=== PATIENT | female | born 1990 | race Caucasian/White ===

== ENCOUNTER → 2020-07-10 14:54 | Outpatient (BNVA) | payer OTHER, SELFPAY | PROVIDERS: PCP Internal Medicine; Visit Provider Obstetrics & Gynecology | DX: Z76.89 Persons encountering health services in other specified circumstances (principal) ==

== ENCOUNTER 2020-07-11 15:47 | Outpatient (REF) | payer OTHER, SELFPAY ==
[2020-07-12 08:56] LABS: CT PCR NOT DETECTED (Not Detect.); NG PCR NOT DETECTED (Not Detect.)
[2020-07-12 09:32] LABS: BV Int Neg Control Negative (Negative); BV Int Pos Control Positive (Positive)
[2020-07-19 00:37] LABS: HPV 16 RNA NOT DETECTED (NOT DETECTED); HPV mRNA E6/E7 Detected (Not Detected)
== END 2020-07-11 15:48 | disposition home or self-care (01) ==
LOC: HO.LNP 15:47
PROVIDERS: Visit Provider Obstetrics & Gynecology
DX: Z12.4 Encounter for screening for malignant neoplasm of cervix (principal); Z11.51 Encounter for screening for human papillomavirus (HPV); Z11.3 Encounter for screening for infections with a predominantly sexual mode of transmission
CPT/HCPCS: 87480; 87491; 87510; 87591; 87624; 87625; 87660; 88141; 88142

== ENCOUNTER 2020-07-11 16:13 | Outpatient (REF) | payer OTHER, SELFPAY | END 2020-07-11 16:14 | disposition home or self-care (01) | LOC: HO.LAB 16:13 | PROVIDERS: Visit Provider Obstetrics & Gynecology | DX: Z13.89 Encounter for screening for other disorder (principal) ==

== ENCOUNTER 2020-07-16 22:11 | Emergency (ER) | payer OTHER, SELFPAY ==
[2020-07-16 22:15] VITALS: BP 149/76; PULSE 98; RESP 18; TEMP 38.1; O2SAT 98; BMI 57.6
--- NOTE | 2020-07-16 22:47 | CT_ITS ---
EXAMINATION: CT CHEST WITHOUT CONTRAST CLINICAL INFORMATION: 29-year-old female patient with cough, fever, and shortness of breath. Per chart: History of thrombocytopenia. COMPARISON: Last chest x-ray on 05/13/2020. Question viral pneumonitis. CTA exams of the chest on 08/29/2014 and 01/15/2015. CTA of the chest on 02/06/2012. TECHNIQUE: Multidetector volumetric CT imaging of the chest was done. Axial MIP volume rendering provided. Sagittal, coronal, and MIP axial reformatted images were obtained. This CT examination was performed using dose optimization techniques as appropriate, variously including the following: *Automated exposure control *Adjustment of mA and/or kV according to patient size (this includes techniques or standardized protocols for targeted exams where dose is matched to indication/reason for exam; i.e. extremities or head) *Use of iterative reconstruction technique DLP: 453 mGy-cm FINDINGS: MGMT CONSULTANT: The scattered airspace opacities in both lungs are difficult to perceive on the latin dance instructor view. LUNGS: All lobes of both lungs show innumerable focal groundglass opacities both centrally and peripherally. This is combined with numerous peripheral and subpleural micronodules in both lungs. There is no cavitation in any of the larger lesions. There is no sign of interlobular septal thickening. Scattered tiny subpleural nodules are also present in the fissures. MEDIASTINUM: Multiple bilateral hilar, right paratracheal, superior mediastinal, and AP window lymph nodes are present. Subcarinal lymph node enlargement is also identified. PLEURA: There is no pleural effusion. No pleural mass or thickening. AXILLA: A number of small lymph nodes are present in the left axilla. Some are nearly entirely replaced by fat all others are more solid. UPPER ABDOMEN: The spleen is enlarged. Also, 2 small accessory spleens are present in the left upper quadrant. OSSEOUS STRUCTURES: Multiple Schmorl's nodes are present in the lower thoracic spine. IMPRESSION: Mediastinal and hilar lymphadenopathy associated with diffuse micronodular and groundglass airspace opacities in both lungs, all lobes. In view of the chronicity of these findings which were present in 2013 and 2014, a diagnosis of sarcoidosis can be entertained. Splenomegaly.
[2020-07-16] MEDS: Albuterol/Iprat 2.5/0.5MG 3 ML AMPUL.NEB INHALE (23:21)
[2020-07-16 23:26] LABS: Basophils Absolute Auto 0.2 X10*3/uL (0.0-0.2); Basophils Percent Auto 1.7 % (0-2); Eosinophils Percent Auto 10.6 % (0-4); Hematocrit 41.2 % (37-47); Hemoglobin 13.3 g/dl (12.0-16.0); Imm Gran Abs Auto 0.02 X10*3/uL (0.00-0.03); Imm Gran Pct Auto 0.2 % (0.0-0.4); Lymphocytes Absolute Auto 1.6 X10*3/uL (1.2-4.9); Lymphocytes Percent Auto 17.5 % (20-40); MANUAL DIFF FLAG NO; Mean Corpuscular HGB Conc 32.3 g/dl (31.0-35.0); Mean Corpuscular Hemoglobin 26.5 pg (27.0-33.0); Mean Corpuscular Volume 82.2 fL (80-98); Mean Platelet Volume 10.1 fL (9.4-12.3); Monocytes Absolute Auto 0.7 X10*3/uL (0.1-1.2); Monocytes Percent Auto 8.2 % (2-11); Neutrophils Absolute Auto 5.6 X10*3/uL (2.0-8.3); Neutrophils Percent Auto 61.8 % (45-73); Platelet Count 292 X10*3/uL (160-400); Red Blood Count 5.01 X10*6/uL (4.20-5.50)
--- NOTE | 2020-07-16 23:29 | ED.ASTHMA ---
HPI - Asthma General Chief Complaint: Asthma Stated Complaint: ASTHMA Time Seen by Provider: 07/16/20 22:47 Source: patient Mode of arrival: ambulatory Limitations: no limitations History of Present Illness HPI Narrative: 29-year-old female presents with 1 week of shortness of breath, feels like asthma exacerbation, intermittent fevers and chills, cough, and fatigue. She does work at [employer] and has had multiple sick contacts. She did not report any palpitations, abdominal pain, abdominal distention, dysuria, hematuria, and edema. MD complaint: asthma attack , shortness of breath and wheezing Onset (ago): week(s) ( One) Severity: moderate Associated symptoms: dry cough and fever Asthma History: childhood onset Treatments Prior to Arrival: inhaled bronchodilator Related Data Current Asthma Therapy: inhaled bronchodilator Home Medications Medication Instructions Recorded Confirmed albuterol sulfate 90 mcg/actuation INHALATION 07/11/20 07/15/20 aerosol inhaler cholecalciferol (vitamin D3) 1,250 PO 07/15/20 07/15/20 mcg (50,000 unit) capsule Previous Rx's Medication Instructions Recorded prednisone 50 mg PO DAILY 5 Days #5 tab 07/17/20 Allergies Allergy/AdvReac Type Severity Reaction Status Date / Time adair Allergy Severe ANAPHYLAXIS Verified 07/16/20 22:14 cinnamon [CINNAMON] Allergy Severe MOUTH Verified 07/16/20 22:14 MEMBRANES PEEL adhesive tape [TAPE,ADHESIVE] Allergy Unknown HIVES Verified 07/16/20 22:14 amoxicillin [From Augmentin] Allergy Unknown rash Verified 07/16/20 22:14 cefaclor [From CECLOR] Allergy Unknown RASH Verified 07/16/20 22:14 clarithromycin [From BIAXIN] Allergy Unknown RASH Verified 07/16/20 22:14 clavulanic acid Allergy Unknown rash Verified 07/16/20 22:14 [From Augmentin] doxycycline [DOXYCYCLINE] Allergy Unknown VOMITING, Verified 07/16/20 22:14 nausea and vomiting morphine Allergy Unknown burning Verified 07/16/20 22:14 Sulfa (Sulfonamide Allergy Unknown rash Verified 07/16/20 22:14 Antibiotics) sulfamethoxazole Allergy Unknown rash Verified 07/16/20 22:14 [From Bactrim] trimethoprim [From Bactrim] Allergy Unknown rash Verified 07/16/20 22:14 vancomycin Allergy Unknown hives, Verified 07/16/20 22:14 redness and hot to touch at IV site metoclopramide [From Reglan] AdvReac Unknown anxiety Verified 07/16/20 22:14 Platelet Infusion Set Allergy Unknown hives Uncoded 07/10/20 15:29 PLATELETS Allergy Unknown HIVES Uncoded 07/10/20 15:29 Review of Systems Review of Systems: Constitutional: No Fever, No Chills ENT/Mouth: No Hoarseness, No sore throat, No Rhinorrhea Eyes: No Redness, No Discharge, No Vision Changes Cardiovascular: No Chest Pain, positive SOB, positive Dyspnea on Exertion, No Edema Respiratory: positive Cough, No Sputum, positive Wheezing, Gastrointestinal: No Nausea, No Vomiting, No Diarrhea, No abdominal Pain Genitourinary: No Dysuria, No Hematuria Musculoskeletal: No joint pain, No Myalgias Skin: No rash Neuro: No Weakness, No Numbness, No Headache Psych: No anxiety, depression Heme/Lymph: No Bruising, No Bleeding Endocrine: No Polyuria, No Polydipsia PMFSH Past Medical History Medical History Anxiety Asthma Depression Dyslipidemia History of ITP Migraine Mild intermittent asthma Variant angina Vitamin D deficiency Surgical History H/O LEEP History of cardiac cath History of carpal tunnel surgery History of ITP Family History Family History Father HTN (hypertension) Mother SLE (systemic lupus erythematosus) Cancer of thyroid Anxiety Depression Brother No problems noted. Social History Social History Alcohol intake: current Alcohol intake frequency: does not drink Smoking Status: Unknown if ever smoked Smoked in Last 30 Days: No Substance Use Type: Marijuana Advance Directives: No Advance Directives Information Provided: No Sexual orientation: Lesbian/[place]/Homosexual Gender identity: female Physical Exam Vital Signs: Vital Signs: Vital Signs Temp Pulse Resp BP Pulse Ox 07/16/20 23:57 99.4 F 114 H 20 173/76 H 98 07/16/20 22:15 100.6 F H 98 18 149/76 H 98 Body Mass Index 57.6 Appearance: Alert. Oriented X3. No acute distress. Head: Normal external exam. Normocephalic. Atraumatic. No [place] signs noted. No raccoon eyes noted Eyes: PERRLA. EOMI. Conjunctiva and sclera normal. Eyelids normal. ENT: EAC normal. TM's Normal. Pharynx normal. Uvula midline. Moist mucous membranes. No trismus noted. No drooling noted. No muffled voice noted. Neck: Normal inspection. Neck supple. No adenopathy. Thyroid Normal. No meningeal signs. No neck mass noted. CVS: Normal heart rate and rhythm. Heart sound normal. No murmurs noted. Pulses normal throughout. Respiratory: mild tachypnea respiration rate 21. poor air circulation, inspiratory and expiratory wheezes throughout all lobes Painless inspiration. Chest nontender. No accessory muscle usage. Abdomen: Soft and nontender. Bowel sounds normal in all 4 quadrants. No distention noted. No organomegaly noted. No visible injury noted. Back: No CVA tenderness. Full range of motion noted. Skin: Skin warm and dry. Normal skin color. Normal skin turgor. No rashes/lesions/lacerations noted. Extremities: No lower extremity edema. Extremities exhibit normal range of motion. Extremities nontender. Neuro: No motor deficit. No sensory deficit. Reflexes normal. Course Course Course Narrative: will rule out pneumonia and COVID-19, treat for acute asthma exacerbation with steroids, updraft, and IV fluids. Will order CT scan of the chest. 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 CBC within normal limits, chemistries normal, patient CT scan of the chest indicates sarcoidosis as she does have numerous ground-glass opacities. Detailed discussion regarding sarcoidosis, and incidental findings of Schmorl's nodes of the spine. Patient does understand that she must follow-up with pulmonology and could also follow-up with Dr. Hutchison for the sarcoidosis finding. She does understand that she must isolate until Covid 19 test returns. Patient verbalized understanding of and agrees to plan of care to discharge home. MDM - Asthma Differential Diagnosis Differential diagnosis: Likely Acute exacerbation, Pneumonia and Pneumothorax Medical Records Attestation: I reviewed the patient's medical records. Lab Data Attestation: I reviewed the patient's lab results. Result diagrams: 07/16/20 22:57 07/16/20 22:57 Labs: Lab Results 07/16/20 07/16/20 Range/Units 22:57 22:57 WBC 9.0 (4.8-10.8) X10*3/uL RBC 5.01 (4.20-5.50) X10*6/uL Hgb 13.3 (12.0-16.0) g/dl Hct 41.2 (37-47) % MCV 82.2 (80-98) fL MCH 26.5 L (27.0-33.0) pg MCHC 32.3 (31.0-35.0) g/dl RDW 13.0 (11.0-16.0) % Plt Count 292 (160-400) X10*3/uL MPV 10.1 (9.4-12.3) fL Immature Gran % (Auto) 0.2 (0.0-0.4) % Neut % (Auto) 61.8 (45-73) % Lymph % (Auto) 17.5 L (20-40) % [place] % (Auto) 8.2 (2-11) % Eos % (Auto) 10.6 H (0-4) % Baso % (Auto) 1.7 (0-2) % Lymph # (Auto) 1.6 (1.2-4.9) X10*3/uL [place] # (Auto) 0.7 (0.1-1.2) X10*3/uL Eos # (Auto) 1.0 H (0.0-0.4) X10*3/uL Baso # (Auto) 0.2 (0.0-0.2) X10*3/uL Abs Immat Gran (auto) 0.02 (0.00-0.03) X10*3/uL Absolute Neuts (auto) 5.6 (2.0-8.3) X10*3/uL Absolute Nucleated RBC 0.000 (0.0-0.012) X10*3/uL Nucleated RBC % (auto) 0.0 (0.0-0.2) /100WBC Sodium 140 (135-145) mmol/L Potassium 4.4 (3.3-5.1) mmol/l Chloride 105 (96-108) mmol/L Carbon Dioxide 30 H (22-29) mmol/L Anion Gap 9 L (12-20) BUN 9 (9-16) mg/dL Creatinine 0.84 (0.5-1.4) mg/dL Estim Creat Clear Calc 143.7 Estimated GFR > 60 Random Glucose 99 (60-115) mg/dL Calcium 8.8 (8.4-10.2) mg/dL Imaging Data CT scan - chest: Attestation: I personally reviewed and interpreted this imaging study as follows: Radiologist's impression: FINDINGS: RESEARCH AND DEVELOPMENT RESEARCHER: The scattered airspace opacities in both lungs are difficult to perceive on the lag screwer view. LUNGS: All lobes of both lungs show innumerable focal groundglass opacities both centrally and peripherally. This is combined with numerous peripheral and subpleural micronodules in both lungs. There is no cavitation in any of the larger lesions. There is no sign of interlobular septal thickening. Scattered tiny subpleural nodules are also present in the fissures. MEDIASTINUM: Multiple bilateral hilar, right paratracheal, superior mediastinal, and AP window lymph nodes are present. Subcarinal lymph node enlargement is also identified. PLEURA: There is no pleural effusion. No pleural mass or thickening. AXILLA: A number of small lymph nodes are present in the left axilla. Some are nearly entirely replaced by fat all others are more solid. UPPER ABDOMEN: The spleen is enlarged. Also, 2 small accessory spleens are present in the left upper quadrant. OSSEOUS STRUCTURES: Multiple Schmorl's nodes are present in the lower thoracic spine. IMPRESSION: Mediastinal and hilar lymphadenopathy associated with diffuse micronodular and groundglass airspace opacities in both lungs, all lobes. In view of the chronicity of these findings which were present in 2013 and 2014, a diagnosis of sarcoidosis can be entertained. Splenomegaly. Discharge Plan Discharge Clinical Impression: Sarcoidosis of lung Asthma with acute exacerbation Qualifiers: Asthma severity: moderate Asthma persistence: persistent Qualified Code(s): J45.41 - Moderate persistent asthma with (acute) exacerbation Patient Disposition: Home, Self-Care Instructions: Asthma (ED), Sarcoidosis (ED) Additional Instructions: you were evaluated for shortness of breath and asthma exacerbation. CT scan of the chest indicates sarcoidosis. We have referred you to pulmonary. Please call and make an appointment. You may also consider following up with Dr. Hutchison as you are an established patient with her. Please take prednisone 50 mg By mouth for the next 5 days. please start this medication in the morning. Thank you for choosing this emergency department for evaluation. Please follow-up with primary care physician as needed. Return to the emergency department for any new, concerning, or worsening symptoms. Prescriptions: New prednisone 50 mg tablet 50 mg PO DAILY 5 Days Qty: 5 RF: 0 No Action albuterol sulfate 90 mcg/actuation HFA aerosol inhaler inhalation RF: 0 cholecalciferol (vitamin D3) 1,250 mcg (50,000 unit) capsule PO RF: 0 Referrals: Andrea Marroquin MD [Physician] - 2 days ( new diagnosis of sarcoidosis) Interventions: ED Discharge Assessment Last Done: 07/17/20 01:09 Discharge Date/Time: 07/17/20 01:14
--- NOTE | 2020-07-16 23:33 | PC.NURSE ---
pt moved to main ed report given to patricia roca.
[2020-07-16] MEDS: Acetaminophen 325 MG TABLET 650 MG PO (23:46)
[2020-07-16] MEDS: methylPREDNISolone Sod Succ/PF 125 MG/2 ML VIAL IVPUSH (23:47)
[2020-07-16] MEDS: Magnesium Sulfate/H2O 2 GM/50 ML PIGGYBACK IV (23:50)
[2020-07-16 23:51] LABS: Anion Gap 9 (12-20); Blood Urea Nitrogen 9 mg/dL (9-16); Calcium 8.8 mg/dL (8.4-10.2); Carbon Dioxide 30 mmol/L (22-29); Chloride 105 mmol/L (96-108); Creatinine Clr Calc Pharmacy 143.7; Estimated Glomerular Filt Rate > 60; Glucose Random 99 mg/dL (60-115); Potassium 4.4 mmol/l (3.3-5.1); Sodium 140 mmol/L (135-145)
[2020-07-16] MEDS: 0.9 % Sodium Chloride 1,000 ML 999 ML IVCONT (23:51)
[2020-07-16 23:57] VITALS: BP 173/76; PULSE 114; RESP 20; TEMP 37.4; O2SAT 98
== END 2020-07-17 01:14 | disposition home or self-care (01) ==
PROVIDERS: Nurse Practitioner Family; Emergency Provider Emergency Medicine Emergency Medical Services; PCP Internal Medicine
DX: D86.0 Sarcoidosis of lung (principal); J45.41 Moderate persistent asthma with (acute) exacerbation; Z20.828 Contact with and (suspected) exposure to other viral communicable diseases; F12.90 Cannabis use, unspecified, uncomplicated; Z79.899 Other long term (current) drug therapy
CPT/HCPCS: 36415; 71250; 80048; 85025; 87635; 96365; 96366; 96375; 99284; J2930; J3475

== ENCOUNTER 2020-07-18 07:46 | Outpatient (REF) | payer OTHER, SELFPAY ==
[2020-07-18 09:01] LABS: COVID-19 Test Negative (Negative)
== END 2020-07-18 07:47 | disposition home or self-care (01) ==
LOC: HO.LAB 07:46
PROVIDERS: Visit Provider Internal Medicine
DX: Z20.828 Contact with and (suspected) exposure to other viral communicable diseases (principal)
CPT/HCPCS: 87635

== ENCOUNTER → 2020-07-19 13:27 | Outpatient (BNV) | payer OTHER, SELFPAY | PROVIDERS: PCP Internal Medicine; Visit Provider Internal Medicine Medical Oncology | DX: D69.3 Immune thrombocytopenic purpura (principal) | CPT/HCPCS: 99213; 99214 ==

== ENCOUNTER 2020-07-20 11:13 | Outpatient (REF) | payer OTHER, SELFPAY ==
[2020-07-20 11:40] LABS: COVID-19 Test Negative (Negative)
== END 2020-07-20 11:14 | disposition home or self-care (01) ==
LOC: HO.LAB 11:13
PROVIDERS: Visit Provider Internal Medicine
DX: Z20.828 Contact with and (suspected) exposure to other viral communicable diseases (principal)
CPT/HCPCS: 87635

== ENCOUNTER 2020-09-05 13:45 | Outpatient (REF) | payer OTHER, SELFPAY | END 2020-09-05 13:46 | disposition home or self-care (01) | LOC: HO.LAB 13:45 | PROVIDERS: Visit Provider Hospitalist | DX: Z20.828 Contact with and (suspected) exposure to other viral communicable diseases (principal) | CPT/HCPCS: U0003 ==

== ENCOUNTER 2021-03-14 16:53 | Outpatient (REF) | payer OTHER, SELFPAY | END 2021-03-14 16:54 | disposition home or self-care (01) | LOC: HO.LNP 16:53 | PROVIDERS: Visit Provider Hospitalist | DX: Z20.822 Contact with and (suspected) exposure to COVID-19 (principal) | CPT/HCPCS: U0003; U0005 ==

== ENCOUNTER 2021-05-30 11:22 | Outpatient (REF) | payer OTHER, SELFPAY | END 2021-05-30 11:23 | disposition home or self-care (01) | LOC: HO.LNP 11:22 | PROVIDERS: Visit Provider Hospitalist | DX: Z20.822 Contact with and (suspected) exposure to COVID-19 (principal); B34.9 Viral infection, unspecified | CPT/HCPCS: U0003; U0005 ==

== ENCOUNTER 2021-08-02 06:37 | Emergency (ER) | payer MEDICAID, SELFPAY ==
[2021-08-02 07:08] VITALS: BMI 51.1
[2021-08-02 07:14] VITALS: BP 147/76; PULSE 75; RESP 18; TEMP 37; O2SAT 98
[2021-08-02 07:20] VITALS: O2SAT 98
[2021-08-02 07:35] LABS: COVID-19 Test Negative (Negative); IDNOW Serial# 9DD0AD1C
--- NOTE | 2021-08-02 08:27 | ED.URI ---
HPI - URI/Sore Throat General Chief Complaint: Upper Respiratory Symptoms Stated Complaint: cold like symptoms Time Seen by Provider: 08/02/21 07:06 History of Present Illness HPI Narrative: Patient 30 years old presents today with having coughing upper respiratory symptoms. 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 Cough with some mucus. No fever. Patient has a history of ITP. No nausea no vomiting. Patient not vaccinated for COVID. Related Data Previous Rx's Medication Instructions Recorded albuterol sulfate 2.5 mg (3 mL) INHALATION QID PRN 03/14/21 #90 ml albuterol sulfate 90 mcg/actuation 1 puff INHALATION Q6H PRN #8.5 g 05/12/21 aerosol inhaler fluticasone propionate 110 1 puff INHALATION Q12H #12 g 05/12/21 mcg/actuation HFA aerosol inhaler levocetirizine 5 mg tablet 5 mg PO QPM PRN #30 tab 05/12/21 triamcinolone acetonide 0.1 % 1 appl TOPICAL DAILY 10 Days #30 g 05/12/21 topical cream ondansetron HCl 8 mg tablet 8 mg PO Q8H PRN #20 tab 05/30/21 azithromycin 250 mg tablet See Rx Instructions .ROUTE 08/02/21 .COMPLEX #6 tab Allergies Allergy/AdvReac Type Severity Reaction Status Date / Time adair Allergy Severe ANAPHYLAXIS Verified 05/30/21 09:27 cinnamon [CINNAMON] Allergy Severe MOUTH Verified 05/30/21 09:27 MEMBRANES PEEL homatropine Allergy Severe Hives Verified 05/30/21 09:27 [From Hycodan (with homatropin)] hydrocodone Allergy Severe Hives Verified 05/30/21 09:27 [From Hycodan (with homatropin)] adhesive tape [TAPE,ADHESIVE] Allergy Unknown HIVES Verified 05/30/21 09:27 amoxicillin [From Augmentin] Allergy Unknown rash Verified 05/30/21 09:27 cefaclor [From CECLOR] Allergy Unknown RASH Verified 05/30/21 09:27 clarithromycin [From BIAXIN] Allergy Unknown RASH Verified 05/30/21 09:27 clavulanic acid Allergy Unknown rash Verified 05/30/21 09:27 [From Augmentin] doxycycline [DOXYCYCLINE] Allergy Unknown VOMITING, Verified 05/30/21 09:27 nausea and vomiting morphine Allergy Unknown burning Verified 05/30/21 09:27 Sulfa (Sulfonamide Allergy Unknown rash Verified 05/30/21 09:27 Antibiotics) sulfamethoxazole Allergy Unknown rash Verified 05/30/21 09:27 [From Bactrim] trimethoprim [From Bactrim] Allergy Unknown rash Verified 05/30/21 09:27 vancomycin Allergy Unknown hives, Verified 05/30/21 09:27 redness and hot to touch at IV site metoclopramide [From Reglan] AdvReac Unknown anxiety Verified 05/30/21 09:27 Platelet Infusion Set Allergy Unknown hives Uncoded 09/05/20 13:42 PLATELETS Allergy Unknown HIVES Uncoded 09/05/20 13:42 Review of Systems Review of Systems: Positive coughing upper respiratory symptoms positive generalized malaise Yes all other systems are reviewed and are negative [facility] Past Medical History Attestation statement: The following information was validated with the patient. Medical History Anxiety Asthma Depression Dermatitis Dyslipidemia History of ITP Migraine Mild intermittent asthma Rhinitis, allergic Variant angina Vitamin D deficiency Surgical History H/O LEEP History of cardiac cath History of carpal tunnel surgery History of ITP Family History Family History Father HTN (hypertension) Mother SLE (systemic lupus erythematosus) Cancer of thyroid Anxiety Depression Brother No problems noted. Social History Social History Housing: Apartment Alcohol intake: never Patient Tobacco Use Status: Never used Tobacco e-Cigarette/Vaping Use: Currently Using Use of substances other than those prescribed or required for medical reasons: No Substance Use Type: Marijuana Advance Directives: No service: No Current occupational status: employed Current occupation: [employer] Sexual orientation: Lesbian/[place]/Homosexual Gender identity: Female Physical Exam Vital Signs: Vital Signs: Last Vital Signs Temp 98.6 F 08/02/21 07:14 Pulse 75 08/02/21 07:14 Resp 18 08/02/21 07:14 BP 147/76 H 08/02/21 07:14 Pulse Ox 98 08/02/21 07:20 Body Mass Index 51.1 MDM - URI/Sore Throat MDM Narrative Medical decision making narrative: Patient's COVID test was negative. Well-appearing no distress. Will discharge patient home. O2 sat is normal at 98%. Will discharge patient home Differential Diagnosis Differential diagnosis: Likely upper respiratory infection Medical Records Attestation: I reviewed the patient's medical records. Lab Data Attestation: I reviewed the patient's lab results. Labs: Lab Results 08/02/21 Range/Units 07:16 COVID-19 (ROSS) Negative (Negative) COVID-19 Clin Com See Note Discharge Plan Discharge Clinical Impression: Upper respiratory infection Patient Disposition: Home, Self-Care Instructions: Upper Respiratory Infection (ED) Prescriptions: New azithromycin 250 mg tablet See Rx Instructions .ROUTE .COMPLEX Qty: 6 RF: 0 No Action albuterol sulfate 2.5 mg /3 mL (0.083 %) solution for nebulization 2.5 mg inhalation QID PRN (Reason: shortness of breath or wheezing) Qty: 90 RF: 2 triamcinolone acetonide 0.1 % cream 1 appl topical DAILY 10 Days Qty: 30 RF: 2 fluticasone propionate 110 mcg/actuation HFA aerosol inhaler 1 puff inhalation Q12H Qty: 12 RF: 0 albuterol sulfate 90 mcg/actuation HFA aerosol inhaler 1 puff inhalation Q6H PRN (Reason: Shortness Of Breath) Qty: 8.5 RF: 0 levocetirizine 5 mg tablet 5 mg PO QPM PRN (Reason: allergy symptoms) Qty: 30 RF: 2 ondansetron HCl 8 mg tablet 8 mg PO Q8H PRN (Reason: nausea and vomiting) Qty: 20 RF: 0 Referrals: Amaya Santoro MD [Primary Care Provider] - 2 days Stand Alone Forms: Work/School Release
--- NOTE | 2021-08-02 08:44 | PC.NURSE ---
Discharged at this time. The pt verbalized an understanding of all DC orders and they ambulated out of the ED independently nd with steady gait.
== END 2021-08-02 08:49 | disposition home or self-care (01) ==
PROVIDERS: Emergency Provider Emergency Medicine Emergency Medical Services; PCP Internal Medicine
DX: J06.9 Acute upper respiratory infection, unspecified (principal); Z20.822 Contact with and (suspected) exposure to COVID-19; Z71.6 Tobacco abuse counseling; F17.200 Nicotine dependence, unspecified, uncomplicated; F12.90 Cannabis use, unspecified, uncomplicated; Z79.899 Other long term (current) drug therapy
CPT/HCPCS: 36415; 87635; 99283; 99285

== ENCOUNTER 2021-09-17 02:25 | Emergency (ER) | payer OTHER, SELFPAY ==
--- NOTE | 2021-09-17 02:38 | ED_ITS ---
HPI - Dental/Oral General Chief complaint: Extremity Problem Stated complaint: L cheek swollen, cracked/infected tooth Time Seen by Provider: 09/17/21 02:37 Source: patient Mode of arrival: ambulatory Limitations: no limitations History of Present Illness HPI Narrative: Patient with caries lower 2nd molar for last few days today she came as she noticed when she woke up from sleep with swelling of the left face all the way to the cheek and periorbital area no fever no chills no pain in upper teeth Related Data Previous Rx's Medication Instructions Recorded albuterol sulfate 2.5 mg (3 mL) INHALATION QID PRN 03/14/21 #90 ml albuterol sulfate 90 mcg/actuation 1 puff INHALATION Q6H PRN #8.5 g 05/12/21 aerosol inhaler fluticasone propionate 110 1 puff INHALATION Q12H #12 g 05/12/21 mcg/actuation HFA aerosol inhaler levocetirizine 5 mg tablet 5 mg PO QPM PRN #30 tab 05/12/21 triamcinolone acetonide 0.1 % 1 appl TOPICAL DAILY 10 Days #30 g 05/12/21 topical cream ondansetron HCl 8 mg tablet 8 mg PO Q8H PRN #20 tab 05/30/21 azithromycin 250 mg tablet See Rx Instructions .ROUTE 08/02/21 .COMPLEX #6 tab cyclobenzaprine 10 mg tablet 10 mg PO BEDTIME PRN #14 tab 09/15/21 naproxen 500 mg tablet 500 mg PO BID #20 tab 09/15/21 clindamycin HCl 300 mg capsule 300 mg PO Q6H 10 Days #40 cap 09/17/21 Allergies Allergy/AdvReac Type Severity Reaction Status Date / Time adair Allergy Severe ANAPHYLAXIS Verified 05/30/21 09:27 cinnamon [CINNAMON] Allergy Severe MOUTH Verified 05/30/21 09:27 MEMBRANES PEEL homatropine Allergy Severe Hives Verified 05/30/21 09:27 [From Hycodan (with homatropin)] hydrocodone Allergy Severe Hives Verified 05/30/21 09:27 [From Hycodan (with homatropin)] adhesive tape [TAPE,ADHESIVE] Allergy Unknown HIVES Verified 05/30/21 09:27 amoxicillin [From Augmentin] Allergy Unknown rash Verified 05/30/21 09:27 cefaclor [From CECLOR] Allergy Unknown RASH Verified 05/30/21 09:27 clarithromycin [From BIAXIN] Allergy Unknown RASH Verified 05/30/21 09:27 clavulanic acid Allergy Unknown rash Verified 05/30/21 09:27 [From Augmentin] doxycycline [DOXYCYCLINE] Allergy Unknown VOMITING, Verified 05/30/21 09:27 nausea and vomiting morphine Allergy Unknown burning Verified 05/30/21 09:27 Sulfa (Sulfonamide Allergy Unknown rash Verified 05/30/21 09:27 Antibiotics) sulfamethoxazole Allergy Unknown rash Verified 05/30/21 09:27 [From Bactrim] trimethoprim [From Bactrim] Allergy Unknown rash Verified 05/30/21 09:27 vancomycin Allergy Unknown hives, Verified 05/30/21 09:27 redness and hot to touch at IV site metoclopramide [From Reglan] AdvReac Unknown anxiety Verified 05/30/21 09:27 Platelet Infusion Set Allergy Unknown hives Uncoded 09/05/20 13:42 PLATELETS Allergy Unknown HIVES Uncoded 09/05/20 13:42 Review of Systems Review of Systems: Yes all other systems are reviewed and are negative PMFSH Past Medical History Medical History Anxiety Asthma Depression Dermatitis Dyslipidemia History of ITP Migraine Mild intermittent asthma Rhinitis, allergic Variant angina Vitamin D deficiency Surgical History H/O LEEP History of cardiac cath History of carpal tunnel surgery History of ITP Family History Family History Father HTN (hypertension) Mother SLE (systemic lupus erythematosus) Cancer of thyroid Anxiety Depression Brother No problems noted. 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 Facial cellulitis including periorbital area Teeth image: 1. Tender 1st molar no surrounding abscess or gum swelling Nose tenderness or swelling of maxillary Resp: Effort & Inspection: normal respiratory effort Auscultation: clear to auscultation bilaterally Cardio: Rate: regular rate Rhythm: regular rhythm MDM - Dental/Oral MDM Narrative Medical decision making narrative: Patient facial cellulitis secondary to dental caries although there is nose tenderness or swelling of the upper treat will start patient on clindamycin as outpatient management Discharge Plan Discharge Clinical Impression: Cellulitis of face, Dental caries Patient Disposition: Home, Self-Care Instructions: Cellulitis (ED), Toothache (ED) Additional Instructions: Take antibiotic as advised Follow-up with dentist The naproxen for pain Prescriptions: New clindamycin HCl 300 mg capsule 300 mg PO Q6H 10 Days Qty: 40 RF: 0 No Action azithromycin 250 mg tablet See Rx Instructions .ROUTE .COMPLEX Qty: 6 RF: 0 albuterol sulfate 2.5 mg /3 mL (0.083 %) solution for nebulization 2.5 mg inhalation QID PRN (Reason: shortness of breath or wheezing) Qty: 90 RF: 2 triamcinolone acetonide 0.1 % cream 1 appl topical DAILY 10 Days Qty: 30 RF: 2 fluticasone propionate 110 mcg/actuation HFA aerosol inhaler 1 puff inhalation Q12H Qty: 12 RF: 0 albuterol sulfate 90 mcg/actuation HFA aerosol inhaler 1 puff inhalation Q6H PRN (Reason: Shortness Of Breath) Qty: 8.5 RF: 0 levocetirizine 5 mg tablet 5 mg PO QPM PRN (Reason: allergy symptoms) Qty: 30 RF: 2 ondansetron HCl 8 mg tablet 8 mg PO Q8H PRN (Reason: nausea and vomiting) Qty: 20 RF: 0 naproxen 500 mg tablet 500 mg PO BID Qty: 20 RF: 0 cyclobenzaprine 10 mg tablet 10 mg PO BEDTIME PRN (Reason: muscle spasm) Qty: 14 RF: 0 Interventions: ED Discharge Assessment Last Done: 09/17/21 03:24 Discharge Date/Time: 09/17/21 03:25
[2021-09-17 03:02] VITALS: BP 109/59; PULSE 79; RESP 18; TEMP 36.9; O2SAT 99; BMI 47.5
[2021-09-17] MEDS: Clindamycin HCL 300 MG CAPSULE 600 MG PO (03:19)
== END 2021-09-17 03:25 | disposition home or self-care (01) ==
PROVIDERS: Emergency Provider Internal Medicine; PCP Internal Medicine
DX: K12.2 Cellulitis and abscess of mouth (principal); K02.9 Dental caries, unspecified; K05.219 Aggressive periodontitis, localized, unspecified severity; R22.1 Localized swelling, mass and lump, neck; F12.90 Cannabis use, unspecified, uncomplicated; Z79.899 Other long term (current) drug therapy; Z72.0 Tobacco use
CPT/HCPCS: 36415; 70487; 80048; 80076; 83605; 83735; 85025; 87040; 87205; 87635; 96365; 96375; 99283; 99284; J1885; Q9967

== ENCOUNTER 2021-09-17 09:45 | Emergency (ER) | payer OTHER, SELFPAY ==
--- NOTE | ~2021-09-17 | CT_ITS ---
EXAMINATION: CT FACIAL BONES WITH CONTRAST CLINICAL INFORMATION: Left-sided mandibular and orbital swelling COMPARISON: None TECHNIQUE: Axial images through the facial bones following 85 mL Omnipaque 350 intravenous contrast. Sagittal and coronal reconstructions on the technologist workstation were performed. This CT examination was performed using dose optimization techniques as appropriate, variously including the following: *Automated exposure control *Adjustment of mA and/or kV according to patient size (this includes techniques or standardized protocols for targeted exams where dose is matched to indication/reason for exam; i.e. extremities or head) *Use of iterative reconstruction technique DLP: 431 mGy-cm FINDINGS: There is a soft tissue mass seen inferior to the left mandible. This measures 1.3 cm. There is stranding of the surrounding fat and adjacent skin thickening. This probably represents lymphadenitis. There are numerous additional smaller cervical lymph nodes; largest are upper normal in size. There is poor dentition. No dental abscess is seen. The salivary glands are normal. The orbits are normal. Visualized mastoid air cells, paranasal sinuses and middle ears are clear. Visualized intracranial structures are normal. Vascular structures are normal. Bony structures are normal. CT/CT facial bones w con IMPRESSION: Bilateral cervical lymphadenopathy. Soft tissue mass inferior to the left mandible, surrounding fat stranding and skin thickening. This probably represents lymphadenitis. Follow-up is recommended to exclude a neoplastic process.
[2021-09-17 10:08] VITALS: BP 137/71; PULSE 87; RESP 18; TEMP 36.1; O2SAT 99; BMI 47.5
--- NOTE | 2021-09-17 12:34 | ED_ITS ---
HPI - General Adult General Chief complaint: General Medical Stated complaint: swollen face Time Seen by Provider: 09/17/21 12:17 Source: patient Mode of arrival: ambulatory Limitations: no limitations History of Present Illness HPI narrative: 31 yo transgender female to male with hsitory of ITP, sinusitis, HLD, dental caries who presents to the ER with left sided facial swelling that started when he woke up at 01:30. Came to the ER last night at 02:00, was given 900 mg of clindamycin for concern of dental infection. She has a broken molar on the left side that has been painful for a very long time. Patient reports after discharge the swelling has gotten worse. He feels like it is starting to cross midline and affect the right eye as well. The swelling of the left eye has worsened. No fever or chills. No sensation of throat swelling or closing. No tongue swelling. Denies sensation of neck swelling MD complaint: Facial swelling, worsening Onset (ago): hour(s) (12) Location: face and mouth Severity: moderate Quality: aching Pain Consistency: constant Relieving factors: none Exacerbating factors: immobilization and movement Associated symptoms: denies other symptoms Treatments prior to arrival: none Related Data Previous Rx's Medication Instructions Recorded albuterol sulfate 2.5 mg (3 mL) INHALATION QID PRN 03/14/21 #90 ml albuterol sulfate 90 mcg/actuation 1 puff INHALATION Q6H PRN #8.5 g 05/12/21 aerosol inhaler fluticasone propionate 110 1 puff INHALATION Q12H #12 g 05/12/21 mcg/actuation HFA aerosol inhaler levocetirizine 5 mg tablet 5 mg PO QPM PRN #30 tab 05/12/21 triamcinolone acetonide 0.1 % 1 appl TOPICAL DAILY 10 Days #30 g 05/12/21 topical cream ondansetron HCl 8 mg tablet 8 mg PO Q8H PRN #20 tab 05/30/21 azithromycin 250 mg tablet See Rx Instructions .ROUTE 08/02/21 .COMPLEX #6 tab cyclobenzaprine 10 mg tablet 10 mg PO BEDTIME PRN #14 tab 09/15/21 naproxen 500 mg tablet 500 mg PO BID #20 tab 09/15/21 clindamycin HCl 300 mg capsule 300 mg PO Q6H 10 Days #40 cap 09/17/21 oxycodone 5 mg tablet 5 mg PO Q8H PRN #10 tab 09/17/21 prednisone 20 mg tablet 40 mg PO DAILY #10 tab 09/17/21 Allergies Allergy/AdvReac Type Severity Reaction Status Date / Time adair Allergy Severe ANAPHYLAXIS Verified 05/30/21 09:27 cinnamon [CINNAMON] Allergy Severe MOUTH Verified 05/30/21 09:27 MEMBRANES PEEL homatropine Allergy Severe Hives Verified 05/30/21 09:27 [From Hycodan (with homatropin)] hydrocodone Allergy Severe Hives Verified 05/30/21 09:27 [From Hycodan (with homatropin)] adhesive tape [TAPE,ADHESIVE] Allergy Unknown HIVES Verified 05/30/21 09:27 amoxicillin [From Augmentin] Allergy Unknown rash Verified 05/30/21 09:27 cefaclor [From CECLOR] Allergy Unknown RASH Verified 05/30/21 09:27 clarithromycin [From BIAXIN] Allergy Unknown RASH Verified 05/30/21 09:27 clavulanic acid Allergy Unknown rash Verified 05/30/21 09:27 [From Augmentin] doxycycline [DOXYCYCLINE] Allergy Unknown VOMITING, Verified 05/30/21 09:27 nausea and vomiting morphine Allergy Unknown burning Verified 05/30/21 09:27 Sulfa (Sulfonamide Allergy Unknown rash Verified 05/30/21 09:27 Antibiotics) sulfamethoxazole Allergy Unknown rash Verified 05/30/21 09:27 [From Bactrim] trimethoprim [From Bactrim] Allergy Unknown rash Verified 05/30/21 09:27 vancomycin Allergy Unknown hives, Verified 05/30/21 09:27 redness and hot to touch at IV site metoclopramide [From Reglan] AdvReac Unknown anxiety Verified 05/30/21 09:27 Platelet Infusion Set Allergy Unknown hives Uncoded 09/05/20 13:42 PLATELETS Allergy Unknown HIVES Uncoded 09/05/20 13:42 Review of Systems Review of Systems: Constitutional: No Fever, No Chills ENT/Mouth: No sore throat, No Rhinorrhea, No Swallowing Difficulty, +Facial swelling Eyes: + Eye Pain, + Swelling, + Redness Cardiovascular: No Chest Pain, No SOB, No Orthopnea, No Edema Respiratory: No Cough, No Sputum, No Wheezing, No dyspnea Gastrointestinal: No Nausea, No Vomiting, No abdominal Pain Musculoskeletal: No joint pain, No Myalgias Skin: No Skin Lesions, No rash Neuro: No Weakness, No Numbness, No Dizziness, + Headache Psych: + Anxiety/Panic, No Depression Heme/Lymph: No Lymphadenopathy PMFSH Past Medical History Medical History Anxiety Asthma Depression Dermatitis Dyslipidemia History of ITP Migraine Mild intermittent asthma Rhinitis, allergic Variant angina Vitamin D deficiency Surgical History H/O LEEP History of cardiac cath History of carpal tunnel surgery History of ITP Family History Family History Father HTN (hypertension) Mother SLE (systemic lupus erythematosus) Cancer of thyroid Anxiety Depression Brother No problems noted. 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 Oriented X3. No acute distress. Eyes: left eye with upper and lower lid swelling, EOMI, PERRLA. ENT: normal inspection of the pharynx with moist mucous membranes, uvula midline, no tonsillar swelling or exudate. Posterior left lower molar cracked to the base with yellowing and tenderness. No fluctuance associated with this. It is tender. Normal voice, handling secretions normally. Neck: Normal inspection. Neck supple. Lymphadenopathy noted bilaterally. CVS: Normal heart rate and rhythm. Pulses normal. Respiratory: No respiratory distress. Breath sounds normal. Abdomen: Soft and nontender. +BS x4 Skin: Skin warm and dry. Normal skin color. Normal skin turgor. No rashes. Extremities: No lower extremity edema. Neuro: Oriented X 3. No motor deficit. No sensory deficit. Course Course Course Narrative: 31-year-old male presenting to the ER with left-sided facial swelling that has been present for a little over 12 hours and worsening. No difficulty swallowing or breathing. This seems to be related to a dental infection with a cracked molar on the left lower side. There is tenderness on exam but no fluctuance to suggest an abscess. Given the swelling at the left periorbital area will get CT scan for further evaluation. Reevaluation(s) Reevaluation #1: No leukocytosis. Lactic acid is normal. CT scan is showing a left submandibular 1.3 cm mass that is most likely lymphadenitis. Orbits are described as normal. No abscesses identified. Case was discussed with Dr. Maravilla - patient is stable for discharge home with oral antibiotics, pain management and follow-up with dental as soon as possible. Patient counseled on management and warning signs to return to the ER. Stable for DC home with previously prescribed clindamycin. Will add steroids for swelling and oxycodone for pain. Patient agrees with plan and stable for DC home. Medical Decision Making Lab Data Result diagrams: 09/17/21 12:49 09/17/21 12:49 Labs: Lab Results 09/17/21 09/17/21 12 Range/Units 12:49 12:49 12:49 WBC 5.5 (4.8-10.8) X10*3/uL RBC 5.12 (4.20-5.50) X10*6/uL Hgb 14.3 (12.0-16.0) g/dl Hct 43.4 (37.0-47.0) % MCV 84.8 (80.0-98.0) fL MCH 27.9 (27.0-33.0) pg MCHC 32.9 (31.0-35.0) g/dl RDW 13.2 (11.0-16.0) % Plt Count 227 (160-400) X10*3/uL MPV 11.0 (9.4-12.3) fL Immature Gran % (Auto) 0.2 (0.0-0.4) % Neut % (Auto) 53.8 (45-73) % Lymph % (Auto) 30.4 (20-40) % [place] % (Auto) 7.5 (2-11) % Eos % (Auto) 7.0 H (0-4) % Baso % (Auto) 1.1 (0-2) % Lymph # (Auto) 1.7 (1.2-4.9) X10*3/uL [place] # (Auto) 0.4 (0.1-1.2) X10*3/uL Eos # (Auto) 0.4 (0.0-0.4) X10*3/uL Baso # (Auto) 0.1 (0.0-0.2) X10*3/uL Abs Immat Gran (auto) 0.01 (0.00-0.03) X10*3/uL Absolute Neuts (auto) 2.9 (2.0-8.3) x10*3/uL Absolute Nucleated RBC 0.000 (0.0-0.012) X10*3/uL Nucleated RBC % (auto) 0.0 (0.0-0.2) /100WBC Sodium 140 (135-145) mmol/L Potassium 4.2 (3.3-5.1) mmol/L Chloride 108 (96-108) mmol/L Carbon Dioxide 26 (22-29) mmol/L Anion Gap 10 L (12-20) BUN 8 L (9-16) mg/dL Creatinine 0.87 (0.5-1.4) mg/dL Estim Creat Clear Calc 120.6 Estimated GFR > 60 Random Glucose 131 H (60-115) mg/dL Lactic Acid 1.1 (0.5-2.0) mmol/L Calcium 9.3 (8.4-10.2) mg/dL Magnesium 2.2 (1.6-2.6) mg/dL Total Bilirubin 0.5 (0.0-1.0) mg/dL Direct Bilirubin 0.2 (0.0-0.5) mg/dL AST 21 (5-31) U/L ALT 38 H (0-31) U/L Alkaline Phosphatase 76 (39-117) U/L Total Protein 5.8 L (6.5-8.0) g/dL Albumin 4.2 (3.5-5.0) g/dL COVID-19 (ROSS) (Negative) COVID-19 Clin Com 09/17/21 Range/Units 12:49 WBC (4.8-10.8) X10*3/uL RBC (4.20-5.50) X10*6/uL Hgb (12.0-16.0) g/dl Hct (37.0-47.0) % MCV (80.0-98.0) fL MCH (27.0-33.0) pg MCHC (31.0-35.0) g/dl RDW (11.0-16.0) % Plt Count (160-400) X10*3/uL MPV (9.4-12.3) fL Immature Gran % (Auto) (0.0-0.4) % Neut % (Auto) (45-73) % Lymph % (Auto) (20-40) % [place] % (Auto) (2-11) % Eos % (Auto) (0-4) % Baso % (Auto) (0-2) % Lymph # (Auto) (1.2-4.9) X10*3/uL [place] # (Auto) (0.1-1.2) X10*3/uL Eos # (Auto) (0.0-0.4) X10*3/uL Baso # (Auto) (0.0-0.2) X10*3/uL Abs Immat Gran (auto) (0.00-0.03) X10*3/uL Absolute Neuts (auto) (2.0-8.3) x10*3/uL Absolute Nucleated RBC (0.0-0.012) X10*3/uL Nucleated RBC % (auto) (0.0-0.2) /100WBC Sodium (135-145) mmol/L Potassium (3.3-5.1) mmol/L Chloride (96-108) mmol/L Carbon Dioxide (22-29) mmol/L Anion Gap (12-20) BUN (9-16) mg/dL Creatinine (0.5-1.4) mg/dL Estim Creat Clear Calc Estimated GFR Random Glucose (60-115) mg/dL Lactic Acid (0.5-2.0) mmol/L Calcium (8.4-10.2) mg/dL Magnesium (1.6-2.6) mg/dL Total Bilirubin (0.0-1.0) mg/dL Direct Bilirubin (0.0-0.5) mg/dL AST (5-31) U/L ALT (0-31) U/L Alkaline Phosphatase (39-117) U/L Total Protein (6.5-8.0) g/dL Albumin (3.5-5.0) g/dL COVID-19 (ROSS) Negative (Negative) COVID-19 Clin Com See Note Discharge Plan Discharge Clinical Impression: Cellulitis of face, Dental infection Patient Disposition: Home, Self-Care Instructions: Dental Abscess (ED), Cellulitis (ED) Additional Instructions: Take the previously prescribed antibiotic as directed. Take the prednisone for the next 5 days to help decrease swelling. Take the prescribed hydrocodone as needed for severe pain - do not drive after taking this medication. Follow up with your doctor and a dentist MANI. Prescriptions: New prednisone 20 mg tablet 40 mg PO DAILY Qty: 10 RF: 0 oxycodone 5 mg tablet 5 mg PO Q8H PRN (Reason: pain) Qty: 10 RF: 0 No Action azithromycin 250 mg tablet See Rx Instructions .ROUTE .COMPLEX Qty: 6 RF: 0 clindamycin HCl 300 mg capsule 300 mg PO Q6H 10 Days Qty: 40 RF: 0 albuterol sulfate 2.5 mg /3 mL (0.083 %) solution for nebulization 2.5 mg inhalation QID PRN (Reason: shortness of breath or wheezing) Qty: 90 RF: 2 triamcinolone acetonide 0.1 % cream 1 appl topical DAILY 10 Days Qty: 30 RF: 2 fluticasone propionate 110 mcg/actuation HFA aerosol inhaler 1 puff inhalation Q12H Qty: 12 RF: 0 albuterol sulfate 90 mcg/actuation HFA aerosol inhaler 1 puff inhalation Q6H PRN (Reason: Shortness Of Breath) Qty: 8.5 RF: 0 levocetirizine 5 mg tablet 5 mg PO QPM PRN (Reason: allergy symptoms) Qty: 30 RF: 2 ondansetron HCl 8 mg tablet 8 mg PO Q8H PRN (Reason: nausea and vomiting) Qty: 20 RF: 0 naproxen 500 mg tablet 500 mg PO BID Qty: 20 RF: 0 cyclobenzaprine 10 mg tablet 10 mg PO BEDTIME PRN (Reason: muscle spasm) Qty: 14 RF: 0
[2021-09-17 12:57] LABS: MANUAL DIFF FLAG NO
[2021-09-17 12:58] LABS: Basophils Absolute Auto 0.1 X10*3/uL (0.0-0.2); Basophils Percent Auto 1.1 % (0-2); Eosinophils Absolute Auto 0.4 X10*3/uL (0.0-0.4); Hematocrit 43.4 % (37.0-47.0); Hemoglobin 14.3 g/dl (12.0-16.0); Imm Gran Abs Auto 0.01 X10*3/uL (0.00-0.03); Imm Gran Pct Auto 0.2 % (0.0-0.4); Lymphocytes Absolute Auto 1.7 X10*3/uL (1.2-4.9); Lymphocytes Percent Auto 30.4 % (20-40); Mean Corpuscular HGB Conc 32.9 g/dl (31.0-35.0); Mean Corpuscular Hemoglobin 27.9 pg (27.0-33.0); Mean Corpuscular Volume 84.8 fL (80.0-98.0); Monocytes Absolute Auto 0.4 X10*3/uL (0.1-1.2); Monocytes Percent Auto 7.5 % (2-11); Neutrophils Absolute Auto 2.9 x10*3/uL (2.0-8.3); Neutrophils Percent Auto 53.8 % (45-73); Platelet Count 227 X10*3/uL (160-400); Red Blood Count 5.12 X10*6/uL (4.20-5.50); Red Cell Distribution Width 13.2 % (11.0-16.0); White Blood Count 5.5 X10*3/uL (4.8-10.8)
[2021-09-17 13:09] LABS: Lactic Acid 1.1 mmol/L (0.5-2.0)
[2021-09-17 13:13] LABS: Alanine Aminotransferase 38 U/L (0-31); Albumin Level 4.2 g/dL (3.5-5.0); Alkaline Phosphatase 76 U/L (39-117); Anion Gap 10 (12-20); Aspartate Amino Transferase 21 U/L (5-31); Bilirubin Direct 0.2 mg/dL (0.0-0.5); Bilirubin Total 0.5 mg/dL (0.0-1.0); Blood Urea Nitrogen 8 mg/dL (9-16); COVID-19 Test Negative (Negative); Calcium 9.3 mg/dL (8.4-10.2); Carbon Dioxide 26 mmol/L (22-29); Chloride 108 mmol/L (96-108); Creatinine Clr Calc Pharmacy 120.6; Estimated Glomerular Filt Rate > 60; Glucose Random 131 mg/dL (60-115); Magnesium 2.2 mg/dL (1.6-2.6); Potassium 4.2 mmol/L (3.3-5.1); Sodium 140 mmol/L (135-145); Total Protein 5.8 g/dL (6.5-8.0)
[2021-09-17] MEDS: iohexoL 350 MG/ML 100 ML INFUS..BTL IV (13:37)
[2021-09-17] MEDS: Clindamycin Phosphate/D5W 900 MG/50 ML PIGGYBACK 50 MG IV (14:25)
[2021-09-17] MEDS: Ketorolac Tromethamine 30 MG/ML VIAL IVPUSH (14:25)
== END 2021-09-17 15:03 | disposition home or self-care (01) ==
PROVIDERS: Physician Assistant; Emergency Provider Emergency Medicine Emergency Medical Services; PCP Internal Medicine
DX: L03.211 Cellulitis of face (principal); K04.7 Periapical abscess without sinus; Z20.822 Contact with and (suspected) exposure to COVID-19; Z87.891 Personal history of nicotine dependence; F12.90 Cannabis use, unspecified, uncomplicated; Z79.899 Other long term (current) drug therapy
CPT/HCPCS: 36415; 70487; 80048; 80076; 83605; 83735; 85025; 87040; 87205; 87635; 96365; 96375; 99283; 99284; J1885; Q9967

== ENCOUNTER 2021-09-24 08:30 | Emergency (ER) | payer OTHER, SELFPAY ==
[2021-09-24 08:52] VITALS: BP 134/91; PULSE 95; RESP 18; TEMP 36.4; O2SAT 95; BMI 47.5
--- NOTE | 2021-09-24 09:26 | ED.GENADULT ---
HPI - General Adult General Chief complaint: Recheck/Abnormal Lab/Rx Stated complaint: repeat labs and swab Time Seen by Provider: 09/24/21 09:26 History of Present Illness HPI narrative: Patient complains of feeling fatigued and body aches She is also concerned as she was called back for questionable blood culture that was done after she was here for a facial cellulitis The cellulitis is much better she has had no fever or no chills Related Data Previous Rx's Medication Instructions Recorded albuterol sulfate 2.5 mg (3 mL) INHALATION QID PRN 03/14/21 #90 ml albuterol sulfate 90 mcg/actuation 1 puff INHALATION Q6H PRN #8.5 g 05/12/21 aerosol inhaler fluticasone propionate 110 1 puff INHALATION Q12H #12 g 05/12/21 mcg/actuation HFA aerosol inhaler levocetirizine 5 mg tablet 5 mg PO QPM PRN #30 tab 05/12/21 triamcinolone acetonide 0.1 % 1 appl TOPICAL DAILY 10 Days #30 g 05/12/21 topical cream ondansetron HCl 8 mg tablet 8 mg PO Q8H PRN #20 tab 05/30/21 azithromycin 250 mg tablet See Rx Instructions .ROUTE 08/02/21 .COMPLEX #6 tab cyclobenzaprine 10 mg tablet 10 mg PO BEDTIME PRN #14 tab 09/15/21 naproxen 500 mg tablet 500 mg PO BID #20 tab 09/15/21 clindamycin HCl 300 mg capsule 300 mg PO Q6H 10 Days #40 cap 09/17/21 oxycodone 5 mg tablet 5 mg PO Q8H PRN #10 tab 09/17/21 prednisone 20 mg tablet 40 mg PO DAILY #10 tab 09/17/21 Allergies Allergy/AdvReac Type Severity Reaction Status Date / Time adair Allergy Severe ANAPHYLAXIS Verified 05/30/21 09:27 cinnamon [CINNAMON] Allergy Severe MOUTH Verified 05/30/21 09:27 [facility]EL homatropine Allergy Severe Hives Verified 05/30/21 09:27 [From Hycodan (with homatropin)] hydrocodone Allergy Severe Hives Verified 05/30/21 09:27 [From Hycodan (with homatropin)] adhesive tape [TAPE,ADHESIVE] Allergy Unknown HIVES Verified 05/30/21 09:27 amoxicillin [From Augmentin] Allergy Unknown rash Verified 05/30/21 09:27 cefaclor [From CECLOR] Allergy Unknown RASH Verified 05/30/21 09:27 clarithromycin [From BIAXIN] Allergy Unknown RASH Verified 05/30/21 09:27 clavulanic acid Allergy Unknown rash Verified 05/30/21 09:27 [From Augmentin] doxycycline [DOXYCYCLINE] Allergy Unknown VOMITING, Verified 05/30/21 09:27 nausea and vomiting morphine Allergy Unknown burning Verified 05/30/21 09:27 Sulfa (Sulfonamide Allergy Unknown rash Verified 05/30/21 09:27 Antibiotics) sulfamethoxazole Allergy Unknown rash Verified 05/30/21 09:27 [From Bactrim] trimethoprim [From Bactrim] Allergy Unknown rash Verified 05/30/21 09:27 vancomycin Allergy Unknown hives, Verified 05/30/21 09:27 redness and hot to touch at IV site metoclopramide [From Reglan] AdvReac Unknown anxiety Verified 05/30/21 09:27 Platelet Infusion Set Allergy Unknown hives Uncoded 09/05/20 13:42 PLATELETS Allergy Unknown HIVES Uncoded 09/05/20 13:42 Review of Systems Review of Systems: Patient complains of body aches fatigue Negatives are no fever no chills no dizziness no weakness no headache no stiff neck no sore throat no chest pain no shortness of breath no abdominal pain no nausea vomiting or diarrhea no dysuria Yes all other systems are reviewed and are negative PMFSH Past Medical History Source: nursing notes reviewed Medical History Anxiety Asthma Depression Dermatitis Dyslipidemia History of ITP Migraine Mild intermittent asthma Rhinitis, allergic Variant angina Vitamin D deficiency Surgical History H/O LEEP History of cardiac cath History of carpal tunnel surgery History of ITP Family History Family History Father HTN (hypertension) Mother SLE (systemic lupus erythematosus) Cancer of thyroid Anxiety Depression Brother No problems noted. Social History Social History Housing: Apartment Alcohol intake: never Patient Tobacco Use Status: Former Tobacco user e-Cigarette/Vaping Use: Currently Using Substance Use Type: Marijuana Advance Directives: Yes Advance Directives Information Provided: Yes Advance Directives on File: No Patient : No service: No Current occupational status: employed Current occupation: [employer] Sexual orientation: Lesbian/[place]/Homosexual Gender identity: Female Physical Exam Vital Signs: Vital Signs: Last Vital Signs Temp 97.5 F 09/24/21 08:52 Pulse 95 09/24/21 08:52 Resp 18 09/24/21 08:52 BP 134/91 H 09/24/21 08:52 Pulse Ox 95 09/24/21 08:52 BMI result Body Mass Index 47.5 General appearance no acute distress The eyes are anicteric with no pallor The face there was no redness swelling or warmth The sinuses are nontender The pharynx is clear well-hydrated with no redness swelling or exudate Neck was supple without lymphadenopathy Chest was clear to auscultation bilateral Heart no murmur auscultated The abdomen soft nontender Extremities full range of motion x4 Skin no rash Course Course Course Narrative: Cellulitis was very improved and no reason to repeat blood cultures as she is afebrile and her cellulitis is pretty much gone Her blood pressure had grown nothing in 1 tube that had grown coagulase negative Staph which is usually a contaminant in the next tube As she has had body aches and fatigue for some time as well as feeling very stressed we checked basic labs there was no evidence of anemia or diabetes or renal or liver dysfunction and she was discharged to follow with her primary care doctor well-appearing Medical Decision Making Lab Data Lab results reviewed: Yes I reviewed the patient's lab results. Result diagrams: 09/24/21 10:25 09/24/21 10:25 Labs: Lab Results 09/24/21 09/24/21 09/24/21 Range/Units 09:37 10:25 10:25 WBC 6.6 (4.8-10.8) X10*3/uL RBC 5.22 (4.20-5.50) X10*6/uL Hgb 14.7 (12.0-16.0) g/dl Hct 44.7 (37.0-47.0) % MCV 85.6 (80.0-98.0) fL MCH 28.2 (27.0-33.0) pg MCHC 32.9 (31.0-35.0) g/dl RDW 13.2 (11.0-16.0) % Plt Count 288 D (160-400) X10*3/uL MPV 10.5 (9.4-12.3) fL Immature Gran % (Auto) 0.5 H (0.0-0.4) % Neut % (Auto) 62.2 (45-73) % Lymph % (Auto) 22.5 (20-40) % [place] % (Auto) 7.3 (2-11) % Eos % (Auto) 6.6 H (0-4) % Baso % (Auto) 0.9 (0-2) % Lymph # (Auto) 1.5 (1.2-4.9) X10*3/uL [place] # (Auto) 0.5 (0.1-1.2) X10*3/uL Eos # (Auto) 0.4 (0.0-0.4) X10*3/uL Baso # (Auto) 0.1 (0.0-0.2) X10*3/uL Abs Immat Gran (auto) 0.03 (0.00-0.03) X10*3/uL Absolute Neuts (auto) 4.1 (2.0-8.3) x10*3/uL Absolute Nucleated RBC 0.000 (0.0-0.012) X10*3/uL Nucleated RBC % (auto) 0.0 (0.0-0.2) /100WBC Sodium 141 (135-145) mmol/L Potassium 4.6 (3.3-5.1) mmol/L Chloride 106 (96-108) mmol/L Carbon Dioxide 30 H (22-29) mmol/L Anion Gap 10 L (12-20) BUN 8 L (9-16) mg/dL Creatinine 0.81 (0.5-1.4) mg/dL Estim Creat Clear Calc 129.5 Estimated GFR > 60 Random Glucose 100 (60-115) mg/dL Calcium 10.1 D (8.4-10.2) mg/dL Total Bilirubin 0.6 (0.0-1.0) mg/dL Direct Bilirubin < 0.2 (0.0-0.5) mg/dL AST 27 (5-31) U/L ALT 34 H (0-31) U/L Alkaline Phosphatase 75 (39-117) U/L Total Protein 6.1 L (6.5-8.0) g/dL Albumin 4.1 (3.5-5.0) g/dL Influenza Type A (PCR) NEGATIVE (Negative) Influenza Type B (PCR) NEGATIVE (Negative) RSV RNA Qual (PCR) NEGATIVE (Negative) SARS-CoV-2 RNA (RT-PCR) NEGATIVE (Negative) Discharge Plan Discharge Clinical Impression: Body aches, Fatigue Patient Disposition: Home, Self-Care Additional Instructions: Your physical exam and vital signs were normal Responded very well to antibiotics and your dental infection seems very improved Your blood work was good Your symptoms may be related to stress but it follow with primary care doctor for further evaluation Return any time any concerns Prescriptions: No Action azithromycin 250 mg tablet See Rx Instructions .ROUTE .COMPLEX Qty: 6 RF: 0 clindamycin HCl 300 mg capsule 300 mg PO Q6H 10 Days Qty: 40 RF: 0 prednisone 20 mg tablet 40 mg PO DAILY Qty: 10 RF: 0 oxycodone 5 mg tablet 5 mg PO Q8H PRN (Reason: pain) Qty: 10 RF: 0 albuterol sulfate 2.5 mg /3 mL (0.083 %) solution for nebulization 2.5 mg inhalation QID PRN (Reason: shortness of breath or wheezing) Qty: 90 RF: 2 triamcinolone acetonide 0.1 % cream 1 appl topical DAILY 10 Days Qty: 30 RF: 2 fluticasone propionate 110 mcg/actuation HFA aerosol inhaler 1 puff inhalation Q12H Qty: 12 RF: 0 albuterol sulfate 90 mcg/actuation HFA aerosol inhaler 1 puff inhalation Q6H PRN (Reason: Shortness Of Breath) Qty: 8.5 RF: 0 levocetirizine 5 mg tablet 5 mg PO QPM PRN (Reason: allergy symptoms) Qty: 30 RF: 2 ondansetron HCl 8 mg tablet 8 mg PO Q8H PRN (Reason: nausea and vomiting) Qty: 20 RF: 0 naproxen 500 mg tablet 500 mg PO BID Qty: 20 RF: 0 cyclobenzaprine 10 mg tablet 10 mg PO BEDTIME PRN (Reason: muscle spasm) Qty: 14 RF: 0 Interventions: ED Discharge Assessment Last Done: 09/24/21 11:20 Discharge Date/Time: 09/24/21 11:22
[2021-09-24 10:18] LABS: Influenza A PCR NEGATIVE (Negative); Influenza B PCR NEGATIVE (Negative); Resp Syncy Virus RNA Qual PCR NEGATIVE (Negative); SARS COV2 PCR INHOUSE NEGATIVE (Negative)
[2021-09-24 10:32] LABS: MANUAL DIFF FLAG NO
[2021-09-24 10:33] LABS: Basophils Absolute Auto 0.1 X10*3/uL (0.0-0.2); Basophils Percent Auto 0.9 % (0-2); Eosinophils Absolute Auto 0.4 X10*3/uL (0.0-0.4); Eosinophils Percent Auto 6.6 % (0-4); Hematocrit 44.7 % (37.0-47.0); Hemoglobin 14.7 g/dl (12.0-16.0); Imm Gran Abs Auto 0.03 X10*3/uL (0.00-0.03); Imm Gran Pct Auto 0.5 % (0.0-0.4); Lymphocytes Absolute Auto 1.5 X10*3/uL (1.2-4.9); Lymphocytes Percent Auto 22.5 % (20-40); Mean Corpuscular HGB Conc 32.9 g/dl (31.0-35.0); Mean Corpuscular Hemoglobin 28.2 pg (27.0-33.0); Mean Corpuscular Volume 85.6 fL (80.0-98.0); Mean Platelet Volume 10.5 fL (9.4-12.3); Monocytes Absolute Auto 0.5 X10*3/uL (0.1-1.2); Monocytes Percent Auto 7.3 % (2-11); Neutrophils Absolute Auto 4.1 x10*3/uL (2.0-8.3); Neutrophils Percent Auto 62.2 % (45-73); Platelet Count 288 X10*3/uL (160-400); Red Blood Count 5.22 X10*6/uL (4.20-5.50); Red Cell Distribution Width 13.2 % (11.0-16.0); White Blood Count 6.6 X10*3/uL (4.8-10.8)
[2021-09-24 10:51] LABS: Alanine Aminotransferase 34 U/L (0-31); Albumin Level 4.1 g/dL (3.5-5.0); Alkaline Phosphatase 75 U/L (39-117); Anion Gap 10 (12-20); Aspartate Amino Transferase 27 U/L (5-31); Bilirubin Direct < 0.2 mg/dL (0.0-0.5); Bilirubin Total 0.6 mg/dL (0.0-1.0); Blood Urea Nitrogen 8 mg/dL (9-16); Calcium 10.1 mg/dL (8.4-10.2); Carbon Dioxide 30 mmol/L (22-29); Chloride 106 mmol/L (96-108); Creatinine Clr Calc Pharmacy 129.5; Estimated Glomerular Filt Rate > 60; Glucose Random 100 mg/dL (60-115); Potassium 4.6 mmol/L (3.3-5.1); Sodium 141 mmol/L (135-145); Total Protein 6.1 g/dL (6.5-8.0)
== END 2021-09-24 11:22 | disposition home or self-care (01) ==
PROVIDERS: Physician Assistant Medical; Emergency Provider Emergency Medicine; PCP Internal Medicine
DX: R53.83 Other fatigue (principal); Z20.822 Contact with and (suspected) exposure to COVID-19; M79.10 Myalgia, unspecified site
CPT/HCPCS: 0241U; 36415; 80048; 80076; 85025; 99283

== ENCOUNTER 2021-09-28 07:43 | Emergency (ER) | payer OTHER, SELFPAY ==
[2021-09-28 07:53] VITALS: BP 121/80; PULSE 104; RESP 16; TEMP 36.7; O2SAT 98; BMI 46.8
--- NOTE | 2021-09-28 08:04 | PC.NURSE ---
Pt bite by child to LUE yesterday, bruising and one small area of redness which has slowly disapated since yesterday, woke up this morning with 3 red raised circular areas of irritation to RUE . Pain 9/. PMHX of cellulitis. Placed in room, call santos within reach. Will continue to monitor.
--- NOTE | 2021-09-28 08:45 | ED_ITS ---
HPI - Extremity Problem General Chief complaint: Extremity Problem <Katelyn Hunt MD - Last Filed: 09/28/21 11:35> Stated complaint: ? Cellulitis <Ktaelyn Hunt MD - Last Filed: 09/28/21 11:35> Time Seen by Provider: 09/28/21 08:05 <Katelyn Hunt MD - Last Filed: 09/28/21 11:35> Source: patient <Katelyn Hunt MD - Last Filed: 09/28/21 11:35> Mode of arrival: ambulatory <Katelyn Hunt MD - Last Filed: 09/28/21 11:35> Limitations: no limitations <Katelyn Hunt MD - Last Filed: 09/28/21 11:35> History of Present Illness HPI Narrative: 31-year-old female came in for evaluation of body ache and area of redness and hotness on her right arm. This is a 31-year-old female came in for re-evaluation of red spots in her right arm, patient was playing with her son who did her left arm the next day woke up with red patches on her right arm no fever, no chills, patient recently was treated for facial cellulitis with clindamycin, patient grew Staph coccus on 1 o f blood cultures on September 17, patient documented improvement of her symptoms and her facial cellulitis. Patient is known allergic to many antibiotic. Patient declined any shortness of breath or throat swelling. <Katelyn Hunt MD - Last Filed: 09/28/21 11:35> Related Data Home medications: Previous Rx's Medication Instructions Recorded albuterol sulfate 2.5 mg (3 mL) INHALATION QID PRN 03/14/21 #90 ml albuterol sulfate 90 mcg/actuation 1 puff INHALATION Q6H PRN #8.5 g 05/12/21 aerosol inhaler fluticasone propionate 110 1 puff INHALATION Q12H #12 g 05/12/21 mcg/actuation HFA aerosol inhaler levocetirizine 5 mg tablet 5 mg PO QPM PRN #30 tab 05/12/21 triamcinolone acetonide 0.1 % 1 appl TOPICAL DAILY 10 Days #30 g 05/12/21 topical cream ondansetron HCl 8 mg tablet 8 mg PO Q8H PRN #20 tab 05/30/21 azithromycin 250 mg tablet See Rx Instructions .ROUTE 08/02/21 .COMPLEX #6 tab cyclobenzaprine 10 mg tablet 10 mg PO BEDTIME PRN #14 tab 09/15/21 naproxen 500 mg tablet 500 mg PO BID #20 tab 09/15/21 clindamycin HCl 300 mg capsule 300 mg PO Q6H 10 Days #40 cap 09/17/21 oxycodone 5 mg tablet 5 mg PO Q8H PRN #10 tab 09/17/21 prednisone 20 mg tablet 40 mg PO DAILY #10 tab 09/17/21 doxycycline monohydrate 100 mg 100 mg PO BID #14 tab 09/28/21 tablet prednisone 10 mg tablet 10 mg PO BID #10 tab 09/28/21 <Katelyn Hunt MD - Last Filed: 09/28/21 11:35> Allergies/Adverse reactions: Allergies Allergy/AdvReac Type Severity Reaction Status Date / Time adair Allergy Severe ANAPHYLAXIS Verified 05/30/21 09:27 cinnamon [CINNAMON] Allergy Severe MOUTH Verified 05/30/21 09:27 MEMBRANES PEEL homatropine Allergy Severe Hives Verified 05/30/21 09:27 [From Hycodan (with homatropin)] hydrocodone Allergy Severe Hives Verified 05/30/21 09:27 [From Hycodan (with homatropin)] adhesive tape [TAPE,ADHESIVE] Allergy Unknown HIVES Verified 05/30/21 09:27 amoxicillin [From Augmentin] Allergy Unknown rash Verified 05/30/21 09:27 cefaclor [From CECLOR] Allergy Unknown RASH Verified 05/30/21 09:27 clarithromycin [From BIAXIN] Allergy Unknown RASH Verified 05/30/21 09:27 clavulanic acid Allergy Unknown rash Verified 05/30/21 09:27 [From Augmentin] doxycycline [DOXYCYCLINE] Allergy Unknown VOMITING, Verified 05/30/21 09:27 nausea and vomiting morphine Allergy Unknown burning Verified 05/30/21 09:27 Sulfa (Sulfonamide Allergy Unknown rash Verified 05/30/21 09:27 Antibiotics) sulfamethoxazole Allergy Unknown rash Verified 05/30/21 09:27 [From Bactrim] trimethoprim [From Bactrim] Allergy Unknown rash Verified 05/30/21 09:27 vancomycin Allergy Unknown hives, Verified 05/30/21 09:27 redness and hot to touch at IV site metoclopramide [From Reglan] AdvReac Unknown anxiety Verified 05/30/21 09:27 Platelet Infusion Set Allergy Unknown hives Uncoded 09/05/20 13:42 PLATELETS Allergy Unknown HIVES Uncoded 09/05/20 13:42 <Katelyn Hunt MD - Last Filed: 09/28/21 11:35> Review of Systems Review of Systems: All other systems are reviewed and are negative Constitutional: Reports as per HPI and Reports no additional constitutional complaints Eyes: Reports as per HPI and Reports no additional eye complaints Reports system reviewed and no additional complaints, except as documented Cardiovascular: Reports as per HPI and Reports no additional cardiovascular complaints Respiratory: Reports as per HPI and Reports no additional respiratory complaints Gastrointestinal: Reports as per HPI and Reports no additional gastrointestinal complaints Genitourinary: Reports no additional female genitourinary complaints Musculoskeletal: Reports no additional musculoskeletal complaints Skin/Breast: Reports system reviewed and no additional complaints, except as docu Psychiatric: Reports no additional psychiatric complaints Endocrine: Reports no additional endocrine complaints Hematologic/Lymphatic: Reports no additional hematologic/lymphatic complaints Allergic/Immunologic: Reports no additional allergic/immunologic complaints Reports system reviewed and no additional complaints, except as documented and Reports Abnormal speech present <Katelyn Hunt MD - Last Filed: 09/28/21 11:35> [facility] Past Medical History Medical History: Medical History Anxiety Asthma Depression Dermatitis Dyslipidemia History of ITP Migraine Mild intermittent asthma Rhinitis, allergic Variant angina Vitamin D deficiency <Katelyn Hunt MD - Last Filed: 09/28/21 11:35> Surgical History: Surgical History H/O LEEP History of cardiac cath History of carpal tunnel surgery History of ITP <Katelyn Hunt MD - Last Filed: 09/28/21 11:35> Family History Family History: Family History Father HTN (hypertension) Mother SLE (systemic lupus erythematosus) Cancer of thyroid Anxiety Depression Brother No problems noted. 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 Blood pressure normal. Heart rate elevated. Respiration rate normal. Temperature normal. Oxygen saturation normal. <Katelyn Hunt MD - Last Filed: 09/28/21 11:35> Vital Signs: Last Vital Signs Temp 97.5 F 09/28/21 12:22 Pulse 82 09/28/21 12:22 Resp 16 09/28/21 12:22 BP 125/52 L 09/28/21 12:22 Pulse Ox 100 09/28/21 12:22 BMI result Body Mass Index 46.8 <MIKA Alba - Last Filed: 10/03/21 12:15> Appearance: Alert. Oriented X3. No acute distress. Head: Normal external exam. Normocephalic. Atraumatic. No [place] signs noted. No raccoon eyes noted Eyes: PERRLA. EOMI. Conjunctiva and sclera normal. Eyelids normal. ENT: TM's Normal. Pharynx normal. Uvula midline. Moist mucous membranes. No trismus noted. No drooling noted. No muffled voice noted. Neck: Normal inspection. Neck supple. FROM. No adenopathy. Thyroid Normal. No meningeal signs. No neck mass noted. CVS: Normal heart rate and rhythm. Heart sound normal. No murmurs noted. Pulses normal throughout. Respiratory: No respiratory distress. Painless inspiration. Breath sounds normal. No wheezes/rales/rhonchi noted. Chest nontender. No accessory muscle usage noted or decreased air movement noted. Abdomen: Soft and nontender. Bowel sounds normal in all 4 quadrants. No distention noted. No organomegaly noted. No visible injury noted. Back: No CVA tenderness. Full range of motion noted. Skin: Skin warm and dry. Normal skin color. Normal skin turgor. No rashes/lesions/lacerations noted. Extremities: Right arm with multiple spots of redness and hotness. Otherwise patient neurovascularly intact. Neuro: Oriented X 3. Cranial nerve exam: II-XII are grossly intact No motor deficit. No sensory deficit. Reflexes normal. <Katelyn Hunt MD - Last Filed: 09/28/21 11:35> Course Course Course Narrative: Assessment and plan. 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 Will discharge the patient on doxycycline, discontinue clindamycin and start prednisone for 5 days. <Katelyn Hunt MD - Last Filed: 09/28/21 11:35> MDM - Extremity (Nontraumatic) Lab Data Attestation: I reviewed the patient's lab results. <Katelyn Hunt MD - Last Filed: 09/28/21 11:35> Result diagrams: : 09/28/21 09:29 09/28/21 09:29 <Katelyn Hunt MD - Last Filed: 09/28/21 11:35> Labs: Lab Results 09/28/21 09/28/21 09/28/21 Range/Units 09:28 09:29 09:29 WBC 7.7 (4.8-10.8) X10*3/uL RBC 5.01 (4.20-5.50) X10*6/uL Hgb 14.0 (12.0-16.0) g/dl Hct 42.9 (37.0-47.0) % MCV 85.6 (80.0-98.0) fL MCH 27.9 (27.0-33.0) pg MCHC 32.6 (31.0-35.0) g/dl RDW 13.3 (11.0-16.0) % Plt Count 254 (160-400) X10*3/uL MPV 10.6 (9.4-12.3) fL Immature Gran % (Auto) 0.3 (0.0-0.4) % Neut % (Auto) 61.6 (45-73) % Lymph % (Auto) 22.5 (20-40) % [place] % (Auto) 7.8 (2-11) % Eos % (Auto) 7.0 H (0-4) % Baso % (Auto) 0.8 (0-2) % Lymph # (Auto) 1.7 (1.2-4.9) X10*3/uL [place] # (Auto) 0.6 (0.1-1.2) X10*3/uL Eos # (Auto) 0.5 H (0.0-0.4) X10*3/uL Baso # (Auto) 0.1 (0.0-0.2) X10*3/uL Abs Immat Gran (auto) 0.02 (0.00-0.03) X10*3/uL Absolute Neuts (auto) 4.7 (2.0-8.3) x10*3/uL Absolute Nucleated RBC 0.000 (0.0-0.012) X10*3/uL Nucleated RBC % (auto) 0.0 (0.0-0.2) /100WBC Sodium 140 (135-145) mmol/L Potassium 4.0 (3.3-5.1) mmol/L Chloride 107 (96-108) mmol/L Carbon Dioxide 28 (22-29) mmol/L Anion Gap 9 L (12-20) BUN 10 (9-16) mg/dL Creatinine 0.86 (0.5-1.4) mg/dL Estim Creat Clear Calc 121.0 Estimated GFR > 60 Random Glucose 100 (60-115) mg/dL Lactic Acid (0.5-2.0) mmol/L Calcium 9.3 D (8.4-10.2) mg/dL Total Bilirubin 0.6 (0.0-1.0) mg/dL Direct Bilirubin 0.2 (0.0-0.5) mg/dL AST 21 (5-31) U/L ALT 30 (0-31) U/L Alkaline Phosphatase 69 (39-117) U/L Total Protein 5.7 L (6.5-8.0) g/dL Albumin 4.0 (3.5-5.0) g/dL Lipase 32 (8-78) U/L Urine Color YELLOW Urine Appearance CLEAR Urine pH 6.0 (5.0-8.0) Ur Specific [place] 1.015 (1.005-1.025) Urine Protein NEG (NEG-TRACE) MG/DL Urine Glucose (UA) NEG (NEG) MG/DL Urine Ketones NEG (NEG) MG/DL Urine Blood NEG (NEG) Urine Nitrite NEG (NEG) Ur Leukocyte Esterase NEG (NEG) 09/28/21 Range/Units 09:29 WBC (4.8-10.8) X10*3/uL RBC (4.20-5.50) X10*6/uL Hgb (12.0-16.0) g/dl Hct (37.0-47.0) % MCV (80.0-98.0) fL MCH (27.0-33.0) pg MCHC (31.0-35.0) g/dl RDW (11.0-16.0) % Plt Count (160-400) X10*3/uL MPV (9.4-12.3) fL Immature Gran % (Auto) (0.0-0.4) % Neut % (Auto) (45-73) % Lymph % (Auto) (20-40) % [place] % (Auto) (2-11) % Eos % (Auto) (0-4) % Baso % (Auto) (0-2) % Lymph # (Auto) (1.2-4.9) X10*3/uL [place] # (Auto) (0.1-1.2) X10*3/uL Eos # (Auto) (0.0-0.4) X10*3/uL Baso # (Auto) (0.0-0.2) X10*3/uL Abs Immat Gran (auto) (0.00-0.03) X10*3/uL Absolute Neuts (auto) (2.0-8.3) x10*3/uL Absolute Nucleated RBC (0.0-0.012) X10*3/uL Nucleated RBC % (auto) (0.0-0.2) /100WBC Sodium (135-145) mmol/L Potassium (3.3-5.1) mmol/L Chloride (96-108) mmol/L Carbon Dioxide (22-29) mmol/L Anion Gap (12-20) BUN (9-16) mg/dL Creatinine (0.5-1.4) mg/dL Estim Creat Clear Calc Estimated GFR Random Glucose (60-115) mg/dL Lactic Acid 1.1 (0.5-2.0) mmol/L Calcium (8.4-10.2) mg/dL Total Bilirubin (0.0-1.0) mg/dL Direct Bilirubin (0.0-0.5) mg/dL AST (5-31) U/L ALT (0-31) U/L Alkaline Phosphatase (39-117) U/L Total Protein (6.5-8.0) g/dL Albumin (3.5-5.0) g/dL Lipase (8-78) U/L Urine Color Urine Appearance Urine pH (5.0-8.0) Ur Specific [place] (1.005-1.025) Urine Protein (NEG-TRACE) MG/DL Urine Glucose (UA) (NEG) MG/DL Urine Ketones (NEG) MG/DL Urine Blood (NEG) Urine Nitrite (NEG) Ur Leukocyte Esterase (NEG) <Katelyn Hunt MD - Last Filed: 09/28/21 11:35> Lab Results 09/28/21 09/28/21 09/28/21 Range/Units 09:28 09:29 09:29 WBC 7.7 (4.8-10.8) X10*3/uL RBC 5.01 (4.20-5.50) X10*6/uL Hgb 14.0 (12.0-16.0) g/dl Hct 42.9 (37.0-47.0) % MCV 85.6 (80.0-98.0) fL MCH 27.9 (27.0-33.0) pg MCHC 32.6 (31.0-35.0) g/dl RDW 13.3 (11.0-16.0) % Plt Count 254 (160-400) X10*3/uL MPV 10.6 (9.4-12.3) fL Immature Gran % (Auto) 0.3 (0.0-0.4) % Neut % (Auto) 61.6 (45-73) % Lymph % (Auto) 22.5 (20-40) % [place] % (Auto) 7.8 (2-11) % Eos % (Auto) 7.0 H (0-4) % Baso % (Auto) 0.8 (0-2) % Lymph # (Auto) 1.7 (1.2-4.9) X10*3/uL [place] # (Auto) 0.6 (0.1-1.2) X10*3/uL Eos # (Auto) 0.5 H (0.0-0.4) X10*3/uL Baso # (Auto) 0.1 (0.0-0.2) X10*3/uL Abs Immat Gran (auto) 0.02 (0.00-0.03) X10*3/uL Absolute Neuts (auto) 4.7 (2.0-8.3) x10*3/uL Absolute Nucleated RBC 0.000 (0.0-0.012) X10*3/uL Nucleated RBC % (auto) 0.0 (0.0-0.2) /100WBC Sodium 140 (135-145) mmol/L Potassium 4.0 (3.3-5.1) mmol/L Chloride 107 (96-108) mmol/L Carbon Dioxide 28 (22-29) mmol/L Anion Gap 9 L (12-20) BUN 10 (9-16) mg/dL Creatinine 0.86 (0.5-1.4) mg/dL Estim Creat Clear Calc 121.0 Estimated GFR > 60 Random Glucose 100 (60-115) mg/dL Lactic Acid (0.5-2.0) mmol/L Calcium 9.3 D (8.4-10.2) mg/dL Total Bilirubin 0.6 (0.0-1.0) mg/dL Direct Bilirubin 0.2 (0.0-0.5) mg/dL AST 21 (5-31) U/L ALT 30 (0-31) U/L Alkaline Phosphatase 69 (39-117) U/L Total Protein 5.7 L (6.5-8.0) g/dL Albumin 4.0 (3.5-5.0) g/dL Lipase 32 (8-78) U/L Urine Color YELLOW Urine Appearance CLEAR Urine pH 6.0 (5.0-8.0) Ur Specific [place] 1.015 (1.005-1.025) Urine Protein NEG (NEG-TRACE) MG/DL Urine Glucose (UA) NEG (NEG) MG/DL Urine Ketones NEG (NEG) MG/DL Urine Blood NEG (NEG) Urine Nitrite NEG (NEG) Ur Leukocyte Esterase NEG (NEG) 09/28/21 Range/Units 09:29 WBC (4.8-10.8) X10*3/uL RBC (4.20-5.50) X10*6/uL Hgb (12.0-16.0) g/dl Hct (37.0-47.0) % MCV (80.0-98.0) fL MCH (27.0-33.0) pg MCHC (31.0-35.0) g/dl RDW (11.0-16.0) % Plt Count (160-400) X10*3/uL MPV (9.4-12.3) fL Immature Gran % (Auto) (0.0-0.4) % Neut % (Auto) (45-73) % Lymph % (Auto) (20-40) % [place] % (Auto) (2-11) % Eos % (Auto) (0-4) % Baso % (Auto) (0-2) % Lymph # (Auto) (1.2-4.9) X10*3/uL [place] # (Auto) (0.1-1.2) X10*3/uL Eos # (Auto) (0.0-0.4) X10*3/uL Baso # (Auto) (0.0-0.2) X10*3/uL Abs Immat Gran (auto) (0.00-0.03) X10*3/uL Absolute Neuts (auto) (2.0-8.3) x10*3/uL Absolute Nucleated RBC (0.0-0.012) X10*3/uL Nucleated RBC % (auto) (0.0-0.2) /100WBC Sodium (135-145) mmol/L Potassium (3.3-5.1) mmol/L Chloride (96-108) mmol/L Carbon Dioxide (22-29) mmol/L Anion Gap (12-20) BUN (9-16) mg/dL Creatinine (0.5-1.4) mg/dL Estim Creat Clear Calc Estimated GFR Random Glucose (60-115) mg/dL Lactic Acid 1.1 (0.5-2.0) mmol/L Calcium (8.4-10.2) mg/dL Total Bilirubin (0.0-1.0) mg/dL Direct Bilirubin (0.0-0.5) mg/dL AST (5-31) U/L ALT (0-31) U/L Alkaline Phosphatase (39-117) U/L Total Protein (6.5-8.0) g/dL Albumin (3.5-5.0) g/dL Lipase (8-78) U/L Urine Color Urine Appearance Urine pH (5.0-8.0) Ur Specific [place] (1.005-1.025) Urine Protein (NEG-TRACE) MG/DL Urine Glucose (UA) (NEG) MG/DL Urine Ketones (NEG) MG/DL Urine Blood (NEG) Urine Nitrite (NEG) Ur Leukocyte Esterase (NEG) <MIKA Alba - Last Filed: 10/03/21 12:15> Discharge Plan Discharge Clinical Impression: Cellulitis, Allergic reaction due to antibacterial drug <Katelyn Hunt MD - Last Filed: 09/28/21 11:35> Patient Disposition: Home, Self-Care <Katelyn Hunt MD - Last Filed: 09/28/21 11:35> Instructions: Cellulitis (ED) <Katelyn Hunt MD - Last Filed: 09/28/21 11:35> Prescriptions: New doxycycline monohydrate 100 mg tablet 100 mg PO BID Qty: 14 RF: 0 prednisone 10 mg tablet 10 mg PO BID Qty: 10 RF: 0 No Action azithromycin 250 mg tablet See Rx Instructions .ROUTE .COMPLEX Qty: 6 RF: 0 clindamycin HCl 300 mg capsule 300 mg PO Q6H 10 Days Qty: 40 RF: 0 prednisone 20 mg tablet 40 mg PO DAILY Qty: 10 RF: 0 oxycodone 5 mg tablet 5 mg PO Q8H PRN (Reason: pain) Qty: 10 RF: 0 albuterol sulfate 2.5 mg /3 mL (0.083 %) solution for nebulization 2.5 mg inhalation QID PRN (Reason: shortness of breath or wheezing) Qty: 90 RF: 2 triamcinolone acetonide 0.1 % cream 1 appl topical DAILY 10 Days Qty: 30 RF: 2 fluticasone propionate 110 mcg/actuation HFA aerosol inhaler 1 puff inhalation Q12H Qty: 12 RF: 0 albuterol sulfate 90 mcg/actuation HFA aerosol inhaler 1 puff inhalation Q6H PRN (Reason: Shortness Of Breath) Qty: 8.5 RF: 0 levocetirizine 5 mg tablet 5 mg PO QPM PRN (Reason: allergy symptoms) Qty: 30 RF: 2 ondansetron HCl 8 mg tablet 8 mg PO Q8H PRN (Reason: nausea and vomiting) Qty: 20 RF: 0 naproxen 500 mg tablet 500 mg PO BID Qty: 20 RF: 0 cyclobenzaprine 10 mg tablet 10 mg PO BEDTIME PRN (Reason: muscle spasm) Qty: 14 RF: 0 <Katelyn Hunt MD - Last Filed: 09/28/21 11:35> Referrals: Amaya Santoro MD [Primary Care Provider] - 2 days <Katelyn Hunt MD - Last Filed: 09/28/21 11:35> Stand Alone Forms: Work/School Release <Katelyn Hunt MD - Last Filed: 09/28/21 11:35> Interventions: ED Discharge Assessment Last Done: 09/28/21 12:50 <Katelyn Hunt MD - Last Filed: 09/28/21 11:35> Discharge Date/Time: 09/28/21 12:51 <Katelyn Hunt MD - Last Filed: 09/28/21 11:35>
[2021-09-28 09:38] LABS: MANUAL DIFF FLAG NO
[2021-09-28 09:38] LABS: Appearance Urine CLEAR; Color Urine YELLOW; Glucose Urine UA NEG (NEG); Leukocyte Esterase Urine NEG (NEG); Nitrite Urine NEG (NEG); Specific Gravity - Urine 1.015 (1.005-1.025); Urine Blood NEG (NEG); Urine Ketones NEG (NEG); Urine Protein NEG (NEG-TRACE)
[2021-09-28] MEDS: methylPREDNISolone Sod Succ 125 MG/2 ML VIAL IVPUSH (09:40)
[2021-09-28] MEDS: 0.9 % Sodium Chloride 1,000 ML 999 ML IV (09:40)
[2021-09-28 09:41] LABS: Basophils Absolute Auto 0.1 X10*3/uL (0.0-0.2); Basophils Percent Auto 0.8 % (0-2); Eosinophils Absolute Auto 0.5 X10*3/uL (0.0-0.4); Hematocrit 42.9 % (37.0-47.0); Imm Gran Abs Auto 0.02 X10*3/uL (0.00-0.03); Imm Gran Pct Auto 0.3 % (0.0-0.4); Lymphocytes Absolute Auto 1.7 X10*3/uL (1.2-4.9); Lymphocytes Percent Auto 22.5 % (20-40); Mean Corpuscular HGB Conc 32.6 g/dl (31.0-35.0); Mean Corpuscular Hemoglobin 27.9 pg (27.0-33.0); Mean Corpuscular Volume 85.6 fL (80.0-98.0); Mean Platelet Volume 10.6 fL (9.4-12.3); Monocytes Absolute Auto 0.6 X10*3/uL (0.1-1.2); Monocytes Percent Auto 7.8 % (2-11); Neutrophils Absolute Auto 4.7 x10*3/uL (2.0-8.3); Neutrophils Percent Auto 61.6 % (45-73); Platelet Count 254 X10*3/uL (160-400); Red Blood Count 5.01 X10*6/uL (4.20-5.50); Red Cell Distribution Width 13.3 % (11.0-16.0); White Blood Count 7.7 X10*3/uL (4.8-10.8)
[2021-09-28 09:51] LABS: Lactic Acid 1.1 mmol/L (0.5-2.0)
[2021-09-28 10:00] LABS: Alanine Aminotransferase 30 U/L (0-31); Alkaline Phosphatase 69 U/L (39-117); Anion Gap 9 (12-20); Aspartate Amino Transferase 21 U/L (5-31); Bilirubin Direct 0.2 mg/dL (0.0-0.5); Bilirubin Total 0.6 mg/dL (0.0-1.0); Blood Urea Nitrogen 10 mg/dL (9-16); Calcium 9.3 mg/dL (8.4-10.2); Carbon Dioxide 28 mmol/L (22-29); Chloride 107 mmol/L (96-108); Estimated Glomerular Filt Rate > 60; Glucose Random 100 mg/dL (60-115); Lipase 32 U/L (8-78); Sodium 140 mmol/L (135-145); Total Protein 5.7 g/dL (6.5-8.0)
[2021-09-28] MEDS: Doxycycline Hyclate 100 MG in 0.9 % Sodium Chloride 250 ML 166.67 MG IV (10:57)
[2021-09-28 12:22] VITALS: BP 125/52; PULSE 82; RESP 16; TEMP 36.4; O2SAT 100
== END 2021-09-28 12:51 | disposition home or self-care (01) ==
PROVIDERS: Emergency Provider Emergency Medicine; PCP Internal Medicine
DX: L29.9 Pruritus, unspecified (principal); T36.8X5A Adverse effect of other systemic antibiotics, initial encounter; Y92.9 Unspecified place or not applicable; L03.211 Cellulitis of face; J45.20 Mild intermittent asthma, uncomplicated; Z88.0 Allergy status to penicillin; Z88.1 Allergy status to other antibiotic agents; Z88.2 Allergy status to sulfonamides; Z88.6 Allergy status to analgesic agent; Z88.8 Allergy status to other drugs, medicaments and biological substances
CPT/HCPCS: 36415; 80048; 80076; 81003; 83605; 83690; 85025; 87040; 96361; 96374; 96375; 99284; J2930

== ENCOUNTER 2021-10-21 04:25 | Emergency (ER) | payer OTHER, SELFPAY ==
--- NOTE | ~2021-10-21 | XR_ITS ---
EXAMINATION: XR CHEST CLINICAL INFORMATION: Cough and shortness of breath COMPARISON: 05/13/2020 TECHNIQUE: Frontal view of the chest was obtained. FINDINGS: The lungs are well expanded. There is no focal consolidation, edema, or effusion. No pneumothorax. The cardiomediastinal silhouette is within normal limits. No acute osseous abnormality. XR/XR chest 1V IMPRESSION: Clear lungs.
[2021-10-21 04:28] VITALS: BP 153/78; PULSE 70; RESP 17; TEMP 36.8; O2SAT 98; BMI 44.6
[2021-10-21 04:51] LABS: COVID-19 Test Positive (Negative); IDNOW Serial# 9DD0AD1C
[2021-10-21 05:49] VITALS: BP 143/80; PULSE 68; RESP 18; TEMP 37.1; O2SAT 100
--- NOTE | 2021-10-21 05:51 | ED.URI ---
HPI - URI/Sore Throat General Chief Complaint: Upper Respiratory Symptoms Stated Complaint: SoB, congestion Time Seen by Provider: 10/21/21 05:51 Source: patient Mode of arrival: ambulatory History of Present Illness HPI Narrative: 31-year-old female with history of asthma and recent COVID-19 testing (positive 10/08) and presents with complaints of nasal congestion and yellow sputum production but denies fever or chills but is continue to have body aches and lethargy. She states she is having increased coughing at night when she lies down and feels as though her asthma is ?acting up?. Related Data Previous Rx's Medication Instructions Recorded albuterol sulfate 2.5 mg (3 mL) INHALATION QID PRN 03/14/21 #90 ml albuterol sulfate 90 mcg/actuation 1 puff INHALATION Q6H PRN #8.5 g 05/12/21 aerosol inhaler naproxen 500 mg tablet 500 mg PO BID #20 tab 09/15/21 benzonatate 200 mg capsule 200 mg PO TID PRN #14 cap 10/21/21 Allergies Allergy/AdvReac Type Severity Reaction Status Date / Time adair Allergy Severe ANAPHYLAXIS Verified 10/21/21 04:28 cinnamon [CINNAMON] Allergy Severe MOUTH Verified 10/21/21 04:28 MEMBRANES PEEL homatropine Allergy Severe Hives Verified 10/21/21 04:28 [From Hycodan (with homatropin)] hydrocodone Allergy Severe Hives Verified 10/21/21 04:28 [From Hycodan (with homatropin)] adhesive tape [TAPE,ADHESIVE] Allergy Unknown HIVES Verified 10/21/21 04:28 amoxicillin [From Augmentin] Allergy Unknown rash Verified 10/21/21 04:28 cefaclor [From CECLOR] Allergy Unknown RASH Verified 10/21/21 04:28 clarithromycin [From BIAXIN] Allergy Unknown RASH Verified 10/21/21 04:28 clavulanic acid Allergy Unknown rash Verified 10/21/21 04:28 [From Augmentin] morphine Allergy Unknown burning Verified 10/21/21 04:28 Sulfa (Sulfonamide Allergy Unknown rash Verified 10/17/21 15:24 Antibiotics) sulfamethoxazole Allergy Unknown rash Verified 10/17/21 15:24 [From Bactrim] trimethoprim [From Bactrim] Allergy Unknown rash Verified 10/17/21 15:24 vancomycin Allergy Unknown hives, Verified 10/17/21 15:24 redness and hot to touch at IV site metoclopramide [From Reglan] AdvReac Unknown anxiety Verified 10/17/21 15:24 Platelet Infusion Set Allergy Unknown hives Uncoded 10/17/21 15:24 PLATELETS Allergy Unknown HIVES Uncoded 10/17/21 15:24 Review of Systems Review of Systems: Pertinent positives and negatives as stated in HPI 10 point review of systems is otherwise negative. PMFSH Past Medical History Source: nursing notes reviewed Medical History Anxiety Asthma Depression Dermatitis Dyslipidemia History of ITP Migraine Mild intermittent asthma Rhinitis, allergic Variant angina Vitamin D deficiency Surgical History H/O LEEP History of cardiac cath History of carpal tunnel surgery History of ITP Family History Family History Father HTN (hypertension) Substance use disorder Mental health disorder Mother SLE (systemic lupus erythematosus) Cancer of thyroid Anxiety Depression Mental health disorder Brother Mental health disorder Sister Mental health disorder Social History Social History Housing: Apartment Alcohol intake: never Patient Tobacco Use Status: Former Tobacco user e-Cigarette/Vaping Use: Currently Using Substance Use Type: Marijuana Advance Directives: No service: No Current occupational status: employed 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 GENERAL: Well developed, well nourished, in no acute distress. HEAD: Normocephalic/atraumatic EYES: PERRLA, EOMI OROPHARYNX: no oral lesions noted, posterior pharynx clear LUNGS: Normal breath sounds, no tachypnea/expiratory wheeze/rhonchi/rales. SpO2<100> CARDIOVASCULAR: Regular rate and rhythm without noted murmurs ABDOMEN: Soft, non-tender, non-distended with bowel sounds. NEUROLOGIC: Alert and oriented x 4. Course Course Course Narrative: 31-year-old female with history and clinical presentation consistent with post COVID symptoms with persistent cough and no clinical evidence asthma exacerbation. Discussed with patient the negative side to placing her on a short course of steroids when she is not having an asthma exacerbation. Instead, discussed alternative options for decreasing nighttime cough as well as increase use of her rescue inhaler for the next 4 days. Patient acknowledged understanding and was discharged home in stable condition without tachypnea, tachycardia, an oxygenating well on room air. She was provided with a dose of Tessalon as well as Ventolin. MDM - URI/Sore Throat Lab Data Labs: Lab Results 10/21/21 Range/Units 04:37 COVID-19 (ROSS) Positive A (Negative) COVID-19 Clin Com See Note Discharge Plan Discharge Clinical Impression: Viral syndrome, Lab test positive for detection of COVID-19 virus Patient Disposition: Home, Self-Care Instructions: Viral Syndrome (ED), COVID-19 (Coronavirus Disease 2019) (ED) Additional Instructions: Although you have tested positive for COVID-19 this represents a small sub population and you have been isolating for 13 days and therefore meet criteria by the CDC for return to work, but you should follow your current employer guidelines as well. Resume home medications as prescribed Recommend sleeping with slight elevation with a cool mist humidifier at your bedside. Albuterol, 2 puffs, every 4-6 hours for the next 24-48 hours. Return to the ER for worsening symptoms. Prescriptions: New benzonatate 200 mg capsule 200 mg PO TID PRN (Reason: cough) Qty: 14 RF: 0 No Action albuterol sulfate 2.5 mg /3 mL (0.083 %) solution for nebulization 2.5 mg inhalation QID PRN (Reason: shortness of breath or wheezing) Qty: 90 RF: 2 albuterol sulfate 90 mcg/actuation HFA aerosol inhaler 1 puff inhalation Q6H PRN (Reason: Shortness Of Breath) Qty: 8.5 RF: 0 naproxen 500 mg tablet 500 mg PO BID Qty: 20 RF: 0 Referrals: Amaya Santoro MD [Primary Care Provider] - 2 days
[2021-10-21] MEDS: Benzonatate 100 MG CAPSULE 200 MG PO (06:09)
[2021-10-21] MEDS: Albuterol Sulfate 90 MCG 8 GM INHALER 4 PUFF INHALE (06:09)
== END 2021-10-21 06:20 | disposition home or self-care (01) ==
PROVIDERS: Emergency Provider Student in an Organized Health Care Education/Training Program; PCP Internal Medicine
DX: U07.1 COVID-19 (principal); R06.02 Shortness of breath; F12.90 Cannabis use, unspecified, uncomplicated; Z79.899 Other long term (current) drug therapy
CPT/HCPCS: 71045; 87635; 99283; 99284

== ENCOUNTER 2021-11-02 04:16 | Emergency (ER) | payer OTHER, SELFPAY ==
[2021-11-02 04:46] VITALS: BP 139/93; PULSE 78; RESP 16; TEMP 36.7; O2SAT 99; BMI 45.4
[2021-11-02 05:00] VITALS: O2SAT 98
--- NOTE | 2021-11-02 05:02 | ED_ITS ---
HPI - URI/Sore Throat General Chief Complaint: Upper Respiratory Symptoms Stated Complaint: Cough Time Seen by Provider: 11/02/21 05:02 Source: patient Mode of arrival: ambulatory Limitations: no limitations History of Present Illness HPI Narrative: Patient's history of asthma had COVID last month comes here as still coughing a lot unable to sleep in the night had chest x-ray done 10 days ago negative no fever no chills no phlegm Related Data Previous Rx's Medication Instructions Recorded albuterol sulfate 2.5 mg (3 mL) INHALATION QID PRN 03/14/21 #90 ml albuterol sulfate 90 mcg/actuation 1 puff INHALATION Q6H PRN #8.5 g 05/12/21 aerosol inhaler naproxen 500 mg tablet 500 mg PO BID #20 tab 09/15/21 benzonatate 200 mg capsule 200 mg PO TID PRN #14 cap 10/21/21 codeine 10 mg-guaifenesin 100 mg/5 10 ml PO Q6H PRN #237 ml 11/02/21 mL oral liquid prednisone 20 mg tablet 40 mg PO DAILY #10 tab 11/02/21 Allergies Allergy/AdvReac Type Severity Reaction Status Date / Time adair Allergy Severe ANAPHYLAXIS Verified 10/21/21 04:28 cinnamon [CINNAMON] Allergy Severe MOUTH Verified 10/21/21 04:28 MEMBRANES PEEL homatropine Allergy Severe Hives Verified 10/21/21 04:28 [From Hycodan (with homatropin)] hydrocodone Allergy Severe Hives Verified 10/21/21 04:28 [From Hycodan (with homatropin)] adhesive tape Allergy Unknown HIVES Verified 10/21/21 04:28 [TAPE,ADHESIVE] amoxicillin [From Allergy Unknown rash Verified 10/21/21 04:28 Augmentin] cefaclor [From CECLOR] Allergy Unknown RASH Verified 10/21/21 04:28 clarithromycin [From Allergy Unknown RASH Verified 10/21/21 04:28 BIAXIN] clavulanic acid Allergy Unknown rash Verified 10/21/21 04:28 [From Augmentin] morphine Allergy Unknown burning Verified 10/21/21 04:28 Sulfa (Sulfonamide Allergy Unknown rash Verified 10/17/21 15:24 Antibiotics) sulfamethoxazole Allergy Unknown rash Verified 10/17/21 15:24 [From Bactrim] trimethoprim [From Allergy Unknown rash Verified 10/17/21 15:24 Bactrim] vancomycin Allergy Unknown hives, Verified 10/17/21 15:24 redness and hot to touch at IV site metoclopramide [From AdvReac Unknown anxiety Verified 10/17/21 15:24 Reglan] Platelet Infusion Set Allergy Unknown hives Uncoded 10/17/21 15:24 PLATELETS Allergy Unknown HIVES Uncoded 10/17/21 15:24 Review of Systems Verdana 4l Review of Systems: Yes all other systems are reviewed and Verdana 4d are negative [facility] Past Medical History Medical History Anxiety Asthma Depression Dermatitis Dyslipidemia History of ITP Migraine Mild intermittent asthma Rhinitis, allergic Variant angina Vitamin D deficiency Surgical History H/O LEEP History of cardiac cath History of carpal tunnel surgery History of ITP Family History Family History Father HTN (hypertension) Substance use disorder Mental health disorder Mother SLE (systemic lupus erythematosus) Cancer of thyroid Anxiety Depression Mental health disorder Brother Mental health disorder Sister Mental health disorder Social History Social History Housing: Apartment Alcohol intake: unknown Patient Tobacco Use Status: Former Tobacco user e-Cigarette/Vaping Use: Currently Using Use of substances other than those prescribed or required for medical reasons: Unknown Substance Use Type: Marijuana Advance Directives: No Patient : No service: No Current occupational status: employed Current occupation: [employer] Sexual orientation: Lesbian/[place]/Homosexual Gender identity: Female Physical Exam Verdana 4l Vital Signs: Verdana 4d Verdana 4d Vital Signs: Verdana 4d Verdana 4Bd Last Vital Signs Verdana 4d [employer]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 Oriented X3. No acute distress. Eyes: PERRLA, No Nystagmus ENT: Pharynx normal. Oral Mucosa moist Neck: Normal inspection. Neck supple. CVS: Normal heart rate and rhythm. Pulses normal. Respiratory: No respiratory distress. Equal air entry bilateral, no wheezing/rales/rhonchi prolonged expiration Abdomen: Soft and nontender. Bowel sounds are present, no mass palpable, no CVA tenderness Skin: Skin warm and dry. Normal skin color. Normal skin turgor. Extremities: No lower extremity edema. No calf tenderness Neuro: Oriented X 3. MDM - URI/Sore Throat MDM Narrative Medical decision making narrative: Patientwith COVID infection been coughing a lot lungs are clear give her prednisone course and codeine cough syrup saturating 99% on room air Discharge Plan Discharge Clinical Impression: Acute asthmatic bronchitis Patient Disposition: Home, Self-Care Instructions: Asthma (ED) Additional Instructions: Take her inhaler as prescribed Cough syrup and prednisone as prescribed Follow-up with your PCP Prescriptions: New codeine-guaifenesin 10-100 mg/5 mL liquid 10 ml PO Q6H PRN (Reason: cough) Qty: 237 0RF prednisone 20 mg tablet 40 mg PO DAILY Qty: 10 0RF No Action benzonatate 200 mg capsule 200 mg PO TID PRN (Reason: cough) Qty: 14 0RF albuterol sulfate 2.5 mg /3 mL (0.083 %) solution for nebulization 2.5 mg inhalation QID PRN (Reason: shortness of breath or wheezing) Qty: 90 2RF albuterol sulfate 90 mcg/actuation HFA aerosol inhaler 1 puff inhalation Q6H PRN (Reason: Shortness Of Breath) Qty: 8.5 0RF naproxen 500 mg tablet 500 mg PO BID Qty: 20 0RF
[2021-11-02] MEDS: Benzonatate 100 MG CAPSULE 200 MG PO (05:20)
[2021-11-02] MEDS: predniSONE 20 MG TABLET 40 MG PO (05:20)
== END 2021-11-02 05:24 | disposition home or self-care (01) ==
PROVIDERS: Emergency Provider Internal Medicine; PCP Internal Medicine
DX: J45.909 Unspecified asthma, uncomplicated (principal); J06.9 Acute upper respiratory infection, unspecified; R05.9 Cough, unspecified; Z79.899 Other long term (current) drug therapy; Z87.891 Personal history of nicotine dependence; F12.90 Cannabis use, unspecified, uncomplicated
CPT/HCPCS: 99284

== ENCOUNTER 2021-11-15 01:28 | Emergency (ER) | payer OTHER, SELFPAY ==
--- NOTE | ~2021-11-15 | XR_ITS ---
EXAMINATION: XR CHEST CLINICAL INFORMATION: Shortness breath COMPARISON: 10/21/2021 TECHNIQUE: Frontal view of the chest was obtained. FINDINGS: No significant abnormality is noted involving the heart, lungs, mediastinum, bony thorax or soft tissues. XR/XR chest 1V IMPRESSION: Unremarkable examination.
[2021-11-15 01:33] VITALS: BP 148/92; PULSE 85; RESP 16; TEMP 36.9; O2SAT 98; BMI 45.4
--- NOTE | 2021-11-15 04:55 | ED.ASTHMA ---
HPI - Asthma General Chief Complaint: Upper Respiratory Symptoms Stated Complaint: SoB Time Seen by Provider: 11/15/21 04:53 Source: patient Mode of arrival: ambulatory History of Present Illness HPI Narrative: 31-year-old female who presents with increasing shortness of breath, productive cough but self endorses that she does vape and states that she has just been having ongoing respiratory issues since she had COVID. Related Data Previous Rx's Medication Instructions Recorded albuterol sulfate 2.5 mg (3 mL) INHALATION QID PRN 03/14/21 #90 ml albuterol sulfate 90 mcg/actuation 1 puff INHALATION Q6H PRN #8.5 g 05/12/21 aerosol inhaler naproxen 500 mg tablet 500 mg PO BID #20 tab 09/15/21 benzonatate 200 mg capsule 200 mg PO TID PRN #14 cap 10/21/21 codeine 10 mg-guaifenesin 100 mg/5 10 ml PO Q6H PRN #237 ml 11/02/21 mL oral liquid prednisone 20 mg tablet 40 mg PO DAILY #10 tab 11/02/21 benzonatate 200 mg capsule 200 mg PO TID PRN #10 cap 11/15/21 prednisone 50 mg tablet 50 mg PO DAILY 4 Days #4 tab 11/15/21 Allergies Allergy/AdvReac Type Severity Reaction Status Date / Time adair Allergy Severe ANAPHYLAXIS Verified 11/02/21 17:06 cinnamon [CINNAMON] Allergy Severe MOUTH Verified 11/02/21 17:06 MEMBRANES PEEL homatropine Allergy Severe Hives Verified 11/02/21 17:06 [From Hycodan (with homatropin)] hydrocodone Allergy Severe Hives Verified 11/02/21 17:06 [From Hycodan (with homatropin)] clindamycin Allergy Intermediate Rash Verified 11/02/21 17:06 adhesive tape [TAPE,ADHESIVE] Allergy Unknown HIVES Verified 11/02/21 17:06 amoxicillin [From Augmentin] Allergy Unknown rash Verified 11/02/21 17:06 cefaclor [From CECLOR] Allergy Unknown RASH Verified 11/02/21 17:06 clarithromycin [From BIAXIN] Allergy Unknown RASH Verified 11/02/21 17:06 clavulanic acid Allergy Unknown rash Verified 11/02/21 17:06 [From Augmentin] morphine Allergy Unknown burning Verified 11/02/21 17:06 Sulfa (Sulfonamide Allergy Unknown rash Verified 11/02/21 17:06 Antibiotics) sulfamethoxazole Allergy Unknown rash Verified 11/02/21 17:06 [From Bactrim] trimethoprim [From Bactrim] Allergy Unknown rash Verified 11/02/21 17:06 vancomycin Allergy Unknown hives, Verified 11/02/21 17:06 redness and hot to touch at IV site metoclopramide [From Reglan] AdvReac Unknown anxiety Verified 11/02/21 17:06 Platelet Infusion Set Allergy Unknown hives Uncoded 11/02/21 17:06 PLATELETS Allergy Unknown HIVES Uncoded 11/02/21 17:06 Review of Systems Review of Systems: Pertinent positives and negatives as stated in HPI 10 point review of systems is otherwise negative. [facility] Past Medical History Source: nursing notes reviewed Medical History Anxiety Asthma Depression Dermatitis Dyslipidemia History of allergic drug reaction History of ITP Migraine Mild intermittent asthma Rhinitis, allergic Variant angina Vitamin D deficiency Surgical History H/O LEEP History of cardiac cath History of carpal tunnel surgery History of ITP Family History Family History Father HTN (hypertension) Substance use disorder Mental health disorder Mother SLE (systemic lupus erythematosus) Cancer of thyroid Anxiety Depression Mental health disorder Brother Mental health disorder Sister Mental health disorder Social History Social History Housing: Apartment Alcohol intake: unknown Patient Tobacco Use Status: Former Tobacco user e-Cigarette/Vaping Use: Currently Using Substance Use Type: Marijuana Advance Directives: No Advance Directives Information Provided: Yes Patient : No service: No Current occupational status: employed Current occupation: [employer] Sexual orientation: Lesbian/[place]/Homosexual Gender identity: Female Physical Exam Vital Signs: Vital Signs: Last Vital Signs Temp 98.4 F 11/15/21 01:33 Pulse 72 11/15/21 05:01 Resp 16 11/15/21 05:01 BP 148/92 H 11/15/21 01:33 Pulse Ox 98 11/15/21 01:33 BMI result Body Mass Index 45.4 VITAL SIGNS: Reviewed. GENERAL: Well developed, well nourished, in no acute distress. HEAD: Normocephalic/atraumatic EYES: PERRLA, EOMI OROPHARYNX: no oral lesions noted, posterior pharynx clear LUNGS: Decreased breath sounds, with expiratory wheeze , no tachypnea. SpO2<98> CARDIOVASCULAR: Regular rate and rhythm without noted murmurs ABDOMEN: Soft, non-tender, non-distended with bowel sounds. NEUROLOGIC: Alert and oriented x 4. Strength and sensation to light touch were grossly intact x 4. Course Course Course Narrative: 31-year-old female with history and clinical presentation consistent with mild asthma exacerbation. Patient received albuterol treatment, prednisone, as well as Tessalon Perles and on re-evaluation states that she is feeling much better. On re-evaluation with clinical exam patient has significant improvement in air movement and no noted expiratory wheeze. She was discharged home in stable condition with instructions to discuss possible maintenance inhaler with her primary care provider. Discharge Plan Discharge Clinical Impression: Asthma exacerbation Patient Disposition: Home, Self-Care Instructions: Asthma (ED) Additional Instructions: follow-up with your primary care provider to discuss possible initiation of maintenance inhaler. Recommend increasing the frequency of use of your rescue inhaler over the next 24-48 hours. Return to the ER for worsening symptoms. Prescriptions: New prednisone 50 mg tablet 50 mg PO DAILY 4 Days Qty: 4 0RF benzonatate 200 mg capsule 200 mg PO TID PRN (Reason: cough) Qty: 10 0RF No Action benzonatate 200 mg capsule 200 mg PO TID PRN (Reason: cough) Qty: 14 0RF codeine-guaifenesin 10-100 mg/5 mL liquid 10 ml PO Q6H PRN (Reason: cough) Qty: 237 0RF prednisone 20 mg tablet 40 mg PO DAILY Qty: 10 0RF albuterol sulfate 2.5 mg /3 mL (0.083 %) solution for nebulization 2.5 mg inhalation QID PRN (Reason: shortness of breath or wheezing) Qty: 90 2RF albuterol sulfate 90 mcg/actuation HFA aerosol inhaler 1 puff inhalation Q6H PRN (Reason: Shortness Of Breath) Qty: 8.5 0RF naproxen 500 mg tablet 500 mg PO BID Qty: 20 0RF
[2021-11-15] MEDS: Albuterol Sulfate (0.083%) 2.5 MG/3 ML VIAL.NEB 10 MG INHALE (05:00)
[2021-11-15 05:01] VITALS: PULSE 72; RESP 16; O2SAT 99
[2021-11-15] MEDS: Benzonatate 100 MG CAPSULE 200 MG PO (05:27)
[2021-11-15] MEDS: predniSONE 10 MG TABLET 50 MG PO (05:27)
== END 2021-11-15 06:25 | disposition home or self-care (01) ==
PROVIDERS: Emergency Provider Student in an Organized Health Care Education/Training Program
DX: J45.901 Unspecified asthma with (acute) exacerbation (principal); F12.90 Cannabis use, unspecified, uncomplicated
CPT/HCPCS: 71045; 94644; 99283; 99284

== ENCOUNTER 2021-12-25 09:37 | Outpatient (REF) | payer OTHER, SELFPAY ==
--- NOTE | ~2021-12-25 | XR_ITS ---
EXAMINATION: XR HAND, RIGHT CLINICAL INFORMATION: Right hand pain status post trauma COMPARISON: May 22, 2014 TECHNIQUE: PA, lateral, and oblique views of the right hand. FINDINGS: There is no evidence of acute fracture or dislocation of the right hand. There is mild degenerative spurring about the first carpal metacarpal joint. There is a stable navicular cyst present. XR/XR hand RT min 3V IMPRESSION: Stable appearance of the right hand without evidence of acute fracture or dislocation.
== END 2021-12-25 09:38 | disposition home or self-care (01) ==
LOC: HO.XRAY 09:37
PROVIDERS: PCP Internal Medicine; Visit Provider Internal Medicine
DX: M79.641 Pain in right hand (principal)
CPT/HCPCS: 73130

== ENCOUNTER 2022-03-18 14:35 | Outpatient (REF) | payer OTHER, SELFPAY ==
[2022-03-18 15:17] LABS: Influenza A PCR NEGATIVE (Negative); Influenza B PCR NEGATIVE (Negative); Resp Syncy Virus RNA Qual PCR NEGATIVE (Negative); SARS COV2 PCR INHOUSE NEGATIVE (Negative)
== END 2022-03-18 14:36 | disposition home or self-care (01) ==
LOC: HO.LNP 14:35
PROVIDERS: Visit Provider Physician Assistant
DX: Z20.822 Contact with and (suspected) exposure to COVID-19 (principal); J32.9 Chronic sinusitis, unspecified
CPT/HCPCS: 0241U

== ENCOUNTER 2022-08-06 15:13 | Outpatient (REF) | payer OTHER, SELFPAY ==
[2022-08-06 18:37] LABS: Influenza A PCR NEGATIVE (Negative); Influenza B PCR NEGATIVE (Negative); Resp Syncy Virus RNA Qual PCR NEGATIVE (Negative); SARS COV2 PCR INHOUSE NEGATIVE (Negative)
== END 2022-08-06 15:14 | disposition home or self-care (01) ==
LOC: HO.LAB 15:13
DX: J06.9 Acute upper respiratory infection, unspecified (principal); Z20.822 Contact with and (suspected) exposure to COVID-19
CPT/HCPCS: 0241U

== ENCOUNTER 2022-08-06 23:18 | Emergency (ER) | payer OTHER, SELFPAY ==
[2022-08-07 00:01] VITALS: BP 149/74; PULSE 75; RESP 16; TEMP 36.8; O2SAT 95; BMI 39.7
--- OUTSIDE RECORDS SUMMARY | 2022-08-07 00:19 | XMS_ITS | Continuity of Care Document ---
:1990 Author Organization [facility] Address [address] [place] [id number]- Care Team Providers Name Role Phone Ceasar Su DO Primary Care Physician Encounter [facility] Date(s): 10/04/19 - 10/11/[address] [id number]- [facility] Attending Physician: Anthony Noel MD Allergies, Adverse Reactions, Alerts Substance Reaction Severity Status doxycycline intermittent intolerance Active Augmentin Active Bactrim Active Ceclor Active Medications Cardizem CD 120 mg/24 hours oral capsule, extended release 1 capsule = 120 mg, By Mouth, Daily, # 30 capsule, 0 Refills, Maintenance, 06/01/15 11:28:48, ER Capsule, 1 capsule By Mouth Daily,x30 days Start Date: 06/01/15 Stop Date: 07/01/15 Status: Ordered
[2022-08-07 00:30] LABS: Influenza A Negative (Negative); Influenza B2 Negative (Negative)
[2022-08-07 00:30] LABS: COVID-19 Test Negative (Negative)
--- NOTE | 2022-08-07 00:55 | ED_ITS ---
HPI - URI/Sore Throat General Chief Complaint: Upper Respiratory Symptoms Stated Complaint: Upper resp symptoms Time Seen by Provider: 08/07/22 00:16 Source: patient and family Mode of arrival: ambulatory History of Present Illness HPI Narrative: 31-year-old patient who presents with complaints of body aches, chills, shortness of breath as well as chest pain after coughing and low-grade fevers with positive exposure to RSV. Patient has underlying asthma. Related Data Home Medications Medication Instructions Recorded Confirmed safety needles 25 gauge x 5/8 (BD #50 ea 06/16/22 SafetyGlide Needle) testosterone cypionate 200 mg/mL 200 mg IM Q2W 06/16/22 intramuscular oil Previous Rx's Medication Instructions Recorded albuterol sulfate 90 mcg/actuation 1 puff inhalation Q6H PRN 05/12/21 aerosol inhaler Shortness Of Breath #8.5 grams naproxen 500 mg tablet 500 mg PO BID #20 tabs 09/15/21 benzonatate 200 mg capsule 200 mg PO TID PRN cough #14 caps 10/21/21 codeine 10 mg-guaifenesin 100 mg/5 10 ml PO Q6H PRN cough #237 mL 11/02/21 mL oral liquid benzonatate 200 mg capsule 200 mg PO TID PRN cough #10 caps 11/15/21 prednisone 50 mg tablet 50 mg PO DAILY 4 days #4 tabs 11/15/21 albuterol sulfate 5 mg/mL(0.5 %) 2.5 mg (0.5 mL) inhalation Q6H PRN 03/18/22 solution for nebulization shortness of breath or wheezing #20 mL benzonatate 100 mg capsule 100 mg PO BID PRN cough #14 caps 03/18/22 doxycycline hyclate 100 mg capsule 100 mg PO BID 7 days #14 caps 03/18/22 azithromycin 250 mg tablet See Rx Instructions PO .COMPLEX #6 06/16/22 tabs prednisone 20 mg tablet 60 mg PO DAILY #9 tabs 06/16/22 albuterol sulfate 2.5 mg/3 mL 2.5 mg (3 mL) continuous 08/06/22 (0.083 %) solution for nebulization nebulization QID PRN shortness of breath or wheezing #90 mL prednisone 10 mg tablet See Rx Instructions PO DAILY #20 08/06/22 tabs Allergies Allergy/AdvReac Type Severity Reaction Status Date / Time adair Allergy Severe ANAPHYLAXIS Verified 08/06/22 14:30 cinnamon [CINNAMON] Allergy Severe MOUTH Verified 08/06/22 14:30 MEMBRANES PEEL homatropine Allergy Severe Hives Verified 08/06/22 14:30 [From Hycodan (with homatropin)] hydrocodone Allergy Severe Hives Verified 08/06/22 14:30 [From Hycodan (with homatropin)] clindamycin Allergy Intermediate Rash Verified 08/06/22 14:30 adhesive tape [TAPE,ADHESIVE] Allergy Unknown HIVES Verified 08/06/22 14:30 amoxicillin [From Augmentin] Allergy Unknown rash Verified 08/06/22 14:30 cefaclor [From CECLOR] Allergy Unknown RASH Verified 08/06/22 14:30 clarithromycin [From BIAXIN] Allergy Unknown RASH Verified 08/06/22 14:30 clavulanic acid Allergy Unknown rash Verified 08/06/22 14:30 [From Augmentin] morphine Allergy Unknown burning Verified 08/06/22 14:30 Sulfa (Sulfonamide Allergy Unknown rash Verified 08/06/22 14:30 Antibiotics) sulfamethoxazole Allergy Unknown rash Verified 08/06/22 14:30 [From Bactrim] trimethoprim [From Bactrim] Allergy Unknown rash Verified 08/06/22 14:30 vancomycin Allergy Unknown hives, Verified 08/06/22 14:30 redness and hot to touch at IV site metoclopramide [From Reglan] AdvReac Unknown anxiety Verified 08/06/22 14:30 Platelet Infusion Set Allergy Unknown hives Uncoded 08/06/22 14:30 PLATELETS Allergy Unknown HIVES Uncoded 08/06/22 14:30 Review of Systems Review of Systems: Pertinent positives and negatives as stated in HPI 10 point review of systems is otherwise negative. [facility] Past Medical History Source: nursing notes reviewed Medical History Anxiety Asthma Depression Dermatitis Dyslipidemia History of allergic drug reaction History of ITP Migraine Mild intermittent asthma Rhinitis, allergic Variant angina Viral upper respiratory tract infection with cough Vitamin D deficiency Surgical History H/O LEEP History of cardiac cath History of carpal tunnel surgery History of ITP Family History Family History Father HTN (hypertension) Substance use disorder Mental health disorder Mother SLE (systemic lupus erythematosus) Cancer of thyroid Anxiety Depression Mental health disorder Brother Mental health disorder Sister Mental health disorder Social History Social History Housing: Apartment Alcohol intake: unknown Patient Tobacco Use Status: Former Tobacco user e-Cigarette/Vaping Use: Currently Using Substance Use Type: Marijuana Advance Directives: No Advance Directives Information Provided: Yes service: No Current occupational status: employed Current occupation: [employer] Sexual orientation: Lesbian/[place]/Homosexual Gender identity: Female Physical Exam Vital Signs: Vital Signs: Last Vital Signs Temp 98.2 F 08/07/22 00:01 Pulse 75 08/07/22 00:01 Resp 16 08/07/22 00:01 BP 149/74 H 08/07/22 00:01 Pulse Ox 95 08/07/22 00:01 O2 Del Method 08/07/22 00:01 BMI result Body Mass Index 39.7 VITAL SIGNS: Reviewed. GENERAL: Well developed, well nourished, in no acute distress. HEAD: Normocephalic/atraumatic EYES: PERRLA, EOMI EARS: Ext canals without abnormality, TMs non-bulging and non-erythematous NOSE: Nares patent bilateral OROPHARYNX: no oral lesions noted, posterior pharynx clear and non-erythematous without noted tonsillar enlargement/erythema/exudates NECK: Supple, no adenopathy LUNGS: Good inspiratory effort with coarse breath sounds but no tachypnea or wheeze noted. No increased work of breathing. SpO2<95> CARDIOVASCULAR: Regular rate and rhythm without noted murmurs ABDOMEN: Soft, non-tender, non-distended with bowel sounds. MUSCULOSKELETAL: No tenderness, deformities, or effusions noted on gross inspection. EXTREMITIES: No cyanosis, clubbing or edema. SKIN: Inspection of the skin reveals no rashes NEUROLOGIC: Alert and oriented x 4. Strength and sensation to light touch were grossly intact x 4. Course Course Course Narrative: 31-year-old patient with history and clinical presentation most consistent with viral syndrome and suspect RSV infection. Patient is neither tachypneic or tachycardic and is oxygenating well without increased work of breathing on room air. Patient's states that they have already been started on a steroid taper by the PCP. Review of all viral testing is negative for COVID/influenza/RSV. Suspect there may be a component asthma/bronchitis which patient is currently being treated for. Patient is discharged in stable condition. MDM - URI/Sore Throat Lab Data Labs: Lab Results 08/06/22 08/06/22 08/07/22 Range/Units 00:59 23:59 00:50 COVID-19 (ROSS) Negative (Negative) COVID-19 Clin Com See Note Influenza Type A (AYESHA) Negative (Negative) Influenza Type A (PCR) NEGATIVE (Negative) Influenza Type B (AYESHA) Negative (Negative) Influenza Type B (PCR) NEGATIVE (Negative) Influenza A & B Note See Note RSV RNA Qual (PCR) NEGATIVE (Negative) SARS-CoV-2 RNA (RT-PCR) NEGATIVE (Negative) Discharge Plan Discharge Clinical Impression: Asthma with bronchitis Patient Disposition: Home, Self-Care Instructions: Asthma (ED), Acute Bronchitis (ED) Additional Instructions: 1. Resume all home medications as prescribed. 2. Complete the course of steroids and recommendations made by your primary care provider. 3. Follow-up with your primary care provider. Return to the ER for worsening symptoms. Prescriptions: No Action benzonatate 200 mg capsule 200 mg PO TID PRN (Reason: cough) Qty: 14 0RF codeine-guaifenesin 10-100 mg/5 mL liquid 10 ml PO Q6H PRN (Reason: cough) Qty: 237 0RF prednisone 50 mg tablet 50 mg PO DAILY 4 Days Qty: 4 0RF benzonatate 200 mg capsule 200 mg PO TID PRN (Reason: cough) Qty: 10 0RF albuterol sulfate 90 mcg/actuation HFA aerosol inhaler 1 puff inhalation Q6H PRN (Reason: Shortness Of Breath) Qty: 8.5 0RF naproxen 500 mg tablet 500 mg PO BID Qty: 20 0RF doxycycline hyclate 100 mg capsule 100 mg PO BID 7 Days Qty: 14 0RF albuterol sulfate 5 mg/mL solution for nebulization 2.5 mg inhalation Q6H PRN (Reason: shortness of breath or wheezing) Qty: 20 0RF benzonatate 100 mg capsule 100 mg PO BID PRN (Reason: cough) Qty: 14 0RF testosterone cypionate 200 mg/mL oil 200 mg IM Q2W (DME) BD SafetyGlide Needle 25 gauge x 5/8 needle See Rx Instructions .ROUTE .MEDSUPPLY Qty: 50 Rx Instructions: As directed prednisone 20 mg tablet 60 mg PO DAILY Qty: 9 0RF azithromycin 250 mg tablet See Rx Instructions PO .COMPLEX Qty: 6 0RF Rx Instructions: take 500 mg today (day 1), then 250 mg for 4 days (days 2-5) PO albuterol sulfate 2.5 mg /3 mL (0.083 %) solution for nebulization 2.5 mg continuous nebulization QID PRN (Reason: shortness of breath or wheezing) Qty: 90 2RF prednisone 10 mg tablet See Rx Instructions PO DAILY Qty: 20 0RF Rx Instructions: 40mg orally daily; x2 days and then 30 mg p.o. x2 days and then 20 mg p.o. times 2 days and then 10 mg p.o. times 2 days Referrals: Amaya Santoro MD [Primary Care Provider] -
[2022-08-07 01:32] LABS: Influenza A PCR NEGATIVE (Negative); Influenza B PCR NEGATIVE (Negative); Resp Syncy Virus RNA Qual PCR NEGATIVE (Negative); SARS COV2 PCR INHOUSE NEGATIVE (Negative)
== END 2022-08-07 02:23 | disposition home or self-care (01) ==
PROVIDERS: Emergency Provider Student in an Organized Health Care Education/Training Program; PCP Internal Medicine
DX: J45.909 Unspecified asthma, uncomplicated (principal); R06.02 Shortness of breath; M79.10 Myalgia, unspecified site; Z20.822 Contact with and (suspected) exposure to COVID-19; Z79.899 Other long term (current) drug therapy
CPT/HCPCS: 0241U; 87502; 87635; 99282; 99283

== ENCOUNTER 2022-08-11 09:38 | Outpatient (REF) | payer OTHER, SELFPAY ==
[2022-08-11 16:28] LABS: CT PCR NOT DETECTED (Not Detect.); NG PCR NOT DETECTED (Not Detect.)
[2022-08-12 13:56] LABS: BV Int Neg Control Negative (Negative); BV Int Pos Control Positive (Positive)
[2022-08-14 23:47] LABS: HPV mRNA E6/E7 rflx Not Detected (Not Detected)
== END 2022-08-11 09:39 | disposition home or self-care (01) ==
LOC: HO.LNP 09:38
PROVIDERS: Visit Provider Advanced Practice Midwife
DX: Z01.419 Encounter for gynecological examination (general) (routine) without abnormal findings (principal)
CPT/HCPCS: 87480; 87491; 87510; 87591; 87624; 87660; 88142

== ENCOUNTER 2022-09-15 16:40 | Outpatient (REF) | payer OTHER, SELFPAY ==
[2022-09-15 17:27] LABS: Influenza A PCR POSITIVE (Negative); Influenza B PCR NEGATIVE (Negative); Resp Syncy Virus RNA Qual PCR NEGATIVE (Negative); SARS COV2 PCR INHOUSE NEGATIVE (Negative)
== END 2022-09-15 16:41 | disposition home or self-care (01) ==
LOC: HO.LNP 16:40
PROVIDERS: Visit Provider Nurse Practitioner Family
DX: R09.89 Other specified symptoms and signs involving the circulatory and respiratory systems (principal); Z20.822 Contact with and (suspected) exposure to COVID-19
CPT/HCPCS: 0241U

== ENCOUNTER → 2022-10-29 15:33 | Outpatient (BNVA) | payer OTHER, SELFPAY | PROVIDERS: PCP Internal Medicine; Visit Provider Internal Medicine | DX: Z13.89 Encounter for screening for other disorder (principal) | CPT/HCPCS: 99202 ==

== ENCOUNTER 2023-05-12 03:05 | Emergency (ER) | payer OTHER, SELFPAY ==
--- NOTE | ~2023-05-12 | XR_ITS ---
EXAMINATION: XR HAND, LEFT CLINICAL INFORMATION: Finger injury COMPARISON: None available. TECHNIQUE: PA, lateral, and oblique views of the left hand. FINDINGS: There is no fracture or dislocation. Alignment is anatomic. Joint spaces are maintained. Soft tissues are unremarkable. XR/XR hand LT 2V IMPRESSION: Normal left hand.
[2023-05-12 03:14] VITALS: BP 146/79; PULSE 56; RESP 16; TEMP 37; O2SAT 100; BMI 38.8
--- NOTE | 2023-05-12 04:45 | ED.EXTPRO ---
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 Patient states that he tripped and fell yesterday while he was walking on rocks. He states that he bent his left index finger backwards and sustained a laceration to his finger. He states that he is having pain at the tip of his finger but he is having increased pain over the PIP joint and is having difficulty flexing his finger secondary to pain. Related Data Home Medications Medication Instructions Recorded Confirmed safety needles 25 gauge x 5/8 (BD #50 ea 06/16/22 01/29/23 SafetyGlide Needle) testosterone cypionate 200 mg/mL 200 mg IM Q2W 06/16/22 01/29/23 intramuscular oil Previous Rx's Medication Instructions Recorded albuterol sulfate 2.5 mg/3 mL 2.5 mg (3 mL) continuous 08/06/22 (0.083 %) solution for nebulization nebulization QID PRN shortness of breath or wheezing #90 mL cetirizine 10 mg tablet (Allergy 10 mg PO DAILY PRN allergy 10/07/22 Relief (cetirizine)) symptoms/postnasal drip #30 tabs triamcinolone acetonide 0.1 % 1 appl topical DAILY PRN rash in 12/03/22 topical cream groin 10 days #30 grams diclofenac sodium 1 % topical gel 2 g topical QID PRN elbow pain 12/09/22 #100 grams albuterol sulfate 90 mcg/actuation 2 puff inhalation Q4-6H PRN 03/16/23 aerosol inhaler shortness of breath or wheezing #8.5 grams azithromycin 250 mg tablet See Rx Instructions PO .COMPLEX #6 03/16/23 tabs prednisone 20 mg tablet 60 mg PO DAILY #9 tabs 03/16/23 Allergies Allergy/AdvReac Type Severity Reaction Status Date / Time adair Allergy Severe ANAPHYLAXIS Verified 03/16/23 11:10 cinnamon [CINNAMON] Allergy Severe MOUTH Verified 03/16/23 11:10 MEMBRANES PEEL homatropine Allergy Severe Hives Verified 03/16/23 11:10 [From Hycodan (with homatropin)] hydrocodone Allergy Severe Hives Verified 03/16/23 11:10 [From Hycodan (with homatropin)] clindamycin Allergy Intermediate Rash Verified 03/16/23 11:10 adhesive tape [TAPE,ADHESIVE] Allergy Unknown HIVES Verified 03/16/23 11:10 amoxicillin [From Augmentin] Allergy Unknown rash Verified 03/16/23 11:10 cefaclor [From CECLOR] Allergy Unknown RASH Verified 03/16/23 11:10 clarithromycin [From BIAXIN] Allergy Unknown RASH Verified 03/16/23 11:10 clavulanic acid Allergy Unknown rash Verified 03/16/23 11:10 [From Augmentin] morphine Allergy Unknown burning Verified 03/16/23 11:10 Sulfa (Sulfonamide Allergy Unknown rash Verified 03/16/23 11:10 Antibiotics) sulfamethoxazole Allergy Unknown rash Verified 03/16/23 11:10 [From Bactrim] trimethoprim [From Bactrim] Allergy Unknown rash Verified 03/16/23 11:10 vancomycin Allergy Unknown hives, Verified 03/16/23 11:10 redness and hot to touch at IV site metoclopramide [From Reglan] AdvReac Unknown anxiety Verified 03/16/23 11:10 Platelet Infusion Set Allergy Unknown hives Uncoded 03/16/23 11:10 PLATELETS Allergy Unknown HIVES Uncoded 03/16/23 11:10 Review of Systems Review of Systems: Yes all other systems are reviewed and are negative PMFSH Past Medical History Medical History Abnormal Pap smear of cervix Anxiety Asthma Depression Dermatitis Dyslipidemia History of allergic drug reaction History of ITP Migraine Mild intermittent asthma Rhinitis, allergic Variant angina Viral upper respiratory tract infection with cough Vitamin D deficiency Surgical History H/O LEEP History of cardiac cath History of carpal tunnel surgery History of ITP Family History Family History Father HTN (hypertension) Substance use disorder Mental health disorder Mother SLE (systemic lupus erythematosus) Cancer of thyroid Anxiety Depression Mental health disorder Brother Mental health disorder Sister Mental health disorder Social History Social History Housing: Apartment Alcohol intake: unknown Patient Tobacco Use Status: Former Tobacco user Smoked in Last 30 Days: Yes e-Cigarette/Vaping Use: Former Use Use of substances other than those prescribed or required for medical reasons: No Substance Use Type: Marijuana Advance Directives: No Advance Directives Information Provided: Yes Patient : No service: No Current occupational status: employed Current occupation: [employer] [facility] [place] Sexual orientation: Lesbian/[place]in[place]/Homosexual Gender identity: Female Cognitive needs: No Hearing needs: No Vision needs: No Physical Exam Vital Signs: Vital Signs: Last Vital Signs Temp 98.6 F 05/12/23 03:14 Pulse 56 05/12/23 03:14 Resp 16 05/12/23 03:14 BP 146/79 H 05/12/23 03:14 Pulse Ox 100 05/12/23 03:14 O2 Del Method Room Air 05/12/23 03:14 BMI result Body Mass Index 38.8 Vital signs revealed an elevated blood pressure of 146/79 otherwise unremarkable Exam: General: Awake, alert in no distress Extremities: There is a full skin thickness laceration to the tip of the right index finger, this area is mildly tender to palpation there is no erythema or purulent discharge noted. There is tenderness palpation over the right PIP joint with some slight soft tissue swelling compared to the left. Patient has difficulty fully flexing his finger secondary to discomfort. Medical Decision Making Medical Decision Making MDM Narrative: 32-year-old male patient presents emergency department for evaluation of pain in his right index finger after falling yesterday on rocks and hyperextending his finger. The patient is a stain a laceration to the tip of his finger but this does not appear to be infected and the laceration is greater than 24 hours and cannot be repaired. The patient did have tenderness palpation over his right index finger PIP joint with soft tissue swelling and limited ability to fully flex the finger. X-rays of the right hand were obtained and there are no acute fractures seen by the radiologist and on my interpretation of these x-rays. Patient's index and middle finger were yoana-taped. Patient was advised to take Tylenol and ibuprofen. He was given printed and verbal instructions and discharged home Differential Diagnosis Differential Diagnoses: The differential diagnosis associated with the presentation includes Differential diagnosis includes was not limited to laceration, cellulitis, fracture, sprain Independent Interpretation I performed an independent interpretation of an: Plain X-Ray (Right hand x-rays) Interpretation: My independent interpretation of the patient's right hand x-rays is as follows: no acute fracture seen. Radiology Impression Radiologist Impression: R hand LT 2V IMPRESSION: Normal left hand. Dictated By:Travis Gómez MD Discharge Plan Discharge Clinical Impression: Sprain of proximal interphalangeal (PIP) joint of finger Laceration of right index finger Qualifiers: Encounter type: initial encounter Damage to nail status: without damage Foreign body presence: without foreign body Qualified Code(s): S61.210A - Laceration without foreign body of right index finger without damage to nail, initial encounter Patient Disposition: Home, Self-Care Instructions: Finger Sprain (ED) Additional Instructions: The x-ray of your right index finger and hand did not reveal any acute fracture/broken bones. You do have tenderness with palpation of the right index finger PIP joint which is consistent with a sprain. Yoana-tape the index and middle finger together to help protect the index finger. Do this for 2 weeks. Apply ice to the PIP joint reduce the pain and swelling Take ibuprofen 200 mg pills, 2 pills every 6 hours as needed for pain or fever. Take Tylenol (acetaminophen) 500 mg pills, 2 pills every 6 hours as needed for pain or fever. Apply bacitracin to tip of the finger way you have the laceration, do this twice a day for 1 week. Watch for signs of infection which include redness, swelling, drainage of pus, red streaks going away from the wound. Follow-up with your doctor in 2 days. Please return to the emergency department if your symptoms get worse or if you develop any symptoms that are concerning to you. Prescriptions: No Action diclofenac sodium 1 % gel 2 g topical QID PRN (Reason: elbow pain) Qty: 100 0RF triamcinolone acetonide 0.1 % cream 1 appl topical DAILY PRN (Reason: rash in groin ) 10 Days Qty: 30 2RF prednisone 20 mg tablet 60 mg PO DAILY Qty: 9 0RF albuterol sulfate 90 mcg/actuation HFA aerosol inhaler 2 puff inhalation Q4-6H PRN (Reason: shortness of breath or wheezing) Qty: 8.5 0RF azithromycin 250 mg tablet See Rx Instructions PO .COMPLEX Qty: 6 0RF Rx Instructions: take 500 mg today (day 1), then 250 mg for 4 days (days 2-5) PO testosterone cypionate 200 mg/mL oil 200 mg IM Q2W (DME) BD SafetyGlide Needle 25 gauge x 5/8 needle See Rx Instructions .ROUTE .MEDSUPPLY Qty: 50 Rx Instructions: As directed albuterol sulfate 2.5 mg /3 mL (0.083 %) solution for nebulization 2.5 mg continuous nebulization QID PRN (Reason: shortness of breath or wheezing) Qty: 90 2RF cetirizine [Allergy Relief (cetirizine)] 10 mg tablet 10 mg PO DAILY PRN (Reason: allergy symptoms/postnasal drip) Qty: 30 0RF Interventions: ED Discharge Assessment Last Done: 05/12/23 04:59 Discharge Date/Time: 05/12/23 05:00
== END 2023-05-12 05:00 | disposition home or self-care (01) ==
PROVIDERS: Emergency Provider Emergency Medicine Emergency Medical Services; PCP Internal Medicine
DX: S61.210A Laceration without foreign body of right index finger without damage to nail, initial encounter (principal); S63.630A Sprain of interphalangeal joint of right index finger, initial encounter; W01.10XA Fall on same level from slipping, tripping and stumbling with subsequent striking against unspecified object, initial encounter; Y93.9 Activity, unspecified; Y92.9 Unspecified place or not applicable; Y99.9 Unspecified external cause status; Z79.899 Other long term (current) drug therapy; Z87.891 Personal history of nicotine dependence
CPT/HCPCS: 73120; 99283; 99284

== ENCOUNTER 2023-05-27 13:46 | Outpatient (AMB) | payer OTHER, SELFPAY ==
[2023-05-27 13:48] VITALS: BP 132/70; PULSE 78; TEMP 36; O2SAT 98; BMI 38.3
--- NOTE | 2023-05-27 13:48 | AM.OFFWIN_ITS ---
Intake Vital Signs 05/27/23 13:48 Height 5 ft 4 in Weight 223 lb 4 oz BMI 38.3 BP 132/70 Blood Pressure Location Lt brachial Position Sitting Pulse 78 Pulse Source Pulse Oximeter Temp 96.8 F Temp Source Temporal Artery Scan Pulse Oximetry (%) 98 Oxygen Delivery Method Room Air Intake Visit Reasons: EST/cold and flu symptoms (masked lobby) Patient Tobacco Use Status: Former Tobacco user Allergies adair Allergy (Severe, Verified 05/27/23 13:51) ANAPHYLAXIS cinnamon [CINNAMON] Allergy (Severe, Verified 05/27/23 13:51) MOUTH MEMBRANES PEEL homatropine [From Hycodan (with homatropin)] Allergy (Severe, Verified 05/27/23 13:51) Hives hydrocodone [From Hycodan (with homatropin)] Allergy (Severe, Verified 05/27/23 13:51) Hives clindamycin Allergy (Intermediate, Verified 05/27/23 13:51) Rash adhesive tape [TAPE,ADHESIVE] Allergy (Unknown, Verified 05/27/23 13:51) HIVES amoxicillin [From Augmentin] Allergy (Unknown, Verified 05/27/23 13:51) rash cefaclor [From CECLOR] Allergy (Unknown, Verified 05/27/23 13:51) RASH clarithromycin [From BIAXIN] Allergy (Unknown, Verified 05/27/23 13:51) RASH clavulanic acid [From Augmentin] Allergy (Unknown, Verified 05/27/23 13:51) rash morphine Allergy (Unknown, Verified 05/27/23 13:51) burning Sulfa (Sulfonamide Antibiotics) Allergy (Unknown, Verified 05/27/23 13:51) rash sulfamethoxazole [From Bactrim] Allergy (Unknown, Verified 05/27/23 13:51) rash trimethoprim [From Bactrim] Allergy (Unknown, Verified 05/27/23 13:51) rash vancomycin Allergy (Unknown, Verified 05/27/23 13:51) hives, redness and hot to touch at IV site metoclopramide [From Reglan] Adverse Reaction (Unknown, Verified 05/27/23 13:51) anxiety Platelet Infusion Set Allergy (Unknown, Uncoded 05/27/23 13:51) hives PLATELETS Allergy (Unknown, Uncoded 05/27/23 13:51) HIVES HPI HPI Comments History of Present Illness Details 32-year-old female that presents for concern of COVID-19. 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 [facility] Medical History Abnormal Pap smear of cervix Anxiety Asthma Depression Dermatitis Dyslipidemia History of allergic drug reaction History of ITP Migraine Mild intermittent asthma Rhinitis, allergic Variant angina Viral upper respiratory tract infection with cough Vitamin D deficiency Surgical History H/O LEEP History of cardiac cath History of carpal tunnel surgery History of ITP Family History Father HTN (hypertension) Substance use disorder Mental health disorder Mother SLE (systemic lupus erythematosus) Cancer of thyroid Anxiety Depression Mental health disorder Brother Mental health disorder Sister Mental health disorder Social History Housing: Apartment Alcohol intake: unknown Patient Tobacco Use Status: Former Tobacco user e-Cigarette/Vaping Use: Former Use Substance Use Type: Marijuana service: No Current occupational status: employed Current occupation: [employer] Sexual orientation: Lesbian/[place]in[place]/Homosexual Gender identity: Female Cognitive needs: No Hearing needs: No Vision needs: No Female Reproductive History Menstrual Age of Menarche: 11 Review of Systems Const All systems reviewed & are unremarkable except as noted in HPI and below Denies fever(s), Denies headache(s) and Denies weakness Eyes Reports no additional complaints ENT Denies headache(s), Reports nasal congestion and Reports nasal discharge Card Reports no additional complaints, Denies chest pain, Denies leg edema and Denies dyspnea Resp Reports chest congestion, Reports cough and Denies dyspnea GI Denies abdominal pain, Denies nausea and Denies vomiting Denies urinary frequency and Denies dysuria Musc Reports no additional complaints Neuro Denies headache(s) and Denies weakness Psych Reports no additional complaints Endo Reports no additional complaints Physical Exam Vital Signs: Last Vital Signs Temp 96.8 F 05/27/23 13:48 Pulse 78 05/27/23 13:48 BP 132/70 05/27/23 13:48 Pulse Ox 98 05/27/23 13:48 Oxygen Delivery Method Room Air 05/27/23 13:48 BMI result Body Mass Index 38.3 Const General: cooperative, no acute distress and alert Orientation/consciousness: patient oriented x3 Limitations: no limitations HEENT Head: Yes normal to inspection Ears: hearing grossly normal bilaterally and external ears normal General nose exam: Normal external nose present Eyes General: appearance normal, both eyes and all related structures Neck Neck: Yes normal visual inspection Chest Chest palpation & inspection: normal inspection of the chest Resp Other: coarse breath sounds throughout Effort & Inspection: normal respiratory effort and able to speak in complete sentences Cardio Rate: regular rate Rhythm: regular rhythm GI Inspection: Yes normal to inspection Palpation (GI): Soft to palpation and nontender Skin General skin exam: no rashes or lesions noted Neuro General: patient oriented x3 Psych Appearance: grossly normal Mental Status: mental status grossly normal Speech and movement: Normal speech and movement present Affect: normal affect Attitude: cooperative Thought process: Normal thought process present Thought content: Normal thought content present Assessment & Plan Assessment & Plan (1) Upper respiratory tract infection: Code(s): J06.9 - Acute upper respiratory infection, unspecified Plan VSS. On exam patient presents alert oriented no acute distress exam notable for course breath sounds throughout. Will provide COVID-19 test if positive patient has Declined paxlovid Discharge instructions, follow up and treatment are discussed with patient in my usual fashion. Alternatives in treatment are also discussed. The patient will return for worsening symptoms or as needed. Advised that any labs/imaging ordered will be followed up on and contact made if further treatment needed. Counseled that patient's condition may require further evaluation and/or treatment. Symptoms of concern for worsening disorder discussed in detail in my customary manner. Patient does verbalize understanding of the plan, there are no apparent barriers to communication. The patient is given the opportunity to ask questions and have them answered to his/her satisfaction Orders: Orders BinaxNOW Covid-19 Ag Today J06.9 - Acute upper respiratory infection, unspecified Coding Level of Care Code Est Pt Level 3 (42193) Diagnoses Upper respiratory tract infection J06.9
== END 2023-05-27 14:25 | disposition home or self-care (01) ==
PROVIDERS: PCP Internal Medicine; Visit Provider Physician Assistant
DX: J06.9 Acute upper respiratory infection, unspecified (principal)
CPT/HCPCS: 99213

== ENCOUNTER 2023-05-27 14:20 | Outpatient (REF) | payer OTHER, SELFPAY ==
[2023-05-27 14:46] LABS: Binax Internal Control QC Valid; Binax Now Covid-19 Ag Negative (Negative); Binax Performed by: PAULP
== END 2023-05-27 14:21 | disposition home or self-care (01) ==
LOC: HO.HMGCLDS 14:20
PROVIDERS: PCP Internal Medicine; Visit Provider Physician Assistant
DX: Z20.822 Contact with and (suspected) exposure to COVID-19 (principal); J06.9 Acute upper respiratory infection, unspecified
CPT/HCPCS: 87811; C9803

== ENCOUNTER 2023-06-23 15:12 | Outpatient (REF) | payer OTHER, SELFPAY | END 2023-06-23 15:13 | disposition home or self-care (01) | LOC: HO.LNP 15:12 | PROVIDERS: PCP Internal Medicine; Visit Provider Obstetrics & Gynecology | DX: N75.0 Cyst of Bartholin's gland (principal) | CPT/HCPCS: 56420; 87070; 87205 ==

== ENCOUNTER 2023-06-23 15:12 | Outpatient (AMB) | payer OTHER, SELFPAY ==
[2023-06-23 15:21] VITALS: BP 120/70; BMI 38.2
--- NOTE | 2023-06-23 15:21 | A.OFFVIS_ITS ---
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: No Information Interpreted: non-clinical & clinical Senior Sql Developer: Senior Sql Developer Present (Yaritza CASTRO) Accompanied by: Self / Same As Patient Allergies adair Allergy (Severe, Verified 06/23/23 15:22) ANAPHYLAXIS cinnamon [CINNAMON] Allergy (Severe, Verified 06/23/23 15:22) MOUTH MEMBRANES PEEL homatropine [From Hycodan (with homatropin)] Allergy (Severe, Verified 06/23/23 15:22) Hives hydrocodone [From Hycodan (with homatropin)] Allergy (Severe, Verified 06/23/23 15:22) Hives clindamycin Allergy (Intermediate, Verified 06/23/23 15:22) Rash adhesive tape [TAPE,ADHESIVE] Allergy (Unknown, Verified 06/23/23 15:22) HIVES amoxicillin [From Augmentin] Allergy (Unknown, Verified 06/23/23 15:22) rash cefaclor [From CECLOR] Allergy (Unknown, Verified 06/23/23 15:22) RASH clarithromycin [From BIAXIN] Allergy (Unknown, Verified 06/23/23 15:22) RASH clavulanic acid [From Augmentin] Allergy (Unknown, Verified 06/23/23 15:22) rash morphine Allergy (Unknown, Verified 06/23/23 15:22) burning Sulfa (Sulfonamide Antibiotics) Allergy (Unknown, Verified 06/23/23 15:22) rash sulfamethoxazole [From Bactrim] Allergy (Unknown, Verified 06/23/23 15:22) rash trimethoprim [From Bactrim] Allergy (Unknown, Verified 06/23/23 15:22) rash vancomycin Allergy (Unknown, Verified 06/23/23 15:22) hives, redness and hot to touch at IV site metoclopramide [From Reglan] Adverse Reaction (Unknown, Verified 06/23/23 15:22) anxiety Platelet Infusion Set Allergy (Unknown, Uncoded 06/23/23 15:22) hives PLATELETS Allergy (Unknown, Uncoded 06/23/23 15:22) HIVES HPI HPI Comments History of Present Illness Details Presenting complaining of right vulvar swelling that is tender over the last 3 days, it has been getting larger and more painful. [facility] Medical History Abnormal Pap smear of cervix Viral upper respiratory tract infection with cough History of allergic drug reaction Rhinitis, allergic Dermatitis Variant angina Dyslipidemia Vitamin D deficiency History of ITP Mild intermittent asthma Asthma Migraine Anxiety Depression Surgical History History of cardiac cath History of carpal tunnel surgery History of ITP H/O LEEP Family History Father HTN (hypertension) Substance use disorder Mental health disorder Mother SLE (systemic lupus erythematosus) Cancer of thyroid Anxiety Depression Mental health disorder Brother Mental health disorder Sister Mental health disorder Social History Housing: Apartment Alcohol intake: unknown Patient Tobacco Use Status: Former Tobacco user e-Cigarette/Vaping Use: Former Use Substance Use Type: Marijuana service: No Current occupational status: employed Current occupation: [employer] [place] Sexual orientation: Lesbian/[place]in[place]/Homosexual Gender identity: Female Cognitive needs: No Hearing needs: No Vision needs: No Female Reproductive History Menstrual Age of Menarche: 11 Review of Systems Const All systems reviewed & are unremarkable except as noted in HPI and below Physical Exam Vital Signs: Last Vital Signs BP 120/70 06/23/23 15:21 BMI result Body Mass Index 38.2 General: Yes no CVA tenderness External Female Exam: normal appearance of the urethra and other (Right Bartholin's gland cyst) Speculum Exam - Vagina: normal appearance of the vagina, normal palpation, no lesions and no masses Speculum Exam - Cervix: normal appearance of the cervix, normal palpation, no lesions, no masses and nontender Bimanual exam- vagina & uterus: normal bimanual exam, normal palpation, uterine size normal, normal palpation, uterine shape normal, No Cervical tenderness present and non-tender Bimanual Exam- Adnexa, other: normal adnexae Back/Spine/Pelvis Back: no CVA tenderness Office Procedures Incision/Drainage PROTECTIVE SIGNAL INSTALLER HELPER Incision/Drainage PROTECTIVE SIGNAL INSTALLER HELPER Details: Right Bartholin I & D with Word Catheter insertion Indication: Right labial Bartholin's gland cyst. Prep: the skin was cleaned with Betadine. Anesthesia: 3 cc of Xylocaine was used for anesthesia Guidance: palpation was used for guidance. Technique: a nicking incision was made in the skin, using an 11-blade to incise the cyst, and word catheter was advanced into the cyst cavity . Yield: 3 cc came out. The fluid was blood-tinged. Result: This substantially decompressed the swelling. Dressing: a clean dressing was placed. Tolerance: The patient tolerated the procedure well. Disposition: The patient was sent home in stable condition. Before the procedure was started d/w patient the procedure, alternatives (do nothing), & all the risks associated with the procedure (bleeding , infection, scar tissue development, chronic dyspareunia, injury to bladder, vessels, bowels, possible need for transfusion with all its risks) then patient signed the consent and At the end the patient was instructed to call if temp>100.4, abdominal pain, n/v. 21293-C&D of Bartholin gland abscess All charges added?: Procedure code (CPT) selection complete Assessment & Plan Assessment & Plan (1) Bartholin's gland cyst: Code(s): N75.0 - Cyst of Bartholin's gland Plan: Discussed with the patient the finding on pelvic exam showing a right Bartholin's gland cyst, recommend I&D with word catheter, see procedure note. Orders: Orders Incision & Drainage PROTECTIVE SIGNAL INSTALLER HELPER Today N75.0 - Cyst of Bartholin's gland Coding Level of Care Code Est Pt Level 3 (60058) Procedure Only Diagnoses Bartholin's gland cyst N75.0 CPT Codes Incision/Drainage PROTECTIVE SIGNAL INSTALLER HELPER - IDGYN2: [id number] of Bartholin gland abscess ([id number])
== END 2023-06-23 16:21 | disposition home or self-care (01) ==
PROVIDERS: PCP Internal Medicine; Visit Provider Obstetrics & Gynecology
DX: N75.0 Cyst of Bartholin's gland (principal)
CPT/HCPCS: 56420

== ENCOUNTER → 2023-06-25 11:08 | Outpatient (BNVA) | payer OTHER, SELFPAY | PROVIDERS: PCP Internal Medicine; Visit Provider Advanced Practice Midwife | DX: N75.0 Cyst of Bartholin's gland (principal) | CPT/HCPCS: 99212 ==

== ENCOUNTER → 2023-06-25 11:08 | Outpatient (AMB) | payer OTHER, SELFPAY ==
[2023-06-25 11:13] VITALS: BMI 38.2
--- NOTE | 2023-06-25 11:13 | MHC.OFFVIS ---
Intake Vital Signs 06/25/23 11:13 Height 5 ft 4 in Weight 222 lb 10.67 oz BMI 38.2 Intake Visit Reasons: cath check Intake Note: The patient agreed to use of a medical scientific officer during this encounter. Scribed for MELVI Will by Alicia Conte medical scientific officer, on 06/25/2023 at 11:30 am EST Allergies adair Allergy (Severe, Verified 06/23/23 15:22) ANAPHYLAXIS cinnamon [CINNAMON] Allergy (Severe, Verified 06/23/23 15:22) MOUTH [employer]BRANES PEEL homatropine [From Hycodan (with homatropin)] Allergy (Severe, Verified 06/23/23 15:22) Hives hydrocodone [From Hycodan (with homatropin)] Allergy (Severe, Verified 06/23/23 15:22) Hives clindamycin Allergy (Intermediate, Verified 06/23/23 15:22) Rash adhesive tape [TAPE,ADHESIVE] Allergy (Unknown, Verified 06/23/23 15:22) HIVES amoxicillin [From Augmentin] Allergy (Unknown, Verified 06/23/23 15:22) rash cefaclor [From CECLOR] Allergy (Unknown, Verified 06/23/23 15:22) RASH clarithromycin [From BIAXIN] Allergy (Unknown, Verified 06/23/23 15:22) RASH clavulanic acid [From Augmentin] Allergy (Unknown, Verified 06/23/23 15:22) rash morphine Allergy (Unknown, Verified 06/23/23 15:22) burning Sulfa (Sulfonamide Antibiotics) Allergy (Unknown, Verified 06/23/23 15:22) rash sulfamethoxazole [From Bactrim] Allergy (Unknown, Verified 06/23/23 15:22) rash trimethoprim [From Bactrim] Allergy (Unknown, Verified 06/23/23 15:22) rash vancomycin Allergy (Unknown, Verified 06/23/23 15:22) hives, redness and hot to touch at IV site metoclopramide [From Reglan] Adverse Reaction (Unknown, Verified 06/23/23 15:22) anxiety Platelet Infusion Set Allergy (Unknown, Uncoded 06/23/23 15:22) hives PLATELETS Allergy (Unknown, Uncoded 06/23/23 15:22) HIVES HPI HPI Comments History of Present Illness Details The patient presents for unscheduled visit for increased pain post Bartholin's cyst drainage completed this week. Reports the Word catheter is very painful during walking, moving and carrying out activities. Has been taking Tylenol and ibuprofen without relief. Cultures are pending. [facility] Medical History Abnormal Pap smear of cervix Viral upper respiratory tract infection with cough History of allergic drug reaction Rhinitis, allergic Dermatitis Variant angina Dyslipidemia Vitamin D deficiency History of ITP Mild intermittent asthma Asthma Migraine Anxiety Depression Surgical History History of cardiac cath History of carpal tunnel surgery History of ITP H/O LEEP Family History Father HTN (hypertension) Substance use disorder Mental health disorder Mother SLE (systemic lupus erythematosus) Cancer of thyroid Anxiety Depression Mental health disorder Brother Mental health disorder Sister Mental health disorder Social History Housing: Apartment Alcohol intake: unknown Patient Tobacco Use Status: Former Tobacco user e-Cigarette/Vaping Use: Former Use Substance Use Type: Marijuana service: No Current occupational status: employed Current occupation: [employer] [place] Sexual orientation: Lesbian/Trinidad/Homosexual Gender identity: Female Cognitive needs: No Hearing needs: No Vision needs: No Female Reproductive History Menstrual Age of Menarche: 11 Review of Systems Const All systems reviewed & are unremarkable except as noted in HPI and below Physical Exam Vital Signs: BMI result Body Mass Index 38.2 Const General: cooperative, no acute distress, well developed and alert Other: Word catheter was cut and drained. Bulb collapsed and removed easily intact. The cyst was palpated, tender, and gently milked with no abnormal discharge noted. External Female Exam: other (WORD catheter inserted) Assessment & Plan Assessment & Plan (1) Bartholin's gland cyst: Code(s): N75.0 - Cyst of Bartholin's gland Plan: Word catheter removed successfully today. Instructions: Gentle with wiping. Encouraged warm soaks to the area. S/S of infection were reviewed. Instructed to go to ER with any flu like sx, fevers >100.4, swelling, or pain. Patient was given note for work for today and tomorrow, scheduled to return to work Wednesday. Contact office with any questions or concerns. RTO prn. Coding Level of Care Code Est Pt Level 3 (91788) Diagnoses Bartholin's gland cyst N75.0
== END ==
PROVIDERS: PCP Internal Medicine; Visit Provider Advanced Practice Midwife
DX: N75.0 Cyst of Bartholin's gland (principal)
CPT/HCPCS: 99024

== ENCOUNTER 2023-07-06 13:36 | Outpatient (AMB) | payer OTHER, SELFPAY ==
--- NOTE | 2023-07-06 15:06 | MHC.OFFWIV ---
Intake Vital Signs 07/06/23 15:08 Height 5 ft 4 in Weight 222 lb BMI 38.1 BP 140/80 H Blood Pressure Location Lt brachial Position Sitting Pulse 82 Pulse Source Pulse Oximeter Temp 98.7 F Temp Source Temporal Artery Scan Pulse Oximetry (%) 97 Oxygen Delivery Method Room Air Intake Visit Reasons: EP, congestion, cough, sore throat [phone] Intake Note: pt is here for c/o cough, congestion, right eye watery and ear pain, sore throat Patient Tobacco Use Status: Former Tobacco user Allergies adair Allergy (Severe, Verified 07/06/23 15:07) ANAPHYLAXIS cinnamon [CINNAMON] Allergy (Severe, Verified 07/06/23 15:07) MOUTH [employer]ANES PEEL homatropine [From Hycodan (with homatropin)] Allergy (Severe, Verified 07/06/23 15:07) Hives hydrocodone [From Hycodan (with homatropin)] Allergy (Severe, Verified 07/06/23 15:07) Hives clindamycin Allergy (Intermediate, Verified 07/06/23 15:07) Rash adhesive tape [TAPE,ADHESIVE] Allergy (Unknown, Verified 07/06/23 15:07) HIVES amoxicillin [From Augmentin] Allergy (Unknown, Verified 07/06/23 15:07) rash cefaclor [From CECLOR] Allergy (Unknown, Verified 07/06/23 15:07) RASH clarithromycin [From BIAXIN] Allergy (Unknown, Verified 07/06/23 15:07) RASH clavulanic acid [From Augmentin] Allergy (Unknown, Verified 07/06/23 15:07) rash morphine Allergy (Unknown, Verified 07/06/23 15:07) burning Sulfa (Sulfonamide Antibiotics) Allergy (Unknown, Verified 07/06/23 15:07) rash sulfamethoxazole [From Bactrim] Allergy (Unknown, Verified 07/06/23 15:07) rash trimethoprim [From Bactrim] Allergy (Unknown, Verified 07/06/23 15:07) rash vancomycin Allergy (Unknown, Verified 07/06/23 15:07) hives, redness and hot to touch at IV site metoclopramide [From Reglan] Adverse Reaction (Unknown, Verified 07/06/23 15:07) anxiety Platelet Infusion Set Allergy (Unknown, Uncoded 06/23/23 15:22) hives PLATELETS Allergy (Unknown, Uncoded 06/23/23 15:22) HIVES Do you need a note to return to daycare/school/sports/work: Yes HPI EP, congestion, cough, sore throat [phone] HPI Details Patient presents for a sick visit. Reporting symptoms of sinus congestion, sore throat and difficulty swallowing. Low-grade fever. No family member is sick. No recent travel. Patient reports symptoms of malaise and fatigue. [facility] Medical History Abnormal Pap smear of cervix Viral upper respiratory tract infection with cough History of allergic drug reaction Rhinitis, allergic Dermatitis Variant angina Dyslipidemia Vitamin D deficiency History of ITP Mild intermittent asthma Asthma Migraine Anxiety Depression Surgical History History of cardiac cath History of carpal tunnel surgery History of ITP H/O LEEP Family History Father HTN (hypertension) Substance use disorder Mental health disorder Mother SLE (systemic lupus erythematosus) Cancer of thyroid Anxiety Depression Mental health disorder Brother Mental health disorder Sister Mental health disorder Social History Housing: Apartment Alcohol intake: unknown Patient Tobacco Use Status: Former Tobacco user e-Cigarette/Vaping Use: Former Use Substance Use Type: Marijuana service: No Current occupational status: employed Current occupation: [employer] [facility] [place] Sexual orientation: Lesbian/Trinidad/Homosexual Gender identity: Female Cognitive needs: No Hearing needs: No Vision needs: No Female Reproductive History Menstrual Age of Menarche: 11 Physical Exam Vital Signs: Last Vital Signs Temp 98.7 F 07/06/23 15:08 Pulse 82 07/06/23 15:08 BP 140/80 H 07/06/23 15:08 Pulse Ox 97 07/06/23 15:08 Oxygen Delivery Method Room Air 07/06/23 15:08 BMI result Body Mass Index 38.1 Const General: cooperative and healthy appearing Nutritional Appearance: well nourished Orientation/consciousness: patient oriented x3 Limitations: no limitations HEENT Head: Yes normal to inspection Eyes General: appearance normal, both eyes and all related structures Neck Neck: Yes normal visual inspection Chest Chest palpation & inspection: normal palpation of entire chest wall Resp Effort & Inspection: normal respiratory effort Neuro General: patient oriented x3 Results AMB Rapid Strep AMB Rapid Strep Negative Last Edit by Claude Gregory CMA on 07/06/23 15:38 Results Reviewed Results Reviewed: Laboratory Last Values Strep Scn Rapid Clinic Negative 07/06/23 15:16 Assessment & Plan Assessment & Plan (1) Upper respiratory tract infection: Code(s): J06.9 - Acute upper respiratory infection, unspecified Plan: Antibiotics ordered. Increase fluid intake. Tylenol for aches and pains. If symptoms worsen, follow-up here for a recheck. Note for work given. Orders: Orders AMB Rapid Strep Screen Today Z13.9 - Encounter for screening, unspecified Coding Level of Care Code Est Pt Level 3 (45687) Diagnoses Upper respiratory tract infection J06.9
[2023-07-06 15:08] VITALS: BP 140/80; PULSE 82; TEMP 37.1; O2SAT 97; BMI 38.1
== END 2023-07-06 16:23 | disposition home or self-care (01) ==
PROVIDERS: PCP Internal Medicine; Visit Provider Internal Medicine
DX: J02.9 Acute pharyngitis, unspecified (principal); J06.9 Acute upper respiratory infection, unspecified
CPT/HCPCS: 87880; 99213

== ENCOUNTER 2023-07-14 11:20 | Outpatient (AMB) | payer OTHER, SELFPAY ==
[2023-07-14 12:40] VITALS: BP 132/62; PULSE 61; O2SAT 100; BMI 39.1
--- NOTE | 2023-07-14 12:40 | A.OFFPC_ITS ---
Vital Signs 07/14/23 12:40 Height 5 ft 4 in Weight 228 lb BMI 39.1 BP 132/62 Blood Pressure Location Rt brachial Position Sitting Pulse 61 Pulse Source Pulse Oximeter Pulse Oximetry (%) 100 Oxygen Delivery Method Room Air Intake Visit Reasons: Follow up missed appt from 05/21 Intake Note: Pt is here today to f/u from having URI and has yeast infection since being on antibiotics Allergies adair Allergy (Severe, Verified 07/14/23 13:02) ANAPHYLAXIS cinnamon [CINNAMON] Allergy (Severe, Verified 07/14/23 13:02) MOUTH [employer]ANES PEEL homatropine [From Hycodan (with homatropin)] Allergy (Severe, Verified 07/14/23 13:02) Hives hydrocodone [From Hycodan (with homatropin)] Allergy (Severe, Verified 07/14/23 13:02) Hives clindamycin Allergy (Intermediate, Verified 07/14/23 13:02) Rash adhesive tape [TAPE,ADHESIVE] Allergy (Unknown, Verified 07/14/23 13:02) HIVES amoxicillin [From Augmentin] Allergy (Unknown, Verified 07/14/23 13:02) rash cefaclor [From CECLOR] Allergy (Unknown, Verified 07/14/23 13:02) RASH clarithromycin [From BIAXIN] Allergy (Unknown, Verified 07/14/23 13:02) RASH clavulanic acid [From Augmentin] Allergy (Unknown, Verified 07/14/23 13:02) rash morphine Allergy (Unknown, Verified 07/14/23 13:02) burning Sulfa (Sulfonamide Antibiotics) Allergy (Unknown, Verified 07/14/23 13:02) rash sulfamethoxazole [From Bactrim] Allergy (Unknown, Verified 07/14/23 13:02) rash trimethoprim [From Bactrim] Allergy (Unknown, Verified 07/14/23 13:02) rash vancomycin Allergy (Unknown, Verified 07/14/23 13:02) hives, redness and hot to touch at IV site metoclopramide [From Reglan] Adverse Reaction (Unknown, Verified 07/14/23 13:02) anxiety Platelet Infusion Set Allergy (Unknown, Uncoded 07/14/23 13:02) hives PLATELETS Allergy (Unknown, Uncoded 07/14/23 13:02) HIVES Medication List - Last Reconciled 07/14/23 by Amaya Santoro MD albuterol sulfate 90 mcg/actuation 2 puffs inhalation Q4-6H PRN albuterol sulfate 2.5 mg (3 mL) continuous nebulization QID PRN cetirizine (Allergy Relief (cetirizine)) 10 mg PO DAILY PRN safety needles (BD SafetyGlide Needle) As directed testosterone cypionate 200 mg IM Q2W triamcinolone acetonide 0.1% 1 appl topical DAILY PRN 10 days Tobacco use date assessed: 07/14/23 Dental Screening Dental Screen Date: 07/14/23 Did you have a dental visit in the last 12 months?: Yes Did you have a dental problem in the last 6 months where you did not have access to dental care?: No Was dental information given to patient?: Patient has dentist HPI Follow up missed appt from 05/21 HPI Details 32-year-old male, here today wanting to get checked to see if her platelet count is normal, as she is scheduled for extraction of 4 teeth later this week. He is getting very anxious just thinking about going to the dentist, would like to see if he can get something to help relax him just before his dental surgery. Would like a refill on his triamcinolone acetonide cream, which she uses as needed for recurrent rash on medial aspects of size and now has a similar per slightly pruritic rash rash on the nape of his neck. Also complains of vaginal itching accompanied by slight whitish vaginal discharge, after she completed her course of the Rx given to her at urgent care. [facility] [place] [place] Medical History (Updated 07/15/23 @ 01:41 by Amaya Santoro MD) Abnormal Pap smear of cervix Viral upper respiratory tract infection with cough History of allergic drug reaction Rhinitis, allergic Dermatitis Variant angina Dyslipidemia Vitamin D deficiency History of ITP Mild intermittent asthma Asthma Migraine Anxiety Depression Surgical History History of cardiac cath History of carpal tunnel surgery History of ITP H/O LEEP Family History Father HTN (hypertension) Substance use disorder Mental health disorder Mother SLE (systemic lupus erythematosus) Cancer of thyroid Anxiety Depression Mental health disorder Brother Mental health disorder Sister Mental health disorder Social History Housing: Apartment Alcohol intake: unknown Patient Tobacco Use Status: Former Tobacco user e-Cigarette/Vaping Use: Currently Using Substance Use Type: Marijuana service: No Current occupational status: employed 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 Ramsey Kamara, Rufina Willett, Severiano Berg and colleagues, with an educational angel from [employer]. Review of Systems Const All systems reviewed & are unremarkable except as noted in HPI and below ENT Reports Normal hearing present Neuro Reports Normal hearing present and Denies Sensory deficit (Neuro) Physical exam (Primary Care) Vital Signs: Last Vital Signs Pulse 61 07/14/23 12:40 BP 132/62 07/14/23 12:40 Pulse Ox 100 07/14/23 12:40 Oxygen Delivery Method Room Air 07/14/23 12:40 BMI result Body Mass Index 39.1 Tobacco/Smoking Status: Tobacco use Status Tobacco use date assessed 07/14/23 07/14/23 12:48 Patient Tobacco Use Status Former Tobacco user 07/14/23 12:48 e-Cigarette/Vaping Use Currently Using 07/14/23 12:48 Thrive Assessment: Date of Thrive Assessment Date Thrive assessed 10/07/22 07/14/23 12:40 Const General: no acute distress Nutritional Appearance: obese morbidly obese Orientation/consciousness: patient oriented x3 HENMT Head: Yes normocephalic and Yes atraumatic Ears: hearing grossly normal bilaterally, TM's normal bilaterally and EAC's normal General nose exam: Normal external nose present Mouth: oropharynx normal Eyes General: appearance normal, both eyes and all related structures Neck Neck: Yes full ROM, Yes no lymphadenopathy and Yes supple Resp Effort & Inspection: normal respiratory effort and able to speak in complete sentences Auscultation: clear to auscultation bilaterally Cardio Rate: regular rate Rhythm: regular rhythm Heart sounds: S1 normal heart sound present and S2 normal heart sound present GI Palpation (GI): Soft to palpation, nontender and no guarding Neuro General: patient oriented x3 Cranial nerves: Yes Normal hearing present Sensory Exam: No Sensory deficit (Neuro) Psych Appearance: grossly normal and well kempt Mental Status: mental status grossly normal Speech and movement: Normal speech and movement present Assessment and Plan Assessment & Plan (1) Chronic ITP (idiopathic thrombocytopenia): Code(s): D69.3 - Immune thrombocytopenic purpura Plan: Patient will be getting his CBC done today, ordered by Dr. Hutchison. Previous CBC showed normal platelet count in the last 2 years. (2) Dermatitis: Code(s): L30.9 - Dermatitis, unspecified Plan: Refill prescription for triamcinolone acetamide 0.1 %, to apply sparingly to affecte areas medial aspect of both thighs, and a similar-looking rash on posterior neck (3) Anxiety: Code(s): F41.9 - Anxiety disorder, unspecified Plan: Patient prescription for lorazepam 0.5 mg per tablet to take 1 p.o. for acute anxiety attacks, may take at least an hour before dentist appointment extraction of 4 teeth (4) Vaginal pruritus: Code(s): N89.8 - Other specified noninflammatory disorders of vagina Plan: Empirically treated forher yeast infection with fluconazole, as patient states that discharge in itching started after she finished antibiotics given at the urgent care Medications: New cyclobenzaprine 10 mg PO BEDTIME PRN 30 tabs 0RF muscle spasm lorazepam 0.5 mg PO DAILY PRN 5 tabs 0RF Take 1 hour prior to dentist fluconazole may repeat second dose 72 hrs after first dose if symptoms persist 150 mg PO Q3D 2 tabs 0RF Refilled triamcinolone acetonide 0.1% 1 appl topical DAILY 10 days PRN 30 grams 2RF rash in groin L30.9 - Dermatitis, unspecified Coding Level of Care Code Est Pt Level 3 (62110) Diagnoses Chronic ITP (idiopathic thrombocytopenia) D69.3 Dermatitis L30.9 Anxiety F41.9 Vaginal pruritus N89.8
== END 2023-07-14 13:30 | disposition home or self-care (01) ==
PROVIDERS: PCP Internal Medicine; Visit Provider Internal Medicine
DX: D69.3 Immune thrombocytopenic purpura (principal); L30.9 Dermatitis, unspecified; F41.9 Anxiety disorder, unspecified; N89.8 Other specified noninflammatory disorders of vagina
CPT/HCPCS: 99213

== ENCOUNTER 2023-07-14 13:12 | Outpatient (REF) | payer OTHER, SELFPAY ==
[2023-07-14 16:03] LABS: MANUAL DIFF FLAG NO
[2023-07-14 16:09] LABS: Basophils Absolute Auto 0.1 X10*3/uL (0.0-0.2); Basophils Percent Auto 1.1 % (0-2); Eosinophils Absolute Auto 0.6 X10*3/uL (0.0-0.4); Eosinophils Percent Auto 5.6 % (0-4); Hematocrit 45.8 % (37.0-47.0); Hemoglobin 15.3 g/dl (12.0-16.0); Imm Gran Abs Auto 0.06 X10*3/uL (0.00-0.03); Imm Gran Pct Auto 0.6 % (0.0-0.4); Lymphocytes Absolute Auto 2.4 X10*3/uL (1.2-4.9); Lymphocytes Percent Auto 23.9 % (20-40); Mean Corpuscular HGB Conc 33.4 g/dl (31.0-35.0); Mean Corpuscular Hemoglobin 29.6 pg (27.0-33.0); Mean Corpuscular Volume 88.6 fL (80.0-98.0); Mean Platelet Volume 11.1 fL (9.4-12.3); Monocytes Absolute Auto 0.8 X10*3/uL (0.1-1.2); Monocytes Percent Auto 7.6 % (2-11); Neutrophils Absolute Auto 6.1 x10*3/uL (2.0-8.3); Neutrophils Percent Auto 61.2 % (45-73); Platelet Count 283 X10*3/uL (160-400); Red Blood Count 5.17 X10*6/uL (4.20-5.50)
[2023-07-14 16:36] LABS: Alanine Aminotransferase 23 U/L (0-31); Albumin Level 3.9 g/dL (3.5-5.0); Alkaline Phosphatase 81 U/L (39-117); Anion Gap 14 (12-20); Aspartate Amino Transferase 18 U/L (5-31); Bilirubin Total 0.3 mg/dL (0.0-1.0); Blood Urea Nitrogen 17 mg/dL (9-16); Calcium 9.6 mg/dL (8.4-10.2); Carbon Dioxide 29 mmol/L (22-29); Chloride 103 mmol/L (96-108); Estimated Glomerular Filt Rate > 60; Glucose Random 66 mg/dL (60-115); Potassium 3.7 mmol/L (3.3-5.1); Sodium 142 mmol/L (135-145); Total Protein 5.7 g/dL (6.5-8.0)
== END 2023-07-14 13:13 | disposition home or self-care (01) ==
LOC: HO.HMGCLDS 13:12
PROVIDERS: PCP Internal Medicine; Visit Provider Internal Medicine Medical Oncology
DX: D69.3 Immune thrombocytopenic purpura (principal)
CPT/HCPCS: 36415; 80053; 85025

== ENCOUNTER 2023-07-28 09:42 | Outpatient (AMB) | payer OTHER, SELFPAY ==
[2023-07-28 09:50] VITALS: BP 122/72; PULSE 88; TEMP 36.8; O2SAT 98; BMI 39.1
--- NOTE | 2023-07-28 09:50 | MHC.OFFWIV ---
Intake Vital Signs 07/28/23 09:50 Height 5 ft 4 in Weight 228 lb BMI 39.1 BP 122/72 Blood Pressure Location Lt brachial Position Sitting Pulse 88 Pulse Source Pulse Oximeter Temp 98.3 F Temp Source Oral Pulse Oximetry (%) 98 Oxygen Delivery Method Room Air Intake Visit Reasons: EST/cold symptoms ongoingX months(lobby) Intake Note: pt is here for c/o ongoing sinus issues Patient Tobacco Use Status: Former Tobacco user Allergies adair Allergy (Severe, Verified 07/28/23 09:57) ANAPHYLAXIS cinnamon [CINNAMON] Allergy (Severe, Verified 07/28/23 09:57) MOUTH [employer]BRANES PEEL homatropine [From Hycodan (with homatropin)] Allergy (Severe, Verified 07/28/23 09:57) Hives hydrocodone [From Hycodan (with homatropin)] Allergy (Severe, Verified 07/28/23 09:57) Hives clindamycin Allergy (Intermediate, Verified 07/28/23 09:57) Rash adhesive tape [TAPE,ADHESIVE] Allergy (Unknown, Verified 07/28/23 09:57) HIVES amoxicillin [From Augmentin] Allergy (Unknown, Verified 07/28/23 09:57) rash cefaclor [From CECLOR] Allergy (Unknown, Verified 07/28/23 09:57) RASH clarithromycin [From BIAXIN] Allergy (Unknown, Verified 07/28/23 09:57) RASH clavulanic acid [From Augmentin] Allergy (Unknown, Verified 07/28/23 09:57) rash morphine Allergy (Unknown, Verified 07/28/23 09:57) burning Sulfa (Sulfonamide Antibiotics) Allergy (Unknown, Verified 07/28/23 09:57) rash sulfamethoxazole [From Bactrim] Allergy (Unknown, Verified 07/28/23 09:57) rash trimethoprim [From Bactrim] Allergy (Unknown, Verified 07/28/23 09:57) rash vancomycin Allergy (Unknown, Verified 07/28/23 09:57) hives, redness and hot to touch at IV site metoclopramide [From Reglan] Adverse Reaction (Unknown, Verified 07/28/23 09:57) anxiety Platelet Infusion Set Allergy (Unknown, Uncoded 07/14/23 13:02) hives PLATELETS Allergy (Unknown, Uncoded 07/14/23 13:02) HIVES Do you need a note to return to daycare/school/sports/work: Yes HPI HPI Comments History of Present Illness Details 32-year-old who presents for chronic sinusitis and upper respiratory symptoms. Patient has been seen multiple times in the past month. Patient has a history of asthma as well as URIs. Playing of call congestion sinus pressure low-grade fever. [facility] Medical History (Updated 07/15/23 @ 01:41 by Amaya Santoro MD) Abnormal Pap smear of cervix Viral upper respiratory tract infection with cough History of allergic drug reaction Rhinitis, allergic Dermatitis Variant angina Dyslipidemia Vitamin D deficiency History of ITP Mild intermittent asthma Asthma Migraine Anxiety Depression Surgical History History of cardiac cath History of carpal tunnel surgery History of ITP H/O LEEP Family History Father HTN (hypertension) Substance use disorder Mental health disorder Mother SLE (systemic lupus erythematosus) Cancer of thyroid Anxiety Depression Mental health disorder Brother Mental health disorder Sister Mental health disorder Social History Housing: Apartment Alcohol intake: unknown Patient Tobacco Use Status: Former Tobacco user e-Cigarette/Vaping Use: Currently Using Substance Use Type: Marijuana service: No Current occupational status: employed Current occupation: [employer] [facility] [place] Sexual orientation: Lesbian/Trinidad/Homosexual Gender identity: Female Cognitive needs: No Hearing needs: No Vision needs: No Female Reproductive History Menstrual Age of Menarche: 11 Review of Systems ENT Reports nasal congestion, Reports nasal discharge and Reports sinus pressure Resp Reports chest congestion and Reports cough Physical Exam Vital Signs: Last Vital Signs Temp 98.3 F 07/28/23 09:50 Pulse 88 07/28/23 09:50 BP 122/72 07/28/23 09:50 Pulse Ox 98 07/28/23 09:50 Oxygen Delivery Method Room Air 07/28/23 09:50 BMI result Body Mass Index 39.1 Const General: cooperative, no acute distress and alert Orientation/consciousness: patient oriented x3 Limitations: no limitations HEENT Other: nasal congestion sinus pressure Head: Yes normal to inspection Ears: hearing grossly normal bilaterally and external ears normal General nose exam: Normal external nose present Eyes General: appearance normal, both eyes and all related structures Neck Neck: Yes normal visual inspection Chest Chest palpation & inspection: normal inspection of the chest Resp Other: Rhonchi and wheezing heard throughout Effort & Inspection: normal respiratory effort, able to speak in complete sentences and no audible wheezes Cardio Rate: regular rate Rhythm: regular rhythm GI Inspection: Yes normal to inspection Palpation (GI): Soft to palpation and nontender Skin General skin exam: no rashes or lesions noted Neuro General: patient oriented x3 Psych Appearance: grossly normal Mental Status: mental status grossly normal Speech and movement: Normal speech and movement present Affect: normal affect Attitude: cooperative Thought process: Normal thought process present Thought content: Normal thought content present Assessment & Plan Assessment & Plan (1) Sinusitis: Code(s): J32.9 - Chronic sinusitis, unspecified Qualifiers: Sinusitis location: frontal Chronicity: acute Recurrence: recurrent Qualified Code(s): J01.11 - Acute recurrent frontal sinusitis Plan: patient presents with recurrent chronic sinusitis. discussed risk and benefits of additional antibiotic prescription. Based on history of asthma as well as lung sounds on auscultation do believe prednisone taper would be beneficial addition to help dress. Discussed patient with prescribe 1 more round of doxycycline as patient has significant allergies limiting treatment abilities. Also recommended continued symptomatic treatment home saline rinses antihistamines. Discharge instructions, follow up and treatment are discussed with patient in my usual fashion. Alternatives in treatment are also discussed. The patient will return for worsening symptoms or as needed. Advised that any labs/imaging ordered will be followed up on and contact made if further treatment needed. Counseled that patient's condition may require further evaluation and/or treatment. Symptoms of concern for worsening disorder discussed in detail in my customary manner. Patient does verbalize understanding of the plan, there are no apparent barriers to communication. The patient is given the opportunity to ask questions and have them answered to his/her satisfaction Medications: New prednisone 60 mg (3 x 20 mg) PO DAILY 3 days 9 tabs 0RF doxycycline hyclate 100 mg PO BID 10 days 20 caps 0RF prednisone 50 mg PO DAILY 3 days 3 tabs 0RF prednisone after 50 mg x 3 days. take 40 mg on day 7, 30mg on day 8, 20mg on day 9. and 10 mg on day 10 10 mg PO DIRECTED 10 tabs 0RF Coding Level of Care Code Est Pt Level 3 (01012) Diagnoses Acute recurrent frontal sinusitis J01.11 Sinusitis location: frontal Chronicity: acute Recurrence: recurrent
== END 2023-07-28 10:24 | disposition home or self-care (01) ==
PROVIDERS: PCP Internal Medicine; Visit Provider Physician Assistant
DX: J01.11 Acute recurrent frontal sinusitis (principal); J45.20 Mild intermittent asthma, uncomplicated; Z88.9 Allergy status to unspecified drugs, medicaments and biological substances
CPT/HCPCS: 99213

== ENCOUNTER → 2023-08-04 15:36 | Outpatient (BNVA) | payer OTHER, SELFPAY | PROVIDERS: PCP Internal Medicine; Visit Provider Physician Assistant Medical | DX: Z13.89 Encounter for screening for other disorder (principal) | CPT/HCPCS: 99203 ==

== ENCOUNTER 2023-08-04 16:34 | Emergency (ER) | payer OTHER, SELFPAY ==
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
[2023-08-04 16:36] VITALS: BP 180/95; PULSE 66; RESP 20; TEMP 36.6; O2SAT 97; BMI 38.6
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
[2023-08-04 18:14] VITALS: BP 155/99; PULSE 58
== END 2023-08-04 19:00 | disposition home or self-care (01) ==
PROVIDERS: Emergency Provider Student in an Organized Health Care Education/Training Program; PCP Internal Medicine
DX: M54.50 Low back pain, unspecified (principal); M25.511 Pain in right shoulder; Z79.899 Other long term (current) drug therapy; Z87.891 Personal history of nicotine dependence
CPT/HCPCS: 73200; 99282; 99284

== ENCOUNTER 2023-08-12 00:11 | Emergency (ER) | payer OTHER, SELFPAY ==
--- NOTE | ~2023-08-12 | XR_ITS ---
EXAMINATION: XR CHEST CLINICAL INFORMATION: Cough. COMPARISON: None available. TECHNIQUE: 2 views of the chest were obtained. FINDINGS: No significant abnormality is noted involving the heart, lungs, mediastinum, bony thorax or soft tissues. XR/XR chest 2V IMPRESSION: Unremarkable examination.
[2023-08-12 00:22] VITALS: BP 146/81; PULSE 85; RESP 20; TEMP 37.3; O2SAT 100; BMI 38.6
[2023-08-12 00:38] VITALS: O2SAT 100
[2023-08-12 00:47] LABS: IDNOW Serial# 6674DD1D; Strep A Nucleic Acid Negative (Negative)
--- NOTE | 2023-08-12 00:50 | ED.URI ---
HPI - URI/Sore Throat General Chief Complaint: Upper Respiratory Symptoms Stated Complaint: throat congestion Time Seen by Provider: 08/12/23 00:32 Source: patient Mode of arrival: ambulatory Limitations: no limitations History of Present Illness HPI Narrative: patient is a 32-year-old who presents to the emergency department for evaluation of productive cough, sore throat, intermittent shortness of breath. Reports onset of illness approximately 5 weeks ago. Initially with cough, received prescription on 07/06/2023 for Levaquin x1 week, and reported some improvement with this. Symptoms did return and progressively worsen. Was evaluated at urgent care 07/28/2023, provided with prescription for doxycycline x10 days and a prednisone taper over 14 days. reports no improvement in symptoms despite doxy and prednisone. Productive cough with green lung, nasal congestion is, body aches have been ongoing. Sore throat began a few days ago, painful swallowing. Low-grade fevers at home responding to antipyretic meds. denies chest pain, neck pain, neck stiffness, nausea, vomiting, abdominal pain. Related Data Home Medications Medication Instructions Recorded Confirmed safety needles 25 gauge x 5/8 (BD #50 ea 06/16/22 08/05/23 SafetyGlide Needle) testosterone cypionate 200 mg/mL 200 mg IM Q2W 06/16/22 08/05/23 intramuscular oil Previous Rx's Medication Instructions Recorded albuterol sulfate 2.5 mg/3 mL 2.5 mg (3 mL) continuous 08/06/22 (0.083 %) solution for nebulization nebulization QID PRN shortness of breath or wheezing #90 mL albuterol sulfate 90 mcg/actuation 2 puff inhalation Q4-6H PRN 03/16/23 aerosol inhaler shortness of breath or wheezing #8.5 grams cyclobenzaprine 10 mg tablet 10 mg PO BEDTIME PRN muscle spasm 07/14/23 #30 tabs fluconazole 150 mg tablet 150 mg PO Q3D 2 doses #2 tabs 07/14/23 triamcinolone acetonide 0.1 % 1 appl topical DAILY PRN rash in 07/14/23 topical cream groin 10 days #30 grams doxycycline hyclate 100 mg capsule 100 mg PO BID 10 days #20 caps 07/28/23 prednisone 10 mg tablet 10 mg PO DIRECTED #10 tabs 07/28/23 benzonatate 200 mg capsule 200 mg PO TID PRN cough 7 days #21 08/12/23 caps Allergies Allergy/AdvReac Type Severity Reaction Status Date / Time adair Allergy Severe ANAPHYLAXIS Verified 08/05/23 15:11 cinnamon [CINNAMON] Allergy Severe MOUTH Verified 08/05/23 15:11 MEMBRANES PEEL homatropine Allergy Severe Hives Verified 08/05/23 15:11 [From Hycodan (with homatropin)] hydrocodone Allergy Severe Hives Verified 08/05/23 15:11 [From Hycodan (with homatropin)] adhesive tape [TAPE,ADHESIVE] Allergy Unknown HIVES Verified 08/05/23 15:11 amoxicillin [From Augmentin] Allergy Unknown rash Verified 08/05/23 15:11 cefaclor [From CECLOR] Allergy Unknown RASH Verified 08/05/23 15:11 clarithromycin [From BIAXIN] Allergy Unknown RASH Verified 08/05/23 15:11 clavulanic acid Allergy Unknown rash Verified 08/05/23 15:11 [From Augmentin] morphine Allergy Unknown burning Verified 08/05/23 15:11 Sulfa (Sulfonamide Allergy Unknown rash Verified 08/05/23 15:11 Antibiotics) sulfamethoxazole Allergy Unknown rash Verified 08/05/23 15:11 [From Bactrim] trimethoprim [From Bactrim] Allergy Unknown rash Verified 08/05/23 15:11 vancomycin Allergy Unknown hives, Verified 08/05/23 15:11 redness and hot to touch at IV site metoclopramide [From Reglan] AdvReac Unknown anxiety Verified 08/05/23 15:11 Platelet Infusion Set Allergy Unknown hives Uncoded 08/05/23 15:11 PLATELETS Allergy Unknown HIVES Uncoded 08/05/23 15:11 Review of Systems Review of Systems: Yes all other systems are reviewed and are negative PMFSH Past Medical History Attestation statement: The following information was validated with the patient. Source: old records reviewed Medical History Abnormal Pap smear of cervix Viral upper respiratory tract infection with cough History of allergic drug reaction Rhinitis, allergic Dermatitis Variant angina Dyslipidemia Vitamin D deficiency History of ITP Mild intermittent asthma Asthma Migraine Anxiety Depression Surgical History History of cardiac cath History of carpal tunnel surgery History of ITP H/O LEEP Family History Family History Father HTN (hypertension) Substance use disorder Mental health disorder Mother SLE (systemic lupus erythematosus) Cancer of thyroid Anxiety Depression Mental health disorder Brother Mental health disorder Sister Mental health disorder Social History Social History Housing: Apartment Alcohol intake: unknown Patient Tobacco Use Status: Former Tobacco user Smoked in Last 30 Days: No e-Cigarette/Vaping Use: Currently Using Use of substances other than those prescribed or required for medical reasons: Yes Substance Use Type: Marijuana Advance Directives: No Advance Directives Information Provided: Yes Patient : No service: No Current occupational status: employed Current occupation: [employer] Sexual orientation: Lesbian/[place]/Homosexual Gender identity: Female Cognitive needs: No Hearing needs: No Vision needs: No Physical Exam Vital Signs: Vital Signs: Last Vital Signs Temp 98.9 F 08/12/23 01:44 Pulse 71 08/12/23 01:44 Resp 16 08/12/23 01:44 BP 121/71 08/12/23 01:44 Pulse Ox 99 08/12/23 01:44 O2 Del Method Room Air 08/12/23 01:44 BMI result Body Mass Index 38.6 Appearance: Alert.?Oriented to person, place and time. No acute distress.?Normal affect. Eyes: Pupils equal, round and reactive to light.? ENT: Pharynx erythematous, no tonsillar hypertrophy, no exudates. Uvula midline. No trismus. No drooling.? Neck: Normal inspection.? Neck supple.??No Cervical lymphadenopathy CVS: Heart sounds normal. Normal heart rate and rhythm.? Pulses normal.?? Respiratory: No respiratory distress.? Lung sounds clear to auscultation bilaterally?? Abdomen: Soft and non-tender. Normoactive bowel sounds. ? Skin: Skin warm and dry.? Normal skin color.? Extremities: No lower extremity edema.? Neuro: Moves all extremities spontaneously. Sensation intact bilaterally. Ambulates with normal steady gait. Course Reevaluation(s) Reevaluation #1: I reviewed the chest x-ray and there is no infiltrates and otherwise my interpretation is in agreement with radiology's impression. Time: 04:27 Medical Decision Making Medical Decision Making [facility] Narrative: 32 year old patient with past medical history of mild intermittent asthma, allergic rhinitis, variant angina, dyslipidemia, migraine, anxiety, depression, presenting to emergency department for evaluation a persistent productive cough, fatigue, sore throat as per HPI. patient also self reported past history of sarcoidosis, upon review of charge there was concern for this based on abnormal CT findings in 2021, per Oncology she was supposed to follow-up with pulmonology for further workup including [place] level, and PFTs etc, does not appear as thought this occured, patient does not recall specifically. At the time of my examination appears fatigued, alleviate copper your would to be afebrile no without tachypnea, hypoxia, or tachycardia. Is in no increased work of breathing. Lung sounds are clear bilaterally. Pharynx erythematous, clinically lower suspicion for strep pharyngitis, no evidence of peritonsillar retropharyngeal abscess. Testing for COVID- 19/influenza/RSV negative. 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 multiple allergies to antibiotics making alternative treatment options minimal. However, if this were bacterial in nature, would anticipate improvement with recent courses. Reviewed bronchitis associated with viral illness, and symptom management, upon my personal interpretation chest x-ray is without evidence of infiltrate or consolidation, reviewed this with ED Attending Dr. Kahn who agrees. Differential Diagnosis Differential Diagnoses: The differential diagnosis associated with the presentation includes Lab Data [facility] Lab Attestation statement: I reviewed the patient's lab results. ( as noted above) Labs: Lab Results 08/12/23 Range/Units 00:32 Influenza Type A (PCR) NEGATIVE (Negative) Influenza Type B (PCR) NEGATIVE (Negative) RSV RNA Qual (PCR) NEGATIVE (Negative) SARS-CoV-2 RNA (RT-PCR) NEGATIVE (Negative) S. pyogenes GrpA AYESHA Negative (Negative) Independent Interpretation I performed an independent interpretation of an: Plain X-Ray ( I personally interpreted chest x-ray no radiographic evidence of infiltrate or consolidation. Radiologist impression is pending) External Record Review External record reviewed: Outpatient record Prescription Management I considered prescription management with: Antibiotic ( see narrative above) Discharge Plan Discharge Clinical Impression: Bronchitis Patient Disposition: Home, Self-Care Instructions: Acute Bronchitis (ED) Additional Instructions: Continue use of albuterol as needed. Take benzonatate / Tessalon as needed for persistent cough. As discussed, at this time I do not feel that additional course of antibiotic would be the indicated. Please follow-up with your primary care provider. Prescriptions: New benzonatate 200 mg capsule 200 mg PO TID PRN (Reason: cough) 7 Days Qty: 21 0RF No Action albuterol sulfate 90 mcg/actuation HFA aerosol inhaler 2 puff inhalation Q4-6H PRN (Reason: shortness of breath or wheezing) Qty: 8.5 0RF cyclobenzaprine 10 mg tablet 10 mg PO BEDTIME PRN (Reason: muscle spasm) Qty: 30 0RF fluconazole 150 mg tablet 150 mg PO Q3D Qty: 2 0RF Rx Instructions: may repeat second dose 72 hrs after first dose if symptoms persist triamcinolone acetonide 0.1 % cream 1 appl topical DAILY PRN (Reason: rash in groin ) 10 Days Qty: 30 2RF testosterone cypionate 200 mg/mL oil 200 mg IM Q2W (DME) BD SafetyGlide Needle 25 gauge x 5/8 needle See Rx Instructions .ROUTE .MEDSUPPLY Qty: 50 Rx Instructions: As directed albuterol sulfate 2.5 mg /3 mL (0.083 %) solution for nebulization 2.5 mg continuous nebulization QID PRN (Reason: shortness of breath or wheezing) Qty: 90 2RF prednisone 10 mg tablet 10 mg PO DIRECTED Qty: 10 0RF Rx Instructions: after 50 mg x 3 days. take 40 mg on day 7, 30mg on day 8, 20mg on day 9. and 10 mg on day 10 doxycycline hyclate 100 mg capsule 100 mg PO BID 10 Days Qty: 20 0RF Referrals: Physician,Unknown J [Primary Care Provider] - Stand Alone Forms: Work/School Release Interventions: ED Discharge Assessment Last Done: 08/12/23 02:35 Discharge Date/Time: 08/12/23 02:35
[2023-08-12 01:14] LABS: Influenza A PCR NEGATIVE (Negative); Influenza B PCR NEGATIVE (Negative); Resp Syncy Virus RNA Qual PCR NEGATIVE (Negative); SARS COV2 PCR INHOUSE NEGATIVE (Negative)
[2023-08-12 01:44] VITALS: BP 121/71; PULSE 71; RESP 16; TEMP 37.2; O2SAT 99
== END 2023-08-12 02:35 | disposition home or self-care (01) ==
PROVIDERS: Emergency Provider Internal Medicine
DX: J40 Bronchitis, not specified as acute or chronic (principal); R50.9 Fever, unspecified; R05.9 Cough, unspecified; J02.9 Acute pharyngitis, unspecified; R06.02 Shortness of breath; Z20.822 Contact with and (suspected) exposure to COVID-19; Z20.828 Contact with and (suspected) exposure to other viral communicable diseases
CPT/HCPCS: 0241U; 71046; 87651; 99283; 99284

== ENCOUNTER 2023-08-24 09:42 | Outpatient (AMB) | payer OTHER, SELFPAY ==
[2023-08-24 09:43] VITALS: BP 114/57; PULSE 111; O2SAT 98; BMI 37.6
--- NOTE | 2023-08-24 09:43 | MHC.OFFVIS ---
Intake Vital Signs 08/24/23 09:43 Height 5 ft 4 in Weight 219 lb 5.759 oz BMI 37.6 BP 114/57 L Blood Pressure Location Lt brachial Position Sitting Pulse 111 H Pulse Source Doppler Pulse Oximetry (%) 98 Oxygen Delivery Method Room Air Intake Visit Reasons: Asthma Allergies adair Allergy (Severe, Verified 08/24/23 09:45) ANAPHYLAXIS cinnamon [CINNAMON] Allergy (Severe, Verified 08/24/23 09:45) MOUTH [employer]BRANES PEEL homatropine [From Hycodan (with homatropin)] Allergy (Severe, Verified 08/24/23 09:45) Hives hydrocodone [From Hycodan (with homatropin)] Allergy (Severe, Verified 08/24/23 09:45) Hives adhesive tape [TAPE,ADHESIVE] Allergy (Unknown, Verified 08/24/23 09:45) HIVES amoxicillin [From Augmentin] Allergy (Unknown, Verified 08/24/23 09:45) rash cefaclor [From CECLOR] Allergy (Unknown, Verified 08/24/23 09:45) RASH clarithromycin [From BIAXIN] Allergy (Unknown, Verified 08/24/23 09:45) RASH clavulanic acid [From Augmentin] Allergy (Unknown, Verified 08/24/23 09:45) rash morphine Allergy (Unknown, Verified 08/24/23 09:45) burning Sulfa (Sulfonamide Antibiotics) Allergy (Unknown, Verified 08/24/23 09:45) rash sulfamethoxazole [From Bactrim] Allergy (Unknown, Verified 08/24/23 09:45) rash trimethoprim [From Bactrim] Allergy (Unknown, Verified 08/24/23 09:45) rash vancomycin Allergy (Unknown, Verified 08/24/23 09:45) hives, redness and hot to touch at IV site metoclopramide [From Reglan] Adverse Reaction (Unknown, Verified 08/24/23 09:45) anxiety Platelet Infusion Set Allergy (Unknown, Uncoded 08/17/23 12:59) hives PLATELETS Allergy (Unknown, Uncoded 08/17/23 12:59) HIVES HPI Asthma HPI Details 32-year-old gentleman former approximately 10 pack-year smoker with underlying history of asthma since childhood and suspicion for sarcoidosis based on noted mediastinal lymphadenopathy on CT scan approximately 3 years prior pulmonary referred for further evaluation. Patient stated of the last several months he has been having significant bronchitic symptoms with cough productive of yellowish sputum with poor response to several courses of prednisone, azithromycin, doxycycline, and Levaquin. Patient does complain of multiple environmental allergies. He is employed without exposure to industrial dusts. [facility] Medical History (Updated 08/24/23 @ 10:08 by Mike Cowan MD) Abnormal Pap smear of cervix Viral upper respiratory tract infection with cough History of allergic drug reaction Rhinitis, allergic Dermatitis Variant angina Dyslipidemia Vitamin D deficiency History of ITP Mild intermittent asthma Asthma Migraine Anxiety Depression Surgical History History of cardiac cath History of carpal tunnel surgery History of ITP H/O LEEP Family History Father HTN (hypertension) Substance use disorder Mental health disorder Mother SLE (systemic lupus erythematosus) Cancer of thyroid Anxiety Depression Mental health disorder Brother Mental health disorder Sister Mental health disorder Housing: Apartment Alcohol intake: unknown Patient Tobacco Use Status: Former Tobacco user e-Cigarette/Vaping Use: Currently Using Substance Use Type: Marijuana service: No Current occupational status: employed Current occupation: [email or web address] [facility] Sexual orientation: Lesbian/[place]in[place]/Homosexual Gender identity: Female Cognitive needs: No Hearing needs: No Vision needs: No Female Reproductive History Menstrual Age of Menarche: 11 Review of Systems Const Denies daytime sleepiness, Denies excessive sweating, Denies fatigue, Denies fever(s), Denies lethargy, Denies malaise, Denies night sweats, Denies snoring and Denies weight loss Eyes Denies blurry vision and Denies itchy eyes ENT Denies nasal congestion, Denies post nasal drip, Denies sinus pain, Denies sinus pressure and Denies other ( Thrush) Card Denies chest pain, Denies pedal edema, Denies dyspnea, Denies orthopnea and Denies paroxysmal nocturnal dyspnea Resp Reports cough, Denies hemoptysis, Reports excessive phlegm production, Denies dyspnea, Denies snoring and Reports wheezing GI Denies abdominal pain and Denies heartburn Musc Denies myalgias, Denies arthralgias and Denies joint swelling Skin/Breast Denies rash Neuro Denies memory loss and Denies seizure-like activity Psych Denies abnormal sleep pattern, Denies anxiety and Denies memory loss Endo Denies excessive sweating, Denies fatigue and Denies heat intolerance Kian/Lymph Denies easy bruising Aller/Immun Denies itchy eyes, Denies seasonal rhinorrhea and Reports wheezing Physical Exam Vital Signs: Last Vital Signs Pulse 111 H 08/24/23 09:43 BP 114/57 L 08/24/23 09:43 Pulse Ox 98 08/24/23 09:43 Oxygen Delivery Method Room Air 08/24/23 09:43 BMI result Body Mass Index 37.6 Const General: no acute distress and alert Nutritional Appearance: obese Orientation/consciousness: Other orientation findings ( oriented) HEENT Head: Yes atraumatic Eyes General: appearance normal, both eyes and all related structures Sclerae: sclerae normal EOM: EOMs intact bilaterally Neck Neck: Yes supple Lymphatic: no lymphadenopathy noted Resp Effort & Inspection: normal respiratory effort and no use of accessory muscles Auscultation: clear to auscultation bilaterally Cardio Rate: regular rate Rhythm: regular rhythm Heart sounds: no gallops, no murmurs and no rubs Skin General skin exam: other ( warm) Extrem General: No clubbing, No cyanosis and No edema Assessment & Plan Assessment & Plan (1) Environmental allergies: Code(s): Z91.09 - Other allergy status, other than to drugs and biological substances Plan: Will obtain RAST, CBC with differential, and IgE level for further evaluation. (2) Chronic bronchitis: Code(s): J42 - Unspecified chronic bronchitis Plan: Poor response to empiric treatment with azithromycin, doxycycline, Levaquin, and several courses of prednisone. Will obtain sputum culture. (3) Mediastinal lymphadenopathy: Code(s): R59.0 - Localized enlarged lymph nodes Plan: May have underlying sarcoidosis, will obtain CT chest for further evaluation. (4) Asthma: Code(s): J45.909 - Unspecified asthma, uncomplicated Plan: Of unclear severity. Now suboptimally controlled on inhaled/nebulized albuterol. Will add Breo. Orders: Orders Complete Blood Count Auto Diff Today J45.20 - Mild intermittent asthma, uncomplicated Rast Allergen Today J45.20 - Mild intermittent asthma, uncomplicated Sputum Cult + Gram stain Today J45.20 - Mild intermittent asthma, uncomplicated CT chest wo IV con Today R59.0 - Localized enlarged lymph nodes Medications: New fluticasone furoate-vilanterol 200-25 mcg/dose (Breo Ellipta) 1 inh inhalation DAILY 30 days 1 ea 6RF J45.20 - Mild intermittent asthma, uncomplicated Changed From albuterol sulfate 2.5 mg (3 mL) continuous nebulization QID PRN 90 mL 2RF shortness of breath or wheezing J45.20 - Mild intermittent asthma, uncomplicated To albuterol sulfate 2.5 mg (3 mL) continuous nebulization QID 30 days PRN 360 mL 6RF shortness of breath or wheezing J45.20 - Mild intermittent asthma, uncomplicated Coding Level of Care Code New Pt Level 4 (96168) Diagnoses Environmental allergies Z91.09 Chronic bronchitis J42 Mediastinal lymphadenopathy R59.0 Asthma J45.909
== END 2023-08-24 10:08 | disposition home or self-care (01) ==
PROVIDERS: PCP Internal Medicine; Referring Provider Internal Medicine Cardiovascular Disease; Visit Provider Internal Medicine Pulmonary Disease
DX: Z91.09 Other allergy status, other than to drugs and biological substances (principal); J42 Unspecified chronic bronchitis; R59.0 Localized enlarged lymph nodes; J45.909 Unspecified asthma, uncomplicated
CPT/HCPCS: 99204

== ENCOUNTER 2023-08-24 09:42 | Outpatient (REF) | payer OTHER, SELFPAY ==
[2023-08-24 10:32] LABS: MANUAL DIFF FLAG NO
[2023-08-24 10:52] LABS: Basophils Absolute Auto 0.1 X10*3/uL (0.0-0.2); Basophils Percent Auto 2.5 % (0-2); Eosinophils Absolute Auto 0.3 X10*3/uL (0.0-0.4); Eosinophils Percent Auto 4.7 % (0-4); Hematocrit 50.1 % (37.0-47.0); Hemoglobin 16.8 g/dl (12.0-16.0); Imm Gran Abs Auto 0.02 X10*3/uL (0.00-0.03); Imm Gran Pct Auto 0.4 % (0.0-0.4); Lymphocytes Absolute Auto 1.7 X10*3/uL (1.2-4.9); Lymphocytes Percent Auto 31.1 % (20-40); Mean Corpuscular HGB Conc 33.5 g/dl (31.0-35.0); Mean Corpuscular Hemoglobin 28.6 pg (27.0-33.0); Mean Corpuscular Volume 85.3 fL (80.0-98.0); Mean Platelet Volume 10.3 fL (9.4-12.3); Monocytes Absolute Auto 0.8 X10*3/uL (0.1-1.2); Monocytes Percent Auto 14.3 % (2-11); Neutrophils Absolute Auto 2.5 x10*3/uL (2.0-8.3); Platelet Count 328 X10*3/uL (160-400); Red Blood Count 5.87 X10*6/uL (4.20-5.50); Red Cell Distribution Width 12.5 % (11.0-16.0); White Blood Count 5.3 X10*3/uL (4.8-10.8)
== END 2023-08-24 09:43 | disposition home or self-care (01) ==
LOC: HO.LAB 09:42
PROVIDERS: PCP Internal Medicine; Referring Provider Internal Medicine Cardiovascular Disease; Visit Provider Internal Medicine Pulmonary Disease
DX: J45.20 Mild intermittent asthma, uncomplicated (principal); J42 Unspecified chronic bronchitis; R59.0 Localized enlarged lymph nodes; Z91.09 Other allergy status, other than to drugs and biological substances
CPT/HCPCS: 36415; 82785; 85025; 86003; 87070; 87077; 87185; 87205; 99202

== ENCOUNTER 2023-08-24 16:04 | Outpatient (AMB) | payer OTHER, SELFPAY ==
--- NOTE | 2023-08-24 16:21 | AM.OFFWIN_ITS ---
Intake Intake Visit Reasons: EP Ear Irrigation Intake Note: PT is here today for ear irrigation 3 months Patient Tobacco Use Status: Former Tobacco user Allergies adair Allergy (Severe, Verified 08/25/23 05:48) ANAPHYLAXIS cinnamon [CINNAMON] Allergy (Severe, Verified 08/25/23 05:48) MOUTH MEMBRANES PEEL homatropine [From Hycodan (with homatropin)] Allergy (Severe, Verified 08/25/23 05:48) Hives hydrocodone [From Hycodan (with homatropin)] Allergy (Severe, Verified 08/25/23 05:48) Hives adhesive tape [TAPE,ADHESIVE] Allergy (Unknown, Verified 08/25/23 05:48) HIVES amoxicillin [From Augmentin] Allergy (Unknown, Verified 08/25/23 05:48) rash cefaclor [From CECLOR] Allergy (Unknown, Verified 08/25/23 05:48) RASH clarithromycin [From BIAXIN] Allergy (Unknown, Verified 08/25/23 05:48) RASH clavulanic acid [From Augmentin] Allergy (Unknown, Verified 08/25/23 05:48) rash morphine Allergy (Unknown, Verified 08/25/23 05:48) burning Sulfa (Sulfonamide Antibiotics) Allergy (Unknown, Verified 08/25/23 05:48) rash sulfamethoxazole [From Bactrim] Allergy (Unknown, Verified 08/25/23 05:48) rash trimethoprim [From Bactrim] Allergy (Unknown, Verified 08/25/23 05:48) rash vancomycin Allergy (Unknown, Verified 08/25/23 05:48) hives, redness and hot to touch at IV site metoclopramide [From Reglan] Adverse Reaction (Unknown, Verified 08/25/23 05:48) anxiety Platelet Infusion Set Allergy (Unknown, Uncoded 08/25/23 05:48) hives PLATELETS Allergy (Unknown, Uncoded 08/25/23 05:48) HIVES Medication List - Last Reconciled 08/25/23 by Quinten Aguila MD albuterol sulfate 90 mcg/actuation 2 puffs inhalation Q4-6H PRN albuterol sulfate 2.5 mg (3 mL) continuous nebulization QID PRN 30 days benzonatate 200 mg PO TID PRN 7 days cyclobenzaprine 10 mg PO BEDTIME PRN fluconazole 150 mg PO Q3D 2 doses fluticasone furoate-vilanterol 200-25 mcg/dose (Breo Ellipta) 1 inh inhalation DAILY 30 days gwmrtasn-ljhnmyluz-CN 3.5-10,000-1 mg/mL-unit/mL-% 4 drps otic (ears) Q8H safety needles (BD SafetyGlide Needle) As directed testosterone cypionate 200 mg IM Q2W triamcinolone acetonide 0.1% 1 appl topical DAILY PRN 10 days Do you need a note to return to daycare/school/sports/work: No HPI EP Ear Irrigation HPI Details Patient requested a right of way agent to be in the room during the interview process. A female medical staff services coordinator was in the room. He is quite frustrated with his sickness. Has gone thru several rounds of antibiotics and prednisone for his past URI's. Now having a lot of ear pain and a feeling of blockage. He believes the wax could be causing the pain and would like it removed. Was seen by the operations administrative assistant this afternoon and further work up for lungs is continuing. Patient is in tears due to the pain. [facility] Medical History (Updated 08/24/23 @ 10:08 by Mike Cowan MD) Abnormal Pap smear of cervix Viral upper respiratory tract infection with cough History of allergic drug reaction Rhinitis, allergic Dermatitis Variant angina Dyslipidemia Vitamin D deficiency History of ITP Mild intermittent asthma Asthma Migraine Anxiety Depression Surgical History History of cardiac cath History of carpal tunnel surgery History of ITP H/O LEEP Family History Father HTN (hypertension) Substance use disorder Mental health disorder Mother SLE (systemic lupus erythematosus) Cancer of thyroid Anxiety Depression Mental health disorder Brother Mental health disorder Sister Mental health disorder Social History Housing: Apartment Alcohol intake: unknown Patient Tobacco Use Status: Former Tobacco user e-Cigarette/Vaping Use: Currently Using Substance Use Type: Marijuana service: No Current occupational status: employed Current occupation: [employer] [facility] [employer] Sexual orientation: Lesbian/[place]in[place]/Homosexual Gender identity: Female Cognitive needs: No Hearing needs: No Vision needs: No Female Reproductive History Menstrual Age of Menarche: 11 Physical Exam Const General: cooperative and healthy appearing Nutritional Appearance: well nourished Orientation/consciousness: patient oriented x3 Limitations: no limitations HEENT Other: Right ear: Ear canal congested, TM dull. Wax present. Left ear: Ear canal congested, TM dull. Wax present Head: Yes normal to inspection Eyes General: appearance normal, both eyes and all related structures Neck Neck: Yes normal visual inspection Chest Chest palpation & inspection: normal palpation of entire chest wall Resp Effort & Inspection: normal respiratory effort Neuro General: patient oriented x3 Assessment & Plan Assessment & Plan (1) Otitis externa of both ears: Code(s): H60.93 - Unspecified otitis externa, bilateral Plan: Unable to explain the pain patient is experiencing. Ear drops were added to the regimen. Ears were flushed, partial wax removed. Symptoms did not cr. Advised patient, he would benefit from an ENT opinion. Urged him to follow up with his PCP. Medications: New yzorehse-hiirltnzr-IY 3.5-10,000-1 mg/mL-unit/mL-% 4 drps otic (ears) Q8H 10 mL 0RF Coding Level of Care Code Est Pt Level 3 (46138) Diagnoses Otitis externa of both ears H60.93
== END 2023-08-24 17:00 | disposition home or self-care (01) ==
PROVIDERS: PCP Internal Medicine; Visit Provider Internal Medicine
DX: H60.93 Unspecified otitis externa, bilateral (principal)
CPT/HCPCS: 99213

== ENCOUNTER 2023-08-31 06:41 | Emergency (ER) | payer OTHER, SELFPAY ==
--- NOTE | ~2023-08-31 | CT_ITS ---
EXAMINATION: CT CHEST WITHOUT CONTRAST CLINICAL INFORMATION: Chronic productive cough, shortness of breath and chest pain COMPARISON: 08/12/2023 chest radiograph, multiple CTs, most recent, 07/16/2020, most remote, 02/06/2012. TECHNIQUE: Multidetector volumetric CT imaging of the chest was done. Axial MIP volume rendering provided. Sagittal and coronal reformatted images were obtained. This CT examination was performed using dose optimization techniques as appropriate, variously including the following: *Automated exposure control *Adjustment of mA and/or kV according to patient size (this includes techniques or standardized protocols for targeted exams where dose is matched to indication/reason for exam; i.e. extremities or head) *Use of iterative reconstruction technique DLP: 269 mGy-cm FINDINGS: CALENDER WIND UP TENDER: No acute cardiopulmonary disease. LUNGS: Trachea and bronchi are patent. Diffuse mild bronchial wall thickening. Right middle lobe atelectasis. NODULES: RUL: 3 mm, 6:134 RML: 3 mm, 9:68 RLL: 5 mm, 6:205, 3 mm, 5:349. Three 1 cm shaggy nodules/consolidations, 6:183 and 6:250. 8mm and 1 cm shaggy nodules/consolidation, 6:365 and 6:377. Lingula: 3 mm, 6:301 LLL: 1 cm shaggy nodule/consolidation: 6:358. Likely confluence of shaggy nodule/left medial lung base measuring approximately 2.8 cm in aggregate, sagittal 44/109. Multiple other small LLL shaggy nodules/consolidations. MEDIASTINUM: 1 cm anterior left thyroid lobe hypodensity. Nonspecific mediastinal lymph nodes. Right paratracheal lymph node measures 9 mm in short axis. 6 mm prevascular short axis lymph node identified. 9 mm subcarinal short axis lymph node seen. Evaluation of the kelly limited without IV contrast. Nonenlarged heart. No pericardial effusion. Degree of coronary calcifications: None. Nonaneurysmal aorta. Nonenlarged pulmonary arteries. CORONARY ARTERY CALCIFICATION: None visualized on this study. PLEURA: There is no pleural effusion. No pleural mass or thickening. AXILLA: No lymphadenopathy. UPPER ABDOMEN: Enlarged low density liver. Splenic enlargement to 15 cm. Splenule. OSSEOUS STRUCTURES: Multilevel mild to moderate compression deformities and degenerative changes. CT/CT chest wo IV con IMPRESSION: Central and peripheral bilateral pulmonary parenchymal shaggy nodules/consolidations, small pulmonary nodules and prominent mediastinal lymph nodes. Findings have been present in varying degrees on multiple previous CTs favoring chronic process such as sarcoidosis. Differential diagnosis would also include cryptogenic organizing pneumonia or recurrent infectious etiologies. Lymphoma not entirely excluded. 1 cm left thyroid hypodense lesion. Ultrasound recommended.
[2023-08-31 06:45] VITALS: BP 177/87; PULSE 105; RESP 22; TEMP 37.9; O2SAT 98; BMI 37.4
--- NOTE | 2023-08-31 07:36 | ED.URI ---
HPI - URI/Sore Throat General Chief Complaint: Upper Respiratory Symptoms Stated Complaint: multiple issues Time Seen by Provider: 08/31/23 07:36 Source: patient, RN notes reviewed and old records reviewed Mode of arrival: ambulatory History of Present Illness HPI Narrative: 32-year-old FTM on testosterone with a past medical history of asthma, cigarette smoking, suspicion for sarcoidosis, presenting to the ED complaining of productive cough, SOB, chest discomfort when coughing, myalgias/body aches x3 months. Patient also reports right ear pain x1 week, currently using antibiotic drops and right eye drainage/discomfort x few days. Patient has been seen and treated for similar symptoms finished courses of Levaquin, Doxycycline, Azithromycin & prednisone without relief. Seen and treated in our ED 08/12/23, diagnosed with acute bronchitis. Patient was also evaluated by Pulmonology on 08/24, sputum culture sent and outpatient CT chest planned. Patient also reports suprapubic abdominal discomfort, and intermittent passage blood/tissue, denies at present. Admits to follow-up with OBGYN tomorrow. Reports fever this morning. Denies drainage from ear, vision loss, nausea/vomiting, diarrhea. Patient is sexually active, there is concern for STI. MD elicited complaint: fever, cough, sore throat and rhinorrhea Pertinent past history: asthma Related Data Home Medications Medication Instructions Recorded Confirmed safety needles 25 gauge x 5/8 (BD #50 ea 06/16/22 08/05/23 SafetyGlide Needle) testosterone cypionate 200 mg/mL 200 mg IM Q2W 06/16/22 08/05/23 intramuscular oil Previous Rx's Medication Instructions Recorded albuterol sulfate 90 mcg/actuation 2 puff inhalation Q4-6H PRN 03/16/23 aerosol inhaler shortness of breath or wheezing #8.5 grams cyclobenzaprine 10 mg tablet 10 mg PO BEDTIME PRN muscle spasm 07/14/23 #30 tabs fluconazole 150 mg tablet 150 mg PO Q3D 2 doses #2 tabs 07/14/23 triamcinolone acetonide 0.1 % 1 appl topical DAILY PRN rash in 07/14/23 topical cream groin 10 days #30 grams benzonatate 200 mg capsule 200 mg PO TID PRN cough 7 days #21 08/12/23 caps albuterol sulfate 2.5 mg/3 mL 2.5 mg (3 mL) continuous 08/24/23 (0.083 %) solution for nebulization nebulization QID PRN shortness of breath or wheezing 30 days #360 mL [id number] 3.5 4 drp otic (ears) Q8H #10 mL 08/24/23 mg-10,000 unit/mL-1 % ear drops,susp fluticasone propionate 230 2 puff inhalation BID 30 days #12 08/25/23 mcg-salmeterol 21 mcg/actuation grams HFA inhaler (Advair HFA) levofloxacin 750 mg tablet 750 mg PO DAILY #14 tabs 08/27/23 doxycycline hyclate 100 mg tablet 100 mg PO BID 7 days #14 tabs 08/31/23 ofloxacin 0.3 % eye drops 2 drp ophthalmic (eye) QID 5 days 08/31/23 #5 mL prednisone 10 mg tablet 10 mg PO DIRECTED #44 tabs 08/31/23 Allergies Allergy/AdvReac Type Severity Reaction Status Date / Time adair Allergy Severe ANAPHYLAXIS Verified 08/25/23 05:48 cinnamon [CINNAMON] Allergy Severe MOUTH Verified 08/25/23 05:48 [facility] homatropine Allergy Severe Hives Verified 08/25/23 05:48 [From Hycodan (with homatropin)] hydrocodone Allergy Severe Hives Verified 08/25/23 05:48 [From Hycodan (with homatropin)] adhesive tape [TAPE,ADHESIVE] Allergy Unknown HIVES Verified 08/25/23 05:48 amoxicillin [From Augmentin] Allergy Unknown rash Verified 08/25/23 05:48 cefaclor [From CECLOR] Allergy Unknown RASH Verified 08/25/23 05:48 clarithromycin [From BIAXIN] Allergy Unknown RASH Verified 08/25/23 05:48 clavulanic acid Allergy Unknown rash Verified 08/25/23 05:48 [From Augmentin] morphine Allergy Unknown burning Verified 08/25/23 05:48 Sulfa (Sulfonamide Allergy Unknown rash Verified 08/25/23 05:48 Antibiotics) sulfamethoxazole Allergy Unknown rash Verified 08/25/23 05:48 [From Bactrim] trimethoprim [From Bactrim] Allergy Unknown rash Verified 08/25/23 05:48 vancomycin Allergy Unknown hives, Verified 11/29/23 05:48 redness and hot to touch at IV site metoclopramide [From Reglan] AdvReac Unknown anxiety Verified 08/25/23 05:48 Platelet Infusion Set Allergy Unknown hives Uncoded 08/25/23 05:48 PLATELETS Allergy Unknown HIVES Uncoded 08/25/23 05:48 Review of Systems Review of Systems: Constitutional: + Fever, No Chills, No Night Sweats, No Fatigue, No Malaise ENT/Mouth: + Ear Pain, + Nasal Congestion, No Sinus Pain, No Hoarseness, + sore throat, + Rhinorrhea, No Swallowing Difficulty Eyes: No Eye Pain, No Swelling, + Redness, No Foreign Body, + Discharge, + Vision Changes Cardiovascular: + Chest Pain w/coughing, + SOB, No Dyspnea on Exertion, No Orthopnea, No Edema, No Palpitations Respiratory: + Cough, + Sputum, No Wheezing, No Smoke Exposure, No Dyspnea Gastrointestinal: No Nausea, No Vomiting, No Diarrhea, No Constipation, + Abdominal pain Genitourinary: + irregular bleeding, +vaginal discharge, No Dysuria, No Urinary Frequency, No Hematuria, No Urinary Incontinence/retention, No Flank Pain Musculoskeletal: No joint pain, + Myalgias, No Joint Swelling Skin: No Skin Lesions, No rash Neuro: No Weakness, No Numbness, No Paresthesias, No Loss of Consciousness, No Dizziness, No Headache Yes all other systems are reviewed and are negative Constitutional: Constitutional: Reports as per [facility] Past Medical History Attestation statement: The following information was validated with the patient. Source: old records reviewed Medical History Abnormal Pap smear of cervix Viral upper respiratory tract infection with cough History of allergic drug reaction Rhinitis, allergic Dermatitis Variant angina Dyslipidemia Vitamin D deficiency History of ITP Mild intermittent asthma Asthma Migraine Anxiety Depression Surgical History History of cardiac cath History of carpal tunnel surgery History of ITP H/O LEEP Family History Family History Father HTN (hypertension) Substance use disorder Mental health disorder Mother SLE (systemic lupus erythematosus) Cancer of thyroid Anxiety Depression Mental health disorder Brother Mental health disorder Sister Mental health disorder Social History Social History Housing: Apartment Alcohol intake: unknown Patient Tobacco Use Status: Former Tobacco user Smoked in Last 30 Days: No e-Cigarette/Vaping Use: Currently Using Use of substances other than those prescribed or required for medical reasons: No Substance Use Type: Marijuana Advance Directives: No Patient : No service: No Current occupational status: employed 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[facility] [place] Sexual orientation: Lesbian/[place]/Homosexual Gender identity: Female Cognitive needs: No Hearing needs: No Vision needs: No Physical Exam Vital Signs: Vital Signs: Last Vital Signs Temp 98.6 F 08/31/23 11:56 Pulse 107 H 08/31/23 11:56 Resp 18 08/31/23 11:56 BP 153/79 H 08/31/23 11:56 Pulse Ox 99 08/31/23 11:56 O2 Del Method Room Air 08/31/23 11:56 BMI result Body Mass Index 37.4 Const: General: cooperative, no acute distress, alert and awake Orientation/consciousness: patient oriented x3 Limitations: no limitations HEENT: Head: Yes normal to inspection and Yes atraumatic Ears: hearing grossly normal bilaterally, external ears normal, TM normal on the right (Partially obscured by cerumen. No erythema), mastoids normal and unable to visualize TM on the left (Due to cerumen impaction) General nose exam: Normal external nose present Face and sinus: Yes normal facial exam Throat: Yes uvula midline, No peritonsillar mass, Yes posterior oropharynx abnormal (Erythematous), No uvula laterally displaced and No uvular edema Eyes: General: appearance normal, both eyes and all related structures Eyelids: Yes eyelids normal Conjunctivae: conjunctival abnormal (Subconjunctival hemorrhage noted @9 o'clock position) Corneas: corneas normal and fluorescein used (Without uptake) Pupils: Equal, round and reactive pupils present EOM: EOMs intact bilaterally Direct Ophthalmoscopy: normal light reflex and no photophobia Neck: Neck: Yes normal visual inspection and Yes no meningeal signs Resp: Effort & Inspection: normal respiratory effort and no respiratory distress Auscultation: clear to auscultation bilaterally and wheezes expiratory wheezes (End, bibasilar) Cardio: Rate: regular rate and tachycardic Heart sounds: S1 normal heart sound present and S2 normal heart sound present GI: Inspection: Yes normal to inspection Palpation (GI): Soft to palpation, nontender, no guarding and not rigid : Other: exam deferred Skin: Rashes: no rashes Wounds: no wounds Neuro: General: patient oriented x3, tone normal and no meningeal signs Cranial nerves: Yes CN's II-XII intact bilaterally and Yes Equal, round and reactive pupils present Gait exam (Neuro): Normal gait present Extrem: General: Yes normal to inspection Course Course Course Narrative: -no leukocytosis. CRP mildly elevated. Troponin negative -COVID/flu/RSV and rapid strep negative. >> irrigated patient's ear and right TM with noted fluid behind TMs/bubbles > consistent with otitis media. CT chest wo IV con IMPRESSION: Central and peripheral bilateral pulmonary parenchymal shaggy nodules/consolidations, small pulmonary nodules and prominent mediastinal lymph nodes. Findings have been present in varying degrees on multiple previous CTs favoring chronic process such as sarcoidosis. Differential diagnosis would also include cryptogenic organizing pneumonia or recurrent infectious etiologies. Lymphoma not entirely excluded. 1 cm left thyroid hypodense lesion. Ultrasound recommended. > case discussed with ED attending Dr. Mraavilla, based on CT results would like to avoid antibiotics at this time, however due to current otitis agreed to doxycycline, and prednisone taper. Results discussed with patient and needed close follow-up with pulmonology for bronchoscopy as well as recommended outpatient ultrasound for thyroid nodule -Results discussed with patient including worrisome signs and symptoms and strict return precautions, and when to return to the emergency department. They verbalized understanding and feel safe for discharge at this time. Medications Administered Discontinued Medications Generic Name Dose Route Start Last Admin Trade Name Minnie PRN Reason Stop Dose Admin Albuterol/Ipratropium 3 ml 08/31/23 07:49 08/31/23 10:50 Albuterol/Iprat 2.5/0.5mg 3 Ml Ampul.Neb INHALE 08/31/23 07:50 3 ml ONCE ONE Administration Fluorescein Sodium 1 strip 08/31/23 07:52 08/31/23 10:15 Fluorescein Sodium Strip EYE-RIGHT 08/31/23 07:53 1 strip ONCE ONE Administration Sodium Chloride 1,000 mls @ 999 mls/hr 08/31/23 08:00 08/31/23 11:54 Ns IV 08/31/23 09:00 Infused .Q1H1M FLORINA Infusion Ketorolac Tromethamine 15 mg 08/31/23 07:51 08/31/23 09:16 Ketorolac Tromethamine 15 Mg/Ml Vial IVPUSH 08/31/23 07:52 15 mg ONCE ONE Administration Tetracaine HCl 1 drop 08/31/23 07:52 08/31/23 10:15 Tetracaine Hcl/Pf 0.5% Oph Charlene 4 Ml Drops EYE-RIGHT 08/31/23 07:53 1 drop ONCE ONE Administration Medical Decision Making Medical Decision Making MDM Narrative: 32-year-old FTM on testosterone with a past medical history of asthma, cigarette smoking, suspicion for sarcoidosis, presenting to the ED complaining of productive cough, SOB, chest discomfort when coughing, myalgias/body aches x3 months. Also reports suprapubic abdominal discomfort, and intermittent passage blood/tissue, denies at present. On exam low-grade temp 100.2 degrees, tachycardic likely from fever and tachypneic likely from coughing, NAD/nontoxic appearing, good air movement with slight end expiratory wheeze, abdomen soft/nontender. exam deferred by patient as has OBGYN follow-up tomorrow. Physical exam as noted above. Concern for viral illness vs bronchitis vs pharyngitis. Rule out pneumonia. Lower suspicion for ACS/PE. Concern for subconjunctival hemorrhage vs conjunctivitis. No evidence of globe rupture/periorbital/septal cellulitis. No fluorescein uptake. Concern for STI vs DUB vs hormone imbalance. Lower suspicion for ovarian torsion/TOA or ectopic at this time Low suspicion for severe sepsis likely viral etiology. Plan: EKG, labs, viral testing, chest CT, UA, CT NG, rapid strep, IVF. Please refer to course for remaining clinical decision making, interpretation of labs/imaging results, and discussions with consultants and/or family members. Differential Diagnosis Differential Diagnoses: The differential diagnosis associated with the presentation includes As above Admission/Observation Consideration of admission/observation: Escalation of care including admission/observation considered Lab Data [facility] Lab Attestation statement: I reviewed the patient's lab results. 08/31/23 09:04 08/31/23 09:04 Labs: Lab Results 08/31/23 Range/Units 09:04 WBC 5.3 (4.8-10.8) X10*3/uL RBC 5.39 (4.20-5.50) X10*6/uL Hgb 15.2 (12.0-16.0) g/dl Hct 45.7 (37.0-47.0) % MCV 84.8 (80.0-98.0) fL MCH 28.2 (27.0-33.0) pg MCHC 33.3 (31.0-35.0) g/dl RDW 12.4 (11.0-16.0) % Plt Count 278 (160-400) X10*3/uL MPV 10.4 (9.4-12.3) fL Immature Gran % (Auto) Cancelled Neut % (Auto) Cancelled Lymph % (Auto) Cancelled Mcdowell % (Auto) Cancelled Eos % (Auto) Cancelled Baso % (Auto) Cancelled Lymph # (Auto) Cancelled Mcdowell # (Auto) Cancelled Eos # (Auto) Cancelled Baso # (Auto) Cancelled Abs Immat Gran (auto) Cancelled Absolute Neuts (auto) Cancelled Absolute Nucleated RBC 0.000 (0.0-0.012) X10*3/uL Nucleated RBC % (auto) 0.0 (0.0-0.2) /100WBC Neutrophils % (Manual) 2 L (45-73) % Band Neutrophils % 1 L (3-5) % Lymphocytes % (Manual) 56 H (20-40) % Atypical Lymphs % (Man) 16 H (0-6) % Monocytes % (Manual) 23 H (2-11) % Eosinophils % (Manual) 1 (0-4) % Basophils % (Manual) 1 (0-2) % Abs Neuts (Manual) 0.2 L (2.0-8.3) X10*3/uL Lymphocytes # (Manual) 3.0 (1.2-4.9) X10*3/uL Atyp Lymphs # (Manual) 0.8 x10*3/uL Monocytes # (Manual) 1.2 (0.1-1.2) X10*3/uL Eosinophils # (Manual) 0.1 (0.0-0.4) X10*3/uL Basophils # (Manual) 0.1 (0.0-0.2) X10*3/uL Platelet Estimate NORMAL (NORMAL) Plt Morphology Comment NORMAL RBC Morphology NORMAL ESR 5 (0-20) MM/HR Sodium 141 (135-145) mmol/L Potassium 4.2 (3.3-5.1) mmol/L Chloride 106 (96-108) mmol/L Carbon Dioxide 27 (22-29) mmol/L Anion Gap 12 (12-20) BUN 9 (9-16) mg/dL Creatinine 0.88 (0.5-1.4) mg/dL Estim Creat Clear Calc 102.9 Estimated GFR > 60 Random Glucose 101 (60-115) mg/dL Calcium 9.5 (8.4-10.2) mg/dL Magnesium 1.9 (1.6-2.6) mg/dL Total Bilirubin 0.4 (0.0-1.0) mg/dL Direct Bilirubin 0.2 (0.0-0.5) mg/dL AST 25 (5-31) U/L ALT 36 H (0-31) U/L Alkaline Phosphatase 87 (39-117) U/L Troponin I High Sens 2.9 (<3.5-17.0) ng/L C-Reactive Protein 6.58 H (< or = 0.50) mg/dL B-Natriuretic Peptide 19 (<100) pg/mL Total Protein 6.0 L (6.5-8.0) g/dL Albumin 4.0 (3.5-5.0) g/dL Urine Color Yellow Urine Appearance Clear Urine pH 7.0 (5.0-9.0) Ur Specific Brogan 1.010 (1.005-1.025) Urine Protein Negative (Neg-Trace) mg/dL Urine Glucose (UA) Negative (Negative) mg/dL Urine Ketones Negative (Negative) mg/dL Urine Blood Negative (Negative) Urine Nitrite Negative (Negative) Ur Leukocyte Esterase Negative (Negative) Urine Test NEGATIVE (NEGATIVE) Chlam trachomat DNA PCR NOT DETECTED (Not Detect.) Influenza Type A (PCR) NEGATIVE (Negative) Influenza Type B (PCR) NEGATIVE (Negative) N.gonorrhoeae DNA (PCR) NOT DETECTED (Not Detect.) RSV RNA Qual (PCR) NEGATIVE (Negative) SARS-CoV-2 RNA (RT-PCR) NEGATIVE (Negative) S. pyogenes GrpA AYESHA Negative (Negative) Radiology Impression Discussion of test interpretation with radiology: I have reviewed the radiologist's reading. External Record Review External record reviewed: Inpatient record, Office record, Outpatient record, Prior outpatient labs, Prior outpatient radiology, Primary care record and Outside ED record Tests considered The following testing was considered but not selected: As above Prescription Management I considered prescription management with: Pain Medication, Antiviral and Antibiotic Chronic Conditions Patient?s care impacted by: Other Procedures Ear Wax Removal Both Ears: Cerumenolytic Used: 5-10% Sodium Bicarb solution Results: Re-examined: cerumen removed completely (from right. unable to remove from left) TM Examination: other (right TM w/effusion/fluid) Ear Canal Exam: atraumatic Patient Tolerated Procedure: well Complications: no problems Technique: ear canal irrigated Discharge Plan Discharge Clinical Impression: Chronic lung disease, Otitis media, Conjunctivitis Patient Disposition: Home, Self-Care Instructions: Sarcoidosis (ED) Additional Instructions: Your CT scan is suggestive of a chronic lung process, possibly sarcoidosis. You need to follow-up with pulmonology in obtain a bronchoscopy You have an inner ear infection. Doxycycline as an antibiotic please take as prescribed In addition take prednisone taper Erythromycin ointment is for your eye/conjunctivitis Please follow-up with your OBGYN. Your gonorrhea and chlamydia were negative If symptoms persist or worsen return to the ED Prescriptions: New prednisone 10 mg tablet 10 mg PO DIRECTED Qty: 44 0RF Taper: Prednisone 40 mg daily for 3 Days and 0 Hour 30 mg daily for 3 Days and 0 Hour 20 mg daily for 3 Days and 0 Hour 10 mg daily for 3 Days and 0 Hour Rx Instructions: prednisone 10 mg: take 6 tablets (60 mg) for 3 days; 5 tablets (50 mg) for 2 days; 4 (40mg) tablets for 2 days, 3 (30mg) for 2 days and then 1 (10mg) tablet for 2 days doxycycline hyclate 100 mg tablet 100 mg PO BID 7 Days Qty: 14 0RF ofloxacin 0.3 % drops 2 drp ophthalmic (eye) QID 5 Days Qty: 5 0RF No Action fluticasone propion-salmeterol [Advair HFA] 230-21 mcg/actuation HFA aerosol inhaler 2 puff inhalation BID 30 Days Qty: 12 6RF Rx Instructions: administer with spacer levofloxacin 750 mg tablet 750 mg PO DAILY Qty: 14 0RF benzonatate 200 mg capsule 200 mg PO TID PRN (Reason: cough) 7 Days Qty: 21 0RF albuterol sulfate 90 mcg/actuation HFA aerosol inhaler 2 puff inhalation Q4-6H PRN (Reason: shortness of breath or wheezing) Qty: 8.5 0RF cyclobenzaprine 10 mg tablet 10 mg PO BEDTIME PRN (Reason: muscle spasm) Qty: 30 0RF fluconazole 150 mg tablet 150 mg PO Q3D Qty: 2 0RF Rx Instructions: may repeat second dose 72 hrs after first dose if symptoms persist triamcinolone acetonide 0.1 % cream 1 appl topical DAILY PRN (Reason: rash in groin ) 10 Days Qty: 30 2RF [id number]-[id number]-ON 3.5-10,000-1 mg/mL-unit/mL-% drops,suspension 4 drp otic (ears) Q8H Qty: 10 0RF testosterone cypionate 200 mg/mL oil 200 mg IM Q2W (DME) BD SafetyGlide Needle 25 gauge x 5/8 needle See Rx Instructions .ROUTE .MEDSUPPLY Qty: 50 Rx Instructions: As directed albuterol sulfate 2.5 mg /3 mL (0.083 %) solution for nebulization 2.5 mg continuous nebulization QID PRN (Reason: shortness of breath or wheezing) 30 Days Qty: 360 6RF [place] [facility] [place] [facility] [place] Group[place] [facility] [place] [facility] [place] Group] Amaya Santoro MD [Primary Care Provider] -
--- NOTE | 2023-08-31 07:49 | ECG_ITS ---
Test Reason : SOB Blood Pressure : / mmHG Vent. Rate : 108 BPM Atrial Rate : 108 BPM P-R Int : 140 ms QRS Dur : 092 ms QT Int : 320 ms P-R-T Axes : 074 014 026 degrees QTc Int : 428 ms Sinus tachycardia Possible Anterior infarct , age undetermined Abnormal ECG When compared with ECG of 13-MAY-2020 09:39, Vent. rate has increased BY 36 BPM Borderline criteria for Anterior infarct are now Present Referred By: Madisyn Tyler Electronically Signed By:GILDARDO BLACKWELL
[2023-08-31 09:13] LABS: Platelet Count 278 X10*3/uL (160-400); Red Blood Count 5.39 X10*6/uL (4.20-5.50); Red Cell Distribution Width 12.4 % (11.0-16.0)
[2023-08-31] MEDS: 0.9 % Sodium Chloride 1,000 ML 999 ML IV (09:16)
[2023-08-31] MEDS: Ketorolac Tromethamine 15 MG/ML VIAL IVPUSH (09:16)
[2023-08-31 09:18] LABS: Appearance Urine Clear; Color Urine Yellow; Glucose Urine UA Negative (Negative); Leukocyte Esterase Urine Negative (Negative); Nitrite Urine Negative (Negative); Urine Blood Negative (Negative); Urine Ketones Negative (Negative); Urine Protein Negative (Neg-Trace)
[2023-08-31 09:19] LABS: UPreg QC Valid YES; Urine Pregnancy NEGATIVE (NEGATIVE)
[2023-08-31 09:21] LABS: Hematocrit 45.7 % (37.0-47.0); Hemoglobin 15.2 g/dl (12.0-16.0); Mean Corpuscular HGB Conc 33.3 g/dl (31.0-35.0); Mean Corpuscular Hemoglobin 28.2 pg (27.0-33.0); Mean Corpuscular Volume 84.8 fL (80.0-98.0); Mean Platelet Volume 10.4 fL (9.4-12.3); White Blood Count 5.3 X10*3/uL (4.8-10.8)
[2023-08-31 09:26] LABS: IDNOW Serial# 08D9AD1C; Strep A Nucleic Acid Negative (Negative)
[2023-08-31 09:33] LABS: B Type Natriuretic Peptide 19 pg/mL (<100)
[2023-08-31 09:39] LABS: Atypical Lymph Absolute Manual 0.8 x10*3/uL; Atypical Lymphs Percent Manual 16 % (0-6); Band Neutrophils Percent 1 % (3-5); Basophils Abs Manual 0.1 X10*3/uL (0.0-0.2); Basophils Percent Manual 1 % (0-2); Eosinophils Absolute Manual 0.1 X10*3/uL (0.0-0.4); Eosinophils Percent Manual 1 % (0-4); Lymphocytes Percent Manual 56 % (20-40); Monocytes Absolute Manual 1.2 X10*3/uL (0.1-1.2); Monocytes Percent Manual 23 % (2-11); Neutrophils Absolute Manual 0.2 X10*3/uL (2.0-8.3); Neutrophils Percent Manual 2 % (45-73); Troponin-I High Sensitivity 2.9 ng/L (<3.5-17.0)
[2023-08-31 09:41] LABS: Platelet Estimate NORMAL (NORMAL); Platelet Morphology Comment NORMAL; RBC Morphology NORMAL
[2023-08-31 09:52] LABS: Erythrocyte Sedimentation Rate 5 MM/HR (0-20); Influenza A PCR NEGATIVE (Negative); Influenza B PCR NEGATIVE (Negative); Resp Syncy Virus RNA Qual PCR NEGATIVE (Negative); SARS COV2 PCR INHOUSE NEGATIVE (Negative)
[2023-08-31 10:07] LABS: Alanine Aminotransferase 36 U/L (0-31); Alkaline Phosphatase 87 U/L (39-117); Anion Gap 12 (12-20); Aspartate Amino Transferase 25 U/L (5-31); Bilirubin Direct 0.2 mg/dL (0.0-0.5); Bilirubin Total 0.4 mg/dL (0.0-1.0); Blood Urea Nitrogen 9 mg/dL (9-16); C Reactive Protein 6.58 mg/dL (< or = 0.50); Calcium 9.5 mg/dL (8.4-10.2); Carbon Dioxide 27 mmol/L (22-29); Chloride 106 mmol/L (96-108); Creatinine Clr Calc Pharmacy 102.9; Estimated Glomerular Filt Rate > 60; Glucose Random 101 mg/dL (60-115); Magnesium 1.9 mg/dL (1.6-2.6); Potassium 4.2 mmol/L (3.3-5.1); Sodium 141 mmol/L (135-145)
[2023-08-31] MEDS: Tetracaine HCl/PF 0.5% Oph Sol 4 ML DROPS 1 DROP EYE-RIGHT (10:15)
[2023-08-31] MEDS: Fluorescein Sodium STRIP 1 STRIP EYE-RIGHT (10:15)
[2023-08-31] MEDS: Albuterol/Iprat 2.5/0.5MG 3 ML AMPUL.NEB INHALE (10:50)
[2023-08-31 10:52] VITALS: PULSE 85; RESP 18; O2SAT 99
[2023-08-31 11:56] VITALS: BP 153/79; PULSE 107; RESP 18; TEMP 37; O2SAT 99
[2023-08-31 13:47] LABS: CT PCR NOT DETECTED (Not Detect.); NG PCR NOT DETECTED (Not Detect.)
== END 2023-08-31 15:33 | disposition home or self-care (01) ==
PROVIDERS: Physician Assistant; Emergency Provider Emergency Medicine Emergency Medical Services; PCP Internal Medicine
DX: H61.21 Impacted cerumen, right ear (principal); C91.10 Chronic lymphocytic leukemia of B-cell type not having achieved remission; R05.9 Cough, unspecified; H66.91 Otitis media, unspecified, right ear; R00.0 Tachycardia, unspecified; R50.9 Fever, unspecified; H10.9 Unspecified conjunctivitis; R06.02 Shortness of breath; Z20.822 Contact with and (suspected) exposure to COVID-19; Z20.828 Contact with and (suspected) exposure to other viral communicable diseases; Z79.899 Other long term (current) drug therapy
CPT/HCPCS: 0241U; 0353U; 69209; 71250; 80048; 80076; 81003; 81025; 83735; 83880; 84484; 85007; 85027; 85652; 86140; 87651; 93005; 94640; 96361; 96374; 99285; J1885

== ENCOUNTER → 2023-08-31 07:49 | Outpatient (BNV) | payer OTHER, SELFPAY | PROVIDERS: Emergency Provider Emergency Medicine Emergency Medical Services; PCP Internal Medicine; Visit Provider Internal Medicine | DX: R00.0 Tachycardia, unspecified (principal); R94.31 Abnormal electrocardiogram [ECG] [EKG] | CPT/HCPCS: 93010 ==

== ENCOUNTER 2023-09-01 08:03 | Outpatient (REF) | payer OTHER, SELFPAY ==
[2023-09-02 13:07] LABS: BV Int Neg Control Negative (Negative); BV Int Pos Control Positive (Positive)
== END 2023-09-01 08:04 | disposition home or self-care (01) ==
LOC: HO.LNP 08:03
PROVIDERS: PCP Internal Medicine; Visit Provider Obstetrics & Gynecology
DX: R10.2 Pelvic and perineal pain (principal); N89.8 Other specified noninflammatory disorders of vagina
CPT/HCPCS: 81002; 87086; 87480; 87510; 87660; 99212

== ENCOUNTER 2023-09-01 08:10 | Outpatient (AMB) | payer OTHER, SELFPAY ==
--- NOTE | 2023-09-01 08:05 | MHC.OFFVIS ---
Intake Vital Signs 09/01/23 08:19 Height 5 ft 4 in Weight 216 lb 0.848 oz BMI 37.1 BP 140/70 H Intake Visit Reasons: Pelvic Pain Hydro Operator Required: No Information Interpreted: non-clinical & clinical Director Of Securities And Real Estate: Director Of Securities And Real Estate Present (Yaritza CASTRO) Accompanied by: Self / Same As Patient Allergies adair Allergy (Severe, Verified 09/01/23 08:20) ANAPHYLAXIS cinnamon [CINNAMON] Allergy (Severe, Verified 09/01/23 08:20) MOUTH MEMBRANES PEEL homatropine [From Hycodan (with homatropin)] Allergy (Severe, Verified 09/01/23 08:20) Hives hydrocodone [From Hycodan (with homatropin)] Allergy (Severe, Verified 09/01/23 08:20) Hives adhesive tape [TAPE,ADHESIVE] Allergy (Unknown, Verified 09/01/23 08:20) HIVES amoxicillin [From Augmentin] Allergy (Unknown, Verified 09/01/23 08:20) rash cefaclor [From CECLOR] Allergy (Unknown, Verified 09/01/23 08:20) RASH clarithromycin [From BIAXIN] Allergy (Unknown, Verified 09/01/23 08:20) RASH clavulanic acid [From Augmentin] Allergy (Unknown, Verified 09/01/23 08:20) rash morphine Allergy (Unknown, Verified 09/01/23 08:20) burning Sulfa (Sulfonamide Antibiotics) Allergy (Unknown, Verified 09/01/23 08:20) rash sulfamethoxazole [From Bactrim] Allergy (Unknown, Verified 09/01/23 08:20) rash trimethoprim [From Bactrim] Allergy (Unknown, Verified 09/01/23 08:20) rash vancomycin Allergy (Unknown, Verified 09/01/23 08:20) hives, redness and hot to touch at IV site metoclopramide [From Reglan] Adverse Reaction (Unknown, Verified 09/01/23 08:20) anxiety Platelet Infusion Set Allergy (Unknown, Uncoded 09/01/23 08:20) hives PLATELETS Allergy (Unknown, Uncoded 09/01/23 08:20) HIVES Is last menstrual period known: No HPI HPI Comments History of Present Illness Details The patient is presenting with bilateral lower pelvic pain started 1-2 weeks ago. It's intermittent in nature lasting few seconds and occurs multiple times a day. it is associated with vaginal discharge no foul smell or irritation, passage of blood vaginal small clots x2, no constipation, no dysuria, , no urinary incontinence, no n/v. Urine test and UA were negative. GC/CT were done in the emergency room yesterday were negative [facility] Medical History Abnormal Pap smear of cervix Viral upper respiratory tract infection with cough History of allergic drug reaction Rhinitis, allergic Dermatitis Variant angina Dyslipidemia Vitamin D deficiency History of ITP Mild intermittent asthma Asthma Migraine Anxiety Depression Surgical History History of cardiac cath History of carpal tunnel surgery History of ITP H/O LEEP Family History Father HTN (hypertension) Substance use disorder Mental health disorder Mother SLE (systemic lupus erythematosus) Cancer of thyroid Anxiety Depression Mental health disorder Brother Mental health disorder Sister Mental health disorder Social History Housing: Apartment Alcohol intake: unknown Patient Tobacco Use Status: Former Tobacco user e-Cigarette/Vaping Use: Currently Using Substance Use Type: Marijuana service: No Current occupational status: employed Current occupation: [employer] Sexual orientation: Lesbian/[place]in[place]/Homosexual Gender identity: Female Cognitive needs: No Hearing needs: No Vision needs: No Female Reproductive History Menstrual Age of Menarche: 11 Physical Exam Vital Signs: Last Vital Signs BP 140/70 H 09/01/23 08:19 BMI result Body Mass Index 37.1 Assessment & Plan Assessment & Plan (1) Pelvic pain: Code(s): R10.2 - Pelvic and perineal pain Plan: Urine dip done in the office showed +1 protein, will send urine for culture. GC and chlamydia taken and pelvic ultrasound ordered. Discussed with the patient the differential diagnosis of pelvic pain including but not limited to adnexal, uterine masses, pelvic infections (PID), GI the (Irritable bowel syndrome, diverticulitis, others), musculoskeletal, myofascial pain abdominal wall , adhesions, endometriosis and others causes. Will check results and treat accordingly. All questions answered, the patient verbalized understanding. Instructed the patient to schedule follow-up appointment in 2 weeks Orders: Orders Bacterial Vaginosis Panel Today R10.2 - Pelvic and perineal pain Urine Culture Today R10.2 - Pelvic and perineal pain US pelvic and transvaginal Today R10.2 - Pelvic and perineal pain Coding Level of Care Code Est Pt Level 3 (77461) Diagnoses Pelvic pain R10.2
[2023-09-01 08:19] VITALS: BP 140/70; BMI 37.1
== END 2023-09-01 08:38 | disposition home or self-care (01) ==
PROVIDERS: PCP Internal Medicine; Visit Provider Obstetrics & Gynecology
DX: R10.2 Pelvic and perineal pain (principal)
CPT/HCPCS: 99213

== ENCOUNTER 2023-09-02 13:29 | Outpatient (REF) | payer OTHER, SELFPAY ==
[2023-09-03 03:42] LABS: Syphilis Screen Nonreactive (Nonreactive)
[2023-09-03 03:56] LABS: HBsAGNum1 0.28 S/CO (0.00-0.99); Hepatitis B Surface Antigen Negative (Negative); ~HepC Num1 0.01 S/CO (0.00-0.79); ~Hepatitis C Antibody Nonreactive (Nonreactive)
[2023-09-03 04:39] LABS: HIV AB/AG Nonreactive (Nonreactive); HIV Num 1 0.04 S/CO (0.00-0.99)
== END 2023-09-02 13:30 | disposition home or self-care (01) ==
LOC: HO.LAB 13:29
PROVIDERS: PCP Internal Medicine; Visit Provider Obstetrics & Gynecology
DX: Z11.4 Encounter for screening for human immunodeficiency virus [HIV] (principal); Z20.2 Contact with and (suspected) exposure to infections with a predominantly sexual mode of transmission
CPT/HCPCS: 36415; 86780; 86803; 87340; 87389

== ENCOUNTER 2023-09-09 10:01 | Outpatient (AMB) | payer OTHER, SELFPAY ==
[2023-09-09 10:05] VITALS: BP 128/67; PULSE 73; O2SAT 98; BMI 41.6
--- NOTE | 2023-09-09 10:05 | A.OFFVIS_ITS ---
Intake Vital Signs 09/09/23 10:05 Height 5 ft 4 in Weight 242 lb 8.136 oz BMI 41.6 BP 128/67 Blood Pressure Location Lt brachial Position Sitting Pulse 73 Pulse Source Doppler Pulse Oximetry (%) 98 Oxygen Delivery Method Room Air Intake Visit Reasons: Review CT Scans Allergies adair Allergy (Severe, Verified 09/09/23 10:08) ANAPHYLAXIS cinnamon [CINNAMON] Allergy (Severe, Verified 09/09/23 10:08) MOUTH MEMBRANES PEEL homatropine [From Hycodan (with homatropin)] Allergy (Severe, Verified 09/09/23 10:08) Hives hydrocodone [From Hycodan (with homatropin)] Allergy (Severe, Verified 09/09/23 10:08) Hives adhesive tape [TAPE,ADHESIVE] Allergy (Unknown, Verified 09/09/23 10:08) HIVES amoxicillin [From Augmentin] Allergy (Unknown, Verified 09/09/23 10:08) rash cefaclor [From CECLOR] Allergy (Unknown, Verified 09/09/23 10:08) RASH clarithromycin [From BIAXIN] Allergy (Unknown, Verified 09/09/23 10:08) RASH clavulanic acid [From Augmentin] Allergy (Unknown, Verified 09/09/23 10:08) rash morphine Allergy (Unknown, Verified 09/09/23 10:08) burning Sulfa (Sulfonamide Antibiotics) Allergy (Unknown, Verified 09/09/23 10:08) rash sulfamethoxazole [From Bactrim] Allergy (Unknown, Verified 09/09/23 10:08) rash trimethoprim [From Bactrim] Allergy (Unknown, Verified 09/09/23 10:08) rash vancomycin Allergy (Unknown, Verified 09/09/23 10:08) hives, redness and hot to touch at IV site metoclopramide [From Reglan] Adverse Reaction (Unknown, Verified 09/09/23 10:08) anxiety testosterone Adverse Reaction (Verified 09/09/23 10:08) Itching Platelet Infusion Set Allergy (Unknown, Uncoded 09/01/23 08:20) hives PLATELETS Allergy (Unknown, Uncoded 09/01/23 08:20) HIVES HPI Review CT Scans HPI Details 32-year-old gentleman former approximate ly 10 pack-year smoker with underlying history of asthma since childhood and suspicion for sarcoidosis based on noted mediastinal lymphadenopathy on CT scan approximately 3 years prior pulmonary referred for further evaluation. Patient stated of the last several months he has been having significant bronchitic symptoms with cough productive of yellowish sputum with poor response to several courses of prednisone, azithromycin, doxycycline, and Levaquin. Patient does complain of multiple environmental allergies. He is employed without exposure to industrial dusts. After the last office visit patient has completed CT chest that shows mediastinal lymphadenopathy and peripheral nodules similar to prior. Sputum culture showed Haemophilus influenzae and patient was treated with a course of Levaquin and doxycycline with prednisone with improvement in cough. There is some improvement in chronic symptoms on Advair, however not complete control. [facility] Medical History Abnormal Pap smear of cervix Viral upper respiratory tract infection with cough History of allergic drug reaction Rhinitis, allergic Dermatitis Variant angina Dyslipidemia Vitamin D deficiency History of ITP Mild intermittent asthma Asthma Migraine Anxiety Depression Surgical History History of cardiac cath History of carpal tunnel surgery History of ITP H/O LEEP Family History Father HTN (hypertension) Substance use disorder Mental health disorder Mother SLE (systemic lupus erythematosus) Cancer of thyroid Anxiety Depression Mental health disorder Brother Mental health disorder Sister Mental health disorder Social History Housing: Apartment Alcohol intake: unknown Patient Tobacco Use Status: Former Tobacco user e-Cigarette/Vaping Use: Currently Using Substance Use Type: Marijuana service: No Current occupational status: employed Current occupation: [employer] [facility] [place] [facility] Sexual orientation: Lesbian/[place]in[place]/Homosexual Gender identity: Female Cognitive needs: No Hearing needs: No Vision needs: No Female Reproductive History Menstrual Age of Menarche: 11 Review of Systems Const Denies daytime sleepiness, Denies excessive sweating, Denies fatigue, Denies fever(s), Denies lethargy, Denies malaise, Denies night sweats, Denies snoring and Denies weight loss Eyes Denies blurry vision and Denies itchy eyes ENT Reports nasal congestion, Denies post nasal drip, Denies sinus pain, Denies sinus pressure and Denies other ( Thrush) Card Denies chest pain, Denies pedal edema, Denies dyspnea, Denies orthopnea and Denies paroxysmal nocturnal dyspnea Resp Reports cough, Denies hemoptysis, Denies excessive phlegm production, Denies dys pnea, Denies snoring and Denies wheezing GI Denies abdominal pain and Denies heartburn Musc Denies myalgias, Denies arthralgias and Denies joint swelling Skin/Breast Denies rash Neuro Denies memory loss and Denies seizure-like activity Psych Denies abnormal sleep pattern, Denies anxiety and Denies memory loss Endo Denies excessive sweating, Denies fatigue and Denies heat intolerance Kian/Lymph Denies easy bruising Aller/Immun Denies itchy eyes, Denies seasonal rhinorrhea and Denies wheezing Physical Exam Vital Signs: Last Vital Signs Pulse 73 09/09/23 10:05 BP 128/67 09/09/23 10:05 Pulse Ox 98 09/09/23 10:05 Oxygen Delivery Method Room Air 09/09/23 10:05 BMI result Body Mass Index 41.6 Const General: no acute distress and alert Nutritional Appearance: obese Orientation/consciousness: Other orientation findings ( oriented) HEENT Head: Yes atraumatic Eyes General: appearance normal, both eyes and all related structures Sclerae: sclerae normal EOM: EOMs intact bilaterally Neck Neck: Yes supple Lymphatic: no lymphadenopathy noted Resp Effort & Inspection: normal respiratory effort and no use of accessory muscles Auscultation: clear to auscultation bilaterally Cardio Rate: regular rate Rhythm: regular rhythm Heart sounds: no gallops, no murmurs and no rubs Skin General skin exam: other ( warm) Extrem General: No clubbing, No cyanosis and No edema Assessment & Plan Assessment & Plan (1) Environmental allergies: Code(s): Z91.09 - Other allergy status, other than to drugs and biological substances Plan: Results of RAST reviewed, no significant environmental component at this time. Does have eosinophilia, if symptoms do not improve, will consider Fasenra. (2) Mediastinal lymphadenopathy: Code(s): R59.0 - Localized enlarged lymph nodes Plan: Similar to prior imaging, likely underlying sarcoidosis. Will plan for EBUS biopsy. (3) Asthma: Code(s): J45.909 - Unspecified asthma, uncomplicated Plan: Improved but still suboptimal control Advair. Will change to Trelegy. Medications: New dnikfcqkvqv-pkeyrsbow-cdxjonty 200-62.5-25 mcg (Trelegy Ellipta) 1 inh inhalation DAILY 1 ea 6RF 30 days Discontinued fluticasone propion-salmeterol 230-21 mcg/actuation (Advair HFA) administer with spacer Discontinued Reason: Doctor's Order 2 puffs inhalation BID 30 days 12 grams 6RF Coding Level of Care Code Est Pt Level 4 (89327) Diagnoses Environmental allergies Z91.09 Mediastinal lymphadenopathy R59.0 Asthma J45.909
== END 2023-09-09 10:36 | disposition home or self-care (01) ==
PROVIDERS: PCP Internal Medicine; Visit Provider Internal Medicine Pulmonary Disease
DX: Z91.09 Other allergy status, other than to drugs and biological substances (principal); R59.0 Localized enlarged lymph nodes; J45.909 Unspecified asthma, uncomplicated
CPT/HCPCS: 99214

== ENCOUNTER → 2023-09-09 10:01 | Outpatient (BNVA) | payer OTHER, SELFPAY | PROVIDERS: PCP Internal Medicine; Visit Provider Internal Medicine Pulmonary Disease | DX: J45.909 Unspecified asthma, uncomplicated (principal); Z91.09 Other allergy status, other than to drugs and biological substances; R59.0 Localized enlarged lymph nodes | CPT/HCPCS: 99212 ==

== ENCOUNTER 2023-09-15 08:22 | Day surgery (SDC) | payer OTHER, SELFPAY ==
--- NOTE | 2023-09-14 09:39 | P.CONAN_ITS ---
Documented by User: Lesley Gutierrez NP 09/14/23 09:46 HPI - Anesthesia Eval Consult details Narrative: [place] 33you FTM for Endoscopic Bronchial Ultrasound (? sarcoid) Follows [facility] for ITP - stable at 08/2023 office visit and platelets from 08/31/23 WNL PMFSH Active Problems Active Problems: All Active Problems (Updated 09/03/23 @ 16:52 by Violet Hutchison MD) Pelvic pain (Acute) Asthma (Acute) Chronic bronchitis (Acute) Environmental allergies (Acute) Mediastinal lymphadenopathy (Acute) Bartholin's gland cyst (Acute) Anxiety (Acute) Rhinitis, allergic (Acute) Dermatitis (Acute) Chronic ITP (idiopathic thrombocytopenia) (Acute) Dyslipidemia (Acute) Vitamin D deficiency (Acute) Mild intermittent asthma (Acute) Class 3 obesity (Acute) Past Medical History Medical History Abnormal Pap smear of cervix Viral upper respiratory tract infection with cough History of allergic drug reaction Rhinitis, allergic Dermatitis Variant angina Dyslipidemia Vitamin D deficiency History of ITP Mild intermittent asthma Asthma Migraine Anxiety Depression Family History Family History Father HTN (hypertension) Substance use disorder Mental health disorder Mother SLE (systemic lupus erythematosus) Cancer of thyroid Anxiety Depression Mental health disorder Brother Mental health disorder Sister Mental health disorder Surgical History Surgical History History of cardiac cath History of carpal tunnel surgery History of ITP H/O LEEP Social History Social History Housing: Apartment Alcohol intake: unknown Patient Tobacco Use Status: Former Tobacco user Quit Date: 2022 Tobacco use type: Cigarette Years Smoked: 15 Smoked in Last 30 Days: No e-Cigarette/Vaping Use: Currently Using Use of substances other than those prescribed or required for medical reasons: Yes Substance Use Type: Marijuana Substance Use Frequency: Daily Are you DNR?: No Advance Directives: No Advance Directives Information Provided: Yes service: No Current occupational status: employed Current occupation: [employer] [facility] Sexual orientation: Lesbian/[place]in[place]/Homosexual Gender identity: Female Cognitive needs: No Hearing needs: No Vision needs: No Meds Allergies Allergy/AdvReac Type Severity Reaction Status Date / Time adair Allergy Severe ANAPHYLAXIS Verified 09/15/23 08:46 cinnamon [CINNAMON] Allergy Severe MOUTH Verified 09/15/23 08:46 MEMBRANES PEEL homatropine Allergy Severe Hives Verified 09/15/23 08:46 [From Hycodan (with homatropin)] hydrocodone Allergy Severe Hives Verified 09/15/23 08:46 [From Hycodan (with homatropin)] adhesive tape [TAPE,ADHESIVE] Allergy Intermediate HIVES Verified 09/15/23 08:46 amoxicillin [From Augmentin] Allergy Unknown rash Verified 09/15/23 08:46 cefaclor [From CECLOR] Allergy Unknown RASH Verified 09/15/23 08:46 clarithromycin [From BIAXIN] Allergy Unknown RASH Verified 09/15/23 08:46 clavulanic acid Allergy Unknown rash Verified 09/15/23 08:46 [From Augmentin] morphine Allergy Unknown burning Verified 09/15/23 08:46 Sulfa (Sulfonamide Allergy Unknown rash Verified 09/15/23 08:46 Antibiotics) sulfamethoxazole Allergy Unknown rash Verified 09/15/23 08:46 [From Bactrim] trimethoprim [From Bactrim] Allergy Unknown rash Verified 09/15/23 08:46 vancomycin Allergy Unknown hives, Verified 09/15/23 08:46 redness and hot to touch at IV site testosterone AdvReac Severe Itching Verified 09/15/23 08:46 metoclopramide [From Reglan] AdvReac Unknown anxiety Verified 09/15/23 08:46 Platelet Infusion Set Allergy Severe hives Uncoded 09/15/23 08:46 PLATELETS Allergy Severe HIVES Uncoded 09/15/23 08:46 Home Medications Medication Instructions Recorded Confirmed Last Taken Type safety needles 25 gauge x 5/8 (BD #50 ea 06/16/22 09/03/23 Unknown History SafetyGlide Needle) Exam Pertinent Lab Results Pertinent Lab Results: Laboratory Tests 08/31/23 09:04 WBC 5.3 Hgb 15.2 Hct 45.7 Plt Count 278 Sodium 141 Potassium 4.2 Chloride 106 Carbon Dioxide 27 BUN 9 Creatinine 0.88 Narrative Narrative: EKG 08/31/23 Vent. Rate : 108 BPM Atrial Rate : 108 BPM P-R Int : 140 ms QRS Dur : 092 ms QT Int : 320 ms P-R-T Axes : 074 014 026 degrees QTc Int : 428 ms Sinus tachycardia Possible Anterior infarct , age undetermined Abnormal ECG When compared with ECG of 13-MAY-2020 09:39, Vent. rate has increased BY 36 BPM Borderline criteria for Anterior infarct are now Present Assessment and Plan Assessment Anesthesia Assessment: Chart Reviewed Documented by User: Gregorio Ríos MD 09/15/23 11:08 PMF Past Medical History Medical History Abnormal Pap smear of cervix Viral upper respiratory tract infection with cough History of allergic drug reaction Rhinitis, allergic Dermatitis Variant angina Dyslipidemia Vitamin D deficiency History of ITP Mild intermittent asthma Asthma Migraine Anxiety Depression Family History Family History Father HTN (hypertension) Substance use disorder Mental health disorder Mother SLE (systemic lupus erythematosus) Cancer of thyroid Anxiety Depression Mental health disorder Brother Mental health disorder Sister Mental health disorder Family history of problems with anesthesia: No Surgical History Surgical History History of cardiac cath History of carpal tunnel surgery History of ITP H/O LEEP History of Problems with Anesthesia: No Social History Social History Housing: Apartment Alcohol intake: unknown Patient Tobacco Use Status: Former Tobacco user Quit Date: 2022 Tobacco use type: Cigarette Years Smoked: 15 Smoked in Last 30 Days: No e-Cigarette/Vaping Use: Currently Using Use of substances other than those prescribed or required for medical reasons: Yes Substance Use Type: Marijuana Substance Use Frequency: Daily Are you DNR?: No Advance Directives: No Advance Directives Information Provided: Yes service: No Current occupational status: employed Current occupation: [employer] [facility] Sexual orientation: Lesbian/[place]in[place]/Homosexual Gender identity: Female Cognitive needs: No Hearing needs: No Vision needs: No Meds Allergies Allergy/AdvReac Type Severity Reaction Status Date / Time adair Allergy Severe ANAPHYLAXIS Verified 09/15/23 08:46 cinnamon [CINNAMON] Allergy Severe MOUTH Verified 09/15/23 08:46 MEMBRANES PEEL homatropine Allergy Severe Hives Verified 09/15/23 08:46 [From Hycodan (with homatropin)] hydrocodone Allergy Severe Hives Verified 09/15/23 08:46 [From Hycodan (with homatropin)] adhesive tape [TAPE,ADHESIVE] Allergy Intermediate HIVES Verified 09/15/23 08:46 amoxicillin [From Augmentin] Allergy Unknown rash Verified 09/15/23 08:46 cefaclor [From CECLOR] Allergy Unknown RASH Verified 09/15/23 08:46 clarithromycin [From BIAXIN] Allergy Unknown RASH Verified 09/15/23 08:46 clavulanic acid Allergy Unknown rash Verified 09/15/23 08:46 [From Augmentin] morphine Allergy Unknown burning Verified 09/15/23 08:46 Sulfa (Sulfonamide Allergy Unknown rash Verified 09/15/23 08:46 Antibiotics) sulfamethoxazole Allergy Unknown rash Verified 09/15/23 08:46 [From Bactrim] trimethoprim [From Bactrim] Allergy Unknown rash Verified 09/15/23 08:46 vancomycin Allergy Unknown hives, Verified 09/15/23 08:46 redness and hot to touch at IV site testosterone AdvReac Severe Itching Verified 09/15/23 08:46 metoclopramide [From Reglan] AdvReac Unknown anxiety Verified 09/15/23 08:46 Platelet Infusion Set Allergy Severe hives Uncoded 09/15/23 08:46 PLATELETS Allergy Severe HIVES Uncoded 09/15/23 08:46 Home Medications Medication Instructions Recorded Confirmed Last Taken Type safety needles 25 gauge x 5/8 (BD #50 ea 06/16/22 09/03/23 Unknown History SafetyGlide Needle) Exam Airway Mallampati Class: II TM Dist: >3cm Neck ROM: Full Heart: rrr Lungs: cta Assessment and Plan Assessment Anesthesia Assessment: Anesthesia Plan Discussed Final Anesthetic Review Family History of Problems with Anesthesia: No History of Problems with Anesthesia: No NPO: Yes ASA Class: II Final Preanesthetic Review: No Changes in Pt Med Stat, Meds/Allgs Chart Reviewed, Consent Obtained/Reviewed and Anes Risks/Benef Reviewed Patient Risk: Intermediate Procedure Risk: Intermediate Anesthetic Plan Anesthetic Plan: GA and Agree w/ Assess. and Plan Disposition: Standard PACU
[2023-09-15] VITALS (12 sets, daily range): BP systolic 111–136; BP diastolic 49–80; PULSE 71–100; RESP 16–20; TEMP 36.7–36.8; O2SAT 97–100; BMI 40.1
[2023-09-15 08:45] LABS: UPreg QC Valid YES; Urine Pregnancy NEGATIVE (NEGATIVE)
[2023-09-15] MEDS: Lactated Ringers 1,000 ML 100 ML IVCONT (09:24)
--- NOTE | 2023-09-15 09:25 | PC.NURSE ---
Patient in preop. O2 97% room air. Lungs clear throughout. Patient has nasal congestion with intermittent coughing. Dr. Ríos at bedside to assess. Per patient This has been going on for a while now, this is why I am getting the procedure, we are trying to figure out whats going on . No new orders. May proceed with procedure per Dr. Ríos.
--- NOTE | 2023-09-15 09:26 | MHC.SHP ---
Pre-Procedural Eval Section A Date of Service: 09/15/23 The patient is an INPATIENT: No Changes since office visit: Yes Patient answered all questions; No Cold of Flu in the past 2 weeks, No New Medical Problems and No Changes in Medication The History & Physical has been completed within 30 days and I have reviewed it.: Yes Section B Chief Complaint: Localized enlarged lymph nodes Allergies: Allergies Allergy/AdvReac Type Severity Reaction Status Date / Time adair Allergy Severe ANAPHYLAXIS Verified 09/15/23 08:46 cinnamon [CINNAMON] Allergy Severe MOUTH Verified 09/15/23 08:46 MEMBRANES PEEL homatropine Allergy Severe Hives Verified 09/15/23 08:46 [From Hycodan (with homatropin)] hydrocodone Allergy Severe Hives Verified 09/15/23 08:46 [From Hycodan (with homatropin)] adhesive tape [TAPE,ADHESIVE] Allergy Intermediate HIVES Verified 09/15/23 08:46 amoxicillin [From Augmentin] Allergy Unknown rash Verified 09/15/23 08:46 cefaclor [From CECLOR] Allergy Unknown RASH Verified 09/15/23 08:46 clarithromycin [From BIAXIN] Allergy Unknown RASH Verified 09/15/23 08:46 clavulanic acid Allergy Unknown rash Verified 09/15/23 08:46 [From Augmentin] morphine Allergy Unknown burning Verified 09/15/23 08:46 Sulfa (Sulfonamide Allergy Unknown rash Verified 09/15/23 08:46 Antibiotics) sulfamethoxazole Allergy Unknown rash Verified 09/15/23 08:46 [From Bactrim] trimethoprim [From Bactrim] Allergy Unknown rash Verified 09/15/23 08:46 vancomycin Allergy Unknown hives, Verified 09/15/23 08:46 redness and hot to touch at IV site testosterone AdvReac Severe Itching Verified 09/15/23 08:46 metoclopramide [From Reglan] AdvReac Unknown anxiety Verified 09/15/23 08:46 Platelet Infusion Set Allergy Severe hives Uncoded 09/15/23 08:46 PLATELETS Allergy Severe HIVES Uncoded 09/15/23 08:46 Plan Diagnosis/Plan: Unchanged I have reviewed the history and physical and performed a pertinent physical examination on my patient. No changes have occurred unless specified. Time Spent With Patient Time: Total time managing care of this patient today ____ minutes.
--- NOTE | 2023-09-15 10:48 | P.BOP_ITS ---
Brief Operative Note Date of Service: 09/15/23 Pre-op diagnosis: Lymphadenopathy Post-op diagnosis: same Procedure: Flexible bronchoscopy performed with bronchoscope advanced through the ET tube with patient intubated for the procedure. Tracheobronchial tree inspected and moderate amount of thick yellowish secretions noted and suctioned with normal bronchial mucosa noted underneath. The after endoscopic bronchial ultrasound- guided station 7 lymph node biopsies performed with 6 passes. Samples examine by pathologist intraoperatively and sent for further pathologic testing. Biopsy sites observed and no active bleeding noted. Patient tolerated procedure well and was returned to PACU in stable condition. Surgeon: Mike Cowan MD Anesthesia: GETA Was an Production Clerks Supervisor used for this Procedure?: No Estimated blood loss (mL): 0
[2023-09-15] MEDS: fentaNYL citrate/PF 100 MCG/2 ML VIAL 50 MCG IVPUSH (11:22)
[2023-09-15] MEDS: fentaNYL citrate/PF 100 MCG/2 ML VIAL 25 MCG IVPUSH ×2 (11:37→11:42)
== END 2023-09-15 12:42 | disposition home or self-care (01) ==
PROVIDERS: Nurse Practitioner; PCP Internal Medicine; Visit Provider Internal Medicine Pulmonary Disease
PROC: (CPT 31652; principal; 2023-09-15 10:00)
DX: R59.0 Localized enlarged lymph nodes (principal); J45.909 Unspecified asthma, uncomplicated; R09.3 Abnormal sputum; I20.1 Angina pectoris with documented spasm; Z79.51 Long term (current) use of inhaled steroids; Z88.1 Allergy status to other antibiotic agents; Z88.2 Allergy status to sulfonamides; Z88.5 Allergy status to narcotic agent; L23.1 Allergic contact dermatitis due to adhesives; Z87.891 Personal history of nicotine dependence; F12.90 Cannabis use, unspecified, uncomplicated
CPT/HCPCS: 31652; 36415; 81025; 87070; 87077; 87102; 87116; 87185; 87205; 87206; 88172; 88173; 88177; 88184; 88185; 88305; J0171; J2250; J2704; J3010

== ENCOUNTER → 2023-09-15 08:22 | Outpatient (BNV) | payer OTHER, SELFPAY | PROVIDERS: PCP Internal Medicine; Visit Provider Internal Medicine Pulmonary Disease | DX: R59.0 Localized enlarged lymph nodes (principal) | CPT/HCPCS: 31645 ==

== ENCOUNTER 2023-09-24 16:21 | Emergency (ER) | payer OTHER, SELFPAY ==
--- NOTE | ~2023-09-24 | XR_ITS ---
EXAMINATION: CHEST 2 VIEWS CLINICAL INFORMATION: sob, cough, recent bronch. COMPARISON: 08/12/2023. TECHNIQUE: PA and lateral views of the chest obtained. FINDINGS: Lungs well-expanded. There are subtle increased markings at the left lung base obscuring the lateral left heart border. Early infiltrate in the left lingula could have this appearance. The prior study. No associated effusion, edema, or pneumothorax. Cardiac and mediastinal silhouettes within normal limits for size. No acute bony abnormality. XR/XR chest 2V IMPRESSION: Subtle increased markings at the left lung base obscuring the lateral left heart border. Early infiltrate in the left lingula could have this appearance.
[2023-09-24 17:11] VITALS: BP 129/75; PULSE 90; RESP 16; TEMP 37.2; O2SAT 98; BMI 38.6
--- NOTE | 2023-09-24 17:11 | ED.GENADULT ---
HPI - General Adult General Chief complaint: Upper Respiratory Symptoms Stated complaint: Asthma Time Seen by Provider: 09/24/23 18:32 Source: patient and family Limitations: no limitations History of Present Illness HPI narrative: 33-year-old patient with a history of asthma, chronic bronchitis, history of ITP, presents for evaluation of shortness of breath and cough. Patient reports that the cough has been going on for nearly 4 months. Patient has had imaging as well as a recent chest CT on August 31 and follow-up with medical instructor on September 15 for bronchoscopy due to lymphadenopathy.. Pathology results are pending at this time according to the patient. Currently the patient is complaining of subjective chills, chest pain with coughing, productive green thick sputum, and is reporting the feeling worse over the past several days. History of tobacco use but none recently. Patient reports a history of asthma, using inhalers. Related Data Home Medications Medication Instructions Recorded Confirmed safety needles 25 gauge x 5/8 (BD #50 ea 06/16/22 09/03/23 SafetyGlide Needle) Previous Rx's Medication Instructions Recorded albuterol sulfate 90 mcg/actuation 2 puff inhalation Q4-6H PRN 03/16/23 aerosol inhaler shortness of breath or wheezing #8.5 grams triamcinolone acetonide 0.1 % 1 appl topical DAILY PRN rash in 07/14/23 topical cream groin 10 days #30 grams albuterol sulfate 2.5 mg/3 mL 2.5 mg (3 mL) continuous 08/24/23 (0.083 %) solution for nebulization nebulization QID PRN shortness of breath or wheezing 30 days #360 mL fluticasone furoate 200 1 inh inhalation DAILY 30 days #1 09/16/23 mcg-vilanterol 25 mcg/dose ea inhalation powder (Breo Ellipta) umeclidinium 62.5 mcg/actuation 1 inh inhalation DAILY 30 days #1 09/16/23 blister powder for inhalation ea (Incruse Ellipta) doxycycline hyclate 100 mg capsule 100 mg PO BID #20 caps 09/24/23 prednisone 10 mg tablet 10 mg PO DIRECTED #44 tabs 09/24/23 Allergies Allergy/AdvReac Type Severity Reaction Status Date / Time adair Allergy Severe ANAPHYLAXIS Verified 09/15/23 08:46 cinnamon [CINNAMON] Allergy Severe MOUTH Verified 09/15/23 08:46 MEMBRANES PEEL homatropine Allergy Severe Hives Verified 09/15/23 08:46 [From Hycodan (with homatropin)] hydrocodone Allergy Severe Hives Verified 09/15/23 08:46 [From Hycodan (with homatropin)] adhesive tape [TAPE,ADHESIVE] Allergy Intermediate HIVES Verified 09/15/23 08:46 amoxicillin [From Augmentin] Allergy Unknown rash Verified 09/15/23 08:46 cefaclor [From CECLOR] Allergy Unknown RASH Verified 09/15/23 08:46 clarithromycin [From BIAXIN] Allergy Unknown RASH Verified 09/15/23 08:46 clavulanic acid Allergy Unknown rash Verified 09/15/23 08:46 [From Augmentin] morphine Allergy Unknown burning Verified 09/15/23 08:46 Sulfa (Sulfonamide Allergy Unknown rash Verified 09/15/23 08:46 Antibiotics) sulfamethoxazole Allergy Unknown rash Verified 09/15/23 08:46 [From Bactrim] trimethoprim [From Bactrim] Allergy Unknown rash Verified 09/15/23 08:46 vancomycin Allergy Unknown hives, Verified 09/15/23 08:46 redness and hot to touch at IV site testosterone AdvReac Severe Itching Verified 09/15/23 08:46 metoclopramide [From Reglan] AdvReac Unknown anxiety Verified 09/15/23 08:46 Platelet Infusion Set Allergy Severe hives Uncoded 09/15/23 08:46 PLATELETS Allergy Severe HIVES Uncoded 09/15/23 08:46 Review of Systems Constitutional: Constitutional: Reports chills, Reports fever(s) and Denies headache(s) Eyes: Eyes: Denies change in vision and Denies other (No redness.) ENT: Denies headache(s), Denies nasal congestion, Denies nasal discharge, Denies neck pain and Denies sore throat Cardiovascular: Cardiovascular: Denies chest pain, Denies palpitations, Reports dyspnea, Denies dyspnea on exertion and Denies orthopnea Respiratory: Respiratory: Reports chest congestion, Reports cough, Denies hemoptysis, Reports dyspnea and Denies dyspnea on exertion Gastrointestinal: Gastrointestinal: Denies abdominal pain, Denies melena, Denies hematochezia, Denies diarrhea, Denies nausea and Denies vomiting Genitourinary: Genitourinary: Denies dysuria and Denies urinary urgency Musculoskeletal: Musculoskeletal: Denies back pain, Denies muscle weakness, Denies neck pain and Denies numbness Integumentary/Breasts: Skin/Breast: Denies rash Neurologic: Denies headache(s), Denies focal weakness and Denies numbness Psychiatric: Psychiatric: Denies depression Endocrine: Endocrine: Denies palpitations PMFSH Past Medical History Medical History Abnormal Pap smear of cervix Viral upper respiratory tract infection with cough History of allergic drug reaction Rhinitis, allergic Dermatitis Variant angina Dyslipidemia Vitamin D deficiency History of ITP Mild intermittent asthma Asthma Migraine Anxiety Depression Surgical History History of cardiac cath History of carpal tunnel surgery History of ITP H/O LEEP Family History Family History Father HTN (hypertension) Substance use disorder Mental health disorder Mother SLE (systemic lupus erythematosus) Cancer of thyroid Anxiety Depression Mental health disorder Brother Mental health disorder Sister Mental health disorder Social History Social History Housing: Apartment Alcohol intake: unknown Patient Tobacco Use Status: Former Tobacco user Quit Date: 2022 Tobacco use type: Cigarette Years Smoked: 15 e-Cigarette/Vaping Use: Currently Using Substance Use Type: Marijuana Advance Directives: No Advance Directives Information Provided: No service: No Current occupational status: employed Current occupation: [employer] [facility] [place] Sexual orientation: Lesbian/Trinidad/Homosexual Gender identity: Female Cognitive needs: No Hearing needs: No Vision needs: No Physical Exam ED Vital Signs: Vital Signs - 24 hr 09/24/23 17:11 09/24/23 19:00 Temperature 98.9 F Pulse Rate 90 108 H Respiratory Rate 16 26 H Blood Pressure 129/75 Pulse Oximetry 98 Oxygen Delivery Method Room Air BMI result Body Mass Index 38.6 Const General: alert and awake Eyes Pupils: Equal, round and reactive pupils present Resp Other: Diminished lung sounds in the upper lobes, mild wheezing in the right lower lobe, slight wheeze in the left lung. Clears with cough. No intercostal accessory muscle use. Cardio Rate: regular rate Rhythm: regular rhythm Neuro Cranial nerves: Yes Equal, round and reactive pupils present Course Course Course Narrative: This is a rapid medical exam: Additional HPI, ROS, PE not included below will be deferred to primary provider. Patient is a 33-year-old with history of asthma and sarcoidosis presenting to the ED with generalized body aches, productive cough, sore throat, chills. States symptoms have been ongoing for the past 4 months but have recently worsened. Seen here 2 weeks ago and had CT, had a bronchoscopy last week but does not know the results yet. States is also being worked up for lymphoma. States Incruse has been making sxs worse, using albuterol and nebulizer without relief. Plan: viral and strep swabs, labs Reevaluation(s) Reevaluation #1: I reviewed all labs and imaging with the patient and his family, per his request. Labs are essentially at baseline with mild leukocytosis which is expected given the patient's symptoms. Chest x-ray also reviewed. Given suspicion for pneumonia in the left lung, will place on antibiotics. Patient responded well to doxycycline several weeks ago and would like to resume a new course. In addition, I feel that steroids would be helpful given the patient's asthma history. The patient has requested a prednisone taper such as. Patient will follow-up with Dr. Sands for follow-up as well as to review bronchoscopy findings. Reviewed all discharge instructions. No further questions at this time. Time: 19:50 Medications Administered Discontinued Medications Generic Name Dose Route Start Last Admin Trade Name Freq PRN Reason Stop Dose Admin Acetaminophen 975 mg 09/24/23 18:42 09/24/23 19:18 Acetaminophen 325 Mg Tablet PO 09/24/23 18:43 975 mg ONCE ONE Administration Albuterol Sulfate 4 puff 09/24/23 18:44 09/24/23 18:55 Albuterol Sulfate 90 Mcg 8 Gm Inhaler INHALE 09/24/23 18:45 4 puff ONCE ONE Administration Medical Decision Making Medical Decision Making [facility] Narrative: 33-year-old patient with worsening productive cough status post bronchoscopy on September 15. Patient with prior existing coughing and similar symptoms. Associated fevers and chills. History of asthma and tobacco use. Viral swabs are negative at this time. Differential Diagnosis Differential Diagnoses: The differential diagnosis associated with the presentation includes Pneumothorax Pneumonia Bronchitis Viral syndrome Lab Data [facility] Lab Attestation statement: I reviewed the patient's lab results. 09/24/23 18:55 09/24/23 18:55 Labs: Lab Results 09/24/23 09/24/23 Range/Units 17:16 18:55 WBC 13.7 H (4.8-10.8) X10*3/uL RBC 5.20 (4.20-5.50) X10*6/uL Hgb 14.9 (12.0-16.0) g/dl Hct 44.6 (37.0-47.0) % MCV 85.8 (80.0-98.0) fL MCH 28.7 (27.0-33.0) pg MCHC 33.4 (31.0-35.0) g/dl RDW 13.0 (11.0-16.0) % Plt Count 332 (160-400) X10*3/uL MPV 10.0 (9.4-12.3) fL Immature Gran % (Auto) 0.4 (0.0-0.4) % Neut % (Auto) 81.5 H (45-73) % Lymph % (Auto) 10.7 L (20-40) % [place] % (Auto) 4.8 (2-11) % Eos % (Auto) 1.8 (0-4) % Baso % (Auto) 0.8 (0-2) % Lymph # (Auto) 1.5 (1.2-4.9) X10*3/uL [place] # (Auto) 0.7 (0.1-1.2) X10*3/uL Eos # (Auto) 0.3 (0.0-0.4) X10*3/uL Baso # (Auto) 0.1 (0.0-0.2) X10*3/uL Abs Immat Gran (auto) 0.05 H (0.00-0.03) X10*3/uL Absolute Neuts (auto) 11.1 H (2.0-8.3) x10*3/uL Absolute Nucleated RBC 0.000 (0.0-0.012) X10*3/uL Nucleated RBC % (auto) 0.0 (0.0-0.2) /100WBC PT 13.1 (11.1-13.3) SEC INR 1.1 (0.9-1.1) Sodium 138 (135-145) mmol/L Potassium 3.7 (3.3-5.1) mmol/L Chloride 103 (96-108) mmol/L Carbon Dioxide 25 (22-29) mmol/L Anion Gap 14 (12-20) BUN 9 (9-16) mg/dL Creatinine 1.04 (0.5-1.4) mg/dL Estim Creat Clear Calc 87.7 Estimated GFR > 60 Random Glucose 95 (60-115) mg/dL Calcium 9.5 (8.4-10.2) mg/dL Influenza Type A (PCR) NEGATIVE (Negative) Influenza Type B (PCR) NEGATIVE (Negative) RSV RNA Qual (PCR) NEGATIVE (Negative) SARS-CoV-2 RNA (RT-PCR) NEGATIVE (Negative) S. pyogenes GrpA AYESHA Negative (Negative) Radiology Impression Discussion of test interpretation with radiology: I have reviewed the radiologist's reading. Radiologist Impression: [address] [address] XRay Report Signed Patient: Laura Mendoza MR#: [id number] : 1990 Acct:[id number] Age/Sex: 33 / F ADM Date: 09/24/23 Loc: .ED Attending Dr: Ordering Physician: Tacho Rivero Date of Service: 09/24/23 Procedure(s): XR chest 2V Accession Number(s): [id number] cc: Amaya Santoro MD; Tacho Rivero~ EXAMINATION: CHEST 2 VIEWS CLINICAL INFORMATION: sob, cough, recent bronch. COMPARISON: 08/12/2023. TECHNIQUE: PA and lateral views of the chest obtained. FINDINGS: Lungs well-expanded. There are subtle increased markings at the left lung base obscuring the lateral left heart border. Early infiltrate in the left lingula could have this appearance. The prior study. No associated effusion, edema, or pneumothorax. Cardiac and mediastinal silhouettes within normal limits for size. No acute bony abnormality. XR/XR chest 2V IMPRESSION: Subtle increased markings at the left lung base obscuring the lateral left heart border. Early infiltrate in the left lingula could have this appearance. Dictated By: Edwin Arriola MD Signed By: <Electronically signed by Edwin Arriola MD in OV> 09/24/231900 DD/ 49 TD/TT: Environmental Permitting Specialist: STARR Discharge Plan Discharge Clinical Impression: Pneumonia involving left lung Qualifiers: Pneumonia type: due to unspecified organism Asthma Qualifiers: Asthma severity: mild Asthma persistence: intermittent Asthma complication type: with acute exacerbation Qualified Code(s): J45.21 - Mild intermittent asthma with (acute) exacerbation Patient Disposition: Home, Self-Care Instructions: Asthma (ED), Community Acquired Pneumonia (ED) Additional Instructions: Doxycycline as directed. Finish all antibiotics. Prednisone as directed. Finish all medication as directed. Continue albuterol as directed. You may use Tylenol or ibuprofen for pain. Follow-up with your medical instructor. Call to schedule follow-up appointment within 1 week. Follow-up with your primary care provider. Call this week to schedule a follow-up appointment. Return to the emergency department if you have any worsening of symptoms, or any concerns. Get well soon! Prescriptions: New doxycycline hyclate 100 mg capsule 100 mg PO BID Qty: 20 0RF prednisone 10 mg tablet 10 mg PO DIRECTED Qty: 44 0RF Rx Instructions: Taper: Prednisone 40 mg daily for 3 Days and 0 Hour 30 mg daily for 3 Days and 0 Hour 20 mg daily for 3 Days and 0 Hour 10 mg daily for 3 Days and 0 Hour Rx Instructions: prednisone 10 mg: take 6 tablets (60 mg) for 3 days; 5 tablets (50 mg) for 2 days; 4 (40mg) tablets for 2 days, 3 (30mg) for 2 days and then 1 (10mg) tablet for 2 days No Action fluticasone furoate-vilanterol [Breo Ellipta] 200-25 mcg/dose blister with device 1 inh inhalation DAILY 30 Days Qty: 1 6RF Incruse Ellipta 62.5 mcg/actuation blister with device 1 inh inhalation DAILY 30 Days Qty: 1 6RF albuterol sulfate 90 mcg/actuation HFA aerosol inhaler 2 puff inhalation Q4-6H PRN (Reason: shortness of breath or wheezing) Qty: 8.5 0RF triamcinolone acetonide 0.1 % cream 1 appl topical DAILY PRN (Reason: rash in groin ) 10 Days Qty: 30 2RF (DME) BD SafetyGlide Needle 25 gauge x 5/8 needle See Rx Instructions .ROUTE .MEDSUPPLY Qty: 50 Rx Instructions: As directed albuterol sulfate 2.5 mg /3 mL (0.083 %) solution for nebulization 2.5 mg continuous nebulization QID PRN (Reason: shortness of breath or wheezing) 30 Days Qty: 360 6RF Referrals: Mike Cowan MD [Physician] - 1 week Stand Alone Forms: Work/School Release Interventions: ED Discharge Assessment Last Done: 09/24/23 19:44 Discharge Date/Time: 09/24/23 19:47
[2023-09-24 17:38] LABS: IDNOW Serial# 08D9AD1C; Strep A Nucleic Acid Negative (Negative)
[2023-09-24 18:06] LABS: Influenza A PCR NEGATIVE (Negative); Influenza B PCR NEGATIVE (Negative); Resp Syncy Virus RNA Qual PCR NEGATIVE (Negative); SARS COV2 PCR INHOUSE NEGATIVE (Negative)
[2023-09-24] MEDS: Albuterol Sulfate 90 MCG 8 GM INHALER 4 PUFF INHALE (18:55)
[2023-09-24 18:59] LABS: MANUAL DIFF FLAG NO
[2023-09-24 19:00] VITALS: PULSE 108; RESP 26; O2SAT 100
[2023-09-24 19:09] LABS: INTERNATIONAL NORM RATIO 1.1 (0.9-1.1); Prothrombin Time 13.1 SEC (11.1-13.3)
[2023-09-24 19:10] LABS: Basophils Absolute Auto 0.1 X10*3/uL (0.0-0.2); Basophils Percent Auto 0.8 % (0-2); Eosinophils Absolute Auto 0.3 X10*3/uL (0.0-0.4); Eosinophils Percent Auto 1.8 % (0-4); Hematocrit 44.6 % (37.0-47.0); Hemoglobin 14.9 g/dl (12.0-16.0); Imm Gran Abs Auto 0.05 X10*3/uL (0.00-0.03); Imm Gran Pct Auto 0.4 % (0.0-0.4); Lymphocytes Absolute Auto 1.5 X10*3/uL (1.2-4.9); Lymphocytes Percent Auto 10.7 % (20-40); Mean Corpuscular HGB Conc 33.4 g/dl (31.0-35.0); Mean Corpuscular Hemoglobin 28.7 pg (27.0-33.0); Mean Corpuscular Volume 85.8 fL (80.0-98.0); Monocytes Absolute Auto 0.7 X10*3/uL (0.1-1.2); Monocytes Percent Auto 4.8 % (2-11); Neutrophils Absolute Auto 11.1 x10*3/uL (2.0-8.3); Neutrophils Percent Auto 81.5 % (45-73); Platelet Count 332 X10*3/uL (160-400); White Blood Count 13.7 X10*3/uL (4.8-10.8)
[2023-09-24 19:17] LABS: Anion Gap 14 (12-20); Blood Urea Nitrogen 9 mg/dL (9-16); Calcium 9.5 mg/dL (8.4-10.2); Carbon Dioxide 25 mmol/L (22-29); Chloride 103 mmol/L (96-108); Creatinine Clr Calc Pharmacy 87.7; Estimated Glomerular Filt Rate > 60; Glucose Random 95 mg/dL (60-115); Potassium 3.7 mmol/L (3.3-5.1); Sodium 138 mmol/L (135-145)
[2023-09-24] MEDS: Acetaminophen 325 MG TABLET 975 MG PO (19:18)
== END 2023-09-24 19:47 | disposition home or self-care (01) ==
PROVIDERS: Physician Assistant; Registered Nurse Emergency; Emergency Provider Emergency Medicine; PCP Internal Medicine
DX: J18.9 Pneumonia, unspecified organism (principal); J45.21 Mild intermittent asthma with (acute) exacerbation; R05.9 Cough, unspecified; Z20.822 Contact with and (suspected) exposure to COVID-19; Z20.828 Contact with and (suspected) exposure to other viral communicable diseases
CPT/HCPCS: 0241U; 36415; 71046; 80048; 85025; 85610; 87651; 94640; 99283; 99284

== ENCOUNTER 2023-10-05 12:50 | Outpatient (AMB) | payer OTHER, SELFPAY ==
[2023-10-05 12:58] VITALS: BP 140/92; PULSE 88; O2SAT 97; BMI 39.4
--- NOTE | 2023-10-05 12:58 | A.OFFVIS_ITS ---
Intake Vital Signs 10/05/23 12:58 Height 5 ft 4 in Weight 229 lb 11.04 oz BMI 39.4 BP 140/92 H Blood Pressure Location Lt brachial Position Sitting Pulse 88 Pulse Source Doppler Pulse Oximetry (%) 97 Oxygen Delivery Method Room Air Intake Visit Reasons: Asthma Allergies adair Allergy (Severe, Verified 10/05/23 13:00) ANAPHYLAXIS cinnamon [CINNAMON] Allergy (Severe, Verified 10/05/23 13:00) MOUTH MEMBRANES PEEL homatropine [From Hycodan (with homatropin)] Allergy (Severe, Verified 10/05/23 13:00) Hives hydrocodone [From Hycodan (with homatropin)] Allergy (Severe, Verified 10/05/23 13:00) Hives adhesive tape [TAPE,ADHESIVE] Allergy (Intermediate, Verified 10/05/23 13:00) HIVES amoxicillin [From Augmentin] Allergy (Unknown, Verified 10/05/23 13:00) rash cefaclor [From CECLOR] Allergy (Unknown, Verified 10/05/23 13:00) RASH clarithromycin [From BIAXIN] Allergy (Unknown, Verified 10/05/23 13:00) RASH clavulanic acid [From Augmentin] Allergy (Unknown, Verified 10/05/23 13:00) rash morphine Allergy (Unknown, Verified 10/05/23 13:00) burning Sulfa (Sulfonamide Antibiotics) Allergy (Unknown, Verified 10/05/23 13:00) rash sulfamethoxazole [From Bactrim] Allergy (Unknown, Verified 10/05/23 13:00) rash trimethoprim [From Bactrim] Allergy (Unknown, Verified 10/05/23 13:00) rash vancomycin Allergy (Unknown, Verified 10/05/23 13:00) hives, redness and hot to touch at IV site testosterone Adverse Reaction (Severe, Verified 10/05/23 13:00) Itching metoclopramide [From Reglan] Adverse Reaction (Unknown, Verified 10/05/23 13:00) anxiety Platelet Infusion Set Allergy (Severe, Uncoded 09/15/23 08:46) hives PLATELETS Allergy (Severe, Uncoded 09/15/23 08:46) HIVES HPI Asthma HPI Details 32-year-old gentleman former approximate ly 10 pack-year smoker with underlying history of asthma since childhood and suspicion for sarcoidosis based on noted mediastinal lymphadenopathy on CT scan approximately 3 years prior pulmonary referred for further evaluation. Patient stated of the last several months he has been having significant bronchitic symptoms with cough productive of yellowish sputum with poor response to several courses of prednisone, azithromycin, doxycycline, and Levaquin. Patient does complain of multiple environmental allergies. He is employed without exposure to industrial dusts. His CT chest shows mediastinal lymphadenopathy and peripheral nodules similar to prior. Sputum culture showed Haemophilus influenzae and patient was treated with a course of Levaquin and doxycycline with prednisone with initial improvement in cough that recurred and he was treated with another course of prednisone. There is some improvement in chronic symptoms on Advair, however not complete control, and no improvement on Incruse. [facility] Medical History Abnormal Pap smear of cervix Viral upper respiratory tract infection with cough History of allergic drug reaction Rhinitis, allergic Dermatitis Variant angina Dyslipidemia Vitamin D deficiency History of ITP Mild intermittent asthma Asthma Migraine Anxiety Depression Surgical History History of cardiac cath History of carpal tunnel surgery History of ITP H/O LEEP Family History Father HTN (hypertension) Substance use disorder Mental health disorder Mother SLE (systemic lupus erythematosus) Cancer of thyroid Anxiety Depression Mental health disorder Brother Mental health disorder Sister Mental health disorder Social History Housing: Apartment Alcohol intake: unknown Patient Tobacco Use Status: Former Tobacco user Quit Date: 2022 Tobacco use type: Cigarette Years Smoked: 15 e-Cigarette/Vaping Use: Currently Using Substance Use Type: Marijuana service: No Current occupational status: employed Current occupation: [employer] [place] Sexual orientation: Lesbian/[place]in[place]/Homosexual Gender identity: Female Cognitive needs: No Hearing needs: No Vision needs: No Female Reproductive History Menstrual Age of Menarche: 11 Review of Systems Const Denies daytime sleepiness, Denies excessive sweating, Denies fatigue, Denies fever(s), Denies lethargy, Denies malaise, Denies night sweats, Denies snoring and Denies weight loss Eyes Denies blurry vision and Denies itchy eyes ENT Denies nasal congestion, Denies post nasal drip, Denies sinus pain, Denies sinus pressure and Denies other ( Thrush) Card Denies chest pain, Denies pedal edema, Denies dyspnea, Denies orthopnea and Denies paroxysmal nocturnal dyspnea Resp Reports cough, Denies hemoptysis, Reports excessive phlegm production, Denies dyspnea, Denies snoring and Reports wheezing GI Denies abdominal pain and Denies heartburn Musc Denies myalgias, Denies arthralgias and Denies joint swelling Skin/Breast Denies rash Neuro Denies memory loss and Denies seizure-like activity Psych Denies abnormal sleep pattern, Denies anxiety and Denies memory loss Endo Denies excessive sweating, Denies fatigue and Denies heat intolerance Kian/Lymph Denies easy bruising Aller/Immun Denies itchy eyes, Denies seasonal rhinorrhea and Reports wheezing Physical Exam Vital Signs: Last Vital Signs Pulse 88 10/05/23 12:58 BP 140/92 H 10/05/23 12:58 Pulse Ox 97 10/05/23 12:58 Oxygen Delivery Method Room Air 10/05/23 12:58 BMI result Body Mass Index 39.4 Const General: no acute distress and alert Nutritional Appearance: not obese Orientation/consciousness: Other orientation findings ( oriented) HEENT Head: Yes atraumatic Eyes General: appearance normal, both eyes and all related structures Sclerae: sclerae normal EOM: EOMs intact bilaterally Neck Neck: Yes supple Lymphatic: no lymphadenopathy noted Resp Effort & Inspection: normal respiratory effort and no use of accessory muscles Auscultation: wheezes expiratory wheezes Cardio Rate: regular rate Rhythm: regular rhythm Heart sounds: no gallops, no murmurs and no rubs Skin General skin exam: other ( warm) Extrem General: No clubbing, No cyanosis and No edema Assessment & Plan Assessment & Plan (1) Severe persistent allergic asthma: Code(s): J45.50 - Severe persistent asthma, uncomplicated Plan: Suboptimal control on Advair. No response to Incruse. Multiple recent courses of prednisone. Will treat with another course of leuk corticosteroids. Will request Dupixent approval. (2) Sarcoidosis: Code(s): D86.9 - Sarcoidosis, unspecified Plan: Status post mediastinal lymph node sampling with no granuloma noted. No underlying malignancy noted. Medications: New dexamethasone 6 mg PO DAILY 30 tabs 0RF Discontinued doxycycline hyclate Discontinued Reason: Doctor's Order 100 mg PO BID 20 caps 0RF prednisone Taper: Prednisone 40 mg daily for 3 Days and 0 Hour 30 mg daily for 3 Days and 0 Hour 20 mg daily for 3 Days and 0 Hour 10 mg daily for 3 Days and 0 Hour Rx Instructions: prednisone 10 mg: take 6 tablets (60 mg) for 3 days; 5 tablets (50 mg) for 2 days; 4 (40mg) tablets for 2 days, 3 (30mg) for 2 days and then 1 (10mg) tablet for 2 days Discontinued Reason: Doctor's Order 10 mg PO DIRECTED 44 tabs 0RF umeclidinium 62.5 mcg/actuation (Incruse Ellipta) Discontinued Reason: Doctor's Order 1 inh inhalation DAILY 30 days 1 ea 6RF Coding Level of Care Code Est Pt Level 4 (69403) Diagnoses Severe persistent allergic asthma J45.50 Sarcoidosis D86.9
== END 2023-10-05 13:23 | disposition home or self-care (01) ==
PROVIDERS: PCP Internal Medicine; Visit Provider Internal Medicine Pulmonary Disease
DX: J45.50 Severe persistent asthma, uncomplicated (principal); D86.9 Sarcoidosis, unspecified
CPT/HCPCS: 99214

== ENCOUNTER → 2023-10-05 12:50 | Outpatient (BNVA) | payer OTHER, SELFPAY | PROVIDERS: PCP Internal Medicine; Visit Provider Internal Medicine Pulmonary Disease | DX: J45.50 Severe persistent asthma, uncomplicated (principal); D86.9 Sarcoidosis, unspecified | CPT/HCPCS: 99212 ==

== ENCOUNTER 2023-11-30 10:26 | Outpatient (REF) | payer OTHER, SELFPAY ==
[2023-11-30 11:44] LABS: MANUAL DIFF FLAG NO
[2023-11-30 11:54] LABS: Basophils Absolute Auto 0.2 X10*3/uL (0.0-0.2); Basophils Percent Auto 2.1 % (0-2); Eosinophils Absolute Auto 0.5 X10*3/uL (0.0-0.4); Eosinophils Percent Auto 6.4 % (0-4); Hemoglobin 14.5 g/dl (12.0-16.0); Imm Gran Abs Auto 0.05 X10*3/uL (0.00-0.03); Imm Gran Pct Auto 0.7 % (0.0-0.4); Lymphocytes Absolute Auto 1.9 X10*3/uL (1.2-4.9); Lymphocytes Percent Auto 27.2 % (20-40); Mean Corpuscular HGB Conc 33.7 g/dl (31.0-35.0); Mean Corpuscular Hemoglobin 29.1 pg (27.0-33.0); Mean Corpuscular Volume 86.2 fL (80.0-98.0); Mean Platelet Volume 9.8 fL (9.4-12.3); Monocytes Absolute Auto 0.6 X10*3/uL (0.1-1.2); Monocytes Percent Auto 8.6 % (2-11); Neutrophils Absolute Auto 3.9 x10*3/uL (2.0-8.3); Platelet Count 417 X10*3/uL (160-400); Red Blood Count 4.99 X10*6/uL (4.20-5.50); Red Cell Distribution Width 14.6 % (11.0-16.0); White Blood Count 7.1 X10*3/uL (4.8-10.8)
[2023-11-30 12:30] LABS: Erythrocyte Sedimentation Rate 11 MM/HR (0-20)
[2023-11-30 12:40] LABS: Alanine Aminotransferase 35 U/L (0-31); Albumin Level 3.7 g/dL (3.5-5.0); Alkaline Phosphatase 79 U/L (39-117); Anion Gap 9 (12-20); Aspartate Amino Transferase 21 U/L (5-31); Bilirubin Total 0.4 mg/dL (0.0-1.0); Blood Urea Nitrogen 10 mg/dL (9-16); Calcium 9.3 mg/dL (8.4-10.2); Carbon Dioxide 29 mmol/L (22-29); Chloride 107 mmol/L (96-108); Estimated Glomerular Filt Rate > 60; Glucose Random 90 mg/dL (60-115); Lactate Dehydrogenase 242 U/L (122-220); Potassium 3.7 mmol/L (3.3-5.1); Sodium 141 mmol/L (135-145); Total Protein 5.6 g/dL (6.5-8.0)
[2023-12-01 20:33] LABS: Myeloperoxidase Antibody <1.0 AI; Proteinase 3 PR3 Antibodies <1.0 AI; Scleroderma 70 Antibody <1.0 NEG AI (<1.0 NEG)
[2023-12-02 13:34] LABS: Cyclic Citrullinated Peptide <16 UNITS
[2023-12-02 14:53] LABS: Immunoglobulin G Subclass 1 <15 mg/dL (382-929); Immunoglobulin G Subclass 2 <2 mg/dL (241-700); Immunoglobulin G Subclass 3 <1 mg/dL (22-178); Immunoglobulin G Subclass 4 <0.5 mg/dL (4-86); Immunoglobulin G Total <17 mg/dL (600-1640)
[2023-12-02 19:34] LABS: TS Negative Control Passed; TS Panel A 0; TS Panel B 0; TS Positive Control Passed; TSpotTB Negative (Negative)
[2023-12-03 06:43] LABS: Angiotensin Converting Enzyme 107 U/L (9-67)
[2023-12-04 16:49] LABS: Anti Nuclear Antibody Screen NEGATIVE (NEGATIVE)
[2023-12-06 10:04] LABS: Immunoglobulin E 4 kU/L (<OR=114)
[2023-12-07 10:19] LABS: Asperg fumigatus Precip Abs NEGATIVE (NEGATIVE); Micropoly faeni Abs NEGATIVE (NEGATIVE); Pigeon serum Abs NEGATIVE (NEGATIVE); Saccharo pora viridis Abs NEGATIVE (NEGATIVE); Thermo candidus Abs NEGATIVE (NEGATIVE); Thermoa vulgaris #1 NEGATIVE (NEGATIVE)
== END 2023-11-30 10:27 | disposition home or self-care (01) ==
LOC: HO.LAB 10:26
PROVIDERS: Internal Medicine Medical Oncology; PCP Nurse Practitioner Family; Visit Provider Hospitalist
DX: R91.1 Solitary pulmonary nodule (principal); J84.9 Interstitial pulmonary disease, unspecified; R91.8 Other nonspecific abnormal finding of lung field; D69.3 Immune thrombocytopenic purpura; Z91.09 Other allergy status, other than to drugs and biological substances; R59.0 Localized enlarged lymph nodes; J45.50 Severe persistent asthma, uncomplicated; J41.8 Mixed simple and mucopurulent chronic bronchitis; Z79.899 Other long term (current) drug therapy
CPT/HCPCS: 36415; 80053; 82164; 82784; 82785; 83615; 85025; 85652; 86021; 86038; 86200; 86235; 86331; 86481; 86606; 86609; 99202

== ENCOUNTER 2023-11-30 10:26 | Outpatient (AMB) | payer OTHER, SELFPAY ==
[2023-11-30 10:33] VITALS: PULSE 84; O2SAT 99; BMI 42.0
--- NOTE | 2023-11-30 10:33 | MHC.OFFVIS ---
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: No Allergies adair Allergy (Severe, Verified 11/30/23 10:36) ANAPHYLAXIS cinnamon [CINNAMON] Allergy (Severe, Verified 11/30/23 10:36) MOUTH [employer]BRANES PEEL homatropine [From Hycodan (with homatropin)] Allergy (Severe, Verified 11/30/23 10:36) Hives hydrocodone [From Hycodan (with homatropin)] Allergy (Severe, Verified 11/30/23 10:36) Hives adhesive tape [TAPE,ADHESIVE] Allergy (Intermediate, Verified 11/30/23 10:36) HIVES amoxicillin [From Augmentin] Allergy (Unknown, Verified 11/30/23 10:36) rash cefaclor [From CECLOR] Allergy (Unknown, Verified 11/30/23 10:36) RASH clarithromycin [From BIAXIN] Allergy (Unknown, Verified 11/30/23 10:36) RASH clavulanic acid [From Augmentin] Allergy (Unknown, Verified 11/30/23 10:36) rash morphine Allergy (Unknown, Verified 11/30/23 10:36) burning Sulfa (Sulfonamide Antibiotics) Allergy (Unknown, Verified 11/30/23 10:36) rash sulfamethoxazole [From Bactrim] Allergy (Unknown, Verified 11/30/23 10:36) rash trimethoprim [From Bactrim] Allergy (Unknown, Verified 11/30/23 10:36) rash vancomycin Allergy (Unknown, Verified 11/30/23 10:36) hives, redness and hot to touch at IV site testosterone Adverse Reaction (Severe, Verified 11/30/23 10:36) Itching metoclopramide [From Reglan] Adverse Reaction (Unknown, Verified 11/30/23 10:36) anxiety Platelet Infusion Set Allergy (Severe, Uncoded 11/30/23 10:36) hives PLATELETS Allergy (Severe, Uncoded 11/30/23 10:36) HIVES HPI HPI Comments History of Present Illness Details The patient is here for pulmonary evaluation. The patient is a 33-year-old gentleman currently on gender specific medications with a known history of pulmonary nodules, lymphadenopathy and asthma. The patient has been struggling for some time. Worsening respiratory symptoms significant wheezing and chest congestion. He is tried multiple inhalers but does not to any medications he does not have to. The patient had a CT scan of the chest back in 2019 which I personally reviewed. There was significant nodular disease in addition to lymphadenopathy bringing up the question of sarcoidosis. More recently the patient was evaluated by Pulmonary. He did undergo a endobronchial ultrasound bronchoscopy with sampling of the station 7 lymph node. Some macrophages noted but no evidence of any granulomas. The microbiology was positive Haemophilus influenza. The patient then after that was started on steroids for ongoing symptoms of chest tightness wheezing coughing. Although may have been interacting with the hormonal therapy for the gender specific medications. Therefore he stop the testosterone and continued on Decadron. He gained significant amount weight significant amount of edema. His breathing did get better. Ultimately after that the patient was recommend to start Dupixent. The patient has of yet has not started the medication. The medication was approved. Today he is coming in for evaluation. Still complaining of some shortness breath and cough. The patient does have a planned trip to [place] in the coming weeks. Therefore will go ahead and request additional blood work to address his underlying issues. Will start him on Symbicort. Once the patient returns from his trip to [place] we will address the question of biologic therapy. [facility] Medical History (Updated 11/30/23 @ 21:32 by Andrea Marroquin MD) Long-term current use of testosterone replacement therapy ILD (interstitial lung disease) Pulmonary nodule Abnormal Pap smear of cervix History of allergic drug reaction Rhinitis, allergic Dermatitis Variant angina Dyslipidemia Vitamin D deficiency History of ITP Migraine Surgical History History of cardiac cath History of carpal tunnel surgery History of ITP H/O LEEP Family History Father HTN (hypertension) Substance use disorder Mental health disorder Mother SLE (systemic lupus erythematosus) Cancer of thyroid Anxiety Depression Mental health disorder Brother Mental health disorder Sister Mental health disorder Social History Housing: Apartment Alcohol intake: unknown Patient Tobacco Use Status: Former Tobacco user Quit Date: 2022 Tobacco use type: Cigarette Years Smoked: 15 e-Cigarette/Vaping Use: Currently Using Substance Use Type: Marijuana service: No Current occupational status: employed Current occupation: [id number] [facility] [place] Sexual orientation: Lesbian/Trinidad/Homosexual Gender identity: Female Cognitive needs: No Hearing needs: No Vision needs: No Female Reproductive History Menstrual Age of Menarche: 11 Review of Systems Const Denies fever(s) Eyes Denies blurry vision ENT Denies nasal congestion, Denies post nasal drip, Denies sinus pain and Denies sinus pressure Card Denies chest pain and Reports dyspnea on exertion Resp Reports change in phlegm color, Reports chest congestion, Reports cough, Denies hemoptysis, Reports dyspnea on exertion and Reports wheezing GI Denies abdominal pain and Denies heartburn Musc Denies myalgias, Denies arthralgias and Denies joint swelling Skin/Breast Denies rash Neuro Denies seizure-like activity Endo Denies heat intolerance Kian/Lymph Reports lymphadenopathy Aller/Immun Reports wheezing Physical Exam Vital Signs: Last Vital Signs Pulse 84 11/30/23 10:33 Pulse Ox 99 11/30/23 10:33 Oxygen Delivery Method Room Air 11/30/23 10:33 BMI result Body Mass Index 42.0 Const General: no acute distress and alert HEENT Head: Yes atraumatic Neck Neck: Yes supple Lymphatic: no lymphadenopathy noted Resp Effort & Inspection: normal respiratory effort and no use of accessory muscles Auscultation: rhonchi and wheezes expiratory wheezes Cardio Rate: regular rate Rhythm: regular rhythm Skin General skin exam: no rashes or lesions noted Extrem General: No clubbing, No cyanosis and No edema Assessment & Plan Assessment & Plan (1) Pulmonary nodule: Code(s): R91.1 - Solitary pulmonary nodule (2) ILD (interstitial lung disease): Code(s): J84.9 - Interstitial pulmonary disease, unspecified (3) Environmental allergies: Code(s): Z91.09 - Other allergy status, other than to drugs and biological substances (4) Mediastinal lymphadenopathy: Code(s): R59.0 - Localized enlarged lymph nodes (5) Severe persistent allergic asthma: Code(s): J45.50 - Severe persistent asthma, uncomplicated (6) Chronic bronchitis: Code(s): J42 - Unspecified chronic bronchitis Qualifiers: Chronic bronchitis type: mixed simple and mucopurulent Qualified Code(s): J41.8 - Mixed simple and mucopurulent chronic bronchitis (7) Long-term current use of testosterone replacement therapy: Code(s): Z79.890 - Hormone replacement therapy Plan The patient is presenting with ongoing symptoms of dyspnea wheezing chest tightness and cough along with an abnormal CT scan of the chest. It appears to be an inflammatory process. Sarcoidosis is in the differential. Hypersensitivity is also in differential. Connective tissue diseases are also in differential. Does likely infectious process. She is status post bronchoscopy with EBUS of the station 7 demonstrating some macrophages although no definitive granulomas. Her most recent CT scan from August did demonstrate some improvement compared to her previous CT scans from years ago. Indeed with her ongoing symptoms it will be helpful to find a universal diagnosis to be able to explain all her symptoms. The patient does have severe persistent asthma and was already approved to start biologic therapy. She also will be following up with Allergy. To note the patient also significant family history of connective tissue disease on her mother's side. REC: Start Symbicort BID KALEB as needed Bloodwork Will need to have a repeat CT chest. We will reorder on his return visit Will discuss starting Biologic therapy when he returns for afollow up visit. Orders: Orders Angiotensin Converting Enzyme Today J84.9 - Interstitial pulmonary disease, unspecified, R91.1 - Solitary pulmonary nodule MAGI Reflex Titer and Pattern Today J84.9 - Interstitial pulmonary disease, unspecified, R91.1 - Solitary pulmonary nodule ANCA Vasculitides Today J84.9 - Interstitial pulmonary disease, unspecified, R91.1 - Solitary pulmonary nodule Cyclic Citrullinated Peptide Today J84.9 - Interstitial pulmonary disease, unspecified, R91.1 - Solitary pulmonary nodule Complete Blood Count Auto Diff Today J84.9 - Interstitial pulmonary disease, unspecified, R91.1 - Solitary pulmonary nodule Erythrocyte Sedimentation Rate Today J84.9 - Interstitial pulmonary disease, unspecified, R91.1 - Solitary pulmonary nodule Hypersensitive Pneumonitis Prf Today J84.9 - Interstitial pulmonary disease, unspecified, R91.1 - Solitary pulmonary nodule, R91.8 - Other nonspecific abnormal finding of lung field Immunoglobulin G Subclasses Today J84.9 - Interstitial pulmonary disease, unspecified, R91.1 - Solitary pulmonary nodule T Spot TB Today J84.9 - Interstitial pulmonary disease, unspecified, R91.1 - Solitary pulmonary nodule Sputum Cult + Gram stain Today J84.9 - Interstitial pulmonary disease, unspecified, R91.1 - Solitary pulmonary nodule Immunoglobulin E Today J84.9 - Interstitial pulmonary disease, unspecified, R91.1 - Solitary pulmonary nodule Scleroderma 70 Antibody Today J84.9 - Interstitial pulmonary disease, unspecified, R91.1 - Solitary pulmonary nodule Medications: New budesonide-formoterol 160-4.5 mcg/actuation (Symbicort) 2 puffs inhalation BID 30 days 10.2 grams 11RF J44.89 - Other specified chronic obstructive pulmonary disease Coding Level of Care Code New Pt Level 5 (17324) Diagnoses Pulmonary nodule R91.1 ILD (interstitial lung disease) J84.9 Environmental allergies Z91.09 Mediastinal lymphadenopathy R59.0 Severe persistent allergic asthma J45.50 Mixed simple and mucopurulent chronic bronchitis J41.8 Chronic bronchitis type: mixed simple and mucopurulent Long-term current use of testosterone replacement therapy Z79.890 Time Spent (min) 60
== END 2023-11-30 11:04 | disposition home or self-care (01) ==
PROVIDERS: PCP Internal Medicine; Visit Provider Hospitalist
DX: J45.50 Severe persistent asthma, uncomplicated (principal); R91.1 Solitary pulmonary nodule; J84.9 Interstitial pulmonary disease, unspecified; Z91.09 Other allergy status, other than to drugs and biological substances; R59.0 Localized enlarged lymph nodes; J41.8 Mixed simple and mucopurulent chronic bronchitis; Z79.890 Hormone replacement therapy
CPT/HCPCS: 99205

== ENCOUNTER 2023-12-03 12:19 | Outpatient (REF) | payer OTHER, SELFPAY ==
[2023-12-07 05:48] LABS: IgA 7 mg/dL (47-310); IgM 17 mg/dL (50-300)
== END 2023-12-03 12:20 | disposition home or self-care (01) ==
LOC: HO.LAB 12:19
PROVIDERS: PCP Nurse Practitioner Family; Visit Provider Hospitalist
DX: D80.1 Nonfamilial hypogammaglobulinemia (principal)
CPT/HCPCS: 36415; 82784

== ENCOUNTER 2024-01-07 12:22 | Outpatient (AMB) | payer OTHER, SELFPAY ==
--- NOTE | 2024-01-07 12:24 | MHC.PC.OV ---
Vital Signs 01/07/24 12:31 01/07/24 12:34 Height 5 ft 4.17 in Weight 163 lb BMI 27.8 BP 142/92 137/90 Blood Pressure Location Rt brachial Rt brachial Position Sitting Sitting Respiration 16 Pulse 80 Pulse Source Pulse Oximeter Temp 98.4 F Temp Source Temporal Artery Scan Pulse Oximetry (%) 98 Oxygen Delivery Method Room Air Intake Visit Reasons: PATY from [facility] Intake Note: New patient visit. Pain through out body, arm and elbow. Account Processor Required: No Allergies adair Allergy (Severe, Verified 01/07/24 12:38) ANAPHYLAXIS cinnamon [CINNAMON] Allergy (Severe, Verified 01/07/24 12:38) MOUTH [employer]BRANES PEEL homatropine [From Hycodan (with homatropin)] Allergy (Severe, Verified 01/07/24 12:38) Hives hydrocodone [From Hycodan (with homatropin)] Allergy (Severe, Verified 01/07/24 12:38) Hives adhesive tape [TAPE,ADHESIVE] Allergy (Intermediate, Verified 01/07/24 12:38) HIVES amoxicillin [From Augmentin] Allergy (Unknown, Verified 01/07/24 12:38) rash cefaclor [From CECLOR] Allergy (Unknown, Verified 01/07/24 12:38) RASH clarithromycin [From BIAXIN] Allergy (Unknown, Verified 01/07/24 12:38) RASH clavulanic acid [From Augmentin] Allergy (Unknown, Verified 01/07/24 12:38) rash morphine Allergy (Unknown, Verified 01/07/24 12:38) burning Sulfa (Sulfonamide Antibiotics) Allergy (Unknown, Verified 01/07/24 12:38) rash sulfamethoxazole [From Bactrim] Allergy (Unknown, Verified 01/07/24 12:38) rash trimethoprim [From Bactrim] Allergy (Unknown, Verified 01/07/24 12:38) rash vancomycin Allergy (Unknown, Verified 01/07/24 12:38) hives, redness and hot to touch at IV site testosterone Adverse Reaction (Severe, Verified 01/07/24 12:38) Itching metoclopramide [From Reglan] Adverse Reaction (Unknown, Verified 01/07/24 12:38) anxiety Platelet Infusion Set Allergy (Severe, Uncoded 04/12/24 12:25) hives PLATELETS Allergy (Severe, Uncoded 01/07/24 12:25) HIVES Medication List - Last Reconciled 01/07/24 by Deborah Richmond [facility] albuterol sulfate 90 mcg/actuation 2 puffs inhalation Q4-6H PRN albuterol sulfate 2.5 mg (3 mL) continuous nebulization QID PRN 30 days doxycycline monohydrate 100 mg PO BID safety needles (BD SafetyGlide Needle) As directed testosterone cypionate mg IM triamcinolone acetonide 0.1% 1 appl topical DAILY PRN 10 days Tobacco use date assessed: 01/07/24 Dental Screening Dental Screen Date: 01/07/24 Did you have a dental visit in the last 12 months?: No Did you have a dental problem in the last 6 months where you did not have access to dental care?: Yes Was dental information given to patient?: No HPI HPI Comments History of Present Illness Details 33-year-old Female to Male with asthma, anxiety, allergic rhinitis, hyperlipidemia, vitamin-D deficiency, idiopathic thrombocytopenia, severe persistent allergic asthma migraine headaches, MDD, generalized anxiety disorder, obesity, former smoker, sarcoidosis status post mediastinal lymph node biopsy with no granuloma. No underlying malignancy. 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 Bassett Hematology/Oncology q 6 months Bariatric Allergy & Immunology Hand Surgery - Dr Henao Health maintenance Pap smear 08/13/2022 within normal limits, history of abnormal Last set of labs 09/24/2023 Recurrent rash on inner thighs, responded well in the past to triamcinolone Dx with Flu, having resp sx that are ongoing and chronic, ff'd closely by Pulm Now on Doxycycline Here today to est care Having generalized pain; back and hips are the worse; left elbow; right shoulder are also main Had lost weight then started on steroids and gained about 30 lbs Daily pain fire burning pain in R shoulder; worse w/ raising After work, feels like can barely move. Taking ASA, APAP And NSAID w/o relief. Did try flexeril and this is w/o relief. Prior to the illness, was going to the gym and feeling well. No pain when exercising. Using marijuana - smoking. Daily w/ + relief. Topical CBD/THC with short lived relief. [facility] Medical History (Updated 01/07/24 @ 17:09 by Deborah Richmond [facility]) Hypogammaglobulinemia Long-term current use of testosterone replacement therapy ILD (interstitial lung disease) Pulmonary nodule Abnormal Pap smear of cervix History of allergic drug reaction Rhinitis, allergic Dermatitis Variant angina Dyslipidemia Vitamin D deficiency History of ITP Migraine Surgical History History of cardiac cath History of carpal tunnel surgery History of ITP H/O LEEP Family History Father HTN (hypertension) Substance use disorder Mental health disorder Mother SLE (systemic lupus erythematosus) Cancer of thyroid Anxiety Depression Mental health disorder Brother Mental health disorder Sister Mental health disorder Social History Housing: Apartment Alcohol intake: unknown Patient Tobacco Use Status: Former Tobacco user Quit Date: 2022 Tobacco use type: Cigarette Years Smoked: 15 e-Cigarette/Vaping Use: Currently Using Frequency of e-Cigarette/Vaping Use: 15 inhalations a day Substance Use Type: Marijuana service: No Current occupational status: employed Current occupation: [employer] [facility] [place] Sexual orientation: Lesbian/Trinidad/Homosexual Gender identity: Female Cognitive needs: No Hearing needs: No Vision needs: No Female Reproductive History Menstrual Age of Menarche: 11 Questionnaire PHQ-9 Over the last 2 weeks, how often have you been bothered by any of the following problems? 1. Little interest or pleasure in doing things: not at all 2. Feeling down, depressed, or hopeless: not at all 3. Trouble falling or staying asleep, or sleeping too much: nearly every day 4. Feeling tired or having little energy: not at all 5. Poor appetite or overeating: not at all 6. Feeling bad about yourself - or that you are a failure or have let yourself or your family down: not at all 7. Trouble concentrating on things, such as reading the newspaper or watching television: not at all 8. Moving or speaking so slowly that other people could have noticed. Or the opposite - being so fidgety or restless that you have been moving around a lot more than usual: not at all 9. Thoughts that you would be better off or of hurting yourself in some way: not at all Total score: 3 27338 - PHQ-9 Billing: Yes Source: Developed by Drs. Ramsey Kamara, Rufina Willett, Severiano Berg and colleagues, with an educational angel from [employer]. Thrive Questionnaire Date Thrive assessed: 10/07/22 TIA-7 AMB Questionnaire TIA-7 Date TIA - 7 assessed: 01/07/24 Feeling nervous, anxious, or on edge: 3 = Nearly every day Not being able to stop or control worryin = Nearly every day Worrying too much about different things: 3 = Nearly every day Trouble relaxin = More than half the days Being so restless that it is hard to sit still: 3 = Nearly every day Becoming easily annoyed or irritable: 3 = Nearly every day Feeling afraid as if something awful might happen: 0 = Not at all Total TIA-7 score (0-4 normal; 5-9 mild; 10-14 moderate; 15-21 severe): 17 Source: Developed by Drs. Ramsey Kamara, Rufina Willett, Severiano Berg and colleagues, with an educational angel from [employer]. TIA-7 Assessment Billing TIA-7 Assessment Tool: TIA-7 Assessment 10285 Review of Systems Const All systems reviewed & are unremarkable except as noted in HPI and below Physical exam (Primary Care) Vital Signs: Last Vital Signs Temp 98.4 F 01/07/24 12:31 Pulse 80 01/07/24 12:31 Resp 16 01/07/24 12:31 BP 137/90 01/07/24 12:34 Pulse Ox 98 01/07/24 12:31 Oxygen Delivery Method Room Air 01/07/24 12:31 BMI result Body Mass Index 27.8 BMI Assessment/Plan discussion: High BMI High, discussed plan: lifestyle Tobacco/Smoking Status: Tobacco use Status Tobacco use date assessed 01/07/24 01/07/24 12:29 Patient Tobacco Use Status Former Tobacco user 01/07/24 12:29 Tobacco use type Cigarette 01/07/24 12:29 e-Cigarette/Vaping Use Currently Using 01/07/24 12:29 PHQ-9: PHQ-9 Score PHQ-9: Total score 3 01/07/24 13:01 Thrive Assessment: Date of Thrive Assessment Date Thrive assessed 10/07/22 01/07/24 12:29 Const Other: Awake alert oriented, pleasant Regular rate and rhythm Lung sounds clear to auscultation bilat Pain generally speaking to right shoulder, with limited active and passive range of motion due to pain, pain with palpation over medial and lateral epicondyle bilat, worse on the left, pain with tenderness over thoracic spine and lumbar spine. Mild paraspinal tenderness on the right. No obvious deformities. No focal neuro deficits. I did not visualize the rash on the inner thighs with the exam today. Assessment and Plan Assessment & Plan (1) Chronic pain: Comment: Affecting multiple sites. Has several allergies and medication intolerances. We will refer to [facility] pain management for further evaluation and treatment. Code(s): G89.29 - Other chronic pain Qualifiers: Chronic pain type: chronic pain syndrome Qualified Code(s): G89.4 - Chronic pain syndrome (2) Skin rash: Comment: Refill triamcinolone as he has had great effect with this in the past. Code(s): R21 - Rash and other nonspecific skin eruption Plan This note is constructed using voice recognition software. While every effort has been made to ensure accuracy in feather boner, still errors may have been included Sometimes, these errors may affect the content or meaning of the given sentence . Total time spent caring for the patient today was 60 minutes. This includes time spent before the visit reviewing the chart, time spent during the visit, and time spent after the visit on documentation Orders: Referrals Pain Management Referral G89.29 - Other chronic pain Medications: Refilled triamcinolone acetonide 0.1% 1 appl topical DAILY PRN 30 grams 2RF rash in groin 10 days L30.9 - Dermatitis, unspecified Patient Instructions: rto 1 year for CPE, sooner PRN Coding Level of Care Code Est Pt Level 5 (77465) Diagnoses Chronic pain syndrome G89.4 Chronic pain type: chronic pain syndrome Skin rash R21 Additional Codes TIA-7 Assessment Billing - TIA-7 Assessment Tool: TIA-7 Assessment 33225 ([id number])
[2024-01-07 12:31] VITALS: BP 142/92; PULSE 80; RESP 16; TEMP 36.9; O2SAT 98; BMI 27.8
[2024-01-07 12:34] VITALS: BP 137/90
== END 2024-01-07 13:44 | disposition home or self-care (01) ==
LOC: HO.HMGFM 12:22
PROVIDERS: PCP Nurse Practitioner Family; Visit Provider Nurse Practitioner Family
DX: G89.4 Chronic pain syndrome (principal); R21 Rash and other nonspecific skin eruption
CPT/HCPCS: 99215; 99417

== ENCOUNTER 2024-01-20 11:13 | Outpatient (AMB) | payer OTHER, SELFPAY ==
--- NOTE | 2024-01-20 11:14 | A.OFFVIS_ITS ---
Vital Signs 01/20/24 11:15 Height 5 ft 4 in Weight 162 lb 14.746 oz BMI 28.0 Pulse 89 Pulse Source Pulse Oximeter Pulse Oximetry (%) 100 Oxygen Delivery Method Room Air Intake Visit Reasons: Asthma Ui Ux Engineer Required: No Allergies adair Allergy (Severe, Verified 01/20/24 11:16) ANAPHYLAXIS cinnamon [CINNAMON] Allergy (Severe, Verified 01/20/24 11:16) MOUTH [employer]BRANES PEEL homatropine [From Hycodan (with homatropin)] Allergy (Severe, Verified 01/20/24 11:16) Hives hydrocodone [From Hycodan (with homatropin)] Allergy (Severe, Verified 01/20/24 11:16) Hives adhesive tape [TAPE,ADHESIVE] Allergy (Intermediate, Verified 01/20/24 11:16) HIVES amoxicillin [From Augmentin] Allergy (Unknown, Verified 01/20/24 11:16) rash cefaclor [From CECLOR] Allergy (Unknown, Verified 01/20/24 11:16) RASH clarithromycin [From BIAXIN] Allergy (Unknown, Verified 01/20/24 11:16) RASH clavulanic acid [From Augmentin] Allergy (Unknown, Verified 01/20/24 11:16) rash morphine Allergy (Unknown, Verified 01/20/24 11:16) burning Sulfa (Sulfonamide Antibiotics) Allergy (Unknown, Verified 01/20/24 11:16) rash sulfamethoxazole [From Bactrim] Allergy (Unknown, Verified 01/20/24 11:16) rash trimethoprim [From Bactrim] Allergy (Unknown, Verified 01/20/24 11:16) rash vancomycin Allergy (Unknown, Verified 01/20/24 11:16) hives, redness and hot to touch at IV site testosterone Adverse Reaction (Severe, Verified 01/20/24 11:16) Itching metoclopramide [From Reglan] Adverse Reaction (Unknown, Verified 01/20/24 11:16) anxiety Platelet Infusion Set Allergy (Severe, Uncoded 01/20/24 11:16) hives PLATELETS Allergy (Severe, Uncoded 01/20/24 11:16) HIVES HPI Comments Details: The patient is a 33-year-old gentleman currently on gender specific medications with a known history of pulmonary nodules, lymphadenopathy and asthma. The patient has been struggling for some time. Worsening respiratory symptoms significant wheezing and chest congestion. He is tried multiple inhalers but does not to any medications he does not have to. The patient had a CT scan of the chest back in 2019 which I personally reviewed. There was significant nodular disease in addition to lymphadenopathy bringing up the question of sarcoidosis. More recently the patient was evaluated by Pulmonary. He did undergo a endobronchial ultrasound bronchoscopy with sampling of the station 7 lymph node. Some macrophages noted but no evidence of any granulomas. The microbiology was positive Haemophilus influenza. The patient then after that was started on steroids for ongoing symptoms of chest tightness wheezing coughing. Although may have been interacting with the hormonal therapy for the gender specific medications. Therefore he stop the testosterone and continued on Decadron. He gained significant amount weight significant amount of edema. His breathing did get better. Ultimately after that the patient was recommend to start Dupixent. The patient has of yet has not started the medication. The medication was approved. Today he is coming in for evaluation. Still complaining of some shortness breath and cough. The patient does have a planned trip to [place] in the coming weeks. Therefore will go ahead and request additional blood work to address his underlying issues. Will start him on Symbicort. Once the patient returns from his trip to [place] we will address the question of biologic therapy. 01/20/2024 the patient is here for a pulmonary follow-up visit. Since we last spoke the patient did go to [place] on the way back, the patient was exposed to sick contact likely the flu. She was having increasing respiratory symptoms. Increased cough. Chest congestion. I did send a prescription of doxycycline the time was in case her symptoms worsen she can always start the therapy. The patient improve and did not require additional therapies therefore he held off on taking it. Ultimately more recently about a week ago started developing worsening respiratory symptoms productive cough chest tightness wheezing. 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 Does not feel well. We did do a swab for RSV COVID in flu. Sent to the laboratory to get a result. It also provide him with a nebulized treatment with DuoNeb which improved the symptoms some degree. Currently not taking any maintenance inhalers. Therefore will start him on Wixela for the inhaled cortical steroids with the hope that by using the nebulizer and Wixela in the antibiotics again hold off on starting the prednisone. Makes it difficult for him to start the prednisone specially since he needs to stop the testosterone shots. In addition to that we talked about the very we can review system with IgA, IgM and IgG deficiency completely. Those levels are undetected on repeat blood work. 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 Therefore, the patient was already approved to start IgG therapy and which is waiting for the day to schedule and start the therapy. Hopefully once starts the IVIG the recurrent infections will decrease. In addition to that the patient needs to stop smoking. [facility] Medical History (Updated 01/20/24 @ 20:10 by Andrea Marroquin MD) Smoking IgM deficiency IgA deficiency Chills Hypogammaglobulinemia Long-term current use of testosterone replacement therapy ILD (interstitial lung disease) Pulmonary nodule Abnormal Pap smear of cervix History of allergic drug reaction Rhinitis, allergic Dermatitis Variant angina Dyslipidemia Vitamin D deficiency History of ITP Migraine Surgical History History of cardiac cath History of carpal tunnel surgery History of ITP H/O LEEP Family History Father HTN (hypertension) Substance use disorder Mental health disorder Mother SLE (systemic lupus erythematosus) Cancer of thyroid Anxiety Depression Mental health disorder Brother Mental health disorder Sister Mental health disorder Social History Housing: Apartment Alcohol intake: unknown Patient Tobacco Use Status: Former Tobacco user Quit Date: 2022 Tobacco use type: Cigarette Years Smoked: 15 e-Cigarette/Vaping Use: Currently Using Substance Use Type: Marijuana service: No Current occupational status: employed Current occupation: [employer] [facility] [place] [facility] Sexual orientation: Lesbian/Trinidad/Homosexual Gender identity: Female Cognitive needs: No Hearing needs: No Vision needs: No Female Reproductive History Menstrual Age of Menarche: 11 Review of Systems Const Denies fever(s) Eyes Denies blurry vision ENT Denies nasal congestion, Denies post nasal drip, Denies sinus pain and Denies sinus pressure Card Denies chest pain and Reports dyspnea on exertion Resp Reports chest congestion, Reports cough, Denies hemoptysis, Reports dyspnea on exertion and Reports wheezing GI Denies abdominal pain and Denies heartburn Musc Denies myalgias, Denies arthralgias and Denies joint swelling Skin/Breast Denies rash Neuro Denies seizure-like activity Endo Denies heat intolerance Kian/Lymph Reports lymphadenopathy Aller/Immun Reports wheezing Physical Exam Vital Signs: Last Vital Signs Pulse 89 01/20/24 11:15 Pulse Ox 100 01/20/24 11:15 Oxygen Delivery Method Room Air 01/20/24 11:15 BMI result Body Mass Index 28.0 Const General: no acute distress and alert HEENT Head: Yes atraumatic Neck Neck: Yes supple Lymphatic: no lymphadenopathy noted Resp Effort & Inspection: normal respiratory effort and no use of accessory muscles Auscultation: rhonchi and wheezes expiratory wheezes Cardio Rate: regular rate Rhythm: regular rhythm Skin General skin exam: no rashes or lesions noted Extrem General: No clubbing, No cyanosis and No edema Assessment & Plan Assessment & Plan (1) Pulmonary nodule: Code(s): R91.1 - Solitary pulmonary nodule Category: Medical (2) ILD (interstitial lung disease): Code(s): J84.9 - Interstitial pulmonary disease, unspecified Category: Medical (3) Environmental allergies: Code(s): Z91.09 - Other allergy status, other than to drugs and biological substances Category: Medical (4) Mediastinal lymphadenopathy: Code(s): R59.0 - Localized enlarged lymph nodes Category: Medical (5) Severe persistent allergic asthma: Code(s): J45.50 - Severe persistent asthma, uncomplicated Category: Medical (6) Chronic bronchitis: Code(s): J42 - Unspecified chronic bronchitis Category: Medical Qualifiers: Chronic bronchitis type: mixed simple and mucopurulent Qualified Code(s): J41.8 - Mixed simple and mucopurulent chronic bronchitis (7) Long-term current use of testosterone replacement therapy: Code(s): Z79.890 - Hormone replacement therapy Category: Medical (8) Hypogammaglobulinemia: Code(s): D80.1 - Nonfamilial hypogammaglobulinemia Category: Medical (9) IgA deficiency: Code(s): D80.2 - Selective deficiency of immunoglobulin A [IgA] Category: Medical (10) IgM deficiency: Code(s): D80.4 - Selective deficiency of immunoglobulin M [IgM] Category: Medical (11) Smoking: Code(s): F17.200 - Nicotine dependence, unspecified, uncomplicated Category: Social Hx Plan start nebulizer continue doxycycline Start Symbicort BID KALEB as needed Will need to have a repeat CT chest. We will reorder on his return visit Needs to start IVIG MANI. Will be following uo with Immunology as well SWAB negative Prednisone taper if no better, will have to pause the testosterone if start prednisone Tobacco cessation F/U 4 weeks Orders: Orders SARS-CoV2/FLU/RSV Today R68.83 - Chills (without fever) AMB Nebulizer Treatment Today J45.50 - Severe persistent asthma, uncomplicated Medications: New prednisone PO daily; Take 2 tabs daily x 5 days, then 1 tablet daily x 5 days 10 days 15 tabs 0RF ipratropium-albuterol 0.5 mg-3 mg(2.5 mg base)/3 mL 3 mL inhalation ONCE 3 mL 0RF J45.50 - Severe persistent asthma, uncomplicated Refilled albuterol sulfate 2.5 mg (3 mL) continuous nebulization QID 30 days PRN 360 mL 6RF shortness of breath or wheezing J45.20 - Mild intermittent asthma, uncomplicated Coding Level of Care Code Est Pt Level 5 (18778) Diagnoses Pulmonary nodule R91.1 ILD (interstitial lung disease) J84.9 Environmental allergies Z91.09 Mediastinal lymphadenopathy R59.0 Severe persistent allergic asthma J45.50 Mixed simple and mucopurulent chronic bronchitis J41.8 Chronic bronchitis type: mixed simple and mucopurulent Long-term current use of testosterone replacement therapy Z79.890 Hypogammaglobulinemia D80.1 IgA deficiency D80.2 IgM deficiency D80.4 Smoking F17.200 Time Spent (min) 35
[2024-01-20 11:15] VITALS: PULSE 89; O2SAT 100; BMI 28.0
== END 2024-01-20 11:45 | disposition home or self-care (01) ==
LOC: HO.HPS 11:13
PROVIDERS: PCP Nurse Practitioner Family; Visit Provider Hospitalist
DX: J45.50 Severe persistent asthma, uncomplicated (principal); R91.1 Solitary pulmonary nodule; J84.9 Interstitial pulmonary disease, unspecified; Z91.09 Other allergy status, other than to drugs and biological substances; R59.0 Localized enlarged lymph nodes; J41.8 Mixed simple and mucopurulent chronic bronchitis; Z79.890 Hormone replacement therapy; D80.1 Nonfamilial hypogammaglobulinemia; D80.2 Selective deficiency of immunoglobulin A [IgA]; D80.4 Selective deficiency of immunoglobulin M [IgM]; F17.200 Nicotine dependence, unspecified, uncomplicated
CPT/HCPCS: 99214

== ENCOUNTER 2024-01-20 11:13 | Outpatient (REF) | payer OTHER, SELFPAY ==
[2024-01-20 12:40] LABS: Influenza A PCR NEGATIVE; Influenza B PCR NEGATIVE; Resp Syncy Virus RNA Qual PCR NEGATIVE (Negative); SARS COV2 PCR INHOUSE NEGATIVE
== END 2024-01-20 11:14 | disposition home or self-care (01) ==
LOC: HO.LNP 11:13
PROVIDERS: PCP Nurse Practitioner Family; Visit Provider Hospitalist
DX: R91.1 Solitary pulmonary nodule (principal); J84.9 Interstitial pulmonary disease, unspecified; R68.83 Chills (without fever)
CPT/HCPCS: 0241U; 99212

== ENCOUNTER 2024-01-24 11:28 | Outpatient (AMB) | payer OTHER, SELFPAY ==
--- NOTE | 2024-01-24 11:47 | A.OFFVIS_ITS ---
Vital Signs 01/24/24 11:49 Height 5 ft 4 in Weight 250 lb BMI 42.9 BP 130/80 Intake Visit Reasons: ? 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: No Information Interpreted: non-clinical & clinical Dredge Runner: Dredge Runner Present (Yaritza CASTRO) Allergies adair Allergy (Severe, Verified 01/24/24 11:51) ANAPHYLAXIS cinnamon [CINNAMON] Allergy (Severe, Verified 01/24/24 11:51) MOUTH [employer]BRANES PEEL homatropine [From Hycodan (with homatropin)] Allergy (Severe, Verified 01/24/24 11:51) Hives hydrocodone [From Hycodan (with homatropin)] Allergy (Severe, Verified 01/24/24 11:51) Hives adhesive tape [TAPE,ADHESIVE] Allergy (Intermediate, Verified 01/24/24 11:51) HIVES amoxicillin [From Augmentin] Allergy (Unknown, Verified 01/24/24 11:51) rash cefaclor [From CECLOR] Allergy (Unknown, Verified 01/24/24 11:51) RASH clarithromycin [From BIAXIN] Allergy (Unknown, Verified 01/24/24 11:51) RASH clavulanic acid [From Augmentin] Allergy (Unknown, Verified 01/24/24 11:51) rash morphine Allergy (Unknown, Verified 01/24/24 11:51) burning Sulfa (Sulfonamide Antibiotics) Allergy (Unknown, Verified 01/24/24 11:51) rash sulfamethoxazole [From Bactrim] Allergy (Unknown, Verified 01/24/24 11:51) rash trimethoprim [From Bactrim] Allergy (Unknown, Verified 01/24/24 11:51) rash vancomycin Allergy (Unknown, Verified 01/24/24 11:51) hives, redness and hot to touch at IV site testosterone Adverse Reaction (Severe, Verified 01/24/24 11:51) Itching metoclopramide [From Reglan] Adverse Reaction (Unknown, Verified 01/24/24 11:51) anxiety Platelet Infusion Set Allergy (Severe, Uncoded 01/24/24 11:51) hives PLATELETS Allergy (Severe, Uncoded 01/24/24 11:51) HIVES HPI Comments Details: Presenting complaining of vaginal discharge associated with vulvar itching, foul odor and dysuria PFSH Medical History Smoking IgM deficiency IgA deficiency Chills Hypogammaglobulinemia Long-term current use of testosterone replacement therapy ILD (interstitial lung disease) Pulmonary nodule Abnormal Pap smear of cervix History of allergic drug reaction Rhinitis, allergic Dermatitis Variant angina Dyslipidemia Vitamin D deficiency History of ITP Migraine Surgical History History of cardiac cath History of carpal tunnel surgery History of ITP H/O LEEP Family History Father HTN (hypertension) Substance use disorder Mental health disorder Mother SLE (systemic lupus erythematosus) Cancer of thyroid Anxiety Depression Mental health disorder Brother Mental health disorder Sister Mental health disorder Social History Housing: Apartment Alcohol intake: unknown Patient Tobacco Use Status: Former Tobacco user Quit Date: 2022 Tobacco use type: Cigarette Years Smoked: 15 e-Cigarette/Vaping Use: Currently Using Substance Use Type: Marijuana service: No Current occupational status: employed Current occupation: [employer] [facility] [place] Sexual orientation: Lesbian/Trinidad/Homosexual Gender identity: Female Cognitive needs: No Hearing needs: No Vision needs: No Female Reproductive History Menstrual Age of Menarche: 11 Review of Systems Const All systems reviewed & are unremarkable except as noted in HPI and below Physical Exam Vital Signs: Last Vital Signs BP 130/80 01/24/24 11:49 BMI result Body Mass Index 42.9 General: Yes no CVA tenderness External Female Exam: normal external appearance and normal appearance of the urethra Speculum Exam - Vagina: normal appearance of the vagina, normal palpation, no lesions and no masses Speculum Exam - Cervix: normal appearance of the cervix, normal palpation, no lesions, no masses and nontender Bimanual exam- vagina & uterus: normal bimanual exam, normal palpation, uterine size normal, normal palpation, uterine shape normal, No Cervical tenderness present and non-tender Bimanual Exam- Adnexa, other: normal adnexae Back/Spine/Pelvis Back: no CVA tenderness Assessment & Plan Assessment & Plan (1) Olga infection: Comment: Vulvovaginal with bacterial vaginosis Code(s): B37.9 - Candidiasis, unspecified Category: Medical Plan: Urine test and urine dip done in the office were negative. Will order hCG quantitative. GC/CT with BV panel collected Will treat with Terazol 0.8% q.h.s. for 3 days Per CDC recommendation, will screen for STI, HepBs Ag, HIV, RPR, Hep C Ab ordered. Will treat with Flagyl 500 mg p.o. b.i.d. x 7 days, Instructions given to the patient to refrain from sexual activity or to use condoms consistently and correctly during the BV treatment regimen, not to douch, it might increase the risk for relapse, and to call if symptoms persist or recur. Orders: Orders Hepatitis B Surface Antigen Today Z20.2 - Contact with and (suspected) exposure to infections with a predominantly sexual mode of transmission HIV Ab/Ag Today Z20.2 - Contact with and (suspected) exposure to infections with a predominantly sexual mode of transmission Syphilis Screen Today Z20.2 - Contact with and (suspected) exposure to infections with a predominantly sexual mode of transmission Hepatitis C Antibody Today Z20.2 - Contact with and (suspected) exposure to infections with a predominantly sexual mode of transmission HCG Quantitative Today B37.9 - Candidiasis, unspecified Medications: New terconazole 0.8% 1 appful vaginal BEDTIME 3 days 20 grams 0RF metronidazole 500 mg PO BID 7 days 14 tabs 0RF Coding Level of Care Code Est Pt Level 3 (34993) Diagnoses Olga infection B37.9
[2024-01-24 11:49] VITALS: BP 130/80; BMI 42.9
== END 2024-01-24 13:04 | disposition home or self-care (01) ==
LOC: HO.HWS 11:29
PROVIDERS: PCP Nurse Practitioner Family; Visit Provider Obstetrics & Gynecology
DX: Z32.02 Encounter for pregnancy test, result negative (principal); B37.9 Candidiasis, unspecified
CPT/HCPCS: 99213

== ENCOUNTER 2024-01-24 11:28 | Outpatient (REF) | payer OTHER, SELFPAY ==
[2024-01-24 13:59] LABS: HCG Quantitative < 2 mIU/mL
[2024-01-24 15:48] LABS: CT PCR NOT DETECTED (Not Detect.); NG PCR NOT DETECTED (Not Detect.)
[2024-01-25 08:54] LABS: Syphilis Screen Nonreactive
[2024-01-25 09:11] LABS: HBsAGNum1 0.39 S/CO; HIV AB/AG Nonreactive; HIV Num 1 0.06 S/CO; Hepatitis B Surface Antigen Negative; ~HepC Num1 0.01 S/CO; ~Hepatitis C Antibody Nonreactive
[2024-01-25 13:35] LABS: BV Int Neg Control Negative; BV Int Pos Control Positive
== END 2024-01-24 11:29 | disposition home or self-care (01) ==
LOC: HO.LAB 11:28
PROVIDERS: PCP Nurse Practitioner Family; Visit Provider Obstetrics & Gynecology
DX: B37.9 Candidiasis, unspecified (principal); Z20.2 Contact with and (suspected) exposure to infections with a predominantly sexual mode of transmission
CPT/HCPCS: 0353U; 36415; 81002; 81025; 84702; 86780; 86803; 87340; 87389; 87480; 87510; 87660; 99212

== ENCOUNTER 2024-01-24 12:19 | Outpatient (REF) | payer OTHER, SELFPAY | END 2024-01-24 12:20 | disposition home or self-care (01) | LOC: HO.LNP 12:19 | PROVIDERS: Visit Provider Obstetrics & Gynecology | DX: Z13.89 Encounter for screening for other disorder (principal) ==

== ENCOUNTER 2024-01-26 08:15 | Outpatient (RCR) | payer OTHER, SELFPAY ==
[2024-01-26] VITALS (11 sets, daily range): BP systolic 132–145; BP diastolic 69–96; PULSE 51–78; RESP 18–20; TEMP 36.9; O2SAT 99; BMI 43.6
[2024-01-26] MEDS: Immun Glob G(IgG)/Gly/IGA Ov50 200 ML IV ×3 (08:57→09:20)
[2024-01-26] MEDS: diphenhydrAMINE HCL 50 MG/ML VIAL IVPUSH (09:35)
[2024-01-26] MEDS: methylPREDNISolone Sod Succ 125 MG/2 ML VIAL IVPUSH (09:37)
--- NOTE | 2024-01-26 10:09 | HO.INF ---
Addendum entered by Melyssa Winters RN 02/03/24 15:26: 9:15 AM - STARTED GAMMAGUARD. Addendum entered by Melyssa Winters RN 01/26/24 11:01: 10:50 am- denies all pain, no sob, no redness, no hives, vss- iv removed dressing over site, dc'd to room. Original Note: 9:20am- patient c/o chest tightness, flushed face with increased anxiety noted. iv medication stopped immediately,vss - text information to md 9;25 AM- DECREASED FACIAL FLUSHING NOTED, CONTINUED C/O CHEST TIGHTNESS, INCREASED ANXIETY NOTED. 9;30 AM- patient ambulated to bathroom and returned, hives noted to face and neck. md returned call- n/o's obtained 9;35AM- BENADRYL 50MG IV GIVEN 9:37 AM- SOLUMEDROL 125MG IV GIVEN 9:40am- vss, decreased redness, hives noted improvement, no chest tightness, vss 9:50am patient requested to restart medication- call placed to md office. 9:55am - md in agreement to restart med. 10:00am - vss , medication restarted. md in to see patient 10:10am patient c/o chest tightness, facial flushing noted- medication turned off 10:15am- md orderd tylenol 975mg po. med given to patient 10:20am - IMPROVEMENT NOTED TO PATIENT, VSS
[2024-01-26] MEDS: Acetaminophen 325 MG TABLET 975 MG PO (10:15)
== END 2024-01-26 13:01 | disposition home or self-care (01) ==
LOC: HO.INF 08:15
PROVIDERS: Visit Provider Hospitalist
DX: D80.1 Nonfamilial hypogammaglobulinemia (principal)
CPT/HCPCS: 96374; 96375; J1200; J1569; J2919

== ENCOUNTER 2024-07-11 08:30 | Outpatient (AMB) | payer OTHER, SELFPAY ==
[2024-07-11 08:35] VITALS: BP 122/70; PULSE 65; O2SAT 100; BMI 45.2
--- NOTE | 2024-07-11 08:35 | A.OFFVIS_ITS ---
Vital Signs 07/11/24 08:35 Height 5 ft 4 in Weight 263 lb 7.238 oz BMI 45.2 BP 122/70 Blood Pressure Location Lt brachial Position Sitting Pulse 65 Pulse Source Pulse Oximeter Pulse Oximetry (%) 100 Oxygen Delivery Method Room Air Intake Visit Reasons: asthma Radiology Rn Required: No Allergies adair Allergy (Severe, Verified 07/11/24 08:38) ANAPHYLAXIS cinnamon [CINNAMON] Allergy (Severe, Verified 07/11/24 08:38) MOUTH MEMBRANES PEEL homatropine [From Hycodan (with homatropin)] Allergy (Severe, Verified 07/11/24 08:38) Hives hydrocodone [From Hycodan (with homatropin)] Allergy (Severe, Verified 07/11/24 08:38) Hives adhesive tape [TAPE,ADHESIVE] Allergy (Intermediate, Verified 07/11/24 08:38) HIVES amoxicillin [From Augmentin] Allergy (Unknown, Verified 07/11/24 08:38) rash cefaclor [From CECLOR] Allergy (Unknown, Verified 07/11/24 08:38) RASH clarithromycin [From BIAXIN] Allergy (Unknown, Verified 07/11/24 08:38) RASH clavulanic acid [From Augmentin] Allergy (Unknown, Verified 07/11/24 08:38) rash morphine Allergy (Unknown, Verified 07/11/24 08:38) burning Sulfa (Sulfonamide Antibiotics) Allergy (Unknown, Verified 07/11/24 08:38) rash sulfamethoxazole [From Bactrim] Allergy (Unknown, Verified 07/11/24 08:38) rash trimethoprim [From Bactrim] Allergy (Unknown, Verified 07/11/24 08:38) rash vancomycin Allergy (Unknown, Verified 07/11/24 08:38) hives, redness and hot to touch at IV site glycine [From Gammagard Liquid] Allergy (Verified 07/11/24 08:38) Hives immune globulin,alpha (IgA) greater than 50 mcg/mL [From Gammagard Liquid] Allergy (Verified 07/11/24 08:38) Hives immune globulin,gamma (IgG) human [From Gammagard Liquid] Allergy (Verified 07/11/24 08:38) Hives testosterone Adverse Reaction (Severe, Verified 07/11/24 08:38) Itching metoclopramide [From Reglan] Adverse Reaction (Unknown, Verified 07/11/24 08:38) anxiety Platelet Infusion Set Allergy (Severe, Uncoded 07/11/24 08:38) hives PLATELETS Allergy (Severe, Uncoded 07/11/24 08:38) HIVES HPI Comments Details: The patient is a 33-year-old gentleman currently on gender specific medications with a known history of pulmonary nodules, lymphadenopathy and asthma. The patient has been struggling for some time. Worsening respiratory symptoms significant wheezing and chest congestion. He is tried multiple inhalers but does not to any medications he does not have to. The patient had a CT scan of the chest back in 2019 which I personally reviewed. There was significant nodular disease in addition to lymphadenopathy bringing up the question of sarcoidosis. More recently the patient was evaluated by Pulmonary. He did undergo a endobronchial ultrasound bronchoscopy with sampling of the station 7 lymph node. Some macrophages noted but no evidence of any granulomas. The microbiology was positive Haemophilus influenza. The patient then after that was started on steroids for ongoing symptoms of chest tightness wheezing coughing. Although may have been interacting with the hormonal therapy for the gender specific medications. Therefore he stop the testosterone and continued on Decadron. He gained significant amount weight significant amount of edema. His breathing did get better. Ultimately after that the patient was recommend to start Dupixent. The patient has of yet has not started the medication. The medication was approved. Today he is coming in for evaluation. Still complaining of some shortness breath and cough. The patient does have a planned trip to [place] in the coming weeks. Therefore will go ahead and request additional blood work to address his underlying issues. Will start him on Symbicort. Once the patient returns from his trip to [place] we will address the question of biologic therapy. 07/11/2024 the patient is here for a pulmonary follow-up visit. Overall he is doing okay. He was lost to follow-up for a few months because he had a medical emergency broad. He just came back. When he came back he was exposed to sick contact in his developing worsening chest tightness wheezing productive cough. Moderate severity. Has been getting little better though. He does not have his maintenance inhaler. He does have his nebulizer. The patient did try the IVIG although he had an allergic reaction required an EpiPen. Therefore was not offer any more IVIG here. We did refer him to [place] and also to local immunology. However due to the medical emergency the patient was not around. Now his back and he would like to get status without his care. Will go ahead and have him call to register therefore his appointments. In the meantime he will continue his current respiratory therapy. Will treat him for a an acute bronchitis but also will benefit from maintenance antibiotics because of his significant immunodeficiency. [facility] Medical History (Updated 02/03/24 @ 13:33 by Andrea Marroquin MD) IgG deficiency Hypoglobulinemia Smoking IgM deficiency IgA deficiency Chills Hypogammaglobulinemia Long-term current use of testosterone replacement therapy ILD (interstitial lung disease) Pulmonary nodule Abnormal Pap smear of cervix History of allergic drug reaction Rhinitis, allergic Dermatitis Variant angina Dyslipidemia Vitamin D deficiency History of ITP Migraine Surgical History History of cardiac cath History of carpal tunnel surgery History of ITP H/O LEEP Family History Father HTN (hypertension) Substance use disorder Mental health disorder Mother SLE (systemic lupus erythematosus) Cancer of thyroid Anxiety Depression Mental health disorder Brother Mental health disorder Sister Mental health disorder Social History Housing: Apartment Alcohol intake: unknown Patient Tobacco Use Status: Former Tobacco user Tobacco use type: Cigarette Years Smoked: 15 e-Cigarette/Vaping Use: Currently Using Substance Use Type: Marijuana service: No Current occupational status: employed Current occupation: [employer] [facility] [employer] [facility] Sexual orientation: Lesbian/Trinidad/Homosexual Gender identity: Female Cognitive needs: No Hearing needs: No Vision needs: No Review of Systems Const Denies fever(s) Eyes Denies blurry vision ENT Denies nasal congestion, Denies post nasal drip, Denies sinus pain and Denies sinus pressure Card Denies chest pain and Reports dyspnea on exertion Resp Reports chest congestion, Reports cough, Denies hemoptysis, Reports dyspnea on exertion and Reports wheezing GI Denies abdominal pain and Denies heartburn Musc Denies myalgias, Denies arthralgias and Denies joint swelling Skin/Breast Denies rash Neuro Denies seizure-like activity Endo Denies heat intolerance Kian/Lymph Reports lymphadenopathy Aller/Immun Reports wheezing Physical Exam Vital Signs: Last Vital Signs Pulse 65 07/11/24 08:35 BP 122/70 07/11/24 08:35 Pulse Ox 100 07/11/24 08:35 Oxygen Delivery Method Room Air 07/11/24 08:35 BMI result Body Mass Index 45.2 Const General: no acute distress and alert HEENT Head: Yes atraumatic Neck Neck: Yes supple Lymphatic: no lymphadenopathy noted Chest Breast/axilla inspection: normal inspection of the breasts Resp Effort & Inspection: normal respiratory effort and no use of accessory muscles Auscultation: rhonchi and wheezes expiratory wheezes Cardio Rate: regular rate Rhythm: regular rhythm Skin General skin exam: no rashes or lesions noted Extrem General: No clubbing, No cyanosis and No edema Results Reviewed Results Reviewed: [address] [address] [address] Scan Report Signed Patient: Laura Mendoza MR#: [id number] : 1990 Acct:[id number] Age/Sex: 32 / F ADM Date: 08/31/23 Loc: HO.ED Attending Dr: Ordering Physician: Madisyn Tyler Date of Service: 08/31/23 Procedure(s): CT chest wo IV con Accession Number(s): [id number] cc: Amaya Santoro MD; Madisyn Tyler~ EXAMINATION: CT CHEST WITHOUT CONTRAST CLINICAL INFORMATION: Chronic productive cough, shortness of breath and chest pain COMPARISON: 08/12/2023 chest radiograph, multiple CTs, most recent, 07/16/2020, most remote, 02/06/2012. TECHNIQUE: Multidetector volumetric CT imaging of the chest was done. Axial MIP volume rendering provided. Sagittal and coronal reformatted images were obtained. This CT examination was performed using dose optimization techniques as appropriate, variously including the following: *Automated exposure control *Adjustment of mA and/or kV according to patient size (this includes techniques or standardized protocols for targeted exams where dose is matched to indication/reason for exam; i.e. 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 LUNGS: Trachea and bronchi are patent. Diffuse mild bronchial wall thickening. Right middle lobe atelectasis. NODULES: RUL: 3 mm, 6:134 RML: 3 mm, 9:68 RLL: 5 mm, 6:205, 3 mm, 5:349. Three 1 cm shaggy nodules/consolidations, 6:183 and 6:250. 8mm and 1 cm shaggy nodules/consolidation, 6:365 and 6:377. Lingula: 3 mm, 6:301 LLL: 1 cm shaggy nodule/consolidation: 6:358. Likely confluence of shaggy nodule/left medial lung base measuring approximately 2.8 cm in aggregate, sagittal 44/109. Multiple other small LLL shaggy nodules/consolidations. MEDIASTINUM: 1 cm anterior left thyroid lobe hypodensity. Nonspecific mediastinal lymph nodes. Right paratracheal lymph node measures 9 mm in short axis. 6 mm prevascular short axis lymph node identified. 9 mm subcarinal short axis lymph node seen. Evaluation of the kelly limited without IV contrast. Nonenlarged heart. No pericardial effusion. Degree of coronary calcifications: None. Nonaneurysmal aorta. Nonenlarged pulmonary arteries. CORONARY ARTERY CALCIFICATION: None visualized on this study. PLEURA: There is no pleural effusion. No pleural mass or thickening. AXILLA: No lymphadenopathy. UPPER ABDOMEN: Enlarged low density liver. Splenic enlargement to 15 cm. Splenule. OSSEOUS STRUCTURES: Multilevel mild to moderate compression deformities and degenerative changes. CT/CT chest wo IV con IMPRESSION: Central and peripheral bilateral pulmonary parenchymal shaggy nodules/consolidations, small pulmonary nodules and prominent mediastinal lymph nodes. Findings have been present in varying degrees on multiple previous CTs favoring chronic process such as sarcoidosis. Differential diagnosis would also include cryptogenic organizing pneumonia or recurrent infectious etiologies. Lymphoma not entirely excluded. 1 cm left thyroid hypodense lesion. Ultrasound recommended. Dictated By: Es Figueroa MD Signed By: <Electronically signed by Es Figueroa MD in OV> 08/31/23 1437 DD/ 1146 TD/TT: [facility]: Assessment & Plan Assessment & Plan (1) Severe persistent allergic asthma: Code(s): J45.50 - Severe persistent asthma, uncomplicated Category: Medical (2) ILD (interstitial lung disease): Code(s): J84.9 - Interstitial pulmonary disease, unspecified Category: Medical (3) Environmental allergies: Code(s): Z91.09 - Other allergy status, other than to drugs and biological substances Category: Medical (4) Mediastinal lymphadenopathy: Code(s): R59.0 - Localized enlarged lymph nodes Category: Medical (5) Chronic bronchitis: Code(s): J42 - Unspecified chronic bronchitis Category: Medical Qualifiers: Chronic bronchitis type: mixed simple and mucopurulent Qualified Code(s): J41.8 - Mixed simple and mucopurulent chronic bronchitis (6) Long-term current use of testosterone replacement therapy: Code(s): Z79.890 - Hormone replacement therapy Category: Medical (7) Hypogammaglobulinemia: Code(s): D80.1 - Nonfamilial hypogammaglobulinemia Category: Medical (8) IgA deficiency: Code(s): D80.2 - Selective deficiency of immunoglobulin A [IgA] Category: Medical (9) IgM deficiency: Code(s): D80.4 - Selective deficiency of immunoglobulin M [IgM] Category: Medical (10) Smoking: Code(s): F17.200 - Nicotine dependence, unspecified, uncomplicated Category: Social Hx (11) Pulmonary nodule: Code(s): R91.1 - Solitary pulmonary nodule Category: Medical Plan start nebulizer start azithromycin MWF retart Symbicort BID KALEB as needed Will need to have a repeat CT chest Prednisone taper if no better, will have to pause the testosterone if start prednisone Tobacco cessation Referral to Immunology and Allergy F/U 3 months Orders: Orders CT chest wo IV con 09/03/24 R91.1 - Solitary pulmonary nodule ECG 12 lead EKG Today J44.9 - Chronic obstructive pulmonary disease, unspecified Medications: New azithromycin Wednesday, Wednesday, Wednesday 500 mg PO 3XW 28 days 12 tabs 6RF prednisone PO daily; Take 6 tabs daily x 3 days, then 5 tabs x 3 days, then 4 tabs x 3 days, then 3 tabs x 3 days, then 2 tabs daily x 3 days, then 1 tab x 3 days to complete. 18 days 63 tabs 0RF budesonide-formoterol 160-4.5 mcg/actuation (Symbicort) 2 puffs inhalation BID 30 days 10.2 grams 11RF J44.89 - Other specified chronic obstructive pulmonary disease Coding Level of Care Code Est Pt Level 5 (63776) Diagnoses Severe persistent allergic asthma J45.50 ILD (interstitial lung disease) J84.9 Environmental allergies Z91.09 Mediastinal lymphadenopathy R59.0 Mixed simple and mucopurulent chronic bronchitis J41.8 Chronic bronchitis type: mixed simple and mucopurulent Long-term current use of testosterone replacement therapy Z79.890 Hypogammaglobulinemia D80.1 IgA deficiency D80.2 IgM deficiency D80.4 Smoking F17.200 Pulmonary nodule R91.1 Time Spent (min) 40
== END 2024-07-11 08:52 | disposition home or self-care (01) ==
PROVIDERS: PCP Nurse Practitioner Family; Visit Provider Hospitalist
DX: J45.50 Severe persistent asthma, uncomplicated (principal); J84.9 Interstitial pulmonary disease, unspecified; R59.0 Localized enlarged lymph nodes; R91.1 Solitary pulmonary nodule; Z79.890 Hormone replacement therapy; D80.1 Nonfamilial hypogammaglobulinemia; D80.2 Selective deficiency of immunoglobulin A [IgA]; D80.4 Selective deficiency of immunoglobulin M [IgM]; F17.200 Nicotine dependence, unspecified, uncomplicated
CPT/HCPCS: 99215

== ENCOUNTER → 2024-07-11 08:30 | Outpatient (BNVA) | payer OTHER, SELFPAY | PROVIDERS: PCP Nurse Practitioner Family; Visit Provider Hospitalist | DX: J41.8 Mixed simple and mucopurulent chronic bronchitis (principal); J84.9 Interstitial pulmonary disease, unspecified; J45.50 Severe persistent asthma, uncomplicated; R91.8 Other nonspecific abnormal finding of lung field; R59.0 Localized enlarged lymph nodes; Z91.09 Other allergy status, other than to drugs and biological substances; D80.1 Nonfamilial hypogammaglobulinemia; D80.2 Selective deficiency of immunoglobulin A [IgA]; D80.4 Selective deficiency of immunoglobulin M [IgM]; F17.210 Nicotine dependence, cigarettes, uncomplicated; Z79.899 Other long term (current) drug therapy | CPT/HCPCS: 99212 ==

== ENCOUNTER 2024-12-04 12:53 | Outpatient (AMB) | payer OTHER, SELFPAY ==
[2024-12-04 12:58] VITALS: BP 140/86; PULSE 76; TEMP 37.1; O2SAT 98
--- NOTE | 2024-12-04 12:58 | AM.OFFWIN_ITS ---
Intake Vital Signs 12/04/24 12:58 Weight 262 lb BP 140/86 H Blood Pressure Location Lt brachial Position Sitting Pulse 76 Pulse Source Pulse Oximeter Temp 98.7 F Temp Source Oral Pulse Oximetry (%) 98 Oxygen Delivery Method Room Air Intake Visit Reasons: EP congestion, cough, asthma Intake Note: Patient here for cough, congestion, thick mucus, sinus pain that has been present for about 3 weeks. Patient Tobacco Use Status: Former Tobacco user Allergies adair Allergy (Severe, Verified 12/04/24 13:18) ANAPHYLAXIS cinnamon [CINNAMON] Allergy (Severe, Verified 12/04/24 13:18) MOUTH [employer]BRANES PEEL homatropine [From Hycodan (with homatropin)] Allergy (Severe, Verified 12/04/24 13:18) Hives hydrocodone [From Hycodan (with homatropin)] Allergy (Severe, Verified 12/04/24 13:18) Hives adhesive tape [TAPE,ADHESIVE] Allergy (Intermediate, Verified 12/04/24 13:18) HIVES amoxicillin [From Augmentin] Allergy (Unknown, Verified 12/04/24 13:18) rash cefaclor [From CECLOR] Allergy (Unknown, Verified 12/04/24 13:18) RASH clarithromycin [From BIAXIN] Allergy (Unknown, Verified 12/04/24 13:18) RASH clavulanic acid [From Augmentin] Allergy (Unknown, Verified 12/04/24 13:18) rash morphine Allergy (Unknown, Verified 12/04/24 13:18) burning Sulfa (Sulfonamide Antibiotics) Allergy (Unknown, Verified 12/04/24 13:18) rash sulfamethoxazole [From Bactrim] Allergy (Unknown, Verified 12/04/24 13:18) rash trimethoprim [From Bactrim] Allergy (Unknown, Verified 12/04/24 13:18) rash vancomycin Allergy (Unknown, Verified 12/04/24 13:18) hives, redness and hot to touch at IV site glycine [From Gammagard Liquid] Allergy (Verified 12/04/24 13:18) Hives immune globulin,alpha (IgA) greater than 50 mcg/mL [From Gammagard Liquid] Allergy (Verified 12/04/24 13:18) Hives immune globulin,gamma (IgG) human [From Gammagard Liquid] Allergy (Verified 12/04/24 13:18) Hives testosterone Adverse Reaction (Severe, Verified 12/04/24 13:18) Itching metoclopramide [From Reglan] Adverse Reaction (Unknown, Verified 12/04/24 13:18) anxiety Platelet Infusion Set Allergy (Severe, Uncoded 12/04/24 13:18) hives PLATELETS Allergy (Severe, Uncoded 12/04/24 13:18) HIVES Do you need a note to return to daycare/school/sports/work: No HPI HPI Comments History of Present Illness Details History - The patient is a 34-year-old male pres enting with persistent illness characterized by congestion and cough. 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 - Symptoms include three-week duration o f congestion and cough, previous low- grade fever for one week, and ongoing treatment for a tooth infection with Clindamycin. - Asthma present since infancy, treated with an albuterol inhaler and nebulizer, though regular use of Symbicort has been discontinued. - Tobacco use through vaping continues d espite attempts to quit. 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 - Current symptom management involves Ty lenol, ibuprofen, and limited use of Theraflu along with instruction on using Flonase correctly. Physical Exam General: Cooperative, healthy appearing, comfortable and no acute distress Orientation/consciousness: Patient oriented x3 Limitations: No limitations Head: Normal to inspection Ears: Hearing grossly normal bilaterally, external ears normal and TM's normal bilaterally Nose: Normal external nose present, Normal nares present and No nasal discharge present Face and sinus: Normal facial exam and Sinuses tender in the maxillary area Mouth: Normal oral and palatal mucosa present and moist mucous membranes Throat: Yes tonsils normal, Yes uvula midline. Posterior oropharynx erythema Eyes: Appearance normal, both eyes and all related structures Neck: Normal visual inspection Respiratory: Clear to auscultation bilaterally. Normal respiratory effort, able to speak in complete sentences, Actively coughing, no respiratory distress, not tachypneic, no tripod positioning and no use of accessory muscles. Congested in the lungs, worse at night Cardiovascular: Regular rate and rhythm. Normal S1 and S2 Skin: No rashes or lesions noted Neuro: Patient oriented x3 Extremities: Normal to inspection and Yes no clubbing, cyanosis or edema [facility] Medical History (Updated 12/04/24 @ 13:50 by Anjana Singh PA-C) IgG deficiency Hypoglobulinemia Smoking IgM deficiency IgA deficiency Chills Hypogammaglobulinemia Long-term current use of testosterone replacement therapy ILD (interstitial lung disease) Pulmonary nodule Abnormal Pap smear of cervix History of allergic drug reaction Rhinitis, allergic Dermatitis Variant angina Dyslipidemia Vitamin D deficiency History of ITP Migraine Surgical History History of cardiac cath History of carpal tunnel surgery History of ITP H/O LEEP Family History Father HTN (hypertension) Substance use disorder Mental health disorder Mother SLE (systemic lupus erythematosus) Cancer of thyroid Anxiety Depression Mental health disorder Brother Mental health disorder Sister Mental health disorder Social History Housing: Apartment Alcohol intake: unknown Patient Tobacco Use Status: Former Tobacco user Tobacco use type: Cigarette Years Smoked: 15 e-Cigarette/Vaping Use: Currently Using Substance Use Type: Marijuana service: No Current occupational status: employed Current occupation: [employer] [facility] [employer] Sexual orientation: Lesbian/Trinidad/Homosexual Gender identity: Female Cognitive needs: No Hearing needs: No Vision needs: No Review of Systems Const All systems reviewed & are unremarkable except as noted in HPI and below Physical Exam Vital Signs: Last Vital Signs Temp 98.7 F 12/04/24 12:58 Pulse 76 12/04/24 12:58 BP 140/86 H 12/04/24 12:58 Pulse Ox 98 12/04/24 12:58 Oxygen Delivery Method Room Air 12/04/24 12:58 Assessment & Plan Assessment & Plan (1) Acute viral syndrome: Code(s): B34.9 - Viral infection, unspecified Plan: Plan The management of this patient's respiratory infection involves applying Flonase adhering to the correct methodology to ensure optimal delivery to the sinuses, alongside saline nasal spray as needed. Regarding asthma, pt should prioritize ensuring access to albuterol inhalers and suggest increased nebulizer use during non-working hours to manage symptoms better. Also, a Solu-medrol taper has been prescribed for the asthma exacerbation/sob. For the incomplete resolution of cough, the administration of tessalon perles will be attempted with dosage titration. We will await the results of the flu COVID respiratory panel. Vaping cessation efforts should be resumed through ongoing care with the primary provider. While the patient is unable to afford work absence, a medical excuse may be issued if symptoms persist or escalate. Patient was informed and verbally consented to the use of an ambient scribe for clinic note documentation during this visit Orders: Orders SARS-CoV2/FLU/RSV Today R09.89 - Other specified symptoms and signs involving the circulatory and respiratory systems Medications: New methylprednisolone PO PER PKG DIR for 6 days 21 ea 0RF benzonatate 200 mg PO BEDTIME PRN 10 caps 0RF cough Refilled albuterol sulfate 90 mcg/actuation 2 puffs inhalation Q4-6H PRN 8.5 grams 0RF shortness of breath or wheezing Discontinued budesonide-formoterol 160-4.5 mcg/actuation (Symbicort) Discontinued Reason: Doctor's Order 2 puffs inhalation BID 30 days 10.2 grams 11RF J44.89 - Other specified chronic obstructive pulmonary disease Coding Level of Care Code Est Pt Level 3 (95477) Diagnoses Acute viral syndrome B34.9
--- OUTSIDE RECORDS SUMMARY | 2024-12-04 14:24 | XMS_ITS | Clinical Summary ---
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 Phone Unavailable Primary Care Provider Unavailabl e Allergies Active Allergy Reactions Criticality Noted Date Comments Amoxicillin-Pot Clavulanate 07/09/20 Sulfamethoxazole-Trimethoprim 2022 Cephalosporins 07/09/2023 Morphine 07/09/2023 Medications levoFLOXacin (Levaquin) 500 MG tablet 07/06/2023 Active triamcinolone (Kenalog) 0.1 % cream 12/03/2022 Active albuterol 108 (90 Base) MCG/ACT inhaler 03/16/2023 Act nestor albuterol (2.5 MG/3ML) 0.083% nebulizer solution 08/06/2022 Active testosterone cypionate (Depo-Testostero ne) 200 MG/ML injection 06/17/2023 Active testosterone cypionate (Depo-Testostero ne) 200 MG/ML injection Inject 80 mg under the skin. 03/01/2023 Active Social History Tobacco Use Types Packs/Day Years Used Date Smoking Tobacco: Every Day Smokeless Tobacco: Never Tobacco Cessation:Ready to Q uit: No; Counseling Given: No Comments:vaping Alcohol Use Standard Drinks/Week Comments Not Currently 0 (1 standard drink = 0.6 oz pur e alcohol) Comments No Sex and Gender Information Value Date Recorded Sex Assigned at Choose not to disclose 12:02 PM EDT Legal Sex Male 11:55 AM EDT Gender Identity Choose not to disclose 12:02 PM EDT Sexual Orientation Choose not to disclose 2022 12:02 PM EDT Last Filed Vital Signs Vital Sign Reading Time Taken Comments Blood Pressure 120/78 07/09/2023 2:51 PM EDT Pulse - - Temperature - - Respiratory Rate - - Oxygen Saturation - - Inhaled Oxygen Concentration - - Weight - - Height - - Body Mass Index - - Plan of Treatment Health Maintenance Due Date Last Done Comments Dental Oral Exam 1988 Dental Prophylaxis 1988 Dental X-Ray: Bitewings 1988 Dental X-Ray: Full Mouth 1988 Depression Screening 1988 HIV Screening 1988 Lipid Panel 1988 SDOH Screening 1988 Alcohol/Substance Use Screening 2000 Family Planning (PISQ) 2003 Hepatitis C Screening 2006 Pneumococcal Vaccine: Pediatrics (0 to 5 Years) and At-Risk Patients (6 to 49) Years) (2 of 2 - PCV) 02/02/2019 02/02/2018 COVID-19 Vaccine (1 - 2023- season) 2024 Influenza Vaccine (#1) 2024 9, 06/28/2019, 08/30/2018, Additional history exists Tobacco Screening 07/09/2024 07/09/2023 DTaP/Tdap/Td Vaccines (8 - Td or Tdap) 10/29/2032 10/29/2022, 10/01/2015, 07/19/2000, Additional history exists Zoster Vaccines (1 of 2) 2038 RSV Patients and Patients Aged 60 years or older (1 - 1-dose 75+ series) 2063 IPV Vaccines Completed 06/27/1993, 02/26, 01/29/1989, Additional history exists Hepatitis B Vaccines Completed 01/19/2001, 09/06/2000, 07/14/2000 HIB Vaccines Completed 02/02/2018, 03/25/1990 Meningococcal Vaccine Aged Out 02/03/2018 No jose ernestine eligible based on patient's age to complete this topic HPV Vaccines Aged Out No longer eligi ble based on patient's age to complete this topic Hepatitis A Vaccines Aged Out No long er eligible based on patient's age to complete this topic RSV under 20 months Aged Out No longe r eligible based on patient's age to complete this topic Rotavirus Vaccines Aged Out No longer eligible based on patient's age to complete this topic Insurance [facility] STAND ADULT
== END 2024-12-04 14:16 | disposition home or self-care (01) ==
PROVIDERS: PCP Nurse Practitioner Family; Visit Provider Physician Assistant
DX: B34.9 Viral infection, unspecified (principal)

== ENCOUNTER 2024-12-04 12:53 | Outpatient (REF) | payer OTHER, SELFPAY ==
--- OUTSIDE RECORDS SUMMARY | 2024-12-04 15:30 | XMS_ITS | Clinical Summary ---
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
[2024-12-04 18:53] LABS: Influenza A PCR NEGATIVE (Negative); Influenza B PCR NEGATIVE (Negative); Resp Syncy Virus RNA Qual PCR NEGATIVE (Negative); SARS COV2 PCR INHOUSE POSITIVE (Negative)
== END 2024-12-04 12:54 | disposition home or self-care (01) ==
LOC: HO.LAB 12:53
PROVIDERS: Physician Assistant; PCP Nurse Practitioner Family
DX: B34.9 Viral infection, unspecified (principal); R09.89 Other specified symptoms and signs involving the circulatory and respiratory systems; R05.8 Other specified cough
CPT/HCPCS: 0241U; 99212

== ENCOUNTER 2025-01-29 14:10 | Outpatient (AMB) | payer OTHER, SELFPAY ==
--- NOTE | 2025-01-29 14:12 | A.OFFPC_ITS ---
Vital Signs 01/29/25 14:18 Height 5 ft 4 in Weight 266 lb BMI 45.7 BP 122/70 Blood Pressure Location Rt brachial Position Sitting Respiration 12 Pulse 71 Pulse Source Pulse Oximeter Temp 97.4 F Temp Source Oral Pulse Oximetry (%) 99 Oxygen Delivery Method Room Air Intake Visit Reasons: annual physical Intake Note: CPE. Patient also c/o yeast infection and wants std testing Tenderizer Tender Required: No Allergies adair Allergy (Severe, Verified 01/29/25 14:34) ANAPHYLAXIS cinnamon [CINNAMON] Allergy (Severe, Verified 01/29/25 14:34) MOUTH [employer] PEEL homatropine [From Hycodan (with homatropin)] Allergy (Severe, Verified 01/29/25 14:34) Hives hydrocodone [From Hycodan (with homatropin)] Allergy (Severe, Verified 01/29/25 14:34) Hives adhesive tape [TAPE,ADHESIVE] Allergy (Intermediate, Verified 01/29/25 14:34) HIVES amoxicillin [From Augmentin] Allergy (Unknown, Verified 01/29/25 14:34) rash cefaclor [From CECLOR] Allergy (Unknown, Verified 01/29/25 14:34) RASH clarithromycin [From BIAXIN] Allergy (Unknown, Verified 01/29/25 14:34) RASH clavulanic acid [From Augmentin] Allergy (Unknown, Verified 01/29/25 14:34) rash morphine Allergy (Unknown, Verified 01/29/25 14:34) burning Sulfa (Sulfonamide Antibiotics) Allergy (Unknown, Verified 01/29/25 14:34) rash sulfamethoxazole [From Bactrim] Allergy (Unknown, Verified 01/29/25 14:34) rash trimethoprim [From Bactrim] Allergy (Unknown, Verified 01/29/25 14:34) rash vancomycin Allergy (Unknown, Verified 01/29/25 14:34) hives, redness and hot to touch at IV site glycine [From Gammagard Liquid] Allergy (Verified 01/29/25 14:34) Hives immune globulin,alpha (IgA) greater than 50 mcg/mL [From Gammagard Liquid] Allergy (Verified 01/29/25 14:34) Hives immune globulin,gamma (IgG) human [From Gammagard Liquid] Allergy (Verified 01/29/25 14:34) Hives testosterone Adverse Reaction (Severe, Verified 01/29/25 14:34) Itching metoclopramide [From Reglan] Adverse Reaction (Unknown, Verified 01/29/25 14:34) anxiety Platelet Infusion Set Allergy (Severe, Uncoded 12/04/24 13:18) hives PLATELETS Allergy (Severe, Uncoded 12/04/24 13:18) HIVES Medication List - Last Reconciled 01/29/25 by Deborah Richmond [facility]- albuterol sulfate 90 mcg/actuation 2 puffs inhalation Q4-6H PRN albuterol sulfate 2.5 mg (3 mL) continuous nebulization QID PRN 30 days benzonatate 200 mg PO BEDTIME PRN immun glob G(IgG)-pro-IgA 0-50 1 gram/5 mL (20 %) ([facility]) subcut methylprednisolone PO PER PKG DIR for 6 days safety needles (BD SafetyGlide Needle) As directed terconazole 0.8% 1 appful vaginal BEDTIME 3 days testosterone cypionate mg IM triamcinolone acetonide 0.1% 1 appl topical DAILY PRN 10 days Tobacco use date assessed: 01/29/25 Dental Screening Dental Screen Date: 01/29/25 Did you have a dental visit in the last 12 months?: Yes Did you have a dental problem in the last 6 months where you did not have access to dental care?: No Was dental information given to patient?: Patient has dentist HPI HPI Comments History of Present Illness Details 34-year-old Female to Male with allergi c rhinitis, hyperlipidemia, vitamin-D deficiency, idiopathic thrombocytopenia, severe persistent allergic asthma migraine headaches, MDD, generalized anxiety disorder, obesity, former smoker, sarcoidosis status post mediastinal lymph node biopsy with no granuloma. No underlying malignancy. 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 - The patient recently experienced throa t illness after a sexual encounter, prompting STI concerns. He began Levofloxacin and Azithromycin with symptom improvements. Having vaginal itching s/p ABT - Anxiety and stress exacerbated during a trip abroad; abstention from cannabis led to increased anxiety and symptoms of hypertension. - Blood pressure was significantly eleva bella at 180/110 while in a stressful environment. - The patient regularly experiences migr aines, typically managing them with Advil Dual Action, and sometimes dizziness, which improved with increased water intake. - Reports significant stress relating to family circumstances and social issues with his partner's family abroad. Taking all meds as directed; active w/ care team. wants to see counselor and med prescriber for mood. denies si/hi Family History - Mother: Lupus, thyroid cancer, diabete s, recent myocardial infarction with stent placement. Social History - [facility] 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 - Manages anxiety primarily with cannabi s, now considering cessation due to lung health. - Expressed desire for therapy or counse ling and medication management for anxiety and depression. - Former smoker, currently abstinent. Re ports use of Advil Dual Action for migraines. Health Maintenance - Patient received Pap smear in 2021. - Recommendations include regular monito ring of Vitamin D and scheduling an eye examination due to potential effects from medications. - Emphasis on safe sexual practices and STI screenings. Review of Systems - Constitutional: Reports recent illness and general malaise, persistent coughing. - Respiratory: Reports severe persistent asthma, coughing post-illness. - Cardiovascular: Reports elevated blood pressure during stress. - Neurological: Reports migraines, dizzi ness decreasing with hydration. - Gastrointestinal: Reports constipation with periods of minimal bowel movements. - Psychiatric: Reports anxiety, history of major depressive disorder, recent panic attacks abroad due to cannabis abstention. Physical Exam General: Well developed, well nourished, in no acute distress. Appears stated age. Head: Normocephalic, atraumatic. Eyes: Pupils are equal, round and reactive to light and accommodation. Conjunctivae are clear. Vision grossly normal. Ears: TMs clear AU, EACS WNL. Wax noted in the left ear, cleared w/ lavage today Nose: Patent, without discharge. Neck: Supple, no adenopathy or thyromegaly. Nodular thyroid, No pain or tenderness noted. Breast: Edu on SBE Lungs: Dim throughout. Heart: Regular rate and rhythm. No murmurs, click, rubs or gallops are noted. Abdomen: Bowel sounds present in all quadrants. The abdomen is soft, nontender, with no masses or organomegaly noted. No hernias are noted. Patient reports constipation issues. : Deferred. Reviewed recommendations for routine [employer]. Pulses: Peripheral pulses are equal and palpable bilaterally. Extremities: No clubbing, cyanosis nor edema is noted. Neurologic: Gait and station normal. Cranial Nerves 2-12 intact. Motor strength grossly symmetrical and intact. No sensory loss. Balance normal. Skin: No rashes, ulcers, or lesions noted. Turgor is good. Skin color is good. Hair and nails are without abnormalities. Psych: Normal eye contact, affect and mood appropriate, and normal interactions. Patient is alert and appropriate to context. Results - Labs: Previous syphilis test negative, hepatitis screen, and HIV status discussed. - Tests: Reports yeast infection noted p reviously. - Screening: BV swab, chlamydia, and cheikh orrhea testing in process; historical eye exam reference mentioned from three to four years ago. Discussion Notes I discussed with the patient that concerns regarding potential STI exposure were valid given the recent symptomatic episode. The usage of azithromycin should cover some bacterial STIs; however, testing is essential to ensure a comprehensive evaluation. I explained the role of the swab culture in identifying BV, trichomonas, and yeast infections. The transmission and onset of respiratory symptoms were explained likely not related to typical STI presentations. We also explored his elevated anxiety levels and panic incidents abroad due to cannabis cessation, with an acknowledgment for arrangement for counseling. I established an action plan for counseling and medication management as requested. I provided guidance on using MiraLAX or dietary changes to relieve constipation, highlighting fiber and fluid intake. Referral for an eye examination due to a history of medication use impacting ocular health was advised along with continual wellness monitoring. Assessment and Plan 1. Gender Dysphoria Continued communication addressing the patient's transition needs and awareness of any prior hormonal treatment outcomes is necessary. 2. Concerns about Sexually Transmitted I nfections Testing and results interpretation are downing in setting a continued treatment plan to ensure comprehensive care and peace of mind for the patient. 3. Asthma Regular monitoring of asthma, maintaining awareness of the patient's medication efficacy. 4. Anxiety and Depression Referral to counseling and consideration for medication management expected to offer better coping mechanisms as cannabis use faces reduction. 5. Migraine Continued use of specific analgesics will persist, monitoring for potential changes in headache patterns and efficiency. 8. Constipation Advising increased dietary fibers and fluids, with [id number] interventions if necessary. Patient Instructions - Complete STD testing through urine and swab analysis, await results, and contact gauge results. - Monitor stress-induced blood pressure spikes, consider lifestyle adjustments, and manage with further appointments if symptoms persist. - For constipation, focus on increased f iber, water intake, and possibly use MiraLAX. - Continue current asthma and migraine m anagement strategies, seeking further advice should symptoms worsen. - Report any emergent or concerning heal th changes immediately. - cont care w/ care team, cont all meds RTO 1 year CPE sooner PRN Consent Patient was informed and verbally consented to the use of an ambient scribe for clinic note documentation during this visit. Additional time spent on this encounter 30 min [facility] Medical History (Updated 01/29/25 @ 21:01 by Deborah Richmond, [facility]) Abnormal Pap smear of cervix Chills Dermatitis Dyslipidemia History of allergic drug reaction History of ITP Hypogammaglobulinemia Hypoglobulinemia IgA deficiency IgG deficiency IgM deficiency ILD (interstitial lung disease) Long-term current use of testosterone replacement therapy Migraine Pulmonary nodule Rhinitis, allergic Smoking Variant angina Vitamin D deficiency Surgical History H/O LEEP History of cardiac cath History of carpal tunnel surgery History of ITP Family History Father HTN (hypertension) Substance use disorder Mental health disorder Mother SLE (systemic lupus erythematosus) Cancer of thyroid Anxiety Depression Mental health disorder Brother Mental health disorder Sister Mental health disorder Social History Housing: Apartment Alcohol intake: unknown Patient Tobacco Use Status: Former Tobacco user Tobacco use type: Cigarette Years Smoked: 15 e-Cigarette/Vaping Use: Currently Using Substance Use Type: Marijuana service: No Current occupational status: employed Current occupation: [employer] Sexual orientation: Lesbian/[place]in[place]/Homosexual Gender identity: Female Cognitive needs: No Hearing needs: No Vision needs: No Questionnaire PHQ-9 Over the last 2 weeks, how often have you been bothered by any of the following problems? 1. Little interest or pleasure in doing things: nearly every day 2. Feeling down, depressed, or hopeless: nearly every day 3. Trouble falling or staying asleep, or sleeping too much: nearly every day 4. Feeling tired or having little energy: nearly every day 5. Poor appetite or overeating: nearly every day 6. Feeling bad about yourself - or that you are a failure or have let yourself or your family down: nearly every day 7. Trouble concentrating on things, such as reading the newspaper or watching television: nearly every day 8. Moving or speaking so slowly that other people could have noticed. Or the opposite - being so fidgety or restless that you have been moving around a lot more than usual: nearly every day 9. Thoughts that you would be better off or of hurting yourself in some way: not at all Total score: 24 Depression Screening Interpretation: Positive Depression Screening Follow-up: Existing condition and In treatment Depression Screening Done: Yes 59791 - PHQ-9 Billing: Yes Source: Developed by Drs. Ramsey Kamara, Rufina Willett, Severiano Berg and colleagues, with an educational angel from [employer]. Thrive Questionnaire Date Thrive assessed: 01/29/25 I am a: Patient What is your living situation today?: I have a steady place to live Within the past 12 months, did the food you bought not last and you didn't have the money to get more?: I choose not to answer this question Within the past 12 months, did you worry whether your food would run out before you got money to buy more?: I choose not to answer this question Do you have trouble paying for medicines?: No Do you have trouble getting transportation to medical appointments?: No Do you have trouble paying your heating and electricity bill?: No Do you have trouble taking care of your child, family member or friend?: No Do you have trouble with day-to-day activities such as bathing, preparing meals, shopping, managing finances, etc.?: No Are you currently unemployed and looking for a job?: No Are you interested in more education?: No Please select the resources that you would like help with: None Currently or been in a relationship where the following occur: No concerns reported THRIVE Score: 0 AUDIT C Alcohol Use Questionnaire (AUDIT-C) 1. How often do you have a drink containing alcohol?: Monthly or less 2. How many drinks containing alcohol do you have on a typical day when you are drinking?: 1 or 2 3. How often do you have six or more drinks on one occasion?: Less than monthly Total Score: 2 Score Reviewed/Action Taken: Yes TIA-7 AMB Questionnaire TIA-7 Date TIA - 7 assessed: 01/29/25 Feeling nervous, anxious, or on edge: 3 = Nearly every day Not being able to stop or control worryin = Nearly every day Worrying too much about different things: 3 = Nearly every day Trouble relaxin = Nearly every day Being so restless that it is hard to sit still: 3 = Nearly every day Becoming easily annoyed or irritable: 3 = Nearly every day Feeling afraid as if something awful might happen: 3 = Nearly every day Total TIA-7 score (0-4 normal; 5-9 mild; 10-14 moderate; 15-21 severe): 21 Source: Developed by Drs. Ramsey Kamara, Rufina Willett, Severiano Berg and colleagues, with an educational angel from [employer]. TIA-7 Assessment Billing TIA-7 Assessment Tool: TIA-7 Assessment 57287 Physical exam (Primary Care) Vital Signs: Last Vital Signs Temp 97.4 F 01/29/25 14:18 Pulse 71 01/29/25 14:18 Resp 12 01/29/25 14:18 BP 122/70 01/29/25 14:18 Pulse Ox 99 01/29/25 14:18 Oxygen Delivery Method Room Air 01/29/25 14:18 BMI result Body Mass Index 45.7 BMI Assessment/Plan discussion: High BMI High, discussed plan: lifestyle Tobacco/Smoking Status: Tobacco use Status Tobacco use date assessed 01/29/25 01/29/25 14:20 Patient Tobacco Use Status Former Tobacco user 01/29/25 14:12 Tobacco use type Cigarette 01/29/25 14:12 e-Cigarette/Vaping Use Currently Using 01/29/25 14:12 PHQ-9: PHQ-9 Score PHQ-9: Total score 24 01/29/25 14:38 Depression Screening Interpretation: Positive Depression Screening Follow-up: Existing condition and In treatment Thrive Assessment: Date of Thrive Assessment Date Thrive assessed 01/29/25 01/29/25 14:12 Currently or been in a relationship where the following occur: No concerns reported Office Procedures Cerumen Removal From which ear canal was the cerumen removed: left Removal: irrigation and cerumen loop/spoon Notes: patient tolerated procedure well, no complications and ear canal clear [id number] Irrigation/Lavage Results Reviewed Results Reviewed: RUN: 01/29/252051 PAGE 1 [facility] [address] [place] [id number] Twister Tender Paper: Nestor Donnelly M.D. Specimen Inquiry Name: Orlando Woods Age/Sex: 34/M : 1990 Unit#: [id number] Attend Dr: Deborah Richmond Re01/29/25 Status: REG REF Location: [facility] Disch: SPEC : [id number] VIDA: 01/29/25 STATUS: COMP REQ : [id number] RECD: 01/29/[address]: Deborah Richmond COMP: 01/29/25 ENTERED: 01/29/[address]: Violet Hutchison MD ORDERED: CBC No Diff Test Result Flag Reference WBC 6.4 4.8-10.8 X10*3/uL RBC 5.42 4.60-5.80 X10*6/uL HGB 15.5 14.0-18.0 g/dl HCT 46.3 42.0-52.0 % MCV 85.4 80.0-98.0 fL MCH 28.6 27.0-33.0 pg MCHC 33.5 31.0-36.0 g/dl RDW 13.2 11.0-16.0 % PLT 242 # 160-400 X10*3/uL MPV 11.2 9.4-12.4 fL NRBC Pct Auto 0.0 0.0-0.2 /100WBC NRBC Abs Auto 0.000 0.0-0.012 X10*3/uL RUN: 01/29/252051 PAGE 1 [facility] [address] [place] [id number] Twister Tender Paper: Nestor Donnelly M.D. Specimen Inquiry Name: Orlando Woods Age/Sex: 34/M : 1990 Unit#: [id number] Attend Dr: Deborah Richmond Re01/29/25 Status: REG REF Location: [facility] Disch: SPEC : [id number] VIDA: 01/29/25 STATUS: COMP REQ : [id number] RECD: 01/29/25 [facility] DR: Deborah [facility]: 01/29/25 ENTERED: 01/29/25 [facility] DR: Violet Hutchison MD ORDERED: Hgb A1c Test Result Flag Reference A1c % 4.9 <6.0 % Hemoglobin A1C Reference Range Adults: 4.8 - 6.0 % Non diabetic: < 6.0 % Goal: < 7.0 % Additional Action Suggested: > 8.0 % Note: Hemoglobin A1c results are invalid for patients with abnormal amounts of HbF. Blood transfusions may impact the HbA1c concentration in the patient sample. Est. Avg. Gluc 94 mg/dL eAG = Estimated average glucose which is %A1C expressed as average glucose, using the formula of the Z4C-Fwbdhuf Average Glucose study (ADAG), Diabetes Care, Vol.31,#8, 2007 END OF REPORT END OF REPORT Coding Level of Care Code Est Pt Level 4 (56382) Est Pt Prev Care 18-39y(03692) Diagnoses Encounter for general adult medical examination with abnormal findings Z00.01 Class 3 severe obesity due to excess calories with serious comorbidity and body mass index (BMI) of 45.0 to 49.9 in adult E66.813; Z68.42 Obesity type: due to excess calories Serious obesity comorbidity presence: with serious comorbidity Moderate episode of recurrent major depressive disorder F33.1 Major depression episode severity: moderate TIA (generalized anxiety disorder) F41.1 Sarcoidosis D86.9 ILD (interstitial lung disease) J84.9 Hypogammaglobulinemia D80.1 IgA deficiency D80.2 IgM deficiency D80.4 IgG deficiency D80.3 Vitamin D deficiency E55.9 Dyslipidemia E78.5 Chronic ITP (idiopathic thrombocytopenia) D69.3 Thyroid nodule greater than or equal to 1 cm in diameter incidentally noted on imaging study E04.1 Gender dysphoria in adult F64.0 Long-term current use of testosterone replacement therapy Z79.890 STD exposure Z20.2 CPT Codes Office Procedure - CPT: 02039-Yim Irrigation/Lavage ([id number]) Additional Codes TIA-7 Assessment Billing - TIA-7 Assessment Tool: TIA-7 Assessment 23750 ([id number]) PHQ-9 - 64024 - PHQ-9 Billing: Yes ([id number]) Assessment & Plan Assessment & Plan (1) Encounter for general adult medical examination with abnormal findings: Onset Date: ~01/2025 Code(s): Z00.01 - Encounter for general adult medical examination with abnormal findings Category: Medical (2) Class 3 severe obesity with body mass index (BMI) of 45.0 to 49.9 in adult: Code(s): E66.813 - Obesity, class 3; Z68.42 - Body mass index [BMI] 45.0-49.9, adult Category: Medical Qualifiers: Obesity type: due to excess calories Serious obesity comorbidity presence: with serious comorbidity Qualified Code(s): E66.813 - Obesity, class 3; Z68.42 - Body mass index [BMI] 45.0-49.9, adult (3) MDD (major depressive disorder), recurrent episode: Code(s): F33.9 - Major depressive disorder, recurrent, unspecified Category: Medical Qualifiers: Major depression episode severity: moderate Qualified Code(s): F33.1 - Major depressive disorder, recurrent, moderate (4) TIA (generalized anxiety disorder): Code(s): F41.1 - Generalized anxiety disorder Category: Medical (5) Sarcoidosis: Code(s): D86.9 - Sarcoidosis, unspecified Category: Medical (6) ILD (interstitial lung disease): Code(s): J84.9 - Interstitial pulmonary disease, unspecified Category: Medical (7) Hypogammaglobulinemia: Code(s): D80.1 - Nonfamilial hypogammaglobulinemia Category: Medical (8) IgA deficiency: Code(s): D80.2 - Selective deficiency of immunoglobulin A [IgA] Category: Medical (9) IgM deficiency: Code(s): D80.4 - Selective deficiency of immunoglobulin M [IgM] Category: Medical (10) IgG deficiency: Code(s): D80.3 - Selective deficiency of immunoglobulin G [IgG] subclasses Category: Medical (11) Vitamin D deficiency: Code(s): E55.9 - Vitamin D deficiency, unspecified Category: Medical (12) Dyslipidemia: Code(s): E78.5 - Hyperlipidemia, unspecified Category: Medical (13) Chronic ITP (idiopathic thrombocytopenia): Code(s): D69.3 - Immune thrombocytopenic purpura Category: Medical (14) Thyroid nodule greater than or equal to 1 cm in diameter incidentally noted on imaging study: Comment: (1 cm left thyroid hypodense on chest CT 08/31/2023) US recommended: Code(s): E04.1 - Nontoxic single thyroid nodule Category: Medical (15) Gender dysphoria in adult: Code(s): F64.0 - Transsexualism Category: Medical (16) Long-term current use of testosterone replacement therapy: Code(s): Z79.890 - Hormone replacement therapy Category: Medical (17) STD exposure: Code(s): Z20.2 - Contact with and (suspected) exposure to infections with a predominantly sexual mode of transmission Plan . Orders: Orders CT NG by PCR Today Z11.3 - Encounter for screening for infections with a predominantly sexual mode of transmission Bacterial Vaginosis Panel Today Z11.3 - Encounter for screening for infections with a predominantly sexual mode of transmission Vitamin B12 and Folate Today D69.3 - Immune thrombocytopenic purpura, E04.1 - Nontoxic single thyroid nodule, E55.9 - Vitamin D deficiency, unspecified, E78.5 - Hyperlipidemia, unspecified Vitamin D 25-OH Total Today D69.3 - Immune thrombocytopenic purpura, E04.1 - Nontoxic single thyroid nodule, E55.9 - Vitamin D deficiency, unspecified, E78.5 - Hyperlipidemia, unspecified Lipid Panel Today D69.3 - Immune thrombocytopenic purpura, E04.1 - Nontoxic single thyroid nodule, E55.9 - Vitamin D deficiency, unspecified, E78.5 - Hyperlipidemia, unspecified Complete Blood Count no Diff Today D69.3 - Immune thrombocytopenic purpura, E04.1 - Nontoxic single thyroid nodule, E55.9 - Vitamin D deficiency, unspecified, E78.5 - Hyperlipidemia, unspecified TSH reflex Free T4 Today D69.3 - Immune thrombocytopenic purpura, E04.1 - Nontoxic single thyroid nodule, E55.9 - Vitamin D deficiency, unspecified, E78.5 - Hyperlipidemia, unspecified Hemoglobin A1c Today D69.3 - Immune thrombocytopenic purpura, E04.1 - Nontoxic single thyroid nodule, E55.9 - Vitamin D deficiency, unspecified, E78.5 - Hyperlipidemia, unspecified Referrals Nurse Navigator Referral F33.9 - Major depressive disorder, recurrent, unspecified, F41.1 - Generalized anxiety disorder Ophthalmology Referral D80.1 - Nonfamilial hypogammaglobulinemia, D80.2 - Selective deficiency of immunoglobulin A [IgA], D80.3 - Selective deficiency of immunoglobulin G [IgG] subclasses, D80.4 - Selective deficiency of immunoglobulin M [IgM], D86.9 - Sarcoidosis, unspecified, H53.8 - Other visual disturbances, J84.9 - Interstitial pulmonary disease, unspecified Medications: Discontinued methylprednisolone Discontinued Reason: Patient Completed Course PO PER PKG DIR for 6 days 21 ea 0RF
[2025-01-29 14:18] VITALS: BP 122/70; PULSE 71; RESP 12; TEMP 36.3; O2SAT 99; BMI 45.7
--- OUTSIDE RECORDS SUMMARY | 2025-01-29 15:44 | XMS_ITS | Clinical Summary ---
Author Organization [facility] [employer] Address [address] [place] [address] Care Team Providers Care Stunner Animal Name Role Phone Unavailable Primary Care Provider [...] patient's age to complete this topic Insurance [facility] STAND ADULT
== END 2025-01-29 15:18 | disposition home or self-care (01) ==
LOC: HO.HMCFM 14:11
PROVIDERS: PCP Nurse Practitioner Family; Visit Provider Nurse Practitioner Family
DX: Z00.01 Encounter for general adult medical examination with abnormal findings (principal); D80.2 Selective deficiency of immunoglobulin A [IgA]; E66.813 Obesity, class 3; Z68.42 Body mass index [BMI] 45.0-49.9, adult; F33.1 Major depressive disorder, recurrent, moderate; J84.9 Interstitial pulmonary disease, unspecified; D80.4 Selective deficiency of immunoglobulin M [IgM]; D80.3 Selective deficiency of immunoglobulin G [IgG] subclasses; D69.3 Immune thrombocytopenic purpura; F41.1 Generalized anxiety disorder; D86.9 Sarcoidosis, unspecified; H61.22 Impacted cerumen, left ear

== ENCOUNTER 2025-01-29 14:10 | Outpatient (REF) | payer OTHER, SELFPAY | END 2025-01-29 14:11 | disposition home or self-care (01) | LOC: HO.LNP 14:10 | PROVIDERS: PCP Nurse Practitioner Family; Visit Provider Nurse Practitioner Family | DX: Z00.01 Encounter for general adult medical examination with abnormal findings (principal); E66.813 Obesity, class 3; Z68.42 Body mass index [BMI] 45.0-49.9, adult; F33.1 Major depressive disorder, recurrent, moderate; F41.1 Generalized anxiety disorder; D86.9 Sarcoidosis, unspecified; J84.9 Interstitial pulmonary disease, unspecified; D80.1 Nonfamilial hypogammaglobulinemia; D80.2 Selective deficiency of immunoglobulin A [IgA]; D80.4 Selective deficiency of immunoglobulin M [IgM]; D80.3 Selective deficiency of immunoglobulin G [IgG] subclasses; E55.9 Vitamin D deficiency, unspecified; E78.5 Hyperlipidemia, unspecified; D69.3 Immune thrombocytopenic purpura; E04.1 Nontoxic single thyroid nodule; F64.0 Transsexualism; K59.00 Constipation, unspecified; G43.909 Migraine, unspecified, not intractable, without status migrainosus; Z79.890 Hormone replacement therapy; Z20.2 Contact with and (suspected) exposure to infections with a predominantly sexual mode of transmission | CPT/HCPCS: 69210; 96127; 99212; 99395 ==

== ENCOUNTER 2025-01-29 14:25 | Outpatient (REF) | payer OTHER, SELFPAY | END 2025-01-29 14:26 | disposition home or self-care (01) | LOC: HO.LAB 14:25 | PROVIDERS: Visit Provider Nurse Practitioner Family | DX: Z13.89 Encounter for screening for other disorder (principal) ==

== ENCOUNTER 2025-01-29 15:11 | Outpatient (REF) | payer OTHER, SELFPAY ==
--- OUTSIDE RECORDS SUMMARY | 2025-01-29 16:49 | XMS_ITS | Clinical Summary ---
Author Organization [facility] [employer] Address [address] [place] [address] Care Team Providers Care Panel Raiser Operator Name Role Phone Unavailable Primary Care Provider [...] patient's age to complete this topic Insurance [facility] MEDICAID STAND ADULT
[2025-01-29 17:38] LABS: Hematocrit 46.3 % (42.0-52.0); Hemoglobin 15.5 g/dl (14.0-18.0); Mean Corpuscular HGB Conc 33.5 g/dl (31.0-36.0); Mean Corpuscular Hemoglobin 28.6 pg (27.0-33.0); Mean Corpuscular Volume 85.4 fL (80.0-98.0); Mean Platelet Volume 11.2 fL (9.4-12.4); Platelet Count 242 X10*3/uL (160-400); Red Blood Count 5.42 X10*6/uL (4.60-5.80); Red Cell Distribution Width 13.2 % (11.0-16.0); White Blood Count 6.4 X10*3/uL (4.8-10.8)
[2025-01-29 17:47] LABS: Estimated Average Glucose 94 mg/dL; Hemoglobin A1C 118.5143 umol/L; Hemoglobin A1c % 4.9 % (<6.0); Total Hemoglobin (HGBA1C) 3964.4589 umol/L
[2025-01-29 18:08] LABS: Cholesterol 174 mg/dL (<200); Triglycerides 78 mg/dL (<150)
[2025-01-29 18:17] LABS: TSH reflex Free T4 1.68 uIU/mL (0.32-4.0); Vitamin D 25-OH Total 29.3 ng/mL (>30)
[2025-01-29 18:31] LABS: HDL Cholesterol 43 mg/dL (>40); LDL Cholesterol Calculated 116 mg/dL (<100)
[2025-01-29 18:34] LABS: Folate 7.8 ng/mL (> or = 4.0); Vitamin B12 930 pg/mL (200-900)
[2025-01-29 21:03] LABS: Bacterial Vaginosis PCR NEGATIVE (Negative); Candida Group PCR DETECTED (Not Detect); Candida glab krusei PCR NOT DETECTED (Not Detect); Trichomonas vaginalis PCR NOT DETECTED (Y)
[2025-01-30] LABS: CT PCR NOT DETECTED (Not Detect.); NG PCR NOT DETECTED (Not Detect.)
== END 2025-01-29 15:12 | disposition home or self-care (01) ==
LOC: HO.WFDLDS 15:11
PROVIDERS: Visit Provider Nurse Practitioner Family
DX: Z11.3 Encounter for screening for infections with a predominantly sexual mode of transmission (principal); E55.9 Vitamin D deficiency, unspecified; E04.1 Nontoxic single thyroid nodule; E78.5 Hyperlipidemia, unspecified; D69.3 Immune thrombocytopenic purpura
CPT/HCPCS: 80061; 81515; 82306; 82607; 82746; 83036; 84443; 85027; 87491; 87591

== ENCOUNTER 2025-05-17 08:20 | Outpatient (AMB) | payer OTHER, SELFPAY ==
--- NOTE | 2025-05-17 08:25 | A.OFFPC_ITS ---
Vital Signs 05/17/25 08:30 Height 5 ft 4 in Weight 261 lb BMI 44.8 BP 118/68 Blood Pressure Location Rt brachial Position Sitting Respiration 12 Pulse 91 Pulse Source Pulse Oximeter Temp 97.6 F Temp Source Oral Pulse Oximetry (%) 99 Oxygen Delivery Method Room Air Intake Visit Reasons: Referral for carpal tunnel at [facility] Intake Note: Patient requesting referral for right knee injury that happened in high school and also right hand px from carpal tunnel. Patient also c/o a lump under right side of the armpit x 1 month Case Aide Required: No Allergies adair Allergy (Severe, Verified 05/17/25 08:26) ANAPHYLAXIS cinnamon (CINNAMON) Allergy (Severe, Verified 05/17/25 08:26) MOUTH MEMBRANES PEEL homatropine (From Hycodan (with homatropin)) Allergy (Severe, Verified 05/17/25 08:26) Hives hydrocodone (From Hycodan (with homatropin)) Allergy (Severe, Verified 05/17/25 08:26) Hives adhesive tape (TAPE,ADHESIVE) Allergy (Intermediate, Verified 05/17/25 08:26) HIVES amoxicillin (From Augmentin) Allergy (Unknown, Verified 05/17/25 08:26) rash cefaclor (From CECLOR) Allergy (Unknown, Verified 05/17/25 08:26) RASH clarithromycin (From BIAXIN) Allergy (Unknown, Verified 05/17/25 08:26) RASH clavulanic acid (From Augmentin) Allergy (Unknown, Verified 05/17/25 08:26) rash morphine Allergy (Unknown, Verified 05/17/25 08:26) burning Sulfa (Sulfonamide Antibiotics) Allergy (Unknown, Verified 05/17/25 08:26) rash sulfamethoxazole (From Bactrim) Allergy (Unknown, Verified 05/17/25 08:26) rash trimethoprim (From Bactrim) Allergy (Unknown, Verified 05/17/25 08:26) rash vancomycin Allergy (Unknown, Verified 05/17/25 08:26) hives, redness and hot to touch at IV site glycine (From Gammagard Liquid) Allergy (Verified 05/17/25 08:26) Hives immune globulin,alpha (IgA) greater than 50 mcg/mL (From Gammagard Liquid) Allergy (Verified 05/17/25 08:26) Hives immune globulin,gamma (IgG) human (From Gammagard Liquid) Allergy (Verified 05/17/25 08:26) Hives testosterone Adverse Reaction (Severe, Verified 05/17/25 08:26) Itching metoclopramide (From Reglan) Adverse Reaction (Unknown, Verified 05/17/25 08:26) anxiety Platelet Infusion Set Allergy (Severe, Uncoded 05/17/25 08:26) hives PLATELETS Allergy (Severe, Uncoded 05/17/25 08:26) HIVES Tobacco use date assessed: 05/17/25 Dental Screening Dental Screen Date: 05/17/25 Did you have a dental visit in the last 12 months?: Yes Did you have a dental problem in the last 6 months where you did not have access to dental care?: No Was dental information given to patient?: Patient has dentist HPI HPI Comments History of Present Illness Details 34-year-old Female to Male with allergi c rhinitis, hyperlipidemia, vitamin-D deficiency, idiopathic thrombocytopenia, severe persistent allergic asthma migraine headaches, MDD, generalized anxiety disorder, obesity, former smoker, sarcoidosis status post mediastinal lymph node biopsy with no granuloma. No underlying malignancy. 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 - Reports right-hand numbness, tingling, and difficulty gripping; resembles previous left-hand symptoms prior to release surgery. Would like to see Dr Henao, who did the L CTS - A firm, painful right axillary lump no bella; presents without systemic symptoms; comes and goes. Started 1 month ago. - R shoulder pain; chronic since injury. LROM d/t pain in posterior shoulder. - Chronic knee instability L and pain re ported since a high school injury, exacerbated recently. Knee cap moves. Painful stair climbing. - Overall feels ill, would like predniso ne. [facility] denied by insurance. Review of Systems - Musculoskeletal: Reports right hand nu mbness, and right knee instability. - Skin/Breast: Reports painful lump unde r right armpit. - Neurological: Reports numbness and tin gling in right hand. - Constitutional: Denies fever, chills. Physical Exam Alert oriented NAD Ext neurovasc intact x 4; Pain with palp without any palpable or visible deformity R axilla; LROM R shoulder all directions reporting tightness in posterior shoulder/scap. No c spine tenderness; + tinels; HG = strong. L knee FROM, + crepitus, normal strength & tone. No erythema. Discussion Notes I discussed the patient's symptoms and the plan of care in detail. For the carpal tunnel syndrome, I explained the process of obtaining a referral to hand surgery, where further assessment, including possible nerve conduction studies, can be conducted. We discussed the need for an orthopedic consultation regarding the chronic knee injury and the potential role of physical therapy. The patient was informed about the ultrasound of the axillary lump to rule out concerning pathology and it's importance to account for possible lymph node involvement. I addressed treatment options, recommending adding the right shoulder to the physical therapy regimen due to associated pain issues. We also discussed starting a short course of prednisone to address inflammation. The patient was advised about scheduling follow-up appointments and informed of the potential procedures to expect in his consultations. Patient was given time to ask questions. All questions were answered to their satisfaction. Assessment and Plan 1. Carpal Tunnel Syndrome, R - Refer to hand surgeon; consider EMG. - Positive tinel's test. 2. Axillary Lump, R - Ultrasound ordered. - Rule out lymphadenopathy. 3. Chronic Knee Injury, L - Orthopedic referral for evaluation. - Initiate physical therapy for knee. 4. Right Shoulder Pain - Include in physical therapy. Pred x 5 days, fu with Immune MD. Patient Instructions - Schedule an appointment with Dr. Henao for hand surgery consultation. - Expect to receive calls to schedule ul trasound and physical therapy. - Follow up with orthopedic referral at [place] for knee evaluation. - Start prescribed prednisone course as discussed for inflammation. - Report any new symptoms or increase in pain immediately. Consent Patient was informed and verbally consented to the use of an ambient scribe for clinic note documentation during this visit. Total time spent caring for the patient today was 30 minutes. This includes time spent before the visit reviewing the chart, time spent during the visit, and time spent after the visit on documentation, reviewing laboratory results, diagnostic imaging, medications, performing a medically necessary evaluation, counseling on diagnoses, care coordination, ordering appropriate tests, ordering appropriate medications, review of tests performed by other providers, reporting test results with the patient, communication with other healthcare providers. [facility] Medical History (Updated 05/17/25 @ 09:06 by Deborah Richmond, 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 ILD (interstitial lung disease) Long-term current use of testosterone replacement therapy Migraine Pulmonary nodule Rhinitis, allergic Smoking Variant angina Vitamin D deficiency Surgical History H/O LEEP History of cardiac cath History of carpal tunnel surgery History of ITP Family History Father HTN (hypertension) Substance use disorder Mental health disorder Mother SLE (systemic lupus erythematosus) Cancer of thyroid Anxiety Depression Mental health disorder Brother Mental health disorder Sister Mental health disorder Social History Housing: Apartment Alcohol intake: unknown Patient Tobacco Use Status: Former Tobacco user Tobacco use type: Cigarette Years Smoked: 15 e-Cigarette/Vaping Use: Currently Using Second Hand Smoke Exposure: No Substance Use Type: Marijuana service: No Current occupational status: employed Current occupation: [employer] Current occupational exposures/hazards: No Sexual orientation: Lesbian/Trinidad/Homosexual Gender identity: Female Cognitive needs: No Hearing needs: No Vision needs: No Questionnaire PHQ-9 Over the last 2 weeks, how often have you been bothered by any of the following problems? 1. Little interest or pleasure in doing things: not at all 2. Feeling down, depressed, or hopeless: not at all 3. Trouble falling or staying asleep, or sleeping too much: not at all 4. Feeling tired or having little energy: not at all 5. Poor appetite or overeating: not at all 6. Feeling bad about yourself - or that you are a failure or have let yourself or your family down: not at all 7. Trouble concentrating on things, such as reading the newspaper or watching television: not at all 8. Moving or speaking so slowly that other people could have noticed. Or the opposite - being so fidgety or restless that you have been moving around a lot more than usual: not at all 9. Thoughts that you would be better off or of hurting yourself in some way: not at all Total score: 0 Depression Screening Interpretation: Negative Depression Screening Done: Yes 68124 - PHQ-9 Billing: Yes Source: Developed by Drs. Ramsey Kamara, Rufina Willett, Severiano Berg and colleagues, with an educational angel from [employer]. Thrive Questionnaire Date Thrive assessed: 05/17/25 I am a: Patient What is your living situation today?: I have a steady place to live Within the past 12 months, did the food you bought not last and you didn't have the money to get more?: I choose not to answer this question Within the past 12 months, did you worry whether your food would run out before you got money to buy more?: I choose not to answer this question Do you have trouble paying for medicines?: No Do you have trouble getting transportation to medical appointments?: No Do you have trouble paying your heating and electricity bill?: No Do you have trouble taking care of your child, family member or friend?: No Do you have trouble with day-to-day activities such as bathing, preparing meals, shopping, managing finances, etc.?: No Are you currently unemployed and looking for a job?: No Are you interested in more education?: No Please select the resources that you would like help with: None Currently or been in a relationship where the following occur: No concerns reported THRIVE Score: 0 TIA-7 AMB Questionnaire TIA-7 Date TIA - 7 assessed: 05/17/25 Feeling nervous, anxious, or on edge: 0 = Not at all Not being able to stop or control worryin = Not at all Worrying too much about different things: 0 = Not at all Trouble relaxin = Not at all Being so restless that it is hard to sit still: 0 = Not at all Becoming easily annoyed or irritable: 0 = Not at all Feeling afraid as if something awful might happen: 0 = Not at all Total TIA-7 score (0-4 normal; 5-9 mild; 10-14 moderate; 15-21 severe): 0 Source: Developed by Drs. Ramsey Kamara, Rufina Willett, Severiano Berg and colleagues, with an educational angel from [employer]. TIA-7 Assessment Billing TIA-7 Assessment Tool: TIA-7 Assessment 39673 Physical exam (Primary Care) Vital Signs: Last Vital Signs Temp 97.6 F 05/17/25 08:30 Pulse 91 05/17/25 08:30 Resp 12 05/17/25 08:30 BP 118/68 05/17/25 08:30 Pulse Ox 99 05/17/25 08:30 Oxygen Delivery Method Room Air 05/17/25 08:30 BMI result Body Mass Index 44.8 Tobacco/Smoking Status: Tobacco use Status Tobacco use date assessed 05/17/25 05/17/25 08:32 Patient Tobacco Use Status Former Tobacco user 05/17/25 08:32 Tobacco use type Cigarette 05/17/25 08:32 e-Cigarette/Vaping Use Currently Using 05/17/25 08:32 PHQ-9: PHQ-9 Score PHQ-9: Total score 0 05/17/25 08:44 Depression Screening Interpretation: Negative Thrive Assessment: Date of Thrive Assessment Date Thrive assessed 05/17/25 05/17/25 08:32 Currently or been in a relationship where the following occur: No concerns reported Coding Level of Care Code Est Pt Level 4 (44253) Complex EM visit Add On G2211 Diagnoses Carpal tunnel syndrome, right G56.01 Chronic pain of left knee M25.562; G89.29 Chronicity: chronic Right axillary swelling M79.89 Chronic right shoulder pain M25.511; G89.29 Chronicity: chronic Hypogammaglobulinemia D80.1 Additional Codes TIA-7 Assessment Billing - TIA-7 Assessment Tool: TIA-7 Assessment 14532 ([id number]) PHQ-9 - 91055 - PHQ-9 Billing: Yes ([id number]) Assessment & Plan Assessment & Plan (1) Carpal tunnel syndrome, right: Code(s): G56.01 - Carpal tunnel syndrome, right upper limb Category: Medical (2) Left knee pain: Code(s): M25.562 - Pain in left knee Category: Medical Qualifiers: Chronicity: chronic Qualified Code(s): M25.562 - Pain in left knee; G89.29 - Other chronic pain (3) Right axillary swelling: Code(s): M79.89 - Other specified soft tissue disorders Category: Medical (4) Right shoulder pain: Code(s): M25.511 - Pain in right shoulder Category: Medical Qualifiers: Chronicity: chronic Qualified Code(s): M25.511 - Pain in right shoulder; G89.29 - Other chronic pain (5) Hypogammaglobulinemia: Code(s): D80.1 - Nonfamilial hypogammaglobulinemia Category: Medical Plan . Orders: Orders PT Evaluation and Treatment Today M25.511 - Pain in right shoulder, M25.562 - Pain in left knee chest Today M79.89 - Other specified soft tissue disorders Referrals 2 Hand Surgery Referral G56.01 - Carpal tunnel syndrome, right upper limb Orthopedics Referral M25.562 - Pain in left knee Medications: New prednisone 50 mg PO DAILY 5 tabs 0RF 5 days
[2025-05-17 08:30] VITALS: BP 118/68; PULSE 91; RESP 12; TEMP 36.4; O2SAT 99; BMI 44.8
--- OUTSIDE RECORDS SUMMARY | 2025-05-17 09:07 | XMS_ITS | Clinical Summary ---
Author Organization [facility] Address [address] [place] [phone] Phone Care Team Providers Care Control Systems Developer Name Role Phone Deborah Alejandro SUPERVISORY CIVIL ENGINEER Primary Care Provider Deborah Alejandro SUPERVISORY CIVIL ENGINEER Unavailable [phone] Allergies Active Allergy Reactions Criticality Noted Date Comments Amoxicillin-Pot Clavulanate 09/04/20 19 Sulfamethoxazole-Trimethoprim 2018 Cefaclor 09/04/2019 Doxycycline Calcium 09/04/2019 Morphine 09/04/2019 Medications ipratropium (ATROVENT) 42 mcg (0.06 %) nasal spray USE 2 SPRAYS IN EACH NOSTRIL 3 TIMES A DAY NASALLY.. 0 9 Active clotrimazole-be tamethasone (LOTRISONE) cream APPLY TOPICALLY TO WOUNDS TWO TIMES A DAY 2 9 Active albuterol (PROAIR HFA) 90 mcg/actuation inhaler Inhale 2 puffs into the lungs every 6 (six) hours as needed for wheezing. Active Active Problems Problem Noted Date Diagnosed Date Vulvar lesion 09/09/2019 Assessment & Plan (09/09/2019 3:13 PM EST): Small lesion on upper left labia minora does not appear infectious. Appears secondary to scratching. No other rash or lesions noted. Apply small amount of triamcinolone cream twice daily for which he already has a prescription. Patient plans to schedule cervical cancer screening/ARCHITECTURAL JOB CAPTAIN exam in 1 month. We will follow-up on lesion at that time. Call if any worsening of symptoms. Eczema 09/09/2019 Assessment & Plan (09/09/2019 3:10 PM EST): Advised patient I do not have expertise in dermatology, however, rash appears possibly consistent with nummular eczema or neurotic excoriation. Patient has coming appointment scheduled with exterminator helper. Morbid obesity with body mass index of 50.0-59.9 in adult 09/09/2019 Assessment & Plan (09/09/2019 3:11 PM EST): Healthy diet and exercise briefly reviewed. Anxiety and depression 09/04/2019 Assessment & Plan (09/09/2019 3:11 PM EST): With history of recurrent major depression. Has initiated reaching out to therapy program through her employer. I have suggested she also discussed symptoms with her PCP and/or a psychiatrist. Family History Medical History Relation Comments Hypertension Father Diabetes type II Mother Lupus Mother Other Mother benign breast tu mors No Known Problems Sister 1 No Known Problems Sister 2 Relation Status Comments Father Alive Mother Alive Sister 1 Alive Sister 2 Alive Social History Tobacco Use Types Packs/Day Years Used Date Smoking Tobacco: Former Cigarettes Smokeless Tobacco: Never Comments:quit age 22 and the n switched to the vape and quit Alcohol Use Standard Drinks/Week Comments Never 0 (1 standard drink = 0.6 oz pur e alcohol) Education Answer Date Recorded Are you interested in more education? Not on katerina e 11/27/2024 Are you concerned about learning? Not on file 11/27/2024 No 11/27/2024 No 11/27/2024 Digital Access Answer Date Recorded No 11/27/2024 No 11/27/2024 Reliable internet access at home? Not on file 11/27/2024 Device with a working camera? 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 on file Not on file Not o n file Last Filed Vital Signs Vital Sign Reading Time Taken Comments Blood Pressure 118/74 09/04/2019 8:08 AM EST Pulse - - Temperature - - Respiratory Rate - - Oxygen Saturation - - Inhaled Oxygen Concentration - - Weight 161.6 kg (356 lb 3.2 oz) 09/04/2019 8:08 AM EST Height 165.1 cm (5' 5 ) 09/04/2019 8:08 AM EST Body Mass Index 59.27 09/04/2019 8:08 AM EST Plan of Treatment Health Maintenance Due Date Last Done Comments LIPID PANEL 1988 DEPRESSION SCREENING 2000 SMOKING Hx and SMOKELESS TOBACCO SCREENING 2001 HEPATITIS C SCREENING 2006 HIV ONE-TIME SCREENING (18-6 5 YEARS) 2006 HEPATITIS A VACCINES (1 of 2 - Risk 2-dose series) 2007 COVID-19 VACCINE (1 - 2023-2 5 season) 2024 Adult Td,Tdap Booster 10/01/2025 10/01/2015 , 07/19/2000 HIB VACCINES Completed 02/02/2018, 03/25/1990 PNEUMOCOCCAL VACCINES (0-49 years) Aged Out 02/02/2018 No longer eligible b ased on patient's age to complete this topic MENINGOCOCCAL VACCINES (ACWY) Aged Out 02/03/2018 No longer eligible based on patient's age to complete this topic MENINGOCOCCAL VACCINES (B) Aged Out N o longer eligible based on patient's age to complete this topic Medical Devices Not on file Insurance [facility] ACO [place] [address] [place] [address] [place] [address] [place] [address] ACO Member Subscriber Plan / Payer (Ef fective 2024-Present) Name:Orlando Woods Relation to Subscriber:Self Name:Orlando Woods Payer ID:[id number] Group ID:[id number] Type:Medicaid Address: [address] HEALTH SAFETY NET PARTIAL HEALTH SAFETY NET PARTIAL HEALTH SAFETY NET PARTIAL HEALTH SAFETY NET PARTIAL HEALTH SAFETY NET PARTIAL HEALTH SAFETY NET PARTIAL HEALTH SAFETY NET PARTIAL HEALTH SAFETY NET PARTIAL [facility] SAFETY NET PARTIAL Care Teams Control Systems Developer Relationship Specialty Start Date End Date Deborah Alejandro NP [address] [place] [phone] [email or web address] PCP - General Nurse Practitioner 02/04/24 Deborah Alejandro NP [address] [place] [phone] [email or web address] Medicine 02/04/24 Additional Source Comments The information contained in this document represents components of the legal health record. It is not the complete legal health record.[facility]
--- OUTSIDE RECORDS SUMMARY | 2025-05-17 09:07 | XMS_ITS | Clinical Summary ---
Author Organization [facility] [employer] Address [address] [place] [address] Care Team Providers Care Telegraph Service Rater Name Role Phone Unavailable Primary Care Provider Unavailabl e Allergies Active Allergy Reactions Criticality Noted Date Comments Amoxicillin-Pot Clavulanate 07/09/20 23 Sulfamethoxazole-Trimethoprim 2022 Cephalosporins 07/09/2023 Morphine 07/09/2023 Medications [...] 1988 Lipid Panel 1988 SDOH Screening 1988 Disability Screening 1988 Alcohol/Substance Use Screening 2000 Family Planning (PISQ) 2003 HPV Vaccines (1 - 3-dose series) 2003 Hepatitis C Screening 2006 Pneumococcal Vaccine: Pediatrics (0 to 5 Years) and At-Risk Patients (6 to 49) Years (2 of 2 - PCV) 02/02/2019 02/02/2018 COVID-19 Vaccine (1 - 2023- season) 2024 Tobacco Screening 07/09/2024 07/09/2023 Influenza Vaccine (#1) 2025 9, 06/28/2019, 08/30/2018, Additional history exists DTaP/Tdap/Td Vaccines (8 - Td or Tdap) [...] on patient's age to complete this topic Meningococcal B Vaccine Aged Out No l onger eligible based on patient's age to complete this topic RSV under 20 months Aged Out No longe r eligible based on patient's age to complete this topic Rotavirus Vaccines Aged Out No longer eligible based on patient's age to complete this topic [facility]
== END 2025-05-17 08:58 | disposition home or self-care (01) ==
LOC: HO.HMCFM 08:21
PROVIDERS: PCP Nurse Practitioner Family; Visit Provider Nurse Practitioner Family
DX: G56.01 Carpal tunnel syndrome, right upper limb (principal); M25.562 Pain in left knee; G89.29 Other chronic pain; M79.89 Other specified soft tissue disorders; M25.511 Pain in right shoulder; D80.1 Nonfamilial hypogammaglobulinemia

== ENCOUNTER → 2025-05-17 08:20 | Outpatient (BNVA) | payer OTHER, SELFPAY | PROVIDERS: PCP Nurse Practitioner Family; Visit Provider Nurse Practitioner Family | DX: R22.31 Localized swelling, mass and lump, right upper limb (principal); G56.03 Carpal tunnel syndrome, bilateral upper limbs; M25.511 Pain in right shoulder; M25.562 Pain in left knee; E78.5 Hyperlipidemia, unspecified; J30.9 Allergic rhinitis, unspecified; E55.9 Vitamin D deficiency, unspecified; J45.50 Severe persistent asthma, uncomplicated; G43.909 Migraine, unspecified, not intractable, without status migrainosus; F41.1 Generalized anxiety disorder; F32.9 Major depressive disorder, single episode, unspecified; E66.9 Obesity, unspecified; G89.29 Other chronic pain; M79.89 Other specified soft tissue disorders; D80.1 Nonfamilial hypogammaglobulinemia; Z87.891 Personal history of nicotine dependence; Z68.41 Body mass index [BMI] 40.0-44.9, adult | CPT/HCPCS: 96127; 99212 ==

== ENCOUNTER 2025-06-04 21:46 | Emergency (ER) | payer OTHER, SELFPAY ==
--- NOTE | 2025-06-04 22:43 | ED_ITS ---
HPI - General Adult General Chief complaint: General Medical Stated complaint: red swollen left leg Time Seen by Provider: 06/04/25 23:29 Source: patient and old records reviewed Mode of arrival: ambulatory Limitations: no limitations History of Present Illness ED Provider: Armen Mayer PA-C HPI narrative: 34-year-old female to male transgender patient with a history of IgG deficiency, IgA deficiency, chronic ITP, hyperlipidemia, obesity, interstitial lung disease, sarcoidosis, asthma, anxiety and depression, who presents with multiple complaints. Patient states he has had generalized malaise over the past 2-3 days. Associated nausea vomiting diarrhea. Associated fevers of 101 at home. Patient also complains of redness, warmth and swelling over left anterior dewitt. Denies concurrent cough or cold symptoms. Denies abdominal pain, recent travel, hospitalization, use of antibiotics. No sick contacts with similar symptoms. Related Data Home Medications ?Medication ?Instructions ?Recorded ?Confirmed safety needles 25 gauge x 5/8 (BD #50 ea 06/16/2202/18 SafetyGlide Needle) testosterone cypionate 200 mg/mL mg IM 01/07/24 intramuscular oil immune glob G 1 gram/5 mL(20 subcut 01/29/25 01/29/25 %)-prol-IgA 0-50 mcg/mL subcutaneous soln (Hizentra) Previous Rx's ?Medication ?Instructions ?Recorded triamcinolone acetonide 0.1 % 1 appl topical DAILY PRN rash in 01/07/24 topical cream groin 10 days #30 grams albuterol sulfate 2.5 mg/3 mL 2.5 mg (3 mL) continuous 01/20/24 (0.083 %) solution for nebulization nebulization QID P RN shortness of breath or wheezing 30 days #360 mL terconazole 0.8 % vaginal cream 1 appful vaginal BEDTI ME 3 days 01/24/24 #20 grams albuterol sulfate 90 mcg/actuation 2 puff inhalation Q 4-6H PRN 12/04/24 aerosol inhaler shortness of breath or wheez ing #8.5 grams benzonatate 200 mg capsule 200 mg PO BEDTIME PRN cough #10 12/04/24 caps fluconazole 150 mg tablet 150 mg PO Q3D 2 doses #2 tab s 01/30/25 azithromycin 500 mg tablet 500 mg PO 3XW 28 days #12 t abs 03/27/25 prednisone 50 mg tablet 50 mg PO DAILY 5 days #5 tab s 05/17/25 fluconazole 150 mg tablet 150 mg PO Q3D 2 doses #2 tab s 05/21/25 doxycycline hyclate 100 mg capsule 100 mg PO BID #19 c aps 06/05/25 Allergies Allergy/AdvReac Type Severity Reaction Status Date / Time adair Allergy Severe ANAPHYLAXIS Verified 06/04/25 22:49 cinnamon (CINNAMON) Allergy Severe MOUTH Verified 06/04/25 22:49 MEMBRANES PEEL homatropine (From Hycodan Allergy Severe Hives Verified 06/04/25 22:49 (with homatropin)) hydrocodone (From Hycodan Allergy Severe Hives Verified 06/04/25 22:49 (with homatropin)) adhesive tape (TAPE,ADHESIVE) Allergy Intermediate HIVES Verified 06/04/25 22:49 amoxicillin (From Augmentin) Allergy Unknown rash Verified 06/04/25 22:49 cefaclor (From CECLOR) Allergy Unknown RASH Verified 06/04/25 22:49 clarithromycin (From BIAXIN) Allergy Unknown RASH Verified 06/04/25 22:49 clavulanic acid (From Allergy Unknown rash Verified 06/04/25 22:49 Augmentin) morphine Allergy Unknown burning Verified 06/04/25 22:49 Sulfa (Sulfonamide Allergy Unknown rash Verified 06/04/25 22:49 Antibiotics) sulfamethoxazole (From Allergy Unknown rash Verified 06/04/25 22:49 Bactrim) trimethoprim (From Bactrim) Allergy Unknown rash Verified 06/04/25 22:49 vancomycin Allergy Unknown hives, Verified 06/04/25 22:49 redness and hot to touch at IV site glycine (From Gammagard Allergy Hives Verified 06/04/25 22:49 Liquid) immune globulin,alpha (IgA) Allergy Hives Verified 06/04/25 22:49 greater than 50 mcg/mL (From Gammagard Liquid) immune globulin,gamma (IgG) Allergy Hives Verified 06/04/25 22:49 human (From Gammagard Liquid) testosterone AdvReac Severe Itching Verified 06/04/25 22:49 metoclopramide (From Reglan) AdvReac Unknown anxiety Verified 06/04/25 22:49 Platelet Infusion Set Allergy Severe hives Uncoded 05/17/25 08:26 PLATELETS Allergy Severe HIVES Uncoded 05/17/25 08:26 Review of Systems 2 Review of Systems: Yes all other systems are reviewed and are negative Constitutional: Constitutional: Denies fatigue, Reports fever(s) and Reports malaise Cardiovascular: Cardiovascular: Denies chest pain and Denies dyspnea Respiratory: Respiratory: Denies cough and Denies dyspnea Gastrointestinal: Gastrointestinal: Denies abdominal pain, Reports diarrhea, Reports nausea and Reports vomiting Musculoskeletal: Musculoskeletal: Denies arthralgias and Denies joint swelling Integumentary/Breasts: Skin/Breast: Reports erythema, Reports skin pain, Reports skin swelling, Denies sores and Denies wounds Endocrine: Endocrine: Denies fatigue PMFSH Past Medical History Attestation statement: The following information was validated with the patient. Medical History (Updated 06/06/25 @ 00:00 by Al Santoyo) IgG deficiency Hypoglobulinemia Smoking IgM deficiency IgA deficiency Chills Hypogammaglobulinemia Long-term current use of testosterone replacement therapy ILD (interstitial lung disease) Pulmonary nodule Abnormal Pap smear of cervix History of allergic drug reaction Rhinitis, allergic Dermatitis Variant angina Dyslipidemia Vitamin D deficiency History of ITP Migraine Surgical History History of cardiac cath History of carpal tunnel surgery History of ITP H/O LEEP Family History Family History Father HTN (hypertension) Substance use disorder Mental health disorder Mother SLE (systemic lupus erythematosus) Cancer of thyroid Anxiety Depression Mental health disorder Brother Mental health disorder Sister Mental health disorder Social History Social History Housing: Apartment Alcohol intake: unknown Patient Tobacco Use Status: Former Tobacco user Tobacco use type: Cigarette Years Smoked: 15 e-Cigarette/Vaping Use: Currently Using Second Hand Smoke Exposure: No Substance Use Type: Marijuana service: No Current occupational status: employed Current occupation: [employer] [employer] Current occupational exposures/hazards: No Sexual orientation: Lesbian/[place]/Homosexual Gender identity: Female Cognitive needs: No Hearing needs: No Vision needs: No Physical Exam ED Vital Signs: Vital Signs - 24 hr 06/04/25 22:44 Temperature 98.6 F Pulse Rate 95 Respiratory Rate 20 Blood Pressure 148/97 H Pulse Oximetry 99 Oxygen Delivery Method Room Air BMI result Body Mass Index 42.0 Const Other: Alert well-appearing Orientation/consciousness: patient oriented x3 Resp Effort & Inspection: normal respiratory effort Cardio Other: Normal peripheral perfusion Skin Other: Warm dry no rash Neuro General: patient oriented x3, gait normal, no focal motor deficits and CN's II- XI intact bilaterally Extrem Other: Erythema, warmth , spans mid to lower left dewitt, consistent with cellulitis Psych Other: Cooperative Course Course Course Narrative: RME, this is a rapid medical exam performed by Francisco Estraad please refer to primary provider for complete H&P- 34-year-old male presents for evaluation nausea, vomiting, diarrhea starting today. He also has swelling to the left lower leg. He reports fevers as high as 101 at home last night and this morning. Plan for labs including blood cultures. Medications Administered Discontinued Medications Generic Name Dose Route Start Last Admin Trade Name Freq PRN Reason Stop Dose Admin Doxycycline Hyclate 100 mg/ 250 mls @ 166.67 mls/hr 06/05/25 01:13 06/05/25 03:11 Sodium Chloride IV 06/05/25 02:42 Infused ONCE ONE Infusion Medical Decision Making Medical Decision Making [facility] Narrative: 34-year-old female to male transgender patient with a history of IgG deficiency, IgA deficiency, chronic ITP, hyperlipidemia, obesity, interstitial lung disease, sarcoidosis, asthma, anxiety and depression, who presents with multiple complaints. Patient states he has had generalized malaise over the past 2-3 days. Associated nausea vomiting diarrhea. Associated fevers of 101 at home. Patient also complains of redness, warmth and swelling over left anterior dewitt. Denies concurrent cough or cold symptoms. Denies abdominal pain, recent travel, hospitalization, use of antibiotics. No sick contacts with similar symptoms. Problem: IgA and IgG G deficiencies, ITP, sarcoid, History: Per patient I have considered the following differential diagnoses: Viral gastroenteritis, C diff, traveler's diarrhea, cellulitis, purulent cellulitis, osteomyelitis Plan: In regard to the nausea vomiting diarrhea, likely viral in nature, he has no abdominal pain, imaging not warranted. In addition to screening labs, COVID tests obtained. The patient does have cellulitis, we will treat with doxycycline given his allergy profile. We will give an IV dose, then sent home with IV antibiotics. I have independently reviewed the following tests: Labs: Slight leukocytosis, no left shift, not anemic, no electrolyte abnormality, COVID test negative Differential Diagnosis Differential Diagnoses: The differential diagnosis associated with the presentation includes See medical decision-making Admission/Observation Consideration of admission/observation: Escalation of care including admission/observation considered Not applicable Lab Data MDM Lab Attestation statement: I reviewed the patient's lab results. 06/04/25 22:59 06/04/25 22:59 Labs: Lab Results 06/04/25 06/04/25 06/05/25 Range/Units 00:17 22:59 00:17 WBC 11.6 H (4.8-10.8) X10*3/uL RBC 5.75 (4.60-5.80) X10*6/uL Hgb 16.8 (14.0-18.0) g/dl Hct 47.0 (42.0-52.0) % MCV 81.7 (80.0-98.0) fL MCH 29.2 (27.0-33.0) pg MCHC 35.7 (31.0-36.0) g/dl RDW 13.1 (11.0-16.0) % Plt Count 207 (160-400) X10*3/uL MPV 10.8 (9.4-12.4) fL Immature Gran % (Auto) 0.3 (0.0-0.4) % Neut % (Auto) 71.4 (45-73) % Lymph % (Auto) 17.0 L (20-40) % [place] % (Auto) 9.3 (2-11) % Eos % (Auto) 1.1 (0-4) % Baso % (Auto) 0.9 (0-2) % Lymph # (Auto) 2.0 (1.2-4.9) X10*3/uL [place] # (Auto) 1.1 (0.1-1.2) X10*3/uL Eos # (Auto) 0.1 (0.0-0.4) X10*3/uL Baso # (Auto) 0.1 (0.0-0.2) X10*3/uL Abs Immat Gran (auto) 0.03 (0.00-0.03) X10*3/uL Absolute Neuts (auto) 8.3 (2.0-8.3) x10*3/uL Absolute Nucleated RBC 0.000 (0.0-0.012) X10*3/uL Nucleated RBC % (auto) 0.0 (0.0-0.2) /100WBC ESR 6 (0-15) MM/HR Sodium 140 (135-145) mmol/L Potassium 3.5 (3.3-5.1) mmol/L Chloride 107 (96-108) mmol/L Carbon Dioxide 24 (22-29) mmol/L Anion Gap 13 (12-20) BUN 15 (9-16) mg/dL Creatinine 1.02 (0.5-1.4) mg/dL Estim Creat Clear Calc 113.2 Estimated GFR > 60 Random Glucose 100 (60-115) mg/dL Lactic Acid 0.6 (0.5-2.0) mmol/L Calcium 9.4 (8.4-10.2) mg/dL Total Bilirubin 0.9 (0.0-1.0) mg/dL AST 27 (5-37) U/L ALT 35 (0-40) U/L Alkaline Phosphatase 78 (39-117) U/L C-Reactive Protein 22.99 H (< or = 0.50) mg/dL Total Protein 6.3 L (6.5-8.0) g/dL Albumin 4.5 (3.5-5.0) g/dL Lipase 31 (8-78) U/L Urine Color Dark Yellow Urine Appearance Clear Urine pH 6.0 (5.0-9.0) Ur Specific [place] 1.025 (1.005-1.025) Urine Protein 30 (1+) H (Neg-Trace) mg/dL Urine Glucose (UA) Negative (Negative) mg/dL Urine Ketones Trace (Negative) mg/dL Urine Blood Negative (Negative) Urine Nitrite Negative (Negative) Ur Leukocyte Esterase Trace H (Negative) Urine RBC 0-2 (0-2) /HPF Urine WBC 0-5 (0-5) /HPF Ur Squamous Epith Cells 0-2 (0-2) /HPF Urine Bacteria None Seen (None Seen) Hyaline Casts 0-2 (0-2) /LPF COVID-19 (ROSS) Negative (Negative) COVID-19 Clin Com See Note Discharge Plan Discharge Clinical Impression: Cellulitis of left leg Patient Disposition: Home, Self-Care Instructions: Cellulitis (ED) Additional Instructions: You had no overt lab abnormalities; Urinalysis and COVID test negative. The likely source for your fever is the developing cellulitis over the left lower extremity. See home care instructions. Complete the course of doxycycline. Follow up with your primary care provider as needed. Prescriptions: New doxycycline hyclate 100 mg capsule 100 mg PO BID Qty: 19 0RF No Action fluconazole 150 mg tablet 150 mg PO Q3D Qty: 2 0RF Rx Instructions: take 1 tab day 1, repeat second dose on day 3 azithromycin 500 mg tablet 500 mg PO 3XW 28 Days Qty: 12 6RF Rx Instructions: Wednesday, Wednesday, Wednesday fluconazole 150 mg tablet 150 mg PO Q3D Qty: 2 0RF Rx Instructions: take 1 tab day 1, repeat second dose on day 3 testosterone cypionate 200 mg/mL oil IM triamcinolone acetonide 0.1 % cream 1 appl topical DAILY PRN (Reason: rash in groin ) 10 Days Qty: 30 2RF (DME) BD SafetyGlide Needle 25 gauge x 5/8 needle See Rx Instructions .ROUTE .MEDSUPPLY Qty: 50 Rx Instructions: As directed ipratropium-albuterol 0.5 mg-3 mg(2.5 mg base)/3 mL solution for nebulization 3 ml inhalation ONCE Qty: 3 0RF albuterol sulfate 2.5 mg /3 mL (0.083 %) solution for nebulization 2.5 mg continuous nebulization QID PRN (Reason: shortness of breath or wheezing) 30 Days Qty: 360 6RF Hizentra 1 gram/5 mL (20 %) solution subcut prednisone 50 mg tablet 50 mg PO DAILY 5 Days Qty: 5 0RF terconazole 0.8 % cream 1 appful vaginal BEDTIME 3 Days Qty: 20 0RF albuterol sulfate 90 mcg/actuation HFA aerosol inhaler 2 puff inhalation Q4-6H PRN (Reason: shortness of breath or wheezing) Qty: 8.5 0RF benzonatate 200 mg capsule 200 mg PO BEDTIME PRN (Reason: cough) Qty: 10 0RF Stand Alone Forms: Work/School Release Interventions: ED Discharge Assessment Last Done: 06/05/25 03:18 Discharge Date/Time: 06/05/25 03:20 Print Language: Pashto
[2025-06-04 22:44] VITALS: BP 148/97; PULSE 95; RESP 20; TEMP 37; O2SAT 99; BMI 42.0
[2025-06-04 23:06] LABS: MANUAL DIFF FLAG NO
[2025-06-04 23:07] LABS: Hematocrit 47.0 % (42.0-52.0); Hemoglobin 16.8 g/dl (14.0-18.0); Imm Gran Abs Auto 0.03 X10*3/uL (0.00-0.03); Imm Gran Pct Auto 0.3 % (0.0-0.4); Lymphocytes Absolute Auto 2.0 X10*3/uL (1.2-4.9); Mean Corpuscular HGB Conc 35.7 g/dl (31.0-36.0); Mean Corpuscular Hemoglobin 29.2 pg (27.0-33.0); Mean Corpuscular Volume 81.7 fL (80.0-98.0); NRBC Abs Auto 0.000 X10*3/uL (0.0-0.012); NRBC Pct Auto 0.0 /100WBC (0.0-0.2); Platelet Count 207 X10*3/uL (160-400); Red Blood Count 5.75 X10*6/uL (4.60-5.80); White Blood Count 11.6 X10*3/uL (4.8-10.8)
[2025-06-04 23:21] LABS: Alanine Aminotransferase 35 U/L (0-40); Albumin Level 4.5 g/dL (3.5-5.0); Alkaline Phosphatase 78 U/L (39-117); Anion Gap 13 (12-20); Aspartate Amino Transferase 27 U/L (5-37); Blood Urea Nitrogen 15 mg/dL (9-16); Calcium 9.4 mg/dL (8.4-10.2); Carbon Dioxide 24 mmol/L (22-29); Chloride 107 mmol/L (96-108); Creatinine Clr Calc Pharmacy 113.2; Estimated Glomerular Filt Rate > 60; Lipase 31 U/L (8-78); Potassium 3.5 mmol/L (3.3-5.1); Sodium 140 mmol/L (135-145); Total Protein 6.3 g/dL (6.5-8.0)
--- OUTSIDE RECORDS SUMMARY | 2025-06-05 00:03 | XMS_ITS | Clinical Summary ---
Author Organization [facility] Address [address] [place] [phone] Phone Care Team Providers Care Line Up Machine Operator Name Role Phone Deborah Alejandro GENERAL REPAIR MECHANIC Primary Care Provider Deborah Alejandro GENERAL REPAIR MECHANIC Unavailable [phone] Allergies Active Allergy Reactions Criticality Noted Date [...] prescription. Patient plans to schedule cervical cancer screening/CENTRAL PROCESSING TECHNICIAN exam in 1 month. We will follow-up on lesion at that time. Call if any worsening of symptoms. Eczema 09/09/2019 Assessment & Plan (09/09/2019 3:10 PM EST): Advised patient I do not have expertise in dermatology, however, rash appears possibly consistent with nummular eczema or neurotic excoriation. Patient has coming appointment scheduled with carpenter rough. Morbid obesity with body mass index of [...] HEPATITIS C SCREENING 2006 HIV ONE-TIME SCREENING (18-65 YEARS) 2006 HEPATITIS A VACCINES (1 of 2 - Risk 2-dose series) 2007 INFLUENZA VACCINE (#1) 2025 9, 06/28/2019, 08/30/2018, Additional history exists COVID-19 VACCINE ( season) 2025 Adult Td,Tdap Booster 10/01/2025 10/01/2015, 000 HIB VACCINES Completed 02/02/2018, 03/25/1990 PNEUMOCOCCAL VACCINES (0-49 years) Aged Out 02/02/2018 No longer eligible based on patient's age to complete this topic MENINGOCOCCAL VACCINES (ACWY) Aged Out 02/03/2018 No longer eligible based on patient's age to complete this topic MENINGOCOCCAL VACCINES (B) Aged Out N o longer eligible based on patient's age to complete this topic Medical Devices Not on file Insurance [facility] ACO ACO ACO ACO ACO ACO HEALTH SAFETY NET PARTIAL HEALTH SAFETY NET PARTIAL HEALTH SAFETY NET PARTIAL HEALTH SAFETY NET PARTIAL HEALTH SAFETY NET PARTIAL HEALTH SAFETY NET PARTIAL HEALTH SAFETY NET PARTIAL HEALTH SAFETY NET PARTIAL HEALTH SAFETY NET PARTIAL Care Teams Line Up Machine Operator Relationship Specialty Start Date End Date Deborah Alejandro NP [address] [place] [id number] [email or web address] PCP - General Nurse Practitioner 02/04/24 Deborah Alejandro NP [address] [place] [id number] [email or web address] Medicine 02/04/24 Additional Source Comments The information contained in this document represents components of the legal health record. It is not the complete legal health record.[facility]
--- OUTSIDE RECORDS SUMMARY | 2025-06-05 00:03 | XMS_ITS | Clinical Summary ---
Author Organization [facility] [employer] Address [address] [place] [address] Care Team Providers Care Staging Technician Name Role Phone Unavailable Primary Care Provider [...] (2 of 2 - PCV) 02/02/2019 02/02/2018 Tobacco Screening 07/09/2024 07/09/2023 COVID-19 Vaccine ( - season) 2025 Influenza Vaccine (#1) 2025 9, 06/28/2019, 08/30/2018, [...] patient's age to complete this topic Insurance [facility] STAND ADULT
[2025-06-05 00:27] LABS: Appearance Urine Clear; Glucose Urine UA Negative (Negative); PH 6.0 (5.0-9.0); Specific Gravity - Urine 1.025 (1.005-1.025); UMIC TRIGGER UACC YES
[2025-06-05 00:44] LABS: COVID-19 Test Negative (Negative); IDNOW Serial# 55D5AD1C
[2025-06-05 03:18] VITALS: BP 133/95; PULSE 91; RESP 17; TEMP 37.1; O2SAT 98
== END 2025-06-05 03:20 | disposition home or self-care (01) ==
PROVIDERS: Physician Assistant; Physician Assistant Medical; Emergency Provider Emergency Medicine; PCP Nurse Practitioner Family
DX: L03.116 Cellulitis of left lower limb (principal); R53.81 Other malaise; R11.2 Nausea with vomiting, unspecified; R19.7 Diarrhea, unspecified; Z03.818 Encounter for observation for suspected exposure to other biological agents ruled out
CPT/HCPCS: 36415; 80053; 81001; 83605; 83690; 85025; 85652; 86140; 87040; 87635; 96365; 99283; 99284; J1271

== ENCOUNTER 2025-06-28 09:01 | Outpatient (AMB) | payer OTHER, SELFPAY ==
--- NOTE | 2025-06-28 09:03 | MHC.PC.OV ---
Vital Signs 06/28/25 09:08 Height 5 ft 4 in Weight 259 lb 6 oz BMI 44.5 BP 122/70 Blood Pressure Location Lt brachial Position Sitting Respiration 13 Pulse 98 Pulse Source Pulse Oximeter Temp 97.2 F Temp Source Oral Intake Visit Reasons: [facility] - ER f/u from 06/05 Cellulitis Intake Note: [facility] ER follow up from 06/05/25. Orange Picking Supervisor Required: No Allergies adair Allergy (Severe, Verified 06/28/25 09:11) ANAPHYLAXIS cinnamon (CINNAMON) Allergy (Severe, Verified 06/28/25 09:11) MOUTH [employer]ANES PEEL homatropine (From Hycodan (with homatropin)) Allergy (Severe, Verified 06/28/25 09:11) Hives hydrocodone (From Hycodan (with homatropin)) Allergy (Severe, Verified 06/28/25 09:11) Hives adhesive tape (TAPE,ADHESIVE) Allergy (Intermediate, Verified 06/28/25 09:11) HIVES amoxicillin (From Augmentin) Allergy (Unknown, Verified 06/28/25 09:11) rash cefaclor (From CECLOR) Allergy (Unknown, Verified 06/28/25 09:11) RASH clarithromycin (From BIAXIN) Allergy (Unknown, Verified 06/28/25 09:11) RASH clavulanic acid (From Augmentin) Allergy (Unknown, Verified 06/28/25 09:11) rash morphine Allergy (Unknown, Verified 06/28/25 09:11) burning Sulfa (Sulfonamide Antibiotics) Allergy (Unknown, Verified 06/28/25 09:11) rash sulfamethoxazole (From Bactrim) Allergy (Unknown, Verified 06/28/25 09:11) rash trimethoprim (From Bactrim) Allergy (Unknown, Verified 06/28/25 09:11) rash vancomycin Allergy (Unknown, Verified 06/28/25 09:11) hives, redness and hot to touch at IV site glycine (From Gammagard Liquid) Allergy (Verified 06/28/25 09:11) Hives immune globulin,alpha (IgA) greater than 50 mcg/mL (From Gammagard Liquid) Allergy (Verified 06/28/25 09:11) Hives immune globulin,gamma (IgG) human (From Gammagard Liquid) Allergy (Verified 06/28/25 09:11) Hives testosterone Adverse Reaction (Severe, Verified 06/28/25 09:11) Itching metoclopramide (From Reglan) Adverse Reaction (Unknown, Verified 06/28/25 09:11) anxiety Platelet Infusion Set Allergy (Severe, Uncoded 06/28/25 09:04) hives PLATELETS Allergy (Severe, Uncoded 06/28/25 09:04) HIVES Medication List - Last Reconciled 06/28/25 by Deborah Richmond [facility]- albuterol sulfate 90 mcg/actuation 2 puffs inhalation Q4-6H PRN albuterol sulfate 2.5 mg (3 mL) continuous nebulization QID PRN 30 days azithromycin 500 mg PO 3XW 28 days benzonatate 200 mg PO BEDTIME PRN fluconazole 150 mg PO Q3D 2 doses immun glob G(IgG)-pro-IgA 0-50 1 gram/5 mL (20 %) ([facility]) subcut safety needles (BD SafetyGlide Needle) As directed testosterone cypionate mg IM triamcinolone acetonide 0.1% 1 appl topical DAILY PRN 10 days Tobacco use date assessed: 06/28/25 Dental Screening Dental Screen Date: 06/28/25 Did you have a dental visit in the last 12 months?: Yes Did you have a dental problem in the last 6 months where you did not have access to dental care?: No Was dental information given to patient?: Patient has dentist HPI HPI Comments History of Present Illness Details 34-year-old Female to Male with allergic rhinitis, hyperlipidemia, vitamin-D deficiency, idiopathic thrombocytopenia, severe persistent allergic asthma migraine headaches, MDD, generalized anxiety disorder, obesity, former smoker, sarcoidosis status post mediastinal lymph node biopsy with no granuloma. No underlying malignancy. Lung nodules, hepatosplenomegaly, thyroid nodule (1 cm left thyroid hypodense on chest CT 08/31/2023) s/p CTS release on L, Social: working for [employer] and [facility] [place] [facility], living w/ parents Specialists Pulmonology wheel filler - Dr Bassett Hematology/Oncology q 6 months Bariatric - no longer follows [facility] Marley in [place] managing [facility] Hand Surgery - Dr Henao Optho - wears glasses Health maintenance Pap smear 08/13/2022 within normal limits, history of abnormal History of Present Illness The patient is a 34-year-old male presenting for HDF ED visit 06/04 [facility] Dx with LLE Cellulitis IV ABT x 1 Admin DC home w/ 10 days of Doxy Went home and was not able tolerate AB d/t GI upset Took 3 doses only LLE is better. NO more redness pain or swelling. No more fevers. Current issue cont to be GI - Sudden onset vomiting and diarrhea, lasting two days. - Unable to consume food for a week. - Severe stomach burning. - Resumed eating one week ago. - Reports burning stomach pain, - Ceased Monster, switched to Celsius, pain persists. - Sharp abdominal pains; urgent bowel movements. No blood. Black in color. - Blackout and seizure-like activity post-illness x 1 - Dizziness and lightheadedness persisted for two days. - Genital itch; topical cream ineffective. - Prefers and requests oral antifungal treatment. Appt w/ Internal Combustion Engine Subassembler today. Review of Systems - Gastrointestinal: Reports vomiting, diarrhea, burning stomach pain; denies presence of blood in stool. - Neurological: Reports dizziness, lightheadedness, seizure-like movements; blackout episodes evident. - Dermatological: Reports dermatitis flare-up, recent bug bite; denies any new open wounds. - Genitourinary: Reports genital itching; inferior response to topical antifungal. Physical Exam General: Well developed, well nourished, in no acute distress. Appears stated age. Head: Normocephalic, atraumatic. Eyes: scleras nonicteric MMM Abdomen: Bowel sounds present in all quadrants. The abdomen is soft, but tender to touch generally speaking w/o rebound, no masses or organomegaly noted. No hernias are noted. Musculoskeletal: Joints are nontender, without swelling, redness, or effusions. Pulses: Peripheral pulses are equal and palpable bilaterally. Extremities: No clubbing, cyanosis nor edema is noted. LLE no erythema or excessive warmth. Eczema patch medial aspect lower leg, superficial scratch left ankle area Psych: Mood and affect appropriate. Results Pending Discussion Notes I discussed the patient's gastrointestinal symptoms and potential causes, including suspected stomach ulcers and possible bacterial infection, noting the potential for GI bleeding given the history. Management options, including submitting a stool sample before starting omeprazole, were reviewed. I recommended a follow-up with a shuttle van driver for a comprehensive GI workup, particularly if new symptoms arise or tests return positive. We discussed the patient's current dermatitis and the improvement noted, along with avoidance of additional antibiotics due to resolution of symptoms. I ensured the patient was informed about using the patient portal for ease of communication and scheduling. I also provided anticipatory guidance and advised returning promptly if symptoms worsen. Patient was given time to ask questions. All questions were answered to their satisfaction. Assessment and Plan - Stool sample required to test for bacterial infection. - Omeprazole prescribed post-sampling. - Adequate hydration advised. - Omeprazole prescribed to commence post-stool examination. - Recommended avoidance of dietary irritants. Seizure-like episodes - Advised symptom monitoring; emergency services if recurrent. Suspected Yeast Infection - Oral fluconazole prescribed. Patient Instructions - Collect stool sample and return it promptly. - Start omeprazole only after stool sample collection. - Drink more water and avoid irritants like energy drinks. - Use the portal to communicate if new symptoms arise. - If seizure-like symptoms return, seek emergency care. - Take fluconazole as directed for yeast infection. - RTO Nov to fu on results, sooner as needed. Consent Patient was informed and verbally consented to the use of an ambient scribe for clinic note documentation during this visit. Total time spent caring for the patient today was 41 minutes. This includes time spent before the visit reviewing the chart, time spent during the visit, and time spent after the visit on documentation, reviewing laboratory results, diagnostic imaging, medications, performing a medically necessary evaluation, counseling on diagnoses, care coordination, ordering appropriate tests, ordering appropriate medications, review of tests performed by other providers, reporting test results with the patient, communication with other healthcare providers. [facility] Medical History (Updated 06/28/25 @ 09:47 by Deborah Richmond, [facility]) Abnormal Pap smear of cervix Chills Dermatitis Dyslipidemia History of allergic drug reaction History of ITP Hypogammaglobulinemia Hypoglobulinemia IgA deficiency IgG deficiency IgM deficiency ILD (interstitial lung disease) Long-term current use of testosterone replacement therapy Migraine Pulmonary nodule Rhinitis, allergic Smoking Variant angina Vitamin D deficiency Surgical History H/O LEEP History of cardiac cath History of carpal tunnel surgery History of ITP Family History Father HTN (hypertension) Substance use disorder Mental health disorder Mother SLE (systemic lupus erythematosus) Cancer of thyroid Anxiety Depression Mental health disorder Brother Mental health disorder Sister Mental health disorder Social History Housing: Apartment Alcohol intake: unknown Patient Tobacco Use Status: Former Tobacco user Tobacco use type: Cigarette Years Smoked: 15 e-Cigarette/Vaping Use: Currently Using Second Hand Smoke Exposure: No Substance Use Type: Marijuana service: No Current occupational status: employed 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 1. Little interest or pleasure in doing things: not at all 2. Feeling down, depressed, or hopeless: not at all 3. Trouble falling or staying asleep, or sleeping too much: not at all 4. Feeling tired or having little energy: not at all 5. Poor appetite or overeating: not at all 6. Feeling bad about yourself - or that you are a failure or have let yourself or your family down: not at all 7. Trouble concentrating on things, such as reading the newspaper or watching television: not at all 8. Moving or speaking so slowly that other people could have noticed. Or the opposite - being so fidgety or restless that you have been moving around a lot more than usual: not at all 9. Thoughts that you would be better off or of hurting yourself in some way: not at all Total score: 0 Depression Screening Interpretation: Negative Depression Screening Done: Yes 77888 - PHQ-9 Billing: Yes Source: Developed by Drs. Ramsey Kamara, Rufina Willett, Severiano Berg and colleagues, with an educational angel from [email or web address]. Thrive Questionnaire Date Thrive assessed: 01/29/25 I am a: Patient What is your living situation today?: I have a steady place to live Within the past 12 months, did the food you bought not last and you didn't have the money to get more?: I choose not to answer this question Within the past 12 months, did you worry whether your food would run out before you got money to buy more?: I choose not to answer this question Do you have trouble paying for medicines?: No Do you have trouble getting transportation to medical appointments?: No Do you have trouble paying your heating and electricity bill?: No Do you have trouble taking care of your child, family member or friend?: No Do you have trouble with day-to-day activities such as bathing, preparing meals, shopping, managing finances, etc.?: No Are you currently unemployed and looking for a job?: No Are you interested in more education?: No Please select the resources that you would like help with: None Currently or been in a relationship where the following occur: No concerns reported THRIVE Score: 0 TIA-7 AMB Questionnaire TIA-7 Date TIA - 7 assessed: 06/28/25 Feeling nervous, anxious, or on edge: 0 = Not at all Not being able to stop or control worryin = Not at all Worrying too much about different things: 0 = Not at all Trouble relaxin = Not at all Being so restless that it is hard to sit still: 0 = Not at all Becoming easily annoyed or irritable: 0 = Not at all Feeling afraid as if something awful might happen: 0 = Not at all Total TIA-7 score (0-4 normal; 5-9 mild; 10-14 moderate; 15-21 severe): 0 Source: Developed by Drs. Ramsey Kamara, Rufina Willett, Severiano Berg and colleagues, with an educational angel from [employer]. TIA-7 Assessment Billing TIA-7 Assessment Tool: TIA-7 Assessment 57902 Physical exam (Primary Care) Vital Signs: Last Vital Signs Temp 97.2 F 06/28/25 09:08 Pulse 98 06/28/25 09:08 Resp 13 06/28/25 09:08 BP 122/70 06/28/25 09:08 BMI result Body Mass Index 44.5 Tobacco/Smoking Status: Tobacco use Status Tobacco use date assessed 06/28/25 06/28/25 09:06 Patient Tobacco Use Status Former Tobacco user 06/28/25 09:06 Tobacco use type Cigarette 06/28/25 09:06 e-Cigarette/Vaping Use Currently Using 06/28/25 09:06 PHQ-9: PHQ-9 Score PHQ-9: Total score 0 06/28/25 09:06 Depression Screening Interpretation: Negative Thrive Assessment: Date of Thrive Assessment Date Thrive assessed 01/29/25 06/28/25 09:06 Currently or been in a relationship where the following occur: No concerns reported Coding Level of Care Code Est Pt Level 5 (27487) Complex EM visit Add On G2211 Diagnoses Hospital discharge follow-up Z09 Diarrhea, unspecified type R19.7 Diarrhea type: unspecified type Gastroesophageal reflux disease without esophagitis K21.9 Esophagitis presence: without esophagitis Hypogammaglobulinemia D80.1 Olga infection B37.9 Additional Codes TIA-7 Assessment Billing - TIA-7 Assessment Tool: TIA-7 Assessment 98034 ([id number]) PHQ-9 - 43901 - PHQ-9 Billing: Yes ([id number]) Assessment & Plan Assessment & Plan (1) Hospital discharge follow-up: Code(s): Z09 - Encounter for follow-up examination after completed treatment for conditions other than malignant neoplasm (2) Diarrhea: Code(s): R19.7 - Diarrhea, unspecified Category: Medical Qualifiers: Diarrhea type: unspecified type Qualified Code(s): R19.7 - Diarrhea, unspecified (3) GERD (gastroesophageal reflux disease): Code(s): K21.9 - Gastro-esophageal reflux disease without esophagitis Category: Medical Qualifiers: Esophagitis presence: without esophagitis Qualified Code(s): K21.9 - Gastro-esophageal reflux disease without esophagitis (4) Hypogammaglobulinemia: Code(s): D80.1 - Nonfamilial hypogammaglobulinemia Category: Medical (5) Olga infection: Comment: Vulvovaginal with bacterial vaginosis Code(s): B37.9 - Candidiasis, unspecified Category: Medical Plan . Orders: Orders GI Panel Today K21.9 - Gastro-esophageal reflux disease without esophagitis, R19.7 - Diarrhea, unspecified OBSX3 Today K21.9 - Gastro-esophageal reflux disease without esophagitis, R19.7 - Diarrhea, unspecified H pylori Ag Stool Today K21.9 - Gastro-esophageal reflux disease without esophagitis, R19.7 - Diarrhea, unspecified Referrals Gastroenterology Referral K21.9 - Gastro-esophageal reflux disease without esophagitis, R19.7 - Diarrhea, unspecified Medications: New omeprazole 40 mg PO DAILY 90 caps 0RF Refilled fluconazole take 1 tab day 1, repeat second dose on day 3 150 mg PO Q3D 2 tabs 0RF 2 doses Discontinued prednisone Discontinued Reason: Order 50 mg PO DAILY 5 days 5 tabs 0RF fluconazole take 1 tab day 1, repeat second dose on day 3 Discontinued Reason: Patient Completed Course 150 mg PO Q3D 2 tabs 0RF terconazole 0.8% Discontinued Reason: Patient Completed Course 1 appful vaginal BEDTIME 3 days 20 grams 0RF
[2025-06-28 09:08] VITALS: BP 122/70; PULSE 98; RESP 13; TEMP 36.2; BMI 44.5
--- OUTSIDE RECORDS SUMMARY | 2025-06-28 09:45 | XMS_ITS | Clinical Summary ---
Author Organization [address] [facility] Address [address] [place] [address] Phone Care Team Providers Care Wood Miller Name Role Phone Deborah Richmond Primary Care Provider Social History Tobacco Use Types Packs/Day Years Used Date Smoking Tobacco: Never Assessed Sex and Gender Information Value Date Recorded Sex Assigned at Not on file Legal Sex Male 11:15 AM EDT Gender Identity Not on file Sexual Orientation Not on file Plan of Treatment Upcoming Encounters Date Type Department Care Team ([facility] Contact Info) Description 07/17/2025 1:00 PM EDT Office Visit Orthopedic Surgery [facility] [address] [facility] [address] [place] [address] Courtney Henao MD [address] [place] [phone] Health Maintenance Due Date Last Done Comments DTaP,Tdap,and Td Vaccines (1 - Tdap) 2007 Hepatitis B Vaccines (1 of 3 - 19+ 3-dose series) 2007 HPV Vaccines (1 - 3-dose SCD M series) 2015 Depression Screening 09/27/2024 Cholesterol Screening (Lipid Panel) 05/21/2025 HIV Screening 05/21/2025 Hepatitis C Screening 05/21/2025 Social Influencers of Health Screening 05/21/2025 COVID-19 Vaccine ( - 2023-2 5 season) 2025 Influenza Vaccine (#1) 2025 RSV Immunization Adult Patie nts (1 - 1-dose 75+ series) 2063 HIB Vaccines Aged Out No longer eligi ble based on patient's age to complete this topic Hepatitis A Vaccines Aged Out No long er eligible based on patient's age to complete this topic IPV Vaccines Aged Out No longer eligi ble based on patient's age to complete this topic MMR Vaccines Aged Out No longer eligi ble based on patient's age to complete this topic Meningococcal ACWY Vaccine Aged Out N o longer eligible based on patient's age to complete this topic Meningococcal B Vaccine Aged Out No l onger eligible based on patient's age to complete this topic Pneumococcal Vaccine: Pediat rics (0 to 5 Years) and At-Risk Patients (6 to 49 Years) Aged Out No longer eligible b ased on patient's age to complete this topic RSV Immunization Patients Un idalmis 20 months Aged Out No longer eligible b ased on patient's age to complete this topic Varicella Vaccines Aged Out No longer eligible based on patient's age to complete this topic Insurance [facility] Care Teams Wood Miller Relationship Specialty Start Date End Date Deborah Richmond FNP [address] [place] [address] [address] [place] [phone] PCP - General Nurse Practitioner 05/21/25
--- OUTSIDE RECORDS SUMMARY | 2025-06-28 09:45 | XMS_ITS | Clinical Summary ---
Author Organization [facility] [employer] Address [address] [facility] [address] [place] [address] Care Team Providers Care Direct Chill Caster Name Role Phone Unavailable Primary Care Provider [...] patient's age to complete this topic Insurance [facility] STAND ADULT
--- OUTSIDE RECORDS SUMMARY | 2025-06-28 09:45 | XMS_ITS | Clinical Summary ---
Author Organization [facility] Address [address] [place] [phone] Phone Care Team Providers Care Division Chair Name Role Phone Deborah Alejandro SHIELD RUNNER Primary Care Provider Deborah Alejandro SHIELD RUNNER Unavailable [phone] Allergies Active Allergy Reactions Criticality Noted Date [...] prescription. Patient plans to schedule cervical cancer screening/VP SALES exam in 1 month. We will follow-up on lesion at that time. Call if any worsening of symptoms. Eczema 09/09/2019 Assessment & Plan (09/09/2019 3:10 PM EST): Advised patient I do not have expertise in dermatology, however, rash appears possibly consistent with nummular eczema or neurotic excoriation. Patient has coming appointment scheduled with medical detailist. Morbid obesity with body mass index of [...] topic Medical Devices Not on file Insurance [facility] ACO ACO ACO ACO ACO ACO HEALTH SAFETY NET PARTIAL HEALTH SAFETY NET PARTIAL HEALTH SAFETY NET PARTIAL HEALTH SAFETY NET PARTIAL HEALTH SAFETY NET PARTIAL HEALTH SAFETY NET PARTIAL HEALTH SAFETY NET PARTIAL HEALTH SAFETY NET PARTIAL HEALTH SAFETY NET PARTIAL Care Teams Division Chair Relationship Specialty Start Date End Date Deborah Alejandro NP [address] [place] [phone] [email or web address] PCP - General Nurse Practitioner 02/04/24 Deborah Alejandro NP [address] [place] [phone] [email or web address] 02/04/24 Additional Source Comments The information contained in this document represents components of the legal health record. It is not the complete legal health record.[facility]
== END 2025-06-28 09:29 | disposition home or self-care (01) ==
LOC: HO.HMCFM 09:01
PROVIDERS: PCP Nurse Practitioner Family; Visit Provider Nurse Practitioner Family
DX: Z09 Encounter for follow-up examination after completed treatment for conditions other than malignant neoplasm (principal); R19.7 Diarrhea, unspecified; K21.9 Gastro-esophageal reflux disease without esophagitis; D80.1 Nonfamilial hypogammaglobulinemia; B37.9 Candidiasis, unspecified

== ENCOUNTER → 2025-06-28 09:01 | Outpatient (BNVA) | payer OTHER, SELFPAY | PROVIDERS: PCP Nurse Practitioner Family; Visit Provider Nurse Practitioner Family | DX: K21.9 Gastro-esophageal reflux disease without esophagitis (principal); R19.7 Diarrhea, unspecified; D80.1 Nonfamilial hypogammaglobulinemia; B37.9 Candidiasis, unspecified | CPT/HCPCS: 96127; 99212 ==

== ENCOUNTER 2025-07-06 11:24 | Outpatient (AMB) | payer OTHER, SELFPAY ==
[2025-07-06 11:53] VITALS: BP 124/76; PULSE 86; TEMP 36.8; O2SAT 96; BMI 43.8
--- NOTE | 2025-07-06 11:53 | AM.OFFWIN_ITS ---
Intake Vital Signs 07/06/25 11:53 Height 5 ft 4 in Weight 255 lb BMI 43.8 BP 124/76 Blood Pressure Location Lt brachial Position Sitting Pulse 86 Pulse Source Pulse Oximeter Temp 98.2 F Temp Source Oral Pulse Oximetry (%) 96 Oxygen Delivery Method Room Air Intake Visit Reasons: EP-cold symptoms Intake Note: pt presents with chest congestion with productive cough, difficult to catch breath, sinus congestion with post nasal drip Patient Tobacco Use Status: Former Tobacco user Allergies adair Allergy (Severe, Verified 07/06/25 11:55) ANAPHYLAXIS cinnamon (CINNAMON) Allergy (Severe, Verified 07/06/25 11:55) MOUTH MEMBRANES PEEL homatropine (From Hycodan (with homatropin)) Allergy (Severe, Verified 07/06/25 11:55) Hives hydrocodone (From Hycodan (with homatropin)) Allergy (Severe, Verified 07/06/25 11:55) Hives adhesive tape (TAPE,ADHESIVE) Allergy (Intermediate, Verified 07/06/25 11:55) HIVES amoxicillin (From Augmentin) Allergy (Unknown, Verified 07/06/25 11:55) rash cefaclor (From CECLOR) Allergy (Unknown, Verified 07/06/25 11:55) RASH clarithromycin (From BIAXIN) Allergy (Unknown, Verified 07/06/25 11:55) RASH clavulanic acid (From Augmentin) Allergy (Unknown, Verified 07/06/25 11:55) rash morphine Allergy (Unknown, Verified 07/06/25 11:55) burning Sulfa (Sulfonamide Antibiotics) Allergy (Unknown, Verified 07/06/25 11:55) rash sulfamethoxazole (From Bactrim) Allergy (Unknown, Verified 07/06/25 11:55) rash trimethoprim (From Bactrim) Allergy (Unknown, Verified 07/06/25 11:55) rash vancomycin Allergy (Unknown, Verified 07/06/25 11:55) hives, redness and hot to touch at IV site glycine (From Gammagard Liquid) Allergy (Verified 07/06/25 11:55) Hives immune globulin,alpha (IgA) greater than 50 mcg/mL (From Gammagard Liquid) Allergy (Verified 07/06/25 11:55) Hives immune globulin,gamma (IgG) human (From Gammagard Liquid) Allergy (Verified 07/06/25 11:55) Hives testosterone Adverse Reaction (Severe, Verified 07/06/25 11:55) Itching metoclopramide (From Reglan) Adverse Reaction (Unknown, Verified 07/06/25 11:55) anxiety Platelet Infusion Set Allergy (Severe, Uncoded 06/28/25 09:04) hives PLATELETS Allergy (Severe, Uncoded 06/28/25 09:04) HIVES Do you need a note to return to daycare/school/sports/work: Yes HPI HPI Comments History of Present Illness Details History - The patient is a 34-year-old male with past med hx of asthma presenting with cold symptoms x2 days. - His asthma is managed with albuterol i nhaler and nebulizer, which isn't helping much for the last 2 days. - His symptoms include chest tightness, dyspnea, and wheezing, with oxygen saturation at 95-96%. Also feeling feverish sensations, chills, and productive cough with thick yellow sputum. 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 Physical Exam General: Cooperative, healthy appearing, comfortable and no acute distress Orientation/consciousness: Patient oriented x3 Limitations: No limitations Head: Normal to inspection Ears: Hearing grossly normal bilaterally, external ears normal and TM's normal bilaterally Nose: Normal external nose present, Normal nares present and No nasal discharge present Face and sinus: Normal facial exam and Yes sinuses slightly tender Mouth: Normal oral and palatal mucosa present and moist mucous membranes Throat: Yes tonsils normal, Yes uvula midline. Posterior oropharynx erythema, no exudates Eyes: Appearance normal, both eyes and all related structures Neck: Normal visual inspection, full ROM Respiratory: Slight inspiratory and expiratory wheeze noted. Normal respiratory effort, able to speak in complete sentences, Actively coughing, no respiratory distress, not tachypneic, no tripod positioning and no use of accessory muscles. Cardiovascular: Regular rate and rhythm. Normal S1 and S2 Skin: No rashes or lesions noted Neuro: Patient oriented x3 Extremities: Normal to inspection and Yes no clubbing, cyanosis or edema Review of Systems - Respiratory: Reports dyspnea, wheezing , and productive cough with thick yellow sputum. - General: Reports feverish sensations a nd chills. All systems reviewed and are unremarkable except as noted in HPI [facility] Medical History (Updated 07/06/25 @ 12:31 by Anjana Singh PA-C) IgG deficiency Hypoglobulinemia Smoking IgM deficiency IgA deficiency Chills Hypogammaglobulinemia Long-term current use of testosterone replacement therapy ILD (interstitial lung disease) Pulmonary nodule Abnormal Pap smear of cervix History of allergic drug reaction Rhinitis, allergic Dermatitis Variant angina Dyslipidemia Vitamin D deficiency History of ITP Migraine Surgical History History of cardiac cath History of carpal tunnel surgery History of ITP H/O LEEP Family History Father HTN (hypertension) Substance use disorder Mental health disorder Mother SLE (systemic lupus erythematosus) Cancer of thyroid Anxiety Depression Mental health disorder Brother Mental health disorder Sister Mental health disorder Social History Housing: Apartment Alcohol intake: unknown Patient Tobacco Use Status: Former Tobacco user Tobacco use type: Cigarette Years Smoked: 15 e-Cigarette/Vaping Use: Currently Using Second Hand Smoke Exposure: No Substance Use Type: Marijuana service: No Current occupational status: employed Current occupation: [employer] [place] Current occupational exposures/hazards: No Sexual orientation: Lesbian/[place]in[place]/Homosexual Gender identity: Female Cognitive needs: No Hearing needs: No Vision needs: No Review of Systems Const All systems reviewed & are unremarkable except as noted in HPI and below Reports no additional complaints Eyes Reports no additional complaints ENT Reports no additional complaints Card Reports no additional complaints Resp Reports no additional complaints GI Reports no additional complaints Reports no additional complaints Musc Reports no additional complaints Skin/Breast Reports system reviewed and no additional complaints, except as documented Neuro Reports no additional complaints Psych Reports no additional complaints Endo Reports no additional complaints Kian/Lymph Reports no additional complaints Aller/Immun Reports no additional complaints Physical Exam Exam Exam: Vital signs reviewed. Constitutional: Non-toxic appearing. No acute distress. Well-developed and well-nourished. HEENT: Normocephalic and atraumatic. Tympanic membranes without erythema, edema, or bulging bilaterally. External auditory canals without erythema or edema bilaterally. Moist mucous membranes. No pharyngeal erythema or exudates. Skin: Warm and dry. No rashes or lesions noted. Neck: Full and painless range of motion. No cervical lymphadenopathy. Cardio: Regular rate and rhythm. No murmurs, gallops, or rubs. No lower extremity edema. No JVD. Pulmonary: No respiratory distress. No accessory muscle usage. Clear to auscultation bilaterally without wheezing, crackles, or rhonchi. Gastrointestinal: Soft, nontender, and nondistended in all 4 quadrants. Normoactive bowel sounds in all 4 quadrants. Genitourinary: No CVA tenderness. Musculoskeletal: Normal range of motion in joints throughout the body. No deformity or other signs of injury. Neuro: Alert and oriented x4. Cranial nerves 2-12 grossly intact. No focal deficits appreciated. Psych: Normal mood and affect. Vital Signs: Last Vital Signs Temp 98.2 F 07/06/25 11:53 Pulse 86 07/06/25 11:53 BP 124/76 07/06/25 11:53 Pulse Ox 96 07/06/25 11:53 Oxygen Delivery Method Room Air 07/06/25 11:53 BMI result Body Mass Index 43.8 Assessment & Plan Assessment & Plan (1) Asthma exacerbation, mild: Code(s): J45.901 - Unspecified asthma with (acute) exacerbation Plan: Plan Patient was informed and verbally consented to the use of an ambient scribe for clinic note documentation during this visit. - VSS, pt well appearing and PE remarkable for ins/exp wheezes. - Continue using albuterol inhaler and nebulizer every four to six hours. - Prescribed an 8-day prednisone taper starting at 40 mg for two days. - Sent viral panel - Recommended Tylenol for fever and Advil for body aches. - Suggested using Coriceden for symptom relief, tylenol and advil. (2) Lower respiratory infection (e.g., bronchitis, pneumonia, pneumonitis, pulmonitis): Code(s): J22 - Unspecified acute lower respiratory infection Plan: as above Orders: Orders Resp Pathogen Panel - [facility] Today J06.9 - Acute upper respiratory infection, unspecified Medications: New prednisone take 4 tablets on days 1-2, take 3 tablets on days 3-4, take 2 tablets on days 5-6, take 1 tablet on days 7-8. 10 mg PO DIRECTED 20 tabs 0RF benzonatate 200 mg PO BEDTIME PRN 10 caps 0RF cough Coding Level of Care Code Est Pt Level 3 (54877) Diagnoses Asthma exacerbation, mild J45.901 Lower respiratory infection (e.g., bronchitis, pneumonia, pneumonitis, pulmonitis) J22
== END 2025-07-06 12:33 | disposition home or self-care (01) ==
PROVIDERS: PCP Nurse Practitioner Family; Visit Provider Physician Assistant
DX: J45.901 Unspecified asthma with (acute) exacerbation (principal); J22 Unspecified acute lower respiratory infection

== ENCOUNTER 2025-07-06 11:24 | Outpatient (REF) | payer OTHER, SELFPAY ==
[2025-07-07 12:29] LABS: Chlamydia pneumoniae PCR Not Detected (Not Detect.); Coronavirus 229E PCR Not Detected (Not Detect.); Coronavirus HKU1 PCR Not Detected (Not Detect.); Coronavirus NL63 PCR Not Detected (Not Detect.); Coronavirus OC43 PCR Not Detected (Not Detect.); RSV PCR Not Detected (Not Detect.); Rhino/Enterovirus PCR Detected (Not Detect.); SARS-CoV-2 PCR Not Detected (Not Detect.)
[2025-07-07 12:33] LABS: Influenza A H1 PCR Not Detected (Not Detect.); Influenza A H1-2009 PCR Not Detected (Not Detect.); Influenza A H3 PCR Not Detected (Not Detect.)
== END 2025-07-06 11:25 | disposition home or self-care (01) ==
LOC: HO.LAB 11:24
PROVIDERS: PCP Nurse Practitioner Family; Visit Provider Physician Assistant
DX: J45.901 Unspecified asthma with (acute) exacerbation (principal); J22 Unspecified acute lower respiratory infection; Z87.891 Personal history of nicotine dependence
CPT/HCPCS: 87633; 99212

== ENCOUNTER 2025-07-20 09:00 | Outpatient (REF) | payer OTHER, SELFPAY ==
--- OUTSIDE RECORDS SUMMARY | 2025-07-20 09:48 | XMS_ITS | Clinical Summary ---
Author Organization [facility] Address [address] [place] [id number] Phone Care Team Providers Care Office Machine Installer Name Role Phone Deborah Alejandro DROP WIRE BUILDER Primary Care Provider Deborah Alejandro DROP WIRE BUILDER Unavailable [phone] Allergies Active Allergy Reactions Criticality Noted Date [...] prescription. Patient plans to schedule cervical cancer screening/MANAGER PULMONARY exam in 1 month. We will follow-up on lesion at that time. Call if any worsening of symptoms. Eczema 09/09/2019 Assessment & Plan (09/09/2019 3:10 PM EST): Advised patient I do not have expertise in dermatology, however, rash appears possibly consistent with nummular eczema or neurotic excoriation. Patient has coming appointment scheduled with tinter photograph. Morbid obesity with body mass index of [...] topic Medical Devices Not on file Insurance [facility] ACO ACO ACO ACO ACO ACO HEALTH SAFETY NET PARTIAL HEALTH SAFETY NET PARTIAL HEALTH SAFETY NET PARTIAL HEALTH SAFETY NET PARTIAL HEALTH SAFETY NET PARTIAL HEALTH SAFETY NET PARTIAL HEALTH SAFETY NET PARTIAL HEALTH SAFETY NET PARTIAL HEALTH SAFETY NET PARTIAL Care Teams Office Machine Installer Relationship Specialty Start Date End Date Deborah Alejandro NP [address] [place] [id number] [email or web address] PCP - General Nurse Practitioner 02/04/24 Deborah Alejandro NP [address] [place] [phone] [email or web address] 02/04/24 Additional Source Comments The information contained in this document represents components of the legal health record. It is not the complete legal health record.[facility]
== END 2025-07-20 09:01 | disposition home or self-care (01) ==
LOC: HO.HOSX 09:00
DX: Z13.89 Encounter for screening for other disorder (principal)

== ENCOUNTER 2025-08-13 08:09 | Outpatient (REF) | payer OTHER, SELFPAY ==
--- NOTE | ~2025-08-13 | XR_ITS ---
EXAMINATION: XR KNEE, LEFT CLINICAL INFORMATION: M25.562 - Pain in left knee COMPARISON: None available. TECHNIQUE: AP bilateral knees one view. Left knee 2 views . FINDINGS: Left knee: Small tricompartmental marginal spurring. No visible acute fracture, dislocation or suspicious bony lesion. No significant effusion. No abnormal soft tissue calcification. Right knee: Small marginal spurring in the medial and lateral compartment. XR/XR knee LT 3V IMPRESSION: Left knee: No acute findings.. Mild degeneration. Electronically signed by: Kyle Solorzano MD 08/13/2025 04:21 PM REYNALDO
== END 2025-08-13 08:10 | disposition home or self-care (01) ==
LOC: HO.HOSX 08:09
DX: G89.29 Other chronic pain (principal); M22.2X2 Patellofemoral disorders, left knee; M17.12 Unilateral primary osteoarthritis, left knee
CPT/HCPCS: 73562; 99202

== ENCOUNTER 2025-08-13 10:57 | Outpatient (AMB) | payer OTHER, SELFPAY ==
--- NOTE | 2025-08-13 11:06 | MHC.OFFVIS ---
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 Patient reports pain began while he was in High School. Patient complains of pain all around the knee. Patient states he got injured while playing volleyball and never got medical attention. He finds the pain worses with the use of stairs or with weather changes. Patient has been experiencing giving away and occasional clicking. He is taking Ibuprofen PRN with some relief. He denies any previous surgeries to the left knee. 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 Patient was referred to Physical Therapy by PCP however the referral did not get processed. Patient sees Dr. Henao for his hand problems. Allergies adair Allergy (Severe, Verified 08/13/25 11:07) ANAPHYLAXIS cinnamon (CINNAMON) Allergy (Severe, Verified 08/13/25 11:07) MOUTH MEMBRANES PEEL homatropine (From Hycodan (with homatropin)) Allergy (Severe, Verified 08/13/25 11:07) Hives hydrocodone (From Hycodan (with homatropin)) Allergy (Severe, Verified 08/13/25 11:07) Hives adhesive tape (TAPE,ADHESIVE) Allergy (Intermediate, Verified 08/13/25 11:07) HIVES amoxicillin (From Augmentin) Allergy (Unknown, Verified 08/13/25 11:07) rash cefaclor (From CECLOR) Allergy (Unknown, Verified 08/13/25 11:07) RASH clarithromycin (From BIAXIN) Allergy (Unknown, Verified 08/13/25 11:07) RASH clavulanic acid (From Augmentin) Allergy (Unknown, Verified 08/13/25 11:07) rash morphine Allergy (Unknown, Verified 08/13/25 11:07) burning Sulfa (Sulfonamide Antibiotics) Allergy (Unknown, Verified 08/13/25 11:07) rash sulfamethoxazole (From Bactrim) Allergy (Unknown, Verified 08/13/25 11:07) rash trimethoprim (From Bactrim) Allergy (Unknown, Verified 08/13/25 11:07) rash vancomycin Allergy (Unknown, Verified 08/13/25 11:07) hives, redness and hot to touch at IV site glycine (From Gammagard Liquid) Allergy (Verified 08/13/25 11:07) Hives immune globulin,alpha (IgA) greater than 50 mcg/mL (From Gammagard Liquid) Allergy (Verified 08/13/25 11:07) Hives immune globulin,gamma (IgG) human (From Gammagard Liquid) Allergy (Verified 08/13/25 11:07) Hives testosterone Adverse Reaction (Severe, Verified 08/13/25 11:07) Itching metoclopramide (From Reglan) Adverse Reaction (Unknown, Verified 08/13/25 11:07) anxiety Platelet Infusion Set Allergy (Severe, Uncoded 08/13/25 11:07) hives PLATELETS Allergy (Severe, Uncoded 08/13/25 11:07) HIVES HPI HPI 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 Patient reports pain began while he was in High School. Patient complains of pain all around the knee. Patient states he got injured while playing volleyball and never got medical attention. He finds the pain worses with the use of stairs or with weather changes. Patient reports the pain is localized around the patella of the left knee, with occasional discomfort in medial and lateral joint lines. Patient has been experiencing giving away and occasional clicking. He is taking Ibuprofen PRN with some relief. He denies any previous surgeries to the left knee. 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 Patient was referred to Physical Therapy by PCP however the referral did not get processed. Patient sees Dr. Henao for his hand problems. [facility] Medical History (Updated 08/13/25 @ 11:25 by MIKA Boogie) IgG deficiency Hypoglobulinemia Smoking IgM deficiency IgA deficiency Chills Hypogammaglobulinemia Long-term current use of testosterone replacement therapy ILD (interstitial lung disease) Pulmonary nodule Abnormal Pap smear of cervix History of allergic drug reaction Rhinitis, allergic Dermatitis Variant angina Dyslipidemia Vitamin D deficiency History of ITP Migraine Surgical History History of cardiac cath History of carpal tunnel surgery History of ITP H/O LEEP Family History Father HTN (hypertension) Substance use disorder Mental health disorder Mother SLE (systemic lupus erythematosus) Cancer of thyroid Anxiety Depression Mental health disorder Brother Mental health disorder Sister Mental health disorder Social History (Updated 08/13/25 @ 11:14 by MATTHEW Newton) Housing: Apartment Alcohol intake: current Alcohol intake frequency: holidays/special occasions only Patient Tobacco Use Status: Former Tobacco user Tobacco use type: Cigarette Years Smoked: 15 e-Cigarette/Vaping Use: Currently Using Second Hand Smoke Exposure: No Substance Use Type: Marijuana Substance Use Frequency: Daily service: No Current occupational status: employed 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[employer], 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 Current occupational exposures/hazards: No Sexual orientation: Lesbian/[place]/Homosexual Gender identity: Female Cognitive needs: No Hearing needs: No Vision needs: No Review of Systems Const All systems reviewed & are unremarkable except as noted in HPI and below Physical Exam Vital Signs: BMI result Body Mass Index 43.8 Extrem Other: Patient's left knee normal to inspection No erythema, ecchymosis, edema noted No lacerations, abrasions, open areas No evidence of infection Patient reports some tenderness to palpation about the left patella Some tenderness to palpation of posterior knee, very minimal Patient reports no tenderness to palpation of the medial or lateral joint lines of the left knee Patient is able to extend the left knee to 0 degrees and flex to approximately 110 degrees without difficulty Very mildly positive Nathanael's in the medial joint line No ligamentous laxity with varus and valgus testing Negative anterior and posterior drawer Significant discomfort with patellar grind of the left knee Negative patellar apprehension Distal sensation intact Capillary refill brisk Results Reviewed Results Reviewed: X-rays obtained in the office today and independently reviewed by me, Jorge Rocha PA-C, demonstrate lateralization of the left patella with degenerative changes consistent with mild patellofemoral joint arthritis. Assessment & Plan Assessment & Plan (1) Patellofemoral arthralgia of left knee: Code(s): M25.562 - Pain in left knee Category: Medical Plan 1. Patellofemoral joint arthritis and arthralgia of left knee Patient is educated about this condition Patient is educated about the typical treatment course At this time, patient is referred to physical therapy for range of motion, strengthening, stabilization, particularly quad strengthening of the left knee in the setting of patellofemoral arthralgia Patient is unable to fit into the patellar stabilization brace that we have in the office, therefore a request will be made for a size that will fit the patient well Patient will be able to pick this up from our office when it is in Patient understands this and is amenable to this plan If patient does not experience significant improvement with physical therapy, may call our office for further evaluation and other treatment options, including but not limited to injections, otherwise follow-up p.r.n. Orders: Orders XR knee LT 3V Today M25.562 - Pain in left knee PT Evaluation and Treatment 05/17/25 G89.29 - Other chronic pain, M25.562 - Pain in left knee Coding Level of Care Code New Pt Level 3 (90909) Diagnoses Patellofemoral arthralgia of left knee M25.562
[2025-08-13 11:07] VITALS: BMI 43.8
== END 2025-08-13 11:40 | disposition home or self-care (01) ==
LOC: HO.HOS 10:58
PROVIDERS: PCP Nurse Practitioner Family
DX: M25.562 Pain in left knee (principal)
CPT/HCPCS: 99203

== ENCOUNTER 2025-09-12 09:01 | Outpatient (AMB) | payer OTHER, SELFPAY ==
--- OUTSIDE RECORDS SUMMARY | 2025-09-10 08:00 | XMS_ITS | Encounter Summary ---
Author Organization [facility] Address [id number] [place] [phone] Care Team Providers Care Aitchbone Breaker Name Role Phone Deborah [place] Primary Care Provider [phone] Reason for Visit * Reason Comments Consult Numbness/tingling, p ain in thumb that radiates into wrist * Consultation (Routine) - Authorized Specialty Diagnoses / Procedures Referred By Liang t Referred To Contact Orthopedic Surgery / Orthopaedic Surgery Diagnoses Carpal tunnel syndrome, right upper limb Deborah [place] FNP [address] [place] [address] [place] [address] Phone: tel: Courtney Henao MD [address] [place] [phone] Phone: tel: fax: Referral ID Status Reason Start Date Expiration Date Visits Requested Visits Authorized [id number] Authorized Specialty Services Required 05/21/2025 05/21/2026 1 1 Encounter Details Date Type Department Care Team (Latest Contact Info) Description 09/10/2025 8:00 AM EST Office Visit Orthopedic Surgery - [place] [address] [phone] Courtney Henao MD [address] [phone] Arthritis of carpometacarpal (CMC) joint of right thumb (Primary Dx); Carpal tunnel syndrome of right wrist Social History Tobacco Use Types Packs/Day Years Used Date Smoking Tobacco: Never Assessed Sex and Gender Information Value Date Recorded Sex Assigned at Not on file Legal Sex Male 11:15 AM EDT Gender Identity Not on file Sexual Orientation Not on file documented as of this encounter Last Filed Vital Signs Vital Sign Reading Time Taken Comments Blood Pressure - - Pulse - - Temperature - - Respiratory Rate - - Oxygen Saturation - - Inhaled Oxygen Concentration - - Weight 109 kg (240 lb) 09/10/2025 8:09 AM EST Height 162.6 cm (5' 4 ) 09/10/2025 8:09 AM EST Body Mass Index 41.2 09/10/2025 8:09 AM EST documented in this encounter Progress Notes * Courtney Henao MD - 09/10/2025 8:00 AM EST [facility] Hand & Wrist Surgery Date: 09/10/2025 CHIEF COMPLAINT/REASON FOR VISIT: Right hand pain and numbness SUBJECTIVE: The patient is a 35-year-old male, [id number], here today because of progressive pain and numbness in the right hand. It turns out that took care of the patient a number of years ago for a left endoscopic carpal tunnel release. The patient now has noticed increased numbness and pain. He also reports difficulty with pinch and grasp and lifting. In addition he is having nocturnal numbness and tingling that wakes him up. 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 Of note patient has a past history of idiopathic thrombocytopenia. He had 4 rounds of what sounds like chemotherapy. His immune system required monitoring and he is currently getting immunoglobulin supplementation. He sees an gaming cage cashier at the [facility]. OBJECTIVE: Visit Vitals Ht 1.626 m (64 ) Wt 109 kg (240 lb) BMI 41.20 kg/m?? BSA 2.12 m?? On exam here today there is no obvious redness swelling or induration of either hand. There is no thenar or hypothenar intrinsic atrophy. Skin and nails appear normal. There are some scabs around theeponychium of the left thumb. Patient states that it is a nervous habit that he picks at the skin. There is an old scar on the volar surface of the left wrist consistent with prior endoscopic carpal tunnel release. It is soft and well healed. The patient has intact pulses. Patient is able to flex extend abduct adduct the fingers and circumduct both thumbs as well as flex and extend both wrists. There is no evidence of any joint swelling, synovitis, or tenosynovitis along the flexors or extensors. At rest the patient subjectively reports a light tingle on the tips of the right thumb index and long less on the ring and not on the small. This is not made worse by Tinel's or Phalen's on the right. He has a negative Tinel's and Phalen's on the left. There is no palpable tenderness over the cubital canal on either elbow. XR Fingers 2+ Views bilat AP, lateral, oblique of both thumb rays were obtained on 09/10/2025. There are no prior images available for comparison. There are no obvious fractures, lytic lesions, or unusual calcifications. There is some basal joint arthritis noted primarily on the right side. This is exhibited by diminished joint space, osteophyte formation, and sclerosis. STT joint is maintained. Impression: Right basal joint arthritis ASSESSMENT: 1. Arthritis of carpometacarpal (CMC) joint of right thumb XR Fingers 2+ Views bilat 2. Carpal tunnel syndrome of right wrist Patient has 2 issues here. Definitely has some carpal tunnel happening on the right but also some basal joint arthritis. I went over each of these entities with him. Treatment options for the carpal tunnel would be to proceed with carpal tunnel release. We could also do a steroid injection. The thumb arthritis is a little bit more challenging as there is not a cure for it. Basically symptom management is where we start. CMC restriction splinting of some sort can be utilized for comfort.Activity modification and then occasional use of steroid injections can be performed. There is a surgery we do down the road if someone has exhausted all other measures and remains unacceptably sympto matic. This is a interpositional arthroplasty. I do not think this is what he needs right now I just reviewed it for the sake of discussion. PLAN: What I would recommend is that we address the carpal tunnel part of this. It obviously will make animpact on the arthritic part but at least hopefully take pressure off of the nerve. He would need to take some time off from work thereafter to let things heal. Patient remembers this from the last time. He is amenable to proceeding. We will start making the necessary arrangements. Courtney Henao MD Problem List[1] has a past surgical history that includes Carpal tunnel release (Left, 2019). Home Medications budesonide (PULMICORT) 0.5 mg/2 mL nebulizer solution Mix 1 ampule in 8 ounces saline to irrigate the nasal sinuses once daily EPINEPHrine (EPIPEN) 0.3 mg/0.3 mL injection immun glob G,IgG,-pro-IgA 0-50 (Hizentra) 1 gram/5 mL (20 %) solution Inject 12 g under the skin. Jencycla 0.35 mg tablet Take 1 tablet (0.35 mg total) by mouth 1 (one) time each day. omeprazole (PriLOSEC) [address] capsule Take 1 capsule (40 mg total) by mouth 1 (one) time each day. testosterone cypionate (DEPO-TESTOTERONE) 200 mg/mL injection INJECT 0.4ML UNDER THE SKIN EVERY 7 DAYS. SINGLE USE VIALS. DISCARD VIAL AFTER FIRST USE. Ventolin HFA 90 mcg/actuation inhaler INHALE TWO PUFFS BY MOUTH EVERY 4 TO 6 HOURS NEEDED FOR FOR SHORTNESS OF BREATH OR WHEEZING has no history on file for tobacco use, alcohol use, and drug use. [1] Patient Active Problem List Diagnosis Arthritis of carpometacarpal (CMC) joint of right thumb Carpal tunnel syndrome of right wrist documented in this encounter Plan of Treatment Upcoming Encounters Date Type Department Care Team (Latest Contact Info) Description 10/12/2025 10:45 AM EST Consult Orthopedic Surgery - [place] [address] [phone] Courtney Henao MD [address] [phone] 10/17/2025 12:45 PM EST Hospital Encounter [facility] Main OR [address] [place] [phone] Courtney Henao MD [address] [phone] 10/17/2025 12:45 PM EST - 10/17/2025 2:30 PM EST Surgery [facility] Main OR [address] [place] [phone] Courtney Henao MD 175 [facility] [address] [place] [phone] ENDOSCOPIC RELEASE RIGHT CARPAL TUNNEL ? OPEN [[id number] (CPT )] 10/26/2025 11:30 AM EST Office Visit Orthopedic Surgery - [place] [address] [phone] Melyssa Murdock PA 175 [facility] [place] [address] [place] [phone] Scheduled Procedures Name Priority Associated Diagnoses Date/Ti me RELEASE CARPAL TUNNEL ENDOSCOPIC Carpal tunnel syndrome of right wrist 10/17/2025 12:45 PM EST documented as of this encounter Goals Goal Patient Goal Type Associated Problems Recent Progress Patient-Stated? Author Autogenerat ed Goal Care Plan Autogenerated Problem No Courtney Henao MD documented as of this encounter Results * XR Fingers 2+ Views bilat (09/10/2025 8:35 AM EST) Anatomical Region Laterality Modality Upper Extremities, Fingers Bilateral Compu bella Radiography Narrative 09/10/2025 3:00 PM EST AP, lateral, oblique of both thumb rays were obtained on 09/10/2025. There are no prior images available for comparison. There are no obvious fractures, lytic lesions, or unusual calcifications. There is some basal joint arthritis noted primarily on the right side. This is exhibited by diminished joint space, osteophyte formation, and sclerosis. STT joint is maintained. Impression: Right basal joint arthritis Courtney Henao MD IMG XR PROCEDURES Final Resul t documented in this encounter Visit Diagnoses Diagnosis Arthritis of carpometacarpal (CMC) joint of right thumb- Primary Carpal tunnel syndrome of right wrist Carpal tunnel syndrome of right wrist- Primary Carpal tunnel syndrome of right wrist documented in this encounter Historical Medications * This list may reflect changes made after this encounter. Jencycla 0.35 mg tablet Take 1 tablet (0.35 mg total) by mouth 1 (one) time each day. 08/17/2025 omeprazole (PriLOSEC) [address] capsule Take 1 capsule (40 mg total) by mouth 1 (one) time each day. 06/28/2025 testosterone cypionate (DEPO-TESTOTERON E) 200 mg/mL injection INJECT 0.4ML UNDER THE SKIN EVERY 7 DAYS. SINGLE USE VIALS. DISCARD VIAL AFTER FIRST USE. 08/17/2025 immun glob G,IgG,-pro-IgA 0-50 (Hizentra) 1 gram/5 mL (20 %) solution Inject 12 g under the skin. 07/02/2025 EPINEPHrine (EPIPEN) 0.3 mg/0.3 mL injection 01/23/2025 budesonide (PULMICORT) 0.5 mg/2 mL nebulizer solution Mix 1 ampule in 8 ounces saline to irrigate the nasal sinuses once daily 06/28/2025 Ventolin HFA 90 mcg/actuation inhaler INHALE TWO PUFFS BY MOUTH EVERY 4 TO 6 HOURS NEEDED FOR FOR SHORTNESS OF BREATH OR WHEEZING 12/04/2024 added in this encounter Orders Outpatient Referral Count Last Ordered Date Fir st Ordered Date AMB REFERRAL TO ORTHOPEDIC SURGERY 1 2024 Nursing Count Last Ordered Date First Orde red Date [id number] 1 09/10/2025 Case Request Count Last Ordered Date First Orde red Date CASE REQUEST OPERATING ROOM 1 09/10/2025 documented in this encounter Additional Health Concerns Active Problems Noted Date Diagnosed Date Autogenerated Problem 09/10/2025 documented as of this encounter Care Teams Aitchbone Breaker Relationship Specialty Start Date End Date Deborah [place] FNP [address] [place] [address] [place] [phone] PCP - General Nurse Practitioner 05/21/25 documented as of this encounter
[2025-09-12 09:24] VITALS: BP 120/74; PULSE 104; TEMP 37.2; O2SAT 97
--- NOTE | 2025-09-12 09:24 | AM.OFFWIN_ITS ---
Intake Vital Signs 09/12/25 09:24 Weight 248 lb BP 120/74 Blood Pressure Location Lt brachial Position Sitting Pulse 104 H Pulse Source Pulse Oximeter Temp 98.9 F Temp Source Oral Pulse Oximetry (%) 97 Oxygen Delivery Method Room Air Intake Visit Reasons: EP Congestion, fevers, sneezing Intake Note: pt presents with non resolving chest congestion with productive coughing, sinus congestion, fevers, body aches, sore throat, lethargic for a little over a month Patient Tobacco Use Status: Former Tobacco user Allergies adair Allergy (Severe, Verified 09/12/25 09:26) ANAPHYLAXIS cinnamon (CINNAMON) Allergy (Severe, Verified 09/12/25 09:26) MOUTH MEMBRANES PEEL homatropine (From Hycodan (with homatropin)) Allergy (Severe, Verified 09/12/25:26) Hives hydrocodone (From Hycodan (with homatropin)) Allergy (Severe, Verified 09/12/25 09:26) Hives adhesive tape (TAPE,ADHESIVE) Allergy (Intermediate, Verified 09/12/25:) HIVES amoxicillin (From Augmentin) Allergy (Unknown, Verified 09/12/25 09:26) rash cefaclor (From CECLOR) Allergy (Unknown, Verified 09/12/25 09:26) RASH clarithromycin (From BIAXIN) Allergy (Unknown, Verified 09/12/25 09:26) RASH clavulanic acid (From Augmentin) Allergy (Unknown, Verified 09/12/25 09:26) rash morphine Allergy (Unknown, Verified 09/12/25 09:26) burning Sulfa (Sulfonamide Antibiotics) Allergy (Unknown, Verified 09/12/25 09:26) rash sulfamethoxazole (From Bactrim) Allergy (Unknown, Verified 09/12/25 09:26) rash trimethoprim (From Bactrim) Allergy (Unknown, Verified 09/12/25 09:26) rash vancomycin Allergy (Unknown, Verified 09/12/25 09:26) hives, redness and hot to touch at IV site glycine (From Gammagard Liquid) Allergy (Verified 09/12/25 09:26) Hives immune globulin,alpha (IgA) greater than 50 mcg/mL (From Gammagard Liquid) Allergy (Verified 09/12/25 09:26) Hives immune globulin,gamma (IgG) human (From Gammagard Liquid) Allergy (Verified 09/12/25 09:26) Hives testosterone Adverse Reaction (Severe, Verified 09/12/25 09:26) Itching metoclopramide (From Reglan) Adverse Reaction (Unknown, Verified 09/12/25 09:26) anxiety Platelet Infusion Set Allergy (Severe, Uncoded 09/12/25 09:26) hives PLATELETS Allergy (Severe, Uncoded 09/12/25 09:26) HIVES Do you need a note to return to daycare/school/sports/work: Yes HPI HPI Comments History of Present Illness Details Patient is a 35yo patient who presents with cold symptoms Patient has hx of asthma and CVID (common variable immune deficiency). Pt uses Azithrmycin at home for prophylactic medicine per pulmonology. Takes Azithromycin 3 times a week MWF x [address] Marroquin, medical support assistant; follow up September 17 Has had cough/cold symptoms x 1.5 weeks. Pt has been taking Azithromycn daily x 1.5 weeks when symptoms began Onset of fever, chills, ST and body aches + fatigue + cough, with phlegm (was yellow/green a nd now yellow again) +wheezing, + SOB Tested COVID at home which was negative + sinus congestion currently Pt has not had prednisone recently [facility] Medical History (Updated 09/12/25 @ 09:40 by Bharti Thapa PA-C) IgG deficiency Hypoglobulinemia Smoking IgM deficiency IgA deficiency Chills Hypogammaglobulinemia Long-term current use of testosterone replacement therapy ILD (interstitial lung disease) Pulmonary nodule Abnormal Pap smear of cervix History of allergic drug reaction Rhinitis, allergic Dermatitis Variant angina Dyslipidemia Vitamin D deficiency History of ITP Migraine Surgical History History of cardiac cath History of carpal tunnel surgery History of ITP H/O LEEP Family History Father HTN (hypertension) Substance use disorder Mental health disorder Mother SLE (systemic lupus erythematosus) Cancer of thyroid Anxiety Depression Mental health disorder Brother Mental health disorder Sister Mental health disorder Social History (Updated 08/13/25 @ 11:14 by Teresa Peralta Antonio) Housing: Apartment Alcohol intake: current Alcohol intake frequency: holidays/special occasions only Patient Tobacco Use Status: Former Tobacco user Tobacco use type: Cigarette Years Smoked: 15 e-Cigarette/Vaping Use: Currently Using Second Hand Smoke Exposure: No Substance Use Type: Marijuana service: No Current occupational status: employed 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[employer], 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 Current occupational exposures/hazards: No Sexual orientation: Lesbian/Trinidad/Homosexual Gender identity: Female Cognitive needs: No Hearing needs: No Vision needs: No Review of Systems Const Reports body aches, Reports chills, Reports fatigue and Reports fever(s) Eyes Denies change in vision ENT Denies dizziness, Denies otalgia, Reports nasal congestion, Reports sinus pain and Reports sore throat Card Denies chest pain and Reports dyspnea Resp Reports cough, Reports dyspnea and Reports wheezing GI Denies abdominal pain, Denies diarrhea and Denies vomiting Musc Reports myalgias Skin/Breast Denies rash Neuro Denies dizziness Endo Reports fatigue Aller/Immun Reports wheezing Physical Exam Exam Exam: General: Non-toxic, NAD. Speaking full sentences. Skin: Warm dry throughout Eye: EOMI HENT: Airway patent. Uvula midline. No pharyngeal erythema or edema. No SENIOR BUYER PLANNER. Bilateral canals clear. TM non-erythematous, non-bulging. No TM perforation or hemotympanum noted. Respiratory: Slightly decreased but otherwise no wheezes, rales or rhonchi. No respiratory distress or stridor Cardiac: RRR. No murmur MSK: Full ROM extremities. Neurology: Alert. No aphasia or facial droop. Gait without abnormality Psych: Good mood and affect Vital Signs: Last Vital Signs Temp 98.9 F 09/12/25 09:24 Pulse 104 H 09/12/25 09:24 BP 120/74 09/12/25 09:24 Pulse Ox 97 09/12/25 09:24 Oxygen Delivery Method Room Air 09/12/25 09:24 Assessment & Plan Assessment & Plan (1) Upper respiratory disease: Code(s): J39.9 - Disease of upper respiratory tract, unspecified Plan: Patient seen and evaluated. Pt is on maintance Azithromycin and ran out; requesting refill I reviewed pulm notes from last visit prior to discharge Pt has follow up with pulmonology on 09/17 and so he was given 5 days of Azithromycin daily with Prednisone taper COVID/FLU/RSV obtained and sent for testing Xray held at this time due to no crackles and O2 of 97% Patient gave verbal understanding and had no additional questions or concerns at time of discharge All questions answered Orders: Orders SARS-CoV2/FLU/RSV Today J39.9 - Disease of upper respiratory tract, unspecified Medications: New prednisone see taper instructions; po as directed: 60mg x 2 days 50mg x 2 days, 40mg x 2 days, 30mg x 2 days, 20mg x 2 days, then 10mg x 2 days 10 mg PO DIRECTED 42 tabs 0RF azithromycin 500 mg PO DAILY 6 tabs 0RF 0 days Coding Level of Care Code Est Pt Level 3 (63297) Diagnoses Upper respiratory disease J39.9
--- OUTSIDE RECORDS SUMMARY | 2025-09-12 09:52 | XMS_ITS | Encounter Summary ---
Author Organization [facility] Address [address] [place] [phone] Care Team Providers Care Panel Machine Operator Name Role Phone Deborah [place] Primary Care Provider Reason for Visit * Reason Onset Date Comments Prior Authorization - Courtney Henao MD - Surg [facility] 09/11/2025 Encounter Details Date Type Department Care Team (Late st Contact Info) Description 09/11/2025 Telephone Orthopedic Surgery [facility] [address] 175 [facility] [address] [place] [address] Cindy Cota Social History Tobacco Use Types Packs/Day Years Used Date Smoking Tobacco: Never Assessed Sex and Gender Information Value Date Recorded Sex Assigned at Not on file Legal Sex Male 11:15 AM EDT Gender Identity Not on file Sexual Orientation Not on file documented as of this encounter Progress Notes * Cindy Cota - 09/11/2025 12:13 PM EST [employer] does not require Prior Authorization for CPT Code 78396. documented in this encounter Plan of Treatment Upcoming Encounters Date Type Department Care Team (Latest Contact Info) Description 10/12/2025 10:45 AM EST Consult Orthopedic Surgery - [place] 175 [facility] [address] [place] [address] Courtney Henao MD 175 [facility] [address] [place] [address] 10/17/2025 12:45 PM EST Hospital Encounter [facility] Main OR [address] [place] [address] Courtney Henao MD [address] [phone] 10/17/2025 12:45 PM EST - 10/17/2025 2:30 PM EST Surgery [facility] Main OR [address] [place] [phone] Courtney Henao MD [address] [phone] ENDOSCOPIC RELEASE RIGHT CARPAL TUNNEL ? OPEN [[id number] (CPT )] 10/26/2025 11:30 AM EST Office Visit Orthopedic Surgery [facility] [address] [phone] Melyssa Murdock PA [address] [phone] Scheduled Procedures Name Priority Associated Diagnoses Date/Ti me RELEASE CARPAL TUNNEL ENDOSCOPIC Carpal tunnel syndrome of right wrist 10/17/2025 12:45 PM EST documented as of this encounter Goals Goal Patient Goal Type Associated Problems Recent Progress Patient-Stated? Author Autogenerat ed Goal Care Plan Autogenerated Problem No Courtney Henao MD documented as of this encounter Visit Diagnoses Not on filedocumented in this encounter Additional Health Concerns Active Problems Noted Date Diagnosed Date Autogenerated Problem 09/10/2025 documented as of this encounter Care Teams Panel Machine Operator Relationship Specialty Start Date End Date Deborah [place] FNP [address] [place] [address] [place] [phone] PCP - General Nurse Practitioner 05/21/25 documented as of this encounter
--- OUTSIDE RECORDS SUMMARY | 2025-09-12 09:52 | XMS_ITS | Clinical Summary ---
Author Organization [facility] Address [address] [place] [phone] Phone Care Team Providers Care Drug Coordinator Name Role Phone Deborah Alejandro ELECTROTHERAPIST Primary Care Provider Deborah Alejandro ELECTROTHERAPIST Unavailable [phone] Allergies Active Allergy Reactions Criticality Noted Date [...] prescription. Patient plans to schedule cervical cancer screening/RN CARDIOVASCULAR exam in 1 month. We will follow-up on lesion at that time. Call if any worsening of symptoms. Eczema 09/09/2019 Assessment & Plan (09/09/2019 3:10 PM EST): Advised patient I do not have expertise in dermatology, however, rash appears possibly consistent with nummular eczema or neurotic excoriation. 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 Morbid obesity with body mass index of [...] topic Medical Devices Not on file Insurance [facility] ACO ACO ACO ACO ACO ACO HEALTH SAFETY NET PARTIAL HEALTH SAFETY NET PARTIAL HEALTH SAFETY NET PARTIAL HEALTH SAFETY NET PARTIAL HEALTH SAFETY NET PARTIAL HEALTH SAFETY NET PARTIAL HEALTH SAFETY NET PARTIAL HEALTH SAFETY NET PARTIAL HEALTH SAFETY NET PARTIAL Care Teams Drug Coordinator Relationship Specialty Start Date End Date Deborah Alejandro NP [address] [place] [phone] [email or web address] PCP - General Nurse Practitioner 02/04/24 Deborah Alejandro NP [address] [place] [phone] [email or web address] 02/04/24 Additional Source Comments The information contained in this document represents components of the legal health record. It is not the complete legal health record.[facility]
--- OUTSIDE RECORDS SUMMARY | 2025-09-12 09:52 | XMS_ITS | Clinical Summary ---
Author Organization [facility] Address [address] [place] [address] Phone Care Team Providers Care Tag Machine Operator Name Role Phone Deborah Richmond Primary Care Provider Allergies Active Allergy Reactions Criticality Noted Date Comments Adhesive Rash Low 11/22/2024 Amoxicillin Rash Low 11/22/2024 Childhood rash vs anaphylaxis Cefaclor Rash Low 11/22/2024 Clarithromycin Rash Low 11/22/2024 Homatropine Hives 11/22/2024 Morphine Unknown 11/22/2024 burning Sulfa (Sulfonamide Antibiotics) Rash Low 11/22/2024 Medications Ventolin HFA 90 mcg/actuation inhaler INHALE TWO PUFFS BY MOUTH EVERY 4 TO 6 HOURS NEEDED FOR FOR SHORTNESS OF BREATH OR WHEEZING 5 Active budesonide (PULMICORT) 0.5 mg/2 mL nebulizer solution Mix 1 ampule in 8 ounces saline to irrigate the nasal sinuses once daily 5 Active EPINEPHrine (EPIPEN) 0.3 mg/0.3 mL injection 5 Active immun glob G,IgG,-pro-IgA 0-50 (Hizentra) 1 gram/5 mL (20 %) solution Inject 12 g under the skin. 5 Active testosterone cypionate (DEPO-TESTOTERO NE) 200 mg/mL injection INJECT 0.4ML UNDER THE SKIN EVERY 7 DAYS. SINGLE USE VIALS. DISCARD VIAL AFTER FIRST USE. 5 Active omeprazole (PriLOSEC) [address] capsule Take 1 capsule (40 mg total) by mouth 1 (one) time each day. 5 Active Jencycla 0.35 mg tablet Take 1 tablet (0.35 mg total) by mouth 1 (one) time each day. Active Active Problems Problem Noted Date Diagnosed Date Arthritis of carpometacarpal (CMC) joint of righ t thumb 09/10/2025 Carpal tunnel syndrome of right wrist 09/10/2025 Encounters Date Type Department Care Team Description 09/11/[address] [facility] 250 175 [facility] 250 [place] [phone] Cindy Cota 09/10/2025 8:00 AM EST Office Visit Orthopedic Surgery [facility] 175 [facility] 140 [place] [phone] Courtney Henao MD Arthritis of carpometacarpal (CMC) joint of right thumb (Primary Dx); Carpal tunnel syndrome of right wrist from Last 3 Months Surgical History Surgery Date Site/Laterality Comments CARPAL TUNNEL RELEASE 09/27/2018 - 09/26/2019 Left Social History Tobacco Use Types Packs/Day Years Used Date Smoking Tobacco: Never Assessed Sex and Gender Information Value Date Recorded Sex Assigned at Not on file Legal Sex Male 11:15 AM EDT Gender Identity Not on file Sexual Orientation Not on file Last Filed Vital Signs Vital Sign Reading Time Taken Comments Blood Pressure - - Pulse - - Temperature - - Respiratory Rate - - Oxygen Saturation - - Inhaled Oxygen Concentration - - Weight 109 kg (240 lb) 09/10/2025 8:09 AM EST Height 162.6 cm (5' 4 ) 09/10/2025 8:09 AM EST Body Mass Index 41.2 09/10/2025 8:09 AM EST Plan of Treatment Upcoming Encounters Date Type Department Care Team (Latest Contact Info) Description 10/12/2025 10:45 AM EST Consult Orthopedic Surgery [facility] [address] [phone] Courtney Henao MD [address] [phone] 10/17/2025 12:45 PM EST Hospital Encounter [facility] [place] [address] [place] [phone] Courtney Henao MD [address] [phone] 10/17/2025 12:45 PM EST - 10/17/2025 2:30 PM EST Surgery [facility] Main OR [address] [place] [phone] Courtney Henao MD [address] [phone] ENDOSCOPIC RELEASE RIGHT CARPAL TUNNEL ? OPEN [[id number] (CPT )] 10/26/2025 11:30 AM EST Office Visit Orthopedic Surgery - [place] [address] [phone] Melyssa Murdock PA [address] [phone] Scheduled Procedures Name Priority Associated Diagnoses Date/Ti me RELEASE CARPAL TUNNEL ENDOSCOPIC Carpal tunnel syndrome of right wrist 10/17/2025 12:45 PM EST Health Maintenance Due Date Last Done Comments Drug Screen 1988 Non-Opioid Controlled Substa nce Agreement 1988 COVID-19 Vaccine (#1) 1993 DTaP,Tdap,and Td Vaccines (1 - Tdap) 2007 Hepatitis B Vaccines (1 of 3 - 19+ 3-dose series) 2007 HPV Vaccines (1 - Risk 3-dos e SCDM series) 2015 Depression Screening 09/27/2024 Cholesterol Screening (Lipid Panel) 05/21/2025 HIV Screening 05/21/2025 Hepatitis C Screening 05/21/2025 Social Influencers of Health Screening 05/21/2025 Influenza Vaccine (#1) 2025 RSV Immunization Adult Patie nts (1 - 1-dose 75+ series) 2063 Pneumococcal Vaccine: Pediat rics (0 to 5 Years) and At-Risk Patients (6 to 49 Years) Completed 12/14/2024 HIB Vaccines Aged Out No longer eligi [...] on patient's age to complete this topic Goals Goal Patient Goal Type Associated Problems Recent Progress Patient-Stated? Author Autogenerat ed Goal Care Plan Autogenerated Problem No Courtney Henao MD Procedures Procedure Name Priority Date/Time Associated Diagnosis Comments XR FINGERS 2+ VIEWS BILATERAL Routine 09/10/2025 8:35 AM EST Bilateral finger arthralgia from Last 3 Months Results * XR Fingers 2+ Views bilat [...] MD IMG XR PROCEDURES Final Resul t from Last 3 Months Additional Health Concerns Active Problems Noted Date Diagnosed Date Autogenerated Problem 09/10/2025 Insurance [facility] Care Teams Tag Machine Operator Relationship Specialty Start Date End Date Deborah Richmond FNP [address] [place] [address] [place] [phone] PCP - General Nurse Practitioner 05/21/25
--- OUTSIDE RECORDS SUMMARY | 2025-09-12 09:52 | XMS_ITS | Clinical Summary ---
Author Organization [facility] [employer] Address [address] [facility] 7[address] [place] [address] Care Team Providers Care Certified Low Vision Therapist Name Role Phone Unavailable Primary Care Provider [...] patient's age to complete this topic Insurance [facility] STAND ADULT
== END 2025-09-12 09:48 | disposition home or self-care (01) ==
PROVIDERS: PCP Nurse Practitioner Family; Visit Provider Physician Assistant
DX: J39.9 Disease of upper respiratory tract, unspecified (principal)

== ENCOUNTER 2025-09-12 09:01 | Outpatient (REF) | payer OTHER, SELFPAY ==
--- OUTSIDE RECORDS SUMMARY | 2025-09-10 08:00 | XMS_ITS | Encounter Summary ---
Author Organization [facility] Address [address] [place] [phone] Care Team Providers Care Firer Kiln Name Role Phone Deborah [place] Primary Care Provider [phone]- [phone] Reason for Visit * Reason Comments Consult Numbness/tingling, p ain in thumb that radiates into wrist * Consultation (Routine) - Authorized Specialty Diagnoses / Procedures Referred By Liang t Referred To Contact Orthopedic Surgery / Orthopaedic Surgery Diagnoses Carpal tunnel syndrome, right upper limb Deborah [place] FNP [address] [place] [address] [place] [address] Phone: tel: Courtney Henao MD [address] [place] [phone] Phone: tel: fax: Referral ID Status Reason Start Date Expiration Date Visits Requested Visits Authorized [id number] Authorized Specialty Services Required 05/21/2025 05/21/2026 1 1 Encounter Details Date Type Department Care Team (Latest Contact Info) Description 09/10/2025 8:00 AM EST Office Visit Orthopedic Surgery - [place] [address] [phone] Courtney Henao MD [address] [phone] Arthritis of carpometacarpal (CMC) joint [...] Henao MD - 09/10/2025 8:00 AM EST [facility] Hand & Wrist Surgery Date: 09/10/2025 CHIEF COMPLAINT/REASON FOR VISIT: Right hand pain and numbness SUBJECTIVE: The patient is a 35-year-old male, [id number], here today because of progressive pain and [...] wakes him up. 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 Of note patient has a past history of idiopathic thrombocytopenia. He had 4 rounds of what sounds like chemotherapy. His immune system required monitoring and he is currently getting immunoglobulin supplementation. He sees an field applications specialist at the [facility]. OBJECTIVE: Visit Vitals Ht 1.626 m (64 [...] 10:45 AM EST Consult Orthopedic Surgery - [place] [address] [phone] Courtney Henao MD [address] [phone] 10/17/2025 12:45 PM EST Hospital Encounter [facility] Main OR [address] [place] [phone] Courtney Henao MD [address] [phone] 10/17/2025 12:45 PM EST - 10/17/2025 2:30 PM EST Surgery [facility] Main OR [address] [place] [phone] Courtney Henao MD 175 [facility] [address] [place] [phone] ENDOSCOPIC RELEASE RIGHT CARPAL TUNNEL ? OPEN [[id number] (CPT )] 10/26/2025 11:30 AM EST Office Visit Orthopedic Surgery - [place] [address] [phone] Melyssa Murdock PA 175 [facility] [place] [address] [place] [phone] Scheduled Procedures Name Priority Associated Diagnoses Date/Ti [...] Last Ordered Date First Orde red Date [id number] 1 09/10/2025 Case Request Count Last Ordered Date First Orde red Date CASE REQUEST OPERATING ROOM 1 09/10/2025 documented in this encounter Additional Health Concerns Active Problems Noted Date Diagnosed Date Autogenerated Problem 09/10/2025 documented as of this encounter Care Teams Firer Kiln Relationship Specialty Start Date End Date Deborah [place] FNP [address] [place] [address] [place] [phone] PCP - General Nurse Practitioner 05/21/25 documented as of this encounter
[2025-09-12 15:36] LABS: Resp Syncy Virus RNA Qual PCR NEGATIVE (Negative); SARS COV2 PCR INHOUSE NEGATIVE (Negative)
--- OUTSIDE RECORDS SUMMARY | 2025-09-12 19:43 | XMS_ITS | Clinical Summary ---
Author Organization [facility] [employer] Address [address] [facility] 7[address] [place] [address] Care Team Providers Care Supervisor Telephone Clerks Name Role Phone Unavailable Primary Care Provider [...] patient's age to complete this topic Insurance [facility] STAND ADULT
--- OUTSIDE RECORDS SUMMARY | 2025-09-12 19:43 | XMS_ITS | Clinical Summary ---
Author Organization 175 [facility] Address 175 [place] [address] Phone Care Team Providers Care Interlocking And Signal Mechanic Name Role Phone Deborah Richmond Primary Care [...] Care Team Description 09/11/2025 Telephone Orthopedic Surgery [facility] 250 175 [facility] 250 [place] [phone] Cindy Cota 09/10/2025 8:00 AM EST Office Visit Orthopedic Surgery [facility] 175 [facility] 140 [place] [phone] Courtney Henao MD Arthritis of carpometacarpal (CMC) [...] 10/12/2025 10:45 AM EST Consult Orthopedic Surgery [facility] [address] [phone] Courtney Henao MD [address] [phone] 10/17/2025 12:45 PM EST Hospital Encounter [facility] Main [place] [address] [place] [phone] Courtney Henao MD [address] [phone] 10/17/2025 12:45 PM EST - 10/17/2025 2:30 PM EST Surgery [facility] Main OR [address] [place] [phone] Courtney Henao MD [address] [phone] ENDOSCOPIC RELEASE RIGHT CARPAL TUNNEL ? OPEN [[id number] (CPT )] 10/26/2025 11:30 AM EST Office Visit Orthopedic Surgery - [place] [address] [phone] Melyssa Murdock PA [address] [phone] Scheduled Procedures Name Priority Associated [...] Date Diagnosed Date Autogenerated Problem 09/10/2025 Insurance [facility] Care Teams Interlocking And Signal Mechanic Relationship Specialty Start Date End Date Deborah Richmond FNP [address] [place] [address] [place] [phone] PCP - General Nurse Practitioner 05/21/25
--- OUTSIDE RECORDS SUMMARY | 2025-09-12 19:43 | XMS_ITS | Encounter Summary ---
Author Organization [facility] Address [address] [place] [phone] Care Team Providers Care Reinforced Ironworker Name Role Phone Deborah Rihcmond Primary Care Provider Reason for Visit * Reason Onset Date Comments Prior Authorization - Courtney Henao MD - Surg guillermo 09/11/2025 Encounter Details Date Type Department Care Team (Late st Contact Info) Description 09/11/2025 Telephone Orthopedic Surgery [facility] 250 175 [facility] 250 [place] [phone] Cindy Cota Social History Tobacco [...] not require Prior Authorization for CPT Code 16208. documented in this encounter Plan of Treatment Upcoming Encounters Date Type Department Care Team (Latest Contact Info) Description 10/12/2025 10:45 AM EST Consult Orthopedic Surgery - [place] 175 [facility] 140 [place] [address] Courtney Henao MD 175 [facility] 140 [place] [phone] 10/17/2025 12:45 PM EST Hospital Encounter [facility] Main [place] [address] [place] [phone] Courtney Henao MD [address] [phone] 10/17/2025 12:45 PM EST - 10/17/2025 2:[address] [facility] Main [place] [address] [place] [phone] Courtney Henao MD [address] [phone] ENDOSCOPIC RELEASE RIGHT CARPAL TUNNEL ? OPEN [[id number] (CPT )] 10/26/2025 11:30 AM EST Office Visit Orthopedic Surgery [facility] [address] [phone] Melyssa Murdock PA [address] [phone] Scheduled Procedures Name Priority Associated Diagnoses Date/Ti [...] documented as of this encounter Care Teams Reinforced Ironworker Relationship Specialty Start Date End Date Deborah Richmond FNP [address] [place] [address] [place] [phone] PCP - General Nurse Practitioner 05/21/25 documented as of this encounter
--- OUTSIDE RECORDS SUMMARY | 2025-09-12 19:43 | XMS_ITS | Clinical Summary ---
Author Organization [facility] Address [address] [place] [address] Phone Care Team Providers Care Dairy Clerk Name Role Phone Deborah Alejandro SUPERVISOR [employer]ELT [employer]SE Primary Care Provider Deborah Alejandro SUPERVISOR [employer]T [employer]SE Unavailable [phone] Allergies Active Allergy Reactions Criticality Noted Date [...] prescription. Patient plans to schedule cervical cancer screening/CUTTER DOWN exam in 1 month. We will follow-up on lesion at that time. Call if any worsening of symptoms. Eczema 09/09/2019 Assessment & Plan (09/09/2019 3:10 PM EST): Advised patient I do not have expertise in dermatology, however, rash appears possibly consistent with nummular eczema or neurotic excoriation. Patient has coming appointment scheduled with yardage tufting machine operator. Morbid obesity with body mass index of [...] topic Medical Devices Not on file Insurance [facility] ACO ACO ACO ACO ACO ACO HEALTH SAFETY NET PARTIAL HEALTH SAFETY NET PARTIAL HEALTH SAFETY NET PARTIAL HEALTH SAFETY NET PARTIAL HEALTH SAFETY NET PARTIAL HEALTH SAFETY NET PARTIAL HEALTH SAFETY NET PARTIAL HEALTH SAFETY NET PARTIAL HEALTH SAFETY NET PARTIAL Care Teams Dairy Clerk Relationship Specialty Start Date End Date Deborah Alejandro NP [address] [place] [phone] [email or web address] PCP - General Nurse Practitioner 02/04/24 Deborah Alejandro NP [address] [place] [phone] [email or web address] 02/04/24 Additional Source Comments The information contained in this document represents components of the legal health record. It is not the complete legal health record.[facility]
== END 2025-09-12 09:02 | disposition home or self-care (01) ==
LOC: HO.LNP 09:01
PROVIDERS: PCP Nurse Practitioner Family; Visit Provider Physician Assistant
DX: J39.9 Disease of upper respiratory tract, unspecified (principal); Z87.891 Personal history of nicotine dependence
CPT/HCPCS: 87637; 99212

== ENCOUNTER 2025-09-21 11:05 | Emergency (ER) | payer OTHER, SELFPAY ==
--- NOTE | ~2025-09-21 | XR_ITS ---
EXAMINATION: XR CHEST CLINICAL INFORMATION: cough COMPARISON: None available. TECHNIQUE: 2 views of the chest were obtained. FINDINGS: The cardiomediastinal silhouette is within normal limits. The lungs are well expanded. There is no focal consolidation, edema, or effusion. Mild bronchial wall thickening in the right lower lung. No pneumothorax. No acute osseous abnormality. XR/XR chest 2V IMPRESSION: Right lower lung bronchial wall thickening, can be seen with inflammatory/infectious process. Electronically signed by: Kyle Solorzano MD 09/21/2025 11:48 AM EST
[2025-09-21 11:30] VITALS: BP 171/87; PULSE 69; RESP 20; TEMP 36.6; O2SAT 96; BMI 44.0
--- NOTE | 2025-09-21 11:31 | ED.URI ---
HPI - URI/Sore Throat General Chief Complaint: Upper Respiratory Symptoms Stated Complaint: Sick For A Week- Trouble Breathing Time Seen by Provider: 09/21/25 12:51 Source: patient Mode of arrival: ambulatory Limitations: no limitations History of Present Illness ED Provider: Polly Roman PA-C HPI Narrative: Patient is a 35 year old male with a history of asthma, TIA, MDD, and ITP presenting to the emergency department today with cough and congestion. Patient states that over the last month he has continued to have a cough, congestion, and feeling generally unwell. Patient states that is already on Azithromycin chronically every other day from his mop man and he is also recently on Prednisone. Patient denies any other complaints at this time. Related Data Home Medications ?Medication ?Instructions ?Recorded ?Confirmed safety needles 25 gauge x 5/8 (BD #50 ea 06/16/22 06/28/25 SafetyGlide Needle) testosterone cypionate 200 mg/mL mg IM 01/07/24 06/28/25 intramuscular oil immune glob G 1 gram/5 mL(20 subcut 01/29/25 06/28/25 %)-prol-IgA 0-50 mcg/mL subcutaneous soln (Hizentra) epinephrine 0.3 mg/0.3 mL IM 07/06/25 injection, auto-injector norethindrone (contraceptive) 0.35 0.35 mg PO DAILY 09/12/25 mg tablet (Jencycla) Previous Rx's ?Medication ?Instructions ?Recorded triamcinolone acetonide 0.1 % 1 appl topical DAILY PRN rash in 01/07/24 topical cream groin 10 days #30 grams albuterol sulfate 2.5 mg/3 mL 2.5 mg (3 mL) continuous 01/20/24 (0.083 %) solution for nebulization nebulization QID PRN shortness of breath or wheezing 30 days #360 mL albuterol sulfate 90 mcg/actuation 2 puff inhalation Q4-6H PRN 12/04/24 aerosol inhaler shortness of breath or wheezing #8.5 grams azithromycin 500 mg tablet 500 mg PO 3XW 28 days #12 tabs 03/27/25 omeprazole 40 mg capsule,delayed 40 mg PO DAILY #90 caps 06/28/25 release azithromycin 500 mg tablet 500 mg PO DAILY 0 days #6 tabs 09/12/25 prednisone 10 mg tablet 10 mg PO DIRECTED #42 tabs 09/12/25 doxycycline hyclate 100 mg tablet 100 mg PO BID 7 days #14 tabs 09/21/25 Allergies Allergy/AdvReac Type Severity Reaction Status Date / Time adair Allergy Severe ANAPHYLAXIS Verified 09/21/25 11:33 cinnamon (CINNAMON) Allergy Severe MOUTH Verified 09/21/25 11:33 MEMBRANES PEEL homatropine (From Hycodan Allergy Severe Hives Verified 09/21/25 11:33 (with homatropin)) hydrocodone (From Hycodan Allergy Severe Hives Verified 09/21/25 11:33 (with homatropin)) adhesive tape (TAPE,ADHESIVE) Allergy Intermediate HIVES Verified 09/21/25 11:33 amoxicillin (From Augmentin) Allergy Unknown rash Verified 09/21/25 11:33 cefaclor (From CECLOR) Allergy Unknown RASH Verified 09/21/25 11:33 clarithromycin (From BIAXIN) Allergy Unknown RASH Verified 09/21/25 11:33 clavulanic acid (From Allergy Unknown rash Verified 09/21/25 11:33 Augmentin) morphine Allergy Unknown burning Verified 09/21/25 11:33 Sulfa (Sulfonamide Allergy Unknown rash Verified 09/21/25 11:33 Antibiotics) sulfamethoxazole (From Allergy Unknown rash Verified 09/21/25 11:33 Bactrim) trimethoprim (From Bactrim) Allergy Unknown rash Verified 09/21/25 11:33 vancomycin Allergy Unknown hives, Verified 09/21/25 11:33 redness and hot to touch at IV site glycine (From Gammagard Allergy Hives Verified 09/21/25 11:33 Liquid) immune globulin,alpha (IgA) Allergy Hives Verified 09/21/25 11:33 greater than 50 mcg/mL (From Gammagard Liquid) immune globulin,gamma (IgG) Allergy Hives Verified 09/21/25 11:33 human (From Gammagard Liquid) testosterone AdvReac Severe Itching Verified 09/21/25 11:33 metoclopramide (From Reglan) AdvReac Unknown anxiety Verified 09/21/25 11:33 Platelet Infusion Set Allergy Severe hives Uncoded 09/12/25 09:26 PLATELETS Allergy Severe HIVES Uncoded 09/12/25 09:26 Review of Systems Constitutional: Constitutional: Reports as per HPI Eyes: Eyes: Reports as per HPI ENT: Reports as per HPI Cardiovascular: Cardiovascular: Reports as per HPI Respiratory: Respiratory: Reports as per HPI Gastrointestinal: Gastrointestinal: Reports as per HPI Genitourinary: Genitourinary: Reports as per HPI Musculoskeletal: Musculoskeletal: Reports as per HPI Integumentary/Breasts: Skin/Breast: Reports as per HPI Neurologic: Reports as per HPI Psychiatric: Psychiatric: Reports as per HPI Endocrine: Endocrine: Reports as per HPI Hematologic/Lymphatic: Hematologic/Lymphatic: Reports as per HPI Allergic/Immunologic: Allergic/Immunologic: Reports as per HPI [facility] Past Medical History Attestation statement: The following information was validated with the patient. Source: old records reviewed and nursing notes reviewed Medical History IgG deficiency Hypoglobulinemia Smoking IgM deficiency IgA deficiency Chills Hypogammaglobulinemia Long-term current use of testosterone replacement therapy ILD (interstitial lung disease) Pulmonary nodule Abnormal Pap smear of cervix History of allergic drug reaction Rhinitis, allergic Dermatitis Variant angina Dyslipidemia Vitamin D deficiency History of ITP Migraine Surgical History History of cardiac cath History of carpal tunnel surgery History of ITP H/O LEEP Family History Family History Father HTN (hypertension) Substance use disorder Mental health disorder Mother SLE (systemic lupus erythematosus) Cancer of thyroid Anxiety Depression Mental health disorder Brother Mental health disorder Sister Mental health disorder Social History Social History Housing: Apartment Alcohol intake: current Alcohol intake frequency: holidays/special occasions only Patient Tobacco Use Status: Former Tobacco user Tobacco use type: Cigarette Years Smoked: 15 e-Cigarette/Vaping Use: Currently Using Second Hand Smoke Exposure: No Substance Use Type: Marijuana Advance Directives: No Advance Directives Information Provided: No Do you have a plan to hurt others: No Plan service: No Current occupational status: employed 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[employer], 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 Current occupational exposures/hazards: No Sexual orientation: Lesbian/[place]/Homosexual Gender identity: Female Cognitive needs: No Hearing needs: No Vision needs: No Physical Exam Vital Signs: Vital Signs: Last Vital Signs Temp 97.9 F 09/21/25 13:41 Pulse 69 09/21/25 13:41 Resp 20 09/21/25 13:41 BP 171/87 H 09/21/25 13:41 Pulse Ox 96 09/21/25 13:41 O2 Del Method Room Air 09/21/25 13:41 BMI result Body Mass Index 44.0 Const: General: cooperative, no acute distress, alert and awake Nutritional Appearance: well nourished Orientation/consciousness: patient oriented x3 HEENT: Head: Yes normal to inspection and Yes atraumatic Ears: hearing grossly normal bilaterally and external ears normal General nose exam: Normal external nose present, no nasal discharge noted and no epistaxis Face and sinus: Yes normal facial exam, No abrasion and No laceration Mouth: Normal oral and palatal mucosa present, no drooling and no muffled voice Eyes: General: appearance normal, both eyes and all related structures Periorbital: periorbital findings normal Eyelids: Yes eyelids normal Conjunctivae: conjunctivae normal Pupils: Equal, round and reactive pupils present EOM: EOMs intact bilaterally Neck: Neck: Yes normal visual inspection and Yes full ROM Resp: Effort & Inspection: normal respiratory effort and able to speak in complete sentences Neuro: General: patient oriented x3, moves all extremities and CN's II-XI intact bilaterally Cranial nerves: Yes Equal, round and reactive pupils present Cognition (Neuro): normal cognition Extrem: General: Yes normal to inspection, Yes full ROM and Yes capillary refill normal Psych: Appearance: grossly normal Mental Status: mental status grossly normal Affect: normal affect Attitude: cooperative Thought process: Normal thought process present Thought content: Normal thought content present Insight: Good insight present (Psych) Course Course Course Narrative: This is a Rapid Medical Exam performed in triage by Madisyn Tyler PA-C. Full HPI, ROS and PE to be performed by primary ED provider. 35 yo female to male transgender patient with a history of IgG deficiency, IgA deficiency, chronic ITP, hyperlipidemia, obesity, interstitial lung disease, sarcoidosis, asthma, anxiety and depression, presenting to the ED c/o URI sx x2 weeks w/cough, congestion, eye discharge. Currently on Azithromycin & Prednisone w/o relief. PE: NAD, nontoxic appearing, talking in complete sentences Plan: labs, CXR, SARs Medical Decision Making Medical Decision Making MDM Narrative: Patient is a 35 year old male with a history of asthma, TIA, MDD, and ITP presenting to the emergency department today with cough and congestion. Patient's physical exam was as noted in the physical exam portion of this note. Patient's blood work showed an elevated WBC count of 12.6 which is likely secondary to the patient's prednisone use. Patient's urine showed no acute process. Patient's chest x-ray showed no acute process. I explained my physical exam findings as well as all test results to the patient. I answered all questions asked by the patient. Patient's clinical presentation is most consistent with asthma exacerbation vs. URI vs. atypical PNA. I recommended the patient continue the prednisone + azithromycin he is already prescribed and I added Doxycycline to the regimen for additional coverage. Patient's regimen was limited given his allergies and current prescriptions. I stressed the importance of the patient taking his medication as directed (either prescribed or as the over the counter packaging recommends). I stressed the importance of the patient following up with his primary care provider. I stressed the importance of the patient returning to the emergency department immediately if his symptoms were to worsen or if he were to develop any dizziness, shortness of breath, difficulty breathing, chest pain, blurry vision, loss of vision, nausea, vomiting, abdominal pain, fever, chills, back pain, or any other complaints. Patient verbalized agreement and understanding with this treatment plan and discharge. Differential Diagnosis Differential Diagnoses: The differential diagnosis associated with the presentation includes Viral illness URI Asthma exacerbation Atypical PNA PNA Admission/Observation Consideration of admission/observation: Escalation of care including admission/observation considered Patient would have been admitted to the hospital had his work up had any findings where hospital admission was appropriate and his clinical presentation warranted hospital admission. Lab Data [facility] Lab Attestation statement: I reviewed the patient's lab results. My interpretation of these results are in the MDM Rationale portion of this note. 09/21/25 12:04 09/21/25 12:04 Labs: Lab Results 09/21/25 Range/Units 12:04 WBC 12.6 H (4.8-10.8) X10*3/uL RBC 5.94 H (4.60-5.80) X10*6/uL Hgb 17.1 (14.0-18.0) g/dl Hct 51.7 (42.0-52.0) % MCV 87.0 (80.0-98.0) fL MCH 28.8 (27.0-33.0) pg MCHC 33.1 (31.0-36.0) g/dl RDW 13.5 (11.0-16.0) % Plt Count 298 D (160-400) X10*3/uL MPV 10.3 (9.4-12.4) fL Immature Gran % (Auto) 0.6 H (0.0-0.4) % Neut % (Auto) 64.4 (45-73) % Lymph % (Auto) 19.2 L (20-40) % [place] % (Auto) 9.3 (2-11) % Eos % (Auto) 5.5 H (0-4) % Baso % (Auto) 1.0 (0-2) % Lymph # (Auto) 2.4 (1.2-4.9) X10*3/uL [place] # (Auto) 1.2 (0.1-1.2) X10*3/uL Eos # (Auto) 0.7 H (0.0-0.4) X10*3/uL Baso # (Auto) 0.1 (0.0-0.2) X10*3/uL Abs Immat Gran (auto) 0.07 H (0.00-0.03) X10*3/uL Absolute Neuts (auto) 8.1 (2.0-8.3) x10*3/uL Absolute Nucleated RBC 0.000 (0.0-0.012) X10*3/uL Nucleated RBC % (auto) 0.0 (0.0-0.2) /100WBC Sodium 143 (135-145) mmol/L Potassium 3.7 (3.3-5.1) mmol/L Chloride 109 H (96-108) mmol/L Carbon Dioxide 28 (22-29) mmol/L Anion Gap 10 L (12-20) BUN 16 (9-16) mg/dL Creatinine 1.07 (0.5-1.4) mg/dL Estim Creat Clear Calc 109.6 Estimated GFR > 60 Random Glucose 75 (60-115) mg/dL Calcium 9.1 (8.4-10.2) mg/dL Total Bilirubin 0.7 (0.0-1.0) mg/dL Direct Bilirubin 0.2 (0.0-0.5) mg/dL AST 26 (5-37) U/L ALT 45 H (0-40) U/L Alkaline Phosphatase 86 (39-117) U/L Total Protein 5.7 L (6.5-8.0) g/dL Albumin 4.2 (3.5-5.0) g/dL Influenza Type A (PCR) NEGATIVE (Negative) Influenza Type B (PCR) NEGATIVE (Negative) RSV RNA Qual (PCR) NEGATIVE (Negative) SARS-CoV-2 RNA (RT-PCR) NEGATIVE (Negative) S. pyogenes GrpA AYESHA Negative (Negative) Independent Interpretation I performed an independent interpretation of an: Plain X-Ray Interpretation: My interpretation is in agreement with the radiologist's impression of this imaging study as written below. EXAMINATION: XR CHEST CLINICAL INFORMATION: cough COMPARISON: None available. TECHNIQUE: 2 views of the chest were obtained. FINDINGS: The cardiomediastinal silhouette is within normal limits. The lungs are well expanded. There is no focal consolidation, edema, or effusion. Mild bronchial wall thickening in the right lower lung. No pneumothorax. No acute osseous abnormality. XR/XR chest 2V IMPRESSION: Right lower lung bronchial wall thickening, can be seen with inflammatory/infectious process. Electronically signed by: Kyle Solorzano MD 09/21/2025 11:48 AM EST Dictated By: Kyle Solorzano MD Signed By: Electronically signed by Kyle Solorzano MD 09/21/25 1148 Radiology Impression Discussion of test interpretation with radiology: I have reviewed the radiologist's reading. Prescription Management I considered prescription management with: Antibiotic (doxycycline added to the patient's medication regimen for URI vs. atypical PNA) Discharge Plan Discharge Clinical Impression: Upper respiratory infection Qualifiers: URI type: unspecified URI Qualified Code(s): J06.9 - Acute upper respiratory infection, unspecified Patient Disposition: Home, Self-Care Instructions: Upper Respiratory Infection (DC) Additional Instructions: Your work up today was reassuring there is no EMERGENT cause for your symptoms. Given this is an ongoing issue, I am going to treat you for atypical / walking pneumonia. Due to your allergies and other current medication regimen - I have prescribed doxycycline for you. Please take this as prescribed and avoid direct sunglight while you are on it. You should also eat with this medication (not dairy products). IF you are prescribed home medications and/or you are taking over the counter medications at home - it is very important you continue to do so as prescribed / directed unless told otherwise by a healthcare provider. Follow up with your primary care provider. Do your best to stay well hydrated and rest. Return to the emergency department immediately if your symptoms worsen or if you develop any numbness, tingling, dizziness, shortness of breath, difficulty breathing, chest pain, blurry vision, loss of vision, nausea, vomiting, abdominal pain, fever, chills, back pain, or any other complaints. If you do not have a primary care provider - call any of the below numbers to establish and follow up with a primary care provider. [facility] ([place]) [phone] [place] [address], [address] [facility] ([facility]) [phone] [place] [address], [address] [facility], [address] [facility] ([facility]) [phone] [place] [address], [address] [facility], [address] [facility] Care ([place]) [phone] [place] [address] 2 [facility], [address] [facility] Family Medicine [phone] [place] [address], [address] Please see the information below about our Patient Portal. If you are not yet enrolled in the [facility] Patient Portal, you will receive an enrollment email invitation following your visit to any [facility] care setting. You may also self-enroll in the Patient Portal by visiting our website: [email or web address] The following information is required to access the Patient Portal: - Your [facility] Medical Record Number - Your personal home email address (must match what is in your electronic medical record, Registration staff can assist with this) - Name - Date of Capabilities of the Patient Portal: - Message some providers - View upcoming appointments - Access your health summary, medical history, and visit history - View current conditions and allergies - View procedure and lab results - View your medications, including guidelines, side effects, and precautions - Complete pre-appointment questionnaires requested by your provider - Ready summary reports of your office visits and procedures To access the Patient Portal Mobile Erendira, follow these directions: - Search [email or web address] in the Erendira Store or Google Play Store - Download the Erendira - Search for [facility] - Enter your login/password Prescriptions: New doxycycline hyclate 100 mg tablet 100 mg PO BID 7 Days Qty: 14 0RF No Action azithromycin 500 mg tablet 500 mg PO 3XW 28 Days Qty: 12 6RF Rx Instructions: Wednesday, Wednesday, Wednesday testosterone cypionate 200 mg/mL oil IM triamcinolone acetonide 0.1 % cream 1 appl topical DAILY PRN (Reason: rash in groin ) 10 Days Qty: 30 2RF (DME) BD SafetyGlide Needle 25 gauge x 5/8 needle See Rx Instructions .ROUTE .MEDSUPPLY Qty: 50 Rx Instructions: As directed ipratropium-albuterol 0.5 mg-3 mg(2.5 mg base)/3 mL solution for nebulization 3 ml inhalation ONCE Qty: 3 0RF albuterol sulfate 2.5 mg /3 mL (0.083 %) solution for nebulization 2.5 mg continuous nebulization QID PRN (Reason: shortness of breath or wheezing) 30 Days Qty: 360 6RF Hizentra 1 gram/5 mL (20 %) solution subcut omeprazole 40 mg capsule,delayed release(DR/EC) 40 mg PO DAILY Qty: 90 0RF epinephrine 0.3 mg/0.3 mL auto-injector IM norethindrone (contraceptive) [Jencycla] 0.35 mg tablet 0.35 mg PO DAILY prednisone 10 mg tablet 10 mg PO DIRECTED Qty: 42 0RF Rx Instructions: see taper instructions; po as directed: 60mg x 2 days 50mg x 2 days, 40mg x 2 days, 30mg x 2 days, 20mg x 2 days, then 10mg x 2 days azithromycin 500 mg tablet 500 mg PO DAILY Qty: 6 0RF albuterol sulfate 90 mcg/actuation HFA aerosol inhaler 2 puff inhalation Q4-6H PRN (Reason: shortness of breath or wheezing) Qty: 8.5 0RF Referrals: Deborah Richmond, FINANCE SPECIALIST-BC [Primary Care Provider, Internal Medicine] Stand Alone Forms: Work/School Release Interventions: ED Discharge Assessment Last Done: 09/21/25 13:41 Discharge Date/Time: 09/21/25 13:41 Print Language: Ukrainian
--- OUTSIDE RECORDS SUMMARY | 2025-09-21 12:06 | XMS_ITS | Clinical Summary ---
Author Organization [facility] Address [address] [place] [phone] Phone Care Team Providers Care School Photographer Name Role Phone Deborah Alejandro PHOTONICS ENGINEERING TECHNICIAN Primary Care Provider Deborah Alejandro PHOTONICS ENGINEERING TECHNICIAN Unavailable [phone] Allergies Active Allergy Reactions Criticality Noted Date [...] Patient plans to schedule cervical cancer screening/MANAGER VISUAL exam in 1 month. We will follow-up on lesion at that time. Call if any worsening of symptoms. Eczema 09/09/2019 Assessment & Plan (09/09/2019 3:10 PM EST): Advised patient I do not have expertise in dermatology, however, rash appears possibly consistent with nummular eczema or neurotic excoriation. Patient has coming appointment scheduled with maintenance representative. Morbid obesity with body mass index of [...] topic Medical Devices Not on file Insurance [facility] ACO ACO ACO ACO ACO ACO HEALTH SAFETY NET PARTIAL HEALTH SAFETY NET PARTIAL HEALTH SAFETY NET PARTIAL HEALTH SAFETY NET PARTIAL HEALTH SAFETY NET PARTIAL HEALTH SAFETY NET PARTIAL HEALTH SAFETY NET PARTIAL HEALTH SAFETY NET PARTIAL HEALTH SAFETY NET PARTIAL Care Teams School Photographer Relationship Specialty Start Date End Date Deborah Alejandro NP [address] [place] [id number] [email or web address] PCP - General Nurse Practitioner 02/04/24 Deborah Alejandro NP [address] [place] [phone] [email or web address] 02/04/24 Additional Source Comments The information contained in this document represents components of the legal health record. It is not the complete legal health record.[facility]
--- OUTSIDE RECORDS SUMMARY | 2025-09-21 12:06 | XMS_ITS | Clinical Summary ---
Author Organization [facility] [employer] Address [address] [facility] [address] [place] [address] Care Team Providers Care Gas Transfer Operator Name Role Phone Unavailable Primary Care [...] patient's age to complete this topic Insurance [facility] STAND ADULT
--- OUTSIDE RECORDS SUMMARY | 2025-09-21 12:06 | XMS_ITS | Clinical Summary ---
Author Organization [facility] Address [address] [place] [address] Phone Care Team Providers Care Junior Software Developer Name Role Phone Deborah Richmond Primary Care [...] Care Team Description 09/11/2025 Telephone Orthopedic Surgery [facility] [address] [facility] [address] [place] [phone] Cindy Cota 09/10/2025 8:00 AM EST Office Visit Orthopedic Surgery [facility] [address] [place] [phone] Courtney Henao MD Arthritis of carpometacarpal (CMC) [...] 10/12/2025 10:45 AM EST Consult Orthopedic Surgery [facility] [address] [phone] Courtney Henao MD [address] [phone] 10/17/2025 12:45 PM EST Hospital Encounter [facility] [place] [address] [place] [phone] Courtney Henao MD [address] [phone] 10/17/2025 12:45 PM EST - 10/17/2025 2:30 PM EST Surgery [facility] Main [place] [address] [place] [phone] Courtney Henao MD [address] [phone] ENDOSCOPIC RELEASE RIGHT CARPAL TUNNEL ? OPEN [[id number] (CPT )] 10/26/2025 11:30 AM EST Office Visit Orthopedic Surgery - [place] [address] [phone] Mleyssa Murdock PA [address] [phone] Scheduled Procedures Name Priority Associated [...] Date Diagnosed Date Autogenerated Problem 09/10/2025 Insurance [facility] Care Teams Junior Software Developer Relationship Specialty Start Date End Date Deborah Richmond FNP [address] [place] [address] [place] [phone] PCP - General Nurse Practitioner 05/21/25
--- OUTSIDE RECORDS SUMMARY | 2025-09-21 12:07 | XMS_ITS | Clinical Summary ---
Author Organization [facility] Address [address] [place] [id number] Care Team Providers Care House Mover Name Role Phone Deborah Richmond NP Primary Care Provider [phone] Deborah Richmond NP Unavailable [phone] Allergies Active Allergy Reactions Criticality Noted Date Comments Adhesive Rash Low 11/22/2024 Amoxicillin Rash Low 11/22/2024 Childhood rash vs anaphylaxis Cefaclor Rash Low 11/22/2024 Clarithromycin Rash Low 11/22/2024 Homatropine Hives 11/22/2024 Hydrocodone Hives 11/22/2024 Morphine Other (See Comments) 11/22/2024 burning Sulfa (Sulfonamide Antibiotics) Rash Low 11/22/2024 Medications fluticasone propionate (ALLERGY RELIEF, FLUTICASONE,) 50 mcg/actuation nasal spray 2 sprays into each nostril 2 times a day as needed for rhinitis for up to 120 days. 2 sprays in each nostril once daily or 1 spray in each nostril twice daily as needed 1 each 3 5 Active clindamycin (CLEOCIN) 300 MG capsuleIndications :Cellulitis of left ankle Take 1 capsule (300 mg total) by mouth in the morning and 1 capsule (300 mg total) at noon and 1 capsule (300 mg total) in the evening and 1 capsule (300 mg total) before bedtime. Do all this for 5 days. Only take with worsening symptoms (ex. Expanding redness or swelling of the leg, fevers, redness at the site). 20 capsule 5 Active budesonide (PULMICORT) 0.5 mg/2 mL nebulizer solutionIndication s:Common variable immunodeficiency, predom immunoregulat T-cell disorder (CMS-HCC),Chronic rhinosinusitis,Spl enomegaly,Mediasti nal lymphadenopathy,In terstitial lung disease (CMS-HCC),Frequent infections,Asthma, unspecified asthma severity, unspecified whether complicated, unspecified whether persistent Mix 1 ampule in 8 ounces saline to irrigate the nasal sinuses once daily 60 mL 6 5 Active immun glob G,IgG,-pro-IgA 0-50 (HIZENTRA) 1 gram/5 mL (20 %) SolnIndications:Co mmon variable immunodeficiency, predom immunoregulat T-cell disorder (CMS-HCC),Chronic rhinosinusitis,Spl enomegaly,Mediasti nal lymphadenopathy,In terstitial lung disease (CMS-HCC),History of ITP,Frequent infections,Asthma, unspecified asthma severity, unspecified whether complicated, unspecified whether persistent Inject 12 g under the skin once a week. 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 11/22/2024 Morbid obesity with body mass index of 50.0-59.9 in adult 09/09/2019 Vulvar lesion 09/09/2019 Anxiety and depression 09/04/2019 Encounters Date Type Department Care Team Description 08/29/2025 Telephone Department of Allergy and [facility]ology [facility] [address] [place] [address] [phone] Analia Marley NP SCIG restart 07/26/2025 Telephone Department of Allergy and Immunology [facility] [address] [place] [address] [phone] Analia Marley NP SCIg restart 07/24/2025 Refill Department of Allergy and Immunology [facility] Allergy [address] [place] [phone] Anju Leo MD 07/18/2025 Telephone Department of Allergy and Immunology [facility]ergy [address] [place], [place] [phone] Analia Marley NP SCIg restart 07/02/2025 Refill Department of Allergy and Immunology [facility]ergy [address] [place] [address] Gi Robison MD PhD Common variable immunodeficiency, predom immunoregulat T-cell disorder (CMS-HCC); Chronic rhinosinusitis; Splenomegaly; Mediastinal lymphadenopathy; Interstitial lung disease (CMS-HCC); History of ITP; Frequent infections; Asthma, unspecified asthma severity, unspecified whether complicated, unspecified whether persistent 06/28/2025 2:15 PM EDT Lab [facility] [address] [place] [address] [address] [place] [address] Analia Marley NP Common variable immunodeficiency, predom immunoregulat T-cell disorder (CMS-HCC); Chronic rhinosinusitis; Splenomegaly; Mediastinal lymphadenopathy; Interstitial lung disease (CMS-HCC); Frequent infections 06/28/2025 1:00 PM EDT Office Visit Department of Allergy and Immunology [facility] [address] [place] [address] Analia Marley NP Common variable immunodeficiency, predom immunoregulat T-cell disorder (CMS-HCC) (Primary Dx); Chronic rhinosinusitis; Splenomegaly; Mediastinal lymphadenopathy; Interstitial lung disease (CMS-HCC); Frequent infections; Asthma, unspecified asthma severity, unspecified whether complicated, unspecified whether persistent; Cellulitis of left ankle from Last 3 Months Immunizations Immunization Administration Dates Next Due Pneumococcal Conjugate Vacci ne 20-valent (PCV20/Prevnar 20) 12/14/2024 Family History Medical History Relation Comments Asthma Father Hypertension Father Other Mental Health Issues Father Substance Use Father Coronary artery disease Mother Eczema Mother Lupus Mother Other Mental Health Issues Mother Thyroid cancer Mother Relation Status Comments Father Mother Social History Tobacco Use Types Packs/Day Years Used Date Smoking Tobacco: Every Day Cigarettes Smokeless Tobacco: Never Tobacco Cessation:Ready to Q uit: Not Asked; Counseling Given: Not Answered Comments Unknown Sex and Gender Information Value Date Recorded Sex Assigned at Female 08/01/2024 11:39 AM EST Legal Sex Male 2:50 PM EDT Gender Identity Male 08/01/2024 11:39 AM EST Sexual Orientation Not on file Last Filed Vital Signs Vital Sign Reading Time Taken Comments Blood Pressure 128/84 11/22/2024 9:28 AM EST Pulse 76 11/22/2024 9:28 AM EST Temperature - - Respiratory Rate - - Oxygen Saturation 97% 11/22/2024 9:28 AM EST Inhaled Oxygen Concentration - - Weight 120 kg (263 lb 12.8 oz) 12/14/2024 8:38 A M EDT Height 162.6 cm (5' 4 ) 07/24/2025 4:03 PM EDT Body Mass Index - - Plan of Treatment Upcoming Encounters Date Type Department Care Team (Late st Contact Info) Description 12/03/2025 9:00 AM EDT Office Visit Department of Allergy and Immunology [facility] [address] [place] [phone] Gi Robison MD PhD [address] [place] [phone] In Person with Physician Health Maintenance Due Date Last Done Comments COVID-19 Vaccine (#1) 1993 Depression Screening 2000 Hepatitis C Screening 2006 DTaP,Tdap,and Td Vaccines (1 - Tdap) 2007 Pap Smear 2009 Cervical Cancer Screening 2018 HPV/Cotest 2018 Influenza Vaccine (#1) 2025 Blood Pressure 11/22/2025 11/22/2024 Pneumococcal Vaccine Completed 12/14/2024 Meningococcal B Vaccines Aged Out No longer eligible based on patient's age to complete this topic Meningococcal Vaccines Aged Out No lo nger eligible based on patient's age to complete this topic Procedures Procedure Name Priority Date/Time Associated Diagnosis Comments CBC AND DIFFERENTIAL Routine 06/28/2025 2:39 PM EDT Common variable immunodeficiency, predom immunoregulat T-cell disorder (CMS-HCC) Chronic rhinosinusitis Splenomegaly Mediastinal lymphadenopathy Interstitial lung disease (CMS-HCC) Frequent infections CBC AND DIFFERENTIAL Routine 06/28/2025 2:39 PM EDT Common variable immunodeficiency, predom immunoregulat T-cell disorder (CMS-HCC) Chronic rhinosinusitis Splenomegaly Mediastinal lymphadenopathy Interstitial lung disease (CMS-HCC) Frequent infections COMPREHENSIVE METABOLIC PANEL Routine 06/28/2025 2:39 PM EDT Common variable immunodeficiency, predom immunoregulat T-cell disorder (CMS-HCC) Chronic rhinosinusitis Splenomegaly Mediastinal lymphadenopathy Interstitial lung disease (CMS-HCC) Frequent infections DIPHTHERIA AB Routine 06/28/2025 2:39 PM EDT Common variable immunodeficiency, predom immunoregulat T-cell disorder (CMS-HCC) Chronic rhinosinusitis Splenomegaly Mediastinal lymphadenopathy Interstitial lung disease (CMS-HCC) Frequent infections HAEMOPHILUS INFLUENZAE B ANTIBODY, IGG Routine 06/28/2025 2:39 PM EDT Common variable immunodeficiency, predom immunoregulat T-cell disorder (CMS-HCC) Chronic rhinosinusitis Splenomegaly Mediastinal lymphadenopathy Interstitial lung disease (CMS-HCC) Frequent infections IGG 1, 2, 3, AND 4 Routine 06/28/2025 2: 39 PM EDT Common variable immunodeficiency, predom immunoregulat T-cell disorder (CMS-HCC) Chronic rhinosinusitis Splenomegaly Mediastinal lymphadenopathy Interstitial lung disease (CMS-HCC) Frequent infections IGG, IGA, IGM QUANT Routine 06/28/2025 2 :39 PM EDT Common variable immunodeficiency, predom immunoregulat T-cell disorder (CMS-HCC) Chronic rhinosinusitis Splenomegaly Mediastinal lymphadenopathy Interstitial lung disease (CMS-HCC) Frequent infections STREPTOCOCCUS PNEUMO ANTIBODIES, IGG Routine 06/28/2025 2:39 PM EDT Common variable immunodeficiency, predom immunoregulat T-cell disorder (CMS-HCC) Chronic rhinosinusitis Splenomegaly Mediastinal lymphadenopathy Interstitial lung disease (CMS-HCC) Frequent infections TETANUS ANTIBODY, IGG Routine 06/28/2025 2:39 PM EDT Common variable immunodeficiency, predom immunoregulat T-cell disorder (CMS-HCC) Chronic rhinosinusitis Splenomegaly Mediastinal lymphadenopathy Interstitial lung disease (CMS-HCC) Frequent infections NAIVE AND MEMORY B & T CELLS Routine 06/28/2025 2:39 PM EDT Common variable immunodeficiency, predom immunoregulat T-cell disorder (CMS-HCC) Chronic rhinosinusitis Splenomegaly Mediastinal lymphadenopathy Interstitial lung disease (CMS-HCC) Frequent infections from Last 3 Months Results * (ABNORMAL) CBC and Differential (06/28/2025 2:39 PM EDT) Pathologist [facility] WBC 6.60 4.00 - 11.00 K/uL 06/28/2025 3:01 PM EDT [facility] RBC 5.62 4.10 - 5.90 M/uL 06/28/2025 3:01 PM EDT [facility] Hemoglobin 16.2 12.0 - 17.4 g/dL 06/28/2025 3:01 PM EDT [facility] Hematocrit 48.7 36.0 - 51.0 % 06/28/2025 3:01 PM EDT [facility] MCV 87 80 - 96 fL 06/28/2025 3:01 PM EDT [facility] RDW 12.9 11.6 - 14.6 % 06/28/2025 3:01 PM EDT [facility] Platelet Count 243 150 - 450 K/uL 06/28/2025 3:01 PM EDT [facility] Neutrophil 54.3 % 06/28/2025 3:01 PM EDT [facility] Lymphocyte 28.3 % 06/28/2025 3:01 PM EDT [facility] Monocyte 7.0 % 06/28/2025 3:01 PM EDT [facility] Eosinophil 8.3 % 06/28/2025 3:01 PM EDT [facility] Basophil 1.8 % 06/28/2025 3:01 PM EDT [facility] Immature Granulocyte (Brielle, Myelo, Promyelocyte) 0.3 % 06/28/2025 3:01 PM EDT [facility] Absolute Neutrophil Count 3.58 1.50 - 7.70 K/uL 06/28/2025 3:01 PM EDT [facility] Absolute Immature Granulocyte (Brielle, Myelo, Promyelocyte) 0.02 0.00 - 0.09 K/uL 06/28/2025 3:01 PM EDT [facility] Absolute Lymphocyte Count 1.87 1.20 - 3.50 K/uL 06/28/2025 3:01 PM EDT [facility] Absolute Monocyte Count 0.46 0.00 - 1.00 K/uL 06/28/2025 3:01 PM EDT [facility] Absolute Eosinophil Count 0.55(H) 0.00 - 0.40 K/uL 06/28/2025 3:01 PM EDT [facility] Absolute Basophil Count 0.12 0.00 - 0.20 K/uL 06/28/2025 3:01 PM EDT [facility] Differential Performed Auto Diff Reported 06/28/2025 3:01 PM EDT [facility] Blood PERIPHERAL BLOOD SPECIMEN / Unknown Venipuncture / Unknown 06/28/2025 2:39 PM EDT 06/28/2025 2:45 PM EDT Analia Marley NP LAB BLOOD ORDERABLES Final Resul t [place] [id number] * Strep pneumoniae Ab IgG 23 Serotypes (06/28/2025 2:39 PM EDT) Pathologist [facility] Interpretation Pneumococcal Ab See Note 07/01/2025 4:35 AM EDT [facility] Comment: INTERPRETIVE INFORMATION: Streptococcus pneumoniae Antibodies, IgG A pre- and postvaccination comparison is required to adequately assess the humoral immune response to the pure polysaccharide Pneumovax 23 (PNX) and/or the protein conjugated Prevnar 7 (P7), Prevnar 13 (P13), Prevnar 20 (P20), and Vaxneuvance (V15) Streptococcus pneumoniae vaccines. Prevaccination samples should be collected prior to vaccine administration. Postvaccination samples should be obtained at least 4 weeks after immunization. Testing of postvaccination samples alone will provide only general immune status of the individual to various pneumococcal serotypes. In the case of pure polysaccharide vaccine, indication of immune system competence is further delineated as an adequate response to at least 50 percent of the serotypes in the vaccine challenge for those 2-5 years of age and to at least 70 percent of the serotypes in the vaccine challenge for those 6-65 years of age. Individual immune response may vary based on age, past exposure, immunocompetence, and pneumococcal serotype. Responder Status Antibody Ratio Nonresponder ........... Less than twofold increase and postvaccination concentration less than 1.3 ug/mL Good responder ......... At least a twofold increase and/or a postvaccination concentration greater than or equal to 1.3 ug/mL A response to 50-70 percent or more of the serotypes in the vaccine challenge is considered a normal humoral response.(Franca, 2014) Antibody concentration greater than 1.0-1.3 ug/mL is generally considered long-term protection.(Franca, 2015) References: 1. Franca STEELE, Laura HUGHES, Haider X, et al. Multilaboratory assessment of threshold versus fold-change algorithms for minimizing analytical variability in multiplexed pneumococcal IgG measurements. Clin Vaccine Immunol. 2014;21(7):982-988. 2. Franca STEELE, Manny PATTON. Use and clinical interpretation of pneumococcal antibody measurements in the evaluation of humoral immune function. Clin Vaccine Immunol. 2015;22(2):148-152. This test was developed and its performance characteristics determined by [facility]. It has not been cleared or approved by the U.S. Food and Drug Administration. This test was performed in a CLIA-certified laboratory and is intended for clinical purposes. Performed By: [facility] [address] [place] [address] Archival Studies Professor: Faustino Grace MD, PhD CLIA Number: [id number] Pneumo Type 1 0.11 ug/mL 07/01/2025 4:35 AM EDT [facility] Pneumo Serotype 2 IgG <0.09 ug/mL 07/01/2025 4:35 AM EDT [facility] Pneumo Type 3 0.17 ug/mL 07/01/2025 4:35 AM EDT [facility] Pneumo Type 4 0.09 ug/mL 07/01/2025 4:35 AM EDT [facility] Pneumo Type 5 0.09 ug/mL 07/01/2025 4:35 AM EDT [facility] Pneumo Type 8 0.08 ug/mL 07/01/2025 4:35 AM EDT [facility] Pneumo Type 9N 0.09 ug/mL 07/01/2025 4:35 AM EDT [facility] Pneumo Type 12F 0.05 ug/mL 4:35 AM EDT [facility] Pneumo Type 14 0.14 ug/mL 07/01/2025 4:35 AM EDT [facility] Pneumo serotype 17F IgG <0.04 ug/mL 07/01/2025 4:35 AM EDT [facility] Pneumo Type 19F 0.54 ug/mL 4:35 AM EDT [facility] Pneumo Serotype 20 IgG 0.08 ug/mL 07/01/2025 4:35 AM EDT [facility] Pneumo serotype 22F IgG <0.03 ug/mL 07/01/2025 4:35 AM EDT [facility] Pneumo Type 23F 0.08 ug/mL 4:35 AM EDT [facility] Pneumo Type 6B 0.04 ug/mL 07/01/2025 4:35 AM EDT [facility] Pneumo serotype 10A IgG 0.05 ug/mL 07/01/2025 4:35 AM EDT [facility] Pneumo serotype 11A IgG 0.06 ug/mL 07/01/2025 4:35 AM EDT [facility] Pneumo Type 7F 0.13 ug/mL 07/01/2025 4:35 AM EDT [facility] Pneumo Serotype 15B IgG 0.13 ug/mL 07/01/2025 4:35 AM EDT [facility] Pneumo Type 18C 0.10 ug/mL 4:35 AM EDT [facility] Pneumo serotype 19A IgG 0.29 ug/mL 07/01/2025 4:35 AM EDT [facility] Pneumo Type 9V 0.08 ug/mL 07/01/2025 4:35 AM EDT [facility] Pneumo serotype 33F IgG 0.11 ug/mL 07/01/2025 4:35 AM EDT [facility] Blood PERIPHERAL BLOOD SPECIMEN / Unknown Venipuncture / Unknown 06/28/2025 2:39 PM EDT 06/28/2025 2:46 PM EDT us Analia Marley NP LAB BLOOD ORDERABLES Final Resul t [facility] [place] [address] * (ABNORMAL) Primary Immunodeficiency PanelPrimary Im (06/28/2025 2:39 PM EDT) CD3 T Cells 74.8 60.0 - 86.0 % [facility] T Helpers 55.7 32.0 - 70.0 % 07/02/2025 11:46 AM [facility] CD8 Suppressor/Cytot oxics 18.5 6.0 - 33.0 % 07/02/2025 11:46 AM [facility] CD19 B Cells 7.4 5.0 - 25.0 % 07/02/2025 11:46 AM [facility] CD 56/16 NK Cells 16.9 6.0 - 29.0 % 07/02/2025 11:46 AM [facility] ABS CD3 T Cells 1,397 >=850 cells/uL 07/02/2025 11:46 AM [facility] ABS CD4 T Helpers 1,040 >=550 cells/uL 07/02/2025 11:46 AM [facility] ABS CD8 Suppressor/Cytot oxics 346 >=300 cells/uL 07/02/2025 11:46 AM [facility] ABS CD19 B Cells 138(L) >=150 cells/uL 07/02/2025 11:46 AM [facility] ABS CD56/16 NK Cells 316 >=100 cells/uL 07/02/2025 11:46 AM [facility] Switched Memory B Cells 2.1(L) 5.0 - 32.0 % 07/02/2025 11:46 AM [facility] Nonswitched Memory B Cells 30.8 3.0 - 40.0 % 07/02/2025 11:46 AM [facility] Naive B Cells 66.4 30.0 - 85.0 % 07/02/2025 11:46 AM [facility] Th Naive Cells 14.1(L) 20.0 - 68.0 % 07/02/2025 11:46 AM [facility] Th Effector Memory Cells 60.5(H) 6.0 - 21.0 % 07/02/2025 11:46 AM [facility] Th Central Memory Cells 24.6 23.0 - 71.0 % 07/02/2025 11:46 AM [facility] Ts TEMRA Cells 36.3 3.0 - 43.0 % 07/02/2025 11:46 AM [facility] Ts Naive Cells 16.8 8.0 - 65.0 % 07/02/2025 11:46 AM [facility] Ts Effector Cells 39.8 14.0 - 63.0 % 07/02/2025 11:46 AM [facility] Ts Central Memory Cells 7.0 3.0 - 34.0 % 07/02/2025 11:46 AM [facility] ABS Switched Memory B Cells 3(L) 14 - 58 cells/uL 07/02/2025 11:46 AM [facility] ABS Nonswitched Memory B Cellls 43 8 - 58 cells/uL 07/02/2025 11:46 AM [facility] ABS Naive B Cells 92 58 - 244 cells/uL 07/02/2025 11:46 AM [facility] ABS Th Naive Cells 147 15 - 645 cells/uL 07/02/2025 11:46 AM [facility] ABS Th Effector Memory Cells 629(H) 47 - 247 cells/uL 07/02/2025 11:46 AM [facility] ABS Central Memory Cells 256(L) 287 - 734 cells/uL 07/02/2025 11:46 AM [facility] ABS Ts TEMRA Cells 126 7 - 174 cells/uL 07/02/2025 11:46 AM [facility] ABS Ts Naive Cells 58 31 - 279 cells/uL 07/02/2025 11:46 AM [facility] ABS Ts Effector Cells 138 71 - 385 cells/uL 07/02/2025 11:46 AM [facility] ABS Ts Central Memory Cells 24 16 - 128 cells/uL 07/02/2025 11:46 AM [facility] H/S Ratio 3.0(H) 1.0 - 2.9 07/02/2025 11:46 AM EDT [facility] ACTIVATED TOTAL B CELLS 27.4(H) 0 - 24 % 07/02/2025 11:46 AM EDT [facility] ACTIVATED SWITCHED MEMORY B CELLS 51.6(H) 2 - 48 % 07/02/2025 11:46 AM EDT [facility] ACTIVATED NON-SWITCHED MEMORY B CELLS 61(H) 2 - 32 % 07/02/2025 11:46 AM EDT [facility] ACTIVATED NAIVE B CELLS 10.6 0 - 16 % 07/02/2025 11:46 AM EDT [facility] Blood PERIPHERAL BLOOD SPECIMEN / Unknown Venipuncture / Unknown 06/28/2025 2:39 PM EDT 06/28/2025 2:46 PM EDT us Analia Marley NP LAB BLOOD ORDERABLES Final Resul t [place] [id number] * Haemophilus influenzae b Antibody, IgG (06/28/2025 2:39 PM EDT) [facility] Haemophilus influenzae b Antibody, IgG 0.1 ug/mL 06/30/2025 5:10 PM EDT [facility] Comment: INTERPRETIVE INFORMATION: H. Influenzae b Ab, IgG Less than 1.0 ug/mL ...... Antibody concentration not protective. 1.0 ug/mL or greater ..... Antibodies to H. Influenzae b detected. Suggestive of protection. Responder status is determined according to the ratio of post-vaccination concentration to pre-vaccination concentration of Haemophilus influenza b antibody, IgG as follows: 1. If the post-vaccination concentration is less than 3.0 ug/mL, the patient is considered to be a non-responder. 2. If the post-vaccination concentration is greater than or equal to 3.0 ug/mL, a patient with a ratio of greater than or equal to 4 is a good responder, a ratio of 2-4 is a weak responder, and a ratio of less than 2 is considered a non-responder. This test was developed and its performance characteristics determined by [facility]. It has not been cleared or approved by the [place] Food and Drug Administration. This test was performed in a CLIA certified laboratory and is intended for clinical purposes. Performed By: [facility] [address] [place] [id number] Archival Studies Professor: Faustino Grace MD, PhD CLIA Number: [id number] Blood PERIPHERAL BLOOD SPECIMEN / Unknown Venipuncture / Unknown 06/28/2025 2:39 PM EDT 06/28/2025 2:46 PM EDT Analia Marley NP LAB BLOOD ORDERABLES Final Resul t [address] [id number] * Diphtheria Antibody (06/28/2025 2:39 PM EDT) Pathologist [facility] Diphtheria Antibody 0.1 IU/mL 06/30 12:04 AM EDT [facility] Comment: INTERPRETIVE INFORMATION: Diphtheria Ab, IgG Antibody concentration of greater than 0.1 IU/mL is usually considered protective. Responder status is determined according to the ratio of a one month post-vaccination sample to pre-vaccination concentrations of Diphtheria IgG Abs as follows: 1. If the one month post-vaccination concentration is less than 1.0 IU/mL, the patient is considered to be a non-responder. 2. If the post-vaccination concentration is greater than or equal to 1.0 IU/mL, a patient with a ratio of less than 1.5 is a non-responder, a ratio of 1.5 to less than 3.0, a weak responder, and a ratio of 3.0 or greater, a good responder. 3. If the pre-vaccination concentration is greater than 1.0 IU/mL, it may be difficult to assess the response based on a ratio alone. A post-vaccination concentration above 2.5 IU/mL in this case is usually adequate. This test was developed and its performance characteristics determined by [facility]. It has not been cleared or approved by the [place] Food and Drug Administration. This test was performed in a CLIA certified laboratory and is intended for clinical purposes. Performed By: [facility] [address] [place] [id number] Archival Studies Professor: Faustino Grace MD, PhD CLIA Number: [id number] Blood PERIPHERAL BLOOD SPECIMEN / Unknown Venipuncture / Unknown 06/28/2025 2:39 PM EDT 06/28/2025 2:47 PM EDT Analia Marley NP LAB BLOOD ORDERABLES Final Resul t Performing Organization Address City/[facility]/ZIP Co de Phone Number [address] [phone] * Tetanus Antibody, IgG (06/28/2025 2:39 PM EDT) [facility] Tetanus Antibody 0.19 IU/mL 07/03/20 9:00 PM EDT [facility] Comment: Reference range (Healthy Immunized): 0.10 IU/mL or greater Antibody levels of >= 0.10 IU/mL are considered protective. However, tetanus can still occur in some individuals with such antibody levels. These results should not be used to determine the necessity to administer antitoxin when clinically indicated. This test was developed and its analytical performance characteristics have been determined by [employer] [place], [place]. It has not been cleared or approved by the U.S. Food and Drug Administration. This assay has been validated pursuant to the CLIA regulations and is used for clinical purposes. Blood PERIPHERAL BLOOD SPECIMEN / Unknown Venipuncture / Unknown 06/28/2025 2:39 PM EDT 06/28/2025 2:46 PM EDT Narrative [facility] - 07/03/2025 9:00 PM EDT Performing Organization Information: Site ID: [id number] Name: [facility] Address: [address] [place] [address] Director: ESME TOWNSEND MD,PHD Analia Marley NP LAB BLOOD ORDERABLES Final Resul t [facility] [address] [place] [address], * (ABNORMAL) IgG 1, 2, 3, and 4 (06/28/2025 2:39 PM EDT) IgG 1 53(L) 382 - 929 mg/dL 07/02/2025 1:00 PM EDT [facility] IgG 2 34(L) 241 - 700 mg/dL 07/02/2025 1:00 PM EDT [facility] IgG 3 2(L) 22 - 178 mg/dL 07/02/2025 1:00 PM EDT [facility] IgG 4 0.8(L) 4 - 86 mg/dL 07/02/2025 1:00 PM EDT [facility] IgG (IgG Subclasses) 102(L) 600 - 1640 mg/dL 07/02/2025 1:00 PM EDT [facility] Blood PERIPHERAL BLOOD SPECIMEN / Unknown Venipuncture / Unknown 06/28/2025 2:39 PM EDT 06/28/2025 2:46 PM EDT Narrative [facility] - 07/02/2025 1:00 PM EDT Performing Organization Information: Site ID: [id number] Name: [employer] Address: [address] [place] [id number] Director: BALBIR BLOCK MD Analia Marley NP LAB BLOOD ORDERABLES Final Resul t [address] [address], * (ABNORMAL) IgG, IgA, IgM Quantitative (06/28/2025 2:39 PM EDT) IgG, Blood 111(L) 750 - 1,400 mg/dL 06/29/2025 11:38 AM EDT [facility] IgA, Blood <26(L) 75 - 310 mg/dL 06/29/2025 11:38 AM EDT [facility] IgM, Blood <25(L) 50 - 200 mg/dL 06/29/2025 11:38 AM EDT [facility] Blood PERIPHERAL BLOOD SPECIMEN / Unknown Venipuncture / Unknown 06/28/2025 2:39 PM EDT 06/28/2025 2:46 PM EDT us Analia Marley NP LAB BLOOD ORDERABLES Final Resul t [place] [id number] * Comprehensive Metabolic Panel (06/28/2025 2:39 PM EDT) Sodium 142 135 - 146 mmol/L [address] 06/28/2025 3:30 PM EDT [facility] Potassium 4.0 3.4 - 5.2 mmol/L [address] 06/28/2025 3:30 PM EDT [facility] Comment:Plasma sample Chloride 106 98 - 110 mmol/L [address] 06/28/2025 3:30 PM EDT [facility] Total CO2/Bicarbonate 26 24 - 32 mmol/L [address] 06/28/2025 3:30 PM EDT [facility] Anion Gap 10 2 - 15 mmol/L [address] 06/28/2025 3:30 PM EDT [facility] Anion Gap [address] 06/28/2025 3:30 PM EDT [facility] BUN 10 7 - 24 mg/dL [address] 06/28/2025 3:30 PM EDT [facility] Creatinine, Blood 1.11 0.50 - 1.30 mg/dL [address] 06/28/2025 3:30 PM EDT [facility] Glucose, Blood 89 70 - 118 mg/dL [address] 06/28/2025 3:30 PM EDT [facility] Calcium 9.0 8.5 - 10.5 mg/dL [address] 06/28/2025 3:30 PM EDT [facility] Total Protein 6.5 6.2 - 8.2 g/dL [address] 06/28/2025 3:30 PM EDT [facility] Albumin, Blood 4.0 3.4 - 5.2 g/dL [address] 06/28/2025 3:30 PM EDT [facility] Globulin Result 2.5 2.0 - 4.0 g/dL [address] 06/28/2025 3:30 PM EDT [facility] AST (SGOT) 25 11 - 40 U/L [address] 06/28/2025 3:30 PM EDT [facility] ALT (SGPT) 31 4 - 40 U/L [address] 06/28/2025 3:30 PM EDT [facility] Alkaline Phosphatase 78 30 - 115 U/L [address] 06/28/2025 3:30 PM EDT [facility] Total Bilirubin 0.5 0.0 - 1.2 mg/dL [address] 06/28/2025 3:30 PM EDT [facility] Estimated GFR(CKD-EPI) 88 >=60 mL/min/BS A [address] 06/28/2025 3:30 PM EDT [facility] Comment:This Cr-based equati on underestimates GFR in patients with increased muscle mass. Order CYSTATIN C WITH GFR ESTIMATE, [id number], if additional evaluation of renal function is needed. Blood PERIPHERAL BLOOD SPECIMEN / Unknown Venipuncture / Unknown 06/28/2025 2:39 PM EDT 06/28/2025 2:46 PM EDT us Analia Marley NP LAB BLOOD ORDERABLES Final Resul t [address] [id number] from Last 3 Months Insurance [facility] Care Teams House Mover Relationship Specialty Start Date End Date Deborah Richmond NP [address] [place] [address] [phone] PCP - General Nurse Practitioner 12/14/24 Deborah Richmond NP [address] [place] [address] [phone] PCP - Insurance Assigned PCP 05/28/25
[2025-09-21 12:08] LABS: MANUAL DIFF FLAG NO
[2025-09-21 12:20] LABS: Hematocrit 51.7 % (42.0-52.0); Hemoglobin 17.1 g/dl (14.0-18.0); Imm Gran Abs Auto 0.07 X10*3/uL (0.00-0.03); Imm Gran Pct Auto 0.6 % (0.0-0.4); Lymphocytes Absolute Auto 2.4 X10*3/uL (1.2-4.9); Mean Corpuscular HGB Conc 33.1 g/dl (31.0-36.0); Mean Corpuscular Hemoglobin 28.8 pg (27.0-33.0); Mean Corpuscular Volume 87.0 fL (80.0-98.0); NRBC Abs Auto 0.000 X10*3/uL (0.0-0.012); NRBC Pct Auto 0.0 /100WBC (0.0-0.2); Platelet Count 298 X10*3/uL (160-400); Red Blood Count 5.94 X10*6/uL (4.60-5.80); Strep A Nucleic Acid Negative (Negative); White Blood Count 12.6 X10*3/uL (4.8-10.8)
[2025-09-21 12:26] LABS: Alanine Aminotransferase 45 U/L (0-40); Albumin Level 4.2 g/dL (3.5-5.0); Alkaline Phosphatase 86 U/L (39-117); Anion Gap 10 (12-20); Aspartate Amino Transferase 26 U/L (5-37); Blood Urea Nitrogen 16 mg/dL (9-16); Calcium 9.1 mg/dL (8.4-10.2); Carbon Dioxide 28 mmol/L (22-29); Chloride 109 mmol/L (96-108); Creatinine Clr Calc Pharmacy 109.6; Estimated Glomerular Filt Rate > 60; Potassium 3.7 mmol/L (3.3-5.1); Sodium 143 mmol/L (135-145); Total Protein 5.7 g/dL (6.5-8.0)
[2025-09-21 12:53] LABS: Resp Syncy Virus RNA Qual PCR NEGATIVE (Negative); SARS COV2 PCR INHOUSE NEGATIVE (Negative)
[2025-09-21 13:41] VITALS: BP 171/87; PULSE 69; RESP 20; TEMP 36.6; O2SAT 96
== END 2025-09-21 13:41 | disposition home or self-care (01) ==
PROVIDERS: Physician Assistant; Emergency Provider Emergency Medicine; PCP Nurse Practitioner Family
DX: J06.9 Acute upper respiratory infection, unspecified (principal); J84.9 Interstitial pulmonary disease, unspecified; E66.9 Obesity, unspecified; Z68.41 Body mass index [BMI] 40.0-44.9, adult; F64.0 Transsexualism; D69.3 Immune thrombocytopenic purpura; Z79.899 Other long term (current) drug therapy; Z03.818 Encounter for observation for suspected exposure to other biological agents ruled out
CPT/HCPCS: 71046; 80048; 80076; 85025; 87637; 87651; 99282; 99283